=== PATIENT | female | born 1940 | race Caucasian/White ===

== ENCOUNTER 2020-04-30 12:16 | Outpatient (REF) | payer MEDICARE, SELFPAY ==
[2020-04-30 14:13] LABS: INTERNATIONAL NORM RATIO 2.3 (0.9-1.1)
== END 2020-04-30 12:17 | disposition home or self-care (01) ==
LOC: HO.HMGCLR 12:16
PROVIDERS: PCP Internal Medicine; Visit Provider Internal Medicine
DX: I48.91 Unspecified atrial fibrillation (principal)
CPT/HCPCS: 36415; 85610

== ENCOUNTER 2020-05-30 13:40 | Outpatient (REF) | payer MEDICARE, SELFPAY ==
[2020-05-30 16:50] LABS: INTERNATIONAL NORM RATIO 2.8 (0.9-1.1); Prothrombin Time 33.1 SEC (10.8-13.0)
== END 2020-05-30 13:41 | disposition home or self-care (01) ==
LOC: HO.HMGCLR 13:40
PROVIDERS: PCP Internal Medicine; Visit Provider Internal Medicine
DX: I48.91 Unspecified atrial fibrillation (principal)
CPT/HCPCS: 36415; 85610

== ENCOUNTER 2020-07-09 09:18 | Outpatient (REF) | payer MEDICARE, SELFPAY ==
[2020-07-09 11:22] LABS: INTERNATIONAL NORM RATIO 2.4 (0.9-1.1)
== END 2020-07-09 09:19 | disposition home or self-care (01) ==
LOC: HO.HMGCLDS 09:18
PROVIDERS: PCP Internal Medicine; Visit Provider Internal Medicine
DX: I48.91 Unspecified atrial fibrillation (principal); Z79.01 Long term (current) use of anticoagulants
CPT/HCPCS: 36415; 85610

== ENCOUNTER 2020-07-16 10:05 | Outpatient (REF) | payer MEDICARE, SELFPAY ==
[2020-07-16 11:36] LABS: INTERNATIONAL NORM RATIO 1.6 (0.9-1.1); Prothrombin Time 19.1 SEC (10.8-13.0)
== END 2020-07-16 10:06 | disposition home or self-care (01) ==
LOC: HO.HMGCLR 10:05
PROVIDERS: PCP Internal Medicine; Visit Provider Internal Medicine
DX: I48.91 Unspecified atrial fibrillation (principal)
CPT/HCPCS: 36415; 85610

== ENCOUNTER 2020-07-23 11:12 | Outpatient (REF) | payer MEDICARE, SELFPAY ==
[2020-07-23 14:18] LABS: INTERNATIONAL NORM RATIO 2.7 (0.9-1.1); Prothrombin Time 32.6 SEC (10.8-13.0)
== END 2020-07-23 11:13 | disposition home or self-care (01) ==
LOC: HO.HMGCLDS 11:12
PROVIDERS: PCP Internal Medicine; Visit Provider Internal Medicine
DX: I48.91 Unspecified atrial fibrillation (principal)
CPT/HCPCS: 36415; 85610

== ENCOUNTER 2021-02-26 09:06 | Outpatient (REF) | payer MEDICARE, SELFPAY ==
--- NOTE | ~2021-02-26 | MM_ITS ---
EXAMINATION: MM SCREENING DIGITAL BREAST TOMOSYNTHESIS, BILATERAL CLINICAL INFORMATION: Screening. Asymptomatic. The lifetime risk of breast cancer based on the Tyrer-Cuzick Model is 2%. COMPARISON: Mammography: 02/06/2020, 01/31/2019, 11/05/2017 TECHNIQUE: Digital breast tomosynthesis is performed in both the craniocaudal and mediolateral oblique views along with computer-aided detection (CAD). Synthesized 2D images are generated from the tomosynthesis. Additional left MLO view is provided. FINDINGS: The breasts are heterogeneously dense, which may obscure small masses (ACR BI-RADS breast composition Category c). Breast tissue composition pattern borders on extremely dense. There is no mass or architectural abnormality or abnormal calcifications. Pacemaker generator overlies and partly obscures left axilla on MLO view. There are no significant changes from prior studies. MM/MM tomosynthesis screening BI IMPRESSION: No mammographic evidence of malignancy. ASSESSMENT: BI-RADS 1: Negative RECOMMENDATION: Routine annual mammography screening. This patient's information was entered into a reminder system with a target due date for their next mammogram.
== END 2021-02-26 09:07 | disposition home or self-care (01) ==
LOC: HO.MAMMO 09:06
PROVIDERS: PCP Internal Medicine; Visit Provider Internal Medicine
DX: Z12.31 Encounter for screening mammogram for malignant neoplasm of breast (principal)
CPT/HCPCS: 77063; 77067

== ENCOUNTER 2021-04-07 14:08 | Outpatient (REF) | payer MEDICARE, SELFPAY ==
[2021-04-07 16:49] LABS: Prothrombin Time 34.4 SEC (9.9-13.0)
== END 2021-04-07 14:09 | disposition home or self-care (01) ==
LOC: HO.HMGCLR 14:08
PROVIDERS: PCP Internal Medicine; Visit Provider Internal Medicine
DX: I48.91 Unspecified atrial fibrillation (principal)
CPT/HCPCS: 36415; 85610

== ENCOUNTER → 2021-05-19 14:56 | Outpatient (BNVA) | payer MEDICARE, SELFPAY | PROVIDERS: PCP Internal Medicine; Referring Provider Internal Medicine; Visit Provider Internal Medicine Cardiovascular Disease | DX: Z45.018 Encounter for adjustment and management of other part of cardiac pacemaker (principal); Z45.010 Encounter for checking and testing of cardiac pacemaker pulse generator [battery]; I48.0 Paroxysmal atrial fibrillation; I35.0 Nonrheumatic aortic (valve) stenosis; Z95.2 Presence of prosthetic heart valve | CPT/HCPCS: 93005; 99202 ==

== ENCOUNTER 2021-05-25 11:45 | Outpatient (REF) | payer MEDICARE, SELFPAY ==
[2021-05-25 14:05] LABS: INTERNATIONAL NORM RATIO 2.2 (0.9-1.1); Prothrombin Time 24.9 SEC (9.9-13.0)
== END 2021-05-25 11:46 | disposition home or self-care (01) ==
LOC: HO.HMGCLDS 11:45
PROVIDERS: Visit Provider Internal Medicine
DX: I48.91 Unspecified atrial fibrillation (principal)
CPT/HCPCS: 36415; 85610

== ENCOUNTER 2021-05-29 10:52 | Day surgery (SDC) | payer MEDICARE, SELFPAY ==
--- NOTE | 2021-05-28 14:40 | P.CONAN_ITS ---
Documented by User: Estela Sinclair NP 05/28/21 14:43 HPI - Anesthesia Eval Consult details Narrative: 81yo F for Pacemaker Generator Change Pacer in situ for SSS Coumadin for PAF PMFSH Active Problems Active Problems: All Active Problems (Updated 05/28/21 @ 14:26 by Nadine Lowe PA-C) Cardiac pacemaker in situ (Acute ~2009) Paroxysmal atrial fibrillation (Acute) Current use of shelter anticoagulation (Acute) Aortic stenosis (Acute) H/O mitral valve replacement (Acute ~1996) HTN (hypertension) (Acute) Mixed hyperlipidemia (Acute) Elective replacement indicated for cardiac pacemaker battery at end of lifespan (Acute) Past Medical History Medical History Aortic stenosis Cardiac pacemaker in situ (~2009) Current use of terminal gauger supervisor anticoagulation H/O mitral valve replacement (~1996) HTN (hypertension) Mixed hyperlipidemia Osteoporosis (~2005) Paroxysmal atrial fibrillation Sick sinus syndrome (~2009) Family History Family History Father No problems noted. Mother No problems noted. Surgical History Surgical History History of cardiac pacemaker (~2009) History of kyphoplasty (~2011) History of meniscectomy of right knee (~2012) History of mitral valve repair (~1992) History of mitral valve replacement (~1996) History of right knee surgery (~2017) History of ventral hernia repair Social History Social History Patient Tobacco Use Status: Never used Tobacco Second Hand Smoke Exposure: No Use of substances other than those prescribed or required for medical reasons: No Are you DNR?: No Advance Directives: No Advance Directives Information Provided: Yes Advance Directives on File: No Meds Allergies Allergy/AdvReac Type Severity Reaction Status Date / Time Sulfa (Sulfonamide Allergy Unknown UNKNOWN - Verified 05/29/21 11:33 Antibiotics) DOES NOT REMEMBER Home Medications Medication Instructions Recorded Confirmed Last Taken Type alendronate 70 mg tablet 70 mg PO QWEEK 05/19/21 05/19/21 Unknown History cholecalciferol (vitamin D3) 25 25 mcg PO DAILY 05/19/21 05/19/21 Unknown History mcg (1,000 unit) capsule metoprolol tartrate 50 mg tablet 50 mg PO BID 05/19/21 05/19/21 05/29/21 History multivitamin (Daily Multi-Vitamin) 1 tab PO DAILY 05/19/21 05/19/21 Unknown History pravastatin 40 mg tablet 40 mg PO DAILY 05/19/21 05/19/21 Unknown History valsartan 160 mg tablet 160 mg PO DAILY 05/19/21 05/19/21 05/29/21 History vitamin B complex (B 1 tab PO DAILY 05/19/21 05/19/21 Unknown History Complex-Vitamin B12) warfarin 2.5 mg tablet 2.5 mg PO DAILY 05/19/21 05/19/21 05/28/21 17:00 History Exam Exam Date and Time: May 28, 2021 1440 Narrative Narrative: ECHO per cardiac ov note normal LVEF of 50-55% with severely dilated left atrium.? There is mild-to-mo derate aortic stenosis with mean gradient of 17 mmHg.? She had moderate to severe tricuspid regurgitation and [id number] pulmonary hypertension.? Mechanical mitral valve, read as showing moderate to severe mitral regurgitation Pacer Interr 12/2020 Medtronic DDD Pacer Mode VVIR - 60 HYDRAULIC TESTER 99.7% Battery life 5 months Assessment and Plan Assessment Anesthesia Assessment: Chart Reviewed Documented by User: Chey Wilkins MD 05/29/21 12:41 [facility] Past Medical History Medical History Aortic stenosis Cardiac pacemaker in situ (~2009) Current use of terminal gauger supervisor anticoagulation H/O mitral valve replacement (~1996) HTN (hypertension) Mixed hyperlipidemia Osteoporosis (~2005) Paroxysmal atrial fibrillation Sick sinus syndrome (~2009) Family History Family History Father No problems noted. Mother No problems noted. Surgical History Surgical History History of cardiac pacemaker (~2009) History of kyphoplasty (~2011) History of meniscectomy of right knee (~2012) History of mitral valve repair (~1992) History of mitral valve replacement (~1996) History of right knee surgery (~2017) History of ventral hernia repair History of Problems with Anesthesia: No Social History Social History Patient Tobacco Use Status: Never used Tobacco Second Hand Smoke Exposure: No Use of substances other than those prescribed or required for medical reasons: No Are you DNR?: No Advance Directives: No Advance Directives Information Provided: Yes Advance Directives on File: No Meds Allergies Allergy/AdvReac Type Severity Reaction Status Date / Time Sulfa (Sulfonamide Allergy Unknown UNKNOWN - Verified 05/29/21 11:33 Antibiotics) DOES NOT REMEMBER Home Medications Medication Instructions Recorded Confirmed Last Taken Type alendronate 70 mg tablet 70 mg PO QWEEK 05/19/21 05/19/21 Unknown History cholecalciferol (vitamin D3) 25 25 mcg PO DAILY 05/19/21 05/19/21 Unknown History mcg (1,000 unit) capsule metoprolol tartrate 50 mg tablet 50 mg PO BID 05/19/21 05/19/21 05/29/21 History multivitamin (Daily Multi-Vitamin) 1 tab PO DAILY 05/19/21 05/19/21 Unknown History pravastatin 40 mg tablet 40 mg PO DAILY 05/19/21 05/19/21 Unknown History valsartan 160 mg tablet 160 mg PO DAILY 05/19/21 05/19/21 05/29/21 History vitamin B complex (B 1 tab PO DAILY 05/19/21 05/19/21 Unknown History Complex-Vitamin B12) warfarin 2.5 mg tablet 2.5 mg PO DAILY 05/19/21 05/19/21 05/28/21 17:00 History Exam Airway Mallampati Class: II (Edentulous) TM Dist: >3cm Neck ROM: Full Denture: Upper and Lower Loose/Missing/Broken Teeth: Yes, Upper and Lower Heart: RRR Lungs: CTA Assessment and Plan Assessment Anesthesia Assessment: Anesthesia Plan Discussed Final Anesthetic Review History of Problems with Anesthesia: No NPO: Yes ASA Class: III Final Preanesthetic Review: Meds/Allgs Chart Reviewed, Consent Obtained/Reviewed and Anes Risks/Benef Reviewed Patient Risk: Intermediate Procedure Risk: Low Anesthetic Plan Anesthetic Plan: MAC: Disposition: Standard PACU
[2021-05-29 11:14] VITALS: BMI 23.1
[2021-05-29 11:24] VITALS: BP 157/60; PULSE 60; RESP 16; TEMP 36.1; O2SAT 96
[2021-05-29 11:30] LABS: INTERNATIONAL NORM RATIO 2.6 (0.9-1.1); Prothrombin Time 30.3 SEC (9.9-13.0)
[2021-05-29] MEDS: Lactated Ringers 1,000 ML 50 ML IVCONT (11:36)
--- NOTE | 2021-05-29 12:03 | MHC.SHP ---
Pre-Procedural Eval Section A Date of Service: 05/29/21 Section B Chief Complaint: paroxysmal afib,prosthetic heart valve Allergies: Allergies Allergy/AdvReac Type Severity Reaction Status Date / Time Sulfa (Sulfonamide Allergy Unknown UNKNOWN - Verified 05/29/21 11:33 Antibiotics) DOES NOT REMEMBER Plan I have reviewed the history and physical and performed a pertinent physical examination on my patient. No changes have occurred unless specified.
--- NOTE | 2021-05-29 13:31 | W.PM.OPN ---
Operative Note Operative Note Date of Service: 05/29/21 Narrative: Preoperative diagnosis: Pacemaker end of life Postoperative diagnosis: Same Operation: Dual-chamber pacemaker generator change Surgeon: Myron Mcdowell MD Anesthesia: Local with sedation Specimens: None EBL: Minimal Operative findings: The generator were removed was a[Medtronic] with serial number[]. the implanted generator was a Medtronic serial number [id number]. Pacemaker lead parameters were in the atrial lead[ impedance 416 Ohms in atrial flutter with flutter wave 0.3 mV]. In the ventricular lead[ unipolar threshold 1.25 volts at 0.4 milliseconds with an impedance of 418 Ohms and an R-wave of 4.9 mV. This was much better than the threshold at bipolar which was 1.75 volts at 0.4 milliseconds. The ventricular lead was therefore set to unipolar mode]. Patient tolerated the procedure well. Operation in detail: The patient was brought the operating room, placed supine on the operative table, anesthesia monitoring devices were placed, and the patient was gently sedated. The left infraclavicular area was then prepped and draped in a standard sterile fashion and a time-out was performed confirming the correct patient, site, and procedure. After injection of local anesthetic, a 3 cm incision was made directly over the old pacemaker generator which was palpable. This was carried down with combination of sharp dissection and minimal electrocautery to open up the capsule at the generator was within. The generator was were then removed from its pocket and the leads were taken out of the receptacles and placed directly into the new generator. These leads were then tested and were working appropriately. The pocket was then copiously irrigated with antibiotic solution and the excess wire and generator were then placed back into the pocket. The wound was then closed with a deep running 3-0 Vicryl suture followed by running 3-0 Vicryl suture and Dermabond glue on the skin. Patient tolerated the procedure well. Patient was then awoken from anesthesia and brought to the recovery room in stable condition.
[2021-05-29 13:38] VITALS: BP 141/57; PULSE 60; RESP 16; TEMP 36.2; O2SAT 99
[2021-05-29 13:56] VITALS: BP 148/56; PULSE 60; RESP 16; TEMP 36.2; O2SAT 100
== END 2021-05-29 14:34 | disposition home or self-care (01) ==
PROVIDERS: Nurse Practitioner; PCP Internal Medicine; Visit Provider Surgery
PROC: (CPT 33228; principal; 2021-05-29 12:30)
DX: Z45.010 Encounter for checking and testing of cardiac pacemaker pulse generator [battery] (principal); I48.0 Paroxysmal atrial fibrillation; I49.5 Sick sinus syndrome; I35.0 Nonrheumatic aortic (valve) stenosis; I27.20 Pulmonary hypertension, unspecified; I10 Essential (primary) hypertension; I07.1 Rheumatic tricuspid insufficiency; I05.0 Rheumatic mitral stenosis; Z95.2 Presence of prosthetic heart valve; Z79.01 Long term (current) use of anticoagulants; Z79.899 Other long term (current) drug therapy; Z88.2 Allergy status to sulfonamides
CPT/HCPCS: 33228; 36415; 85610; C1785; J2370; J3370; Q9967

== ENCOUNTER → 2021-06-12 10:27 | Outpatient (BNVA) | payer MEDICARE, SELFPAY | PROVIDERS: PCP Internal Medicine; Visit Provider Surgery | DX: Z45.018 Encounter for adjustment and management of other part of cardiac pacemaker (principal); Z79.899 Other long term (current) drug therapy; Z79.01 Long term (current) use of anticoagulants | CPT/HCPCS: 99212 ==

== ENCOUNTER → 2021-07-03 10:56 | Outpatient (BNVA) | payer MEDICARE, SELFPAY | PROVIDERS: PCP Internal Medicine; Visit Provider Surgery | DX: L76.32 Postprocedural hematoma of skin and subcutaneous tissue following other procedure (principal); T81.89XD Other complications of procedures, not elsewhere classified, subsequent encounter; Z79.899 Other long term (current) drug therapy; Z95.0 Presence of cardiac pacemaker | CPT/HCPCS: 99212 ==

== ENCOUNTER 2021-07-27 08:24 | Outpatient (REF) | payer MEDICARE, SELFPAY ==
[2021-07-27 11:51] LABS: INTERNATIONAL NORM RATIO 2.1 (0.9-1.1); Prothrombin Time 24.7 SEC (9.9-13.0)
== END 2021-07-27 08:25 | disposition home or self-care (01) ==
LOC: HO.HMGCLDS 08:24
PROVIDERS: Visit Provider Internal Medicine
DX: I48.91 Unspecified atrial fibrillation (principal)
CPT/HCPCS: 36415; 85610

== ENCOUNTER → 2021-08-05 15:12 | Outpatient (REF) | payer MEDICARE, SELFPAY ==
--- NOTE | 2021-08-05 15:15 | CA_ITS ---
Transthoracic Echocardiogram Patient (Last, First, Middle): Bethany Viveros M Gender: Female Date of : 1940 Age: 81 Procedure Date: 08/05/2021 Procedure Type: Transthoracic Echocardiogram Location: OP Height: 149.86 cm Weight: 53.98 kg BSA: 1.48 m2 Heart Rate: bpm BP: 182 / 84 mmHg Subscription Crew Leader: MEGAN Referring MD: Agustin Luke MD Allopathic Doctor: Agustin Luke MD Symptoms: I35.0 - Nonrheumatic aortic (valve) stenosis Study Quality: Good ECG Rhythm: Ventriculary paced rhythm Conclusions: - 1. Normal LV systolic function with LVEF of 55-60% 2. Severely dilated left atrium 3. Normally functioning mechanical mitral valve with mean gradient of 3 mmHg 4. Possible moderate aortic stenosis 5. Moderately elevated right ventricular systolic pressure 6. No gross pericardial effusion Findings Left Ventricle Normal left ventricular size, thickness, and systolic function. The visually estimated ejection fraction is between 55-60%. There is paradoxical septal motion consistent with a right ventricular pacemaker. Spectral Doppler is indicative of a pseudonormal filling pattern. Right Ventricle Moderately increased right ventricular cavity size. There is mildly decreased right ventricular systolic function. Atria The left atrium is severely dilated. There is no evidence of interatrial shunt. The right atrium is moderately dilated. Aortic Valve There is mild calcification of the aortic valve. There is moderate thickening of the aortic valve. There is moderate aortic valve stenosis. The peak aortic gradient is 24 mmHg.The mean gradient is 12 mmHg. There is mild aortic valve regurgitation. Measured gradient across aortic valve are low although calculated valve area is in the severe range. Dimensionless index is 0.32. This is more consistent with probably moderate stenosis Mitral Valve A mechanical prosthetic mitral valve is present. The prosthetic mitral valve appears to be functioning normally. The mitral valve was not well visualized. The mean mitral valve gradient is 3.00 mmHg. Tricuspid Valve Likely normal tricuspid valve structure and function. There is mild to moderate tricuspid valve regurgitation. The right ventricular systolic pressure is normal. Moderate pulmonary hypertension is present. Great Vessels All visible segments of the aorta are normal in size. The pulmonary artery was not well visualized. Venous The inferior vena cava is normal in size and collapses greater than 50% with inspiration. Pericardium/Pleural There is no evidence of pericardial effusion. Prior Study Comparison No significant change compared to prior study dated: 04/02/2019. Measurements 2D Linear Measurements IVSd: 1.03 0.6-0.9/0.6-1.0 cm LVIDd: 4.95 3.9-5.3/4.2-5.9 cm LVIDd Index: 3.34 2.4-3.2/2.2-3.1 cm/m2 LVIDs: 2.60 2.0-3.6 cm LVPWd: 1.22 0.7-1.1 cm Ao Root: 2.60 2.1-3.5 cm LA Diam: 4.70 2.7-3.8/3.0-4.0 cm LAIDs Index: 3.18 1.5-2.3 cm/m2 LV Mass: 262.04 67-162/88-224 g LV Mass Index: 177.05 43-95/49-115 g/m2 LVOT Diam: 1.80 3.0+(-)1.3 cm 2D Systolic Function EF 4C: 60.90 >55% EF 2C: 55.10 >55% EF BiP: 58.00 >55% Mitral Valve MV VTI: 0.47 MV Pk Cortez: 1.98 MV Mn Cortez: 1.10 MV Pk Grad: 16.00 MV Mn Grad: 6.00 E'Lateral: 5.11 E'Medial: 4.68 MVA Continuity: 1.12 Aortic Valve AoV Pk Cortez: 2.46 AoV Mn Cortez: 1.64 AoV VTI: 0.63 AoV Pk Grad: 24.00 Aov Mn Grad: 12.00 WILLIAM Cont.VTI: 0.84 AI Pk Cortez: 4.34 AI Stonewall: 2.37 LVOT LVOT Pk Cortez: 0.83 LVOT Mn Cortez: 0.61 LVOT VTI: 0.21 LVOT Pk Grad: 3.00 LVOT Mn Grad: 2.00 LVOT Diam: 1.80 LVOT Area: 2.54 Diastolic Function E'Medial: 4.68 E' Laterial: 5.11 Right Ventricle TAPSE (mm): 15.20 TVS' Cortez: 7.72 Tricuspid Valve TR Pk Cortez: 3.41 TR Pk Grad: 47.00 RA Press: 3.00 RVSP: 50.00 Great Vessels Aorta Ao Root-2D: 2.60 2.0-3.7 cm Ao Asc: 3.00 2.1-3.4 cm Ao Arch: 3.30 Updated in Other Vendor System with Status of Final Agustin Luke MD electronically signed on 08/06/2021 8:32:39 AM with status of Final
== END ==
LOC: HO.CARD 15:12
PROVIDERS: PCP Internal Medicine; Visit Provider Internal Medicine Cardiovascular Disease
DX: I35.0 Nonrheumatic aortic (valve) stenosis (principal); I48.0 Paroxysmal atrial fibrillation; Z95.2 Presence of prosthetic heart valve
CPT/HCPCS: 93306

== ENCOUNTER → 2021-08-10 15:01 | Outpatient (BNVA) | payer MEDICARE, SELFPAY | PROVIDERS: PCP Internal Medicine; Referring Provider Internal Medicine; Visit Provider Internal Medicine Cardiovascular Disease | DX: Z45.018 Encounter for adjustment and management of other part of cardiac pacemaker (principal); I48.19 Other persistent atrial fibrillation; I35.0 Nonrheumatic aortic (valve) stenosis; Z95.2 Presence of prosthetic heart valve | CPT/HCPCS: 99212 ==

== ENCOUNTER 2021-09-02 10:22 | Outpatient (REF) | payer MEDICARE, SELFPAY ==
[2021-09-02 11:43] LABS: INTERNATIONAL NORM RATIO 3.2 (0.9-1.1); Prothrombin Time 37.5 SEC (9.9-13.0)
== END 2021-09-02 10:23 | disposition home or self-care (01) ==
LOC: HO.HMGCLDS 10:22
PROVIDERS: Visit Provider Internal Medicine
DX: I48.91 Unspecified atrial fibrillation (principal)
CPT/HCPCS: 36415; 85610

== ENCOUNTER 2021-09-09 10:41 | Outpatient (REF) | payer MEDICARE, SELFPAY ==
[2021-09-09 17:55] LABS: INTERNATIONAL NORM RATIO 2.4 (0.9-1.1); Prothrombin Time 27.8 SEC (9.9-13.0)
== END 2021-09-09 10:42 | disposition home or self-care (01) ==
LOC: HO.HMGCLDS 10:41
PROVIDERS: PCP Internal Medicine; Visit Provider Internal Medicine
DX: I48.91 Unspecified atrial fibrillation (principal)
CPT/HCPCS: 36415; 85610

== ENCOUNTER 2021-10-08 09:50 | Outpatient (REF) | payer MEDICARE, SELFPAY ==
[2021-10-08 11:31] LABS: INTERNATIONAL NORM RATIO 2.3 (0.9-1.1); Prothrombin Time 26.5 SEC (9.9-13.0)
== END 2021-10-08 09:51 | disposition home or self-care (01) ==
LOC: HO.HMGCLR 09:50
PROVIDERS: Visit Provider Internal Medicine
DX: I48.91 Unspecified atrial fibrillation (principal)
CPT/HCPCS: 36415; 85610

== ENCOUNTER 2021-11-10 09:07 | Outpatient (REF) | payer MEDICARE, SELFPAY ==
[2021-11-10 11:34] LABS: INTERNATIONAL NORM RATIO 2.1 (0.9-1.1); Prothrombin Time 23.7 SEC (9.9-13.0)
== END 2021-11-10 09:08 | disposition home or self-care (01) ==
LOC: HO.HMGCLR 09:07
PROVIDERS: PCP Internal Medicine; Visit Provider Internal Medicine
DX: I48.91 Unspecified atrial fibrillation (principal)
CPT/HCPCS: 36415; 85610

== ENCOUNTER 2021-12-14 11:51 | Outpatient (REF) | payer MEDICARE, SELFPAY | END 2021-12-14 11:52 | disposition home or self-care (01) | LOC: HO.HMGCLR 11:51 | PROVIDERS: Visit Provider Internal Medicine | DX: I48.91 Unspecified atrial fibrillation (principal) | CPT/HCPCS: 36415; 85610 ==

== ENCOUNTER 2022-01-21 10:35 | Outpatient (REF) | payer MEDICARE, SELFPAY ==
[2022-01-21 13:55] LABS: INTERNATIONAL NORM RATIO 2.3 (0.9-1.1); Prothrombin Time 27.3 SEC (10.0-13.1)
== END 2022-01-21 10:36 | disposition home or self-care (01) ==
LOC: HO.HMGCLDS 10:35
PROVIDERS: Visit Provider Internal Medicine
DX: I48.91 Unspecified atrial fibrillation (principal)
CPT/HCPCS: 36415; 85610

== ENCOUNTER → 2022-01-27 12:57 | Outpatient (REF) | payer MEDICARE, SELFPAY ==
--- NOTE | 2022-01-27 13:01 | CA_ITS ---
Transthoracic Echocardiogram Patient (Last, First, Middle): Bethany Viveros M Gender: Female Date of : 1940 Age: 81 Procedure Date: 01/27/2022 Procedure Type: Transthoracic Echocardiogram Location: OP Height: 149.86 cm Weight: 52.16 kg BSA: 1.46 m2 Heart Rate: bpm BP: 140 / 90 mmHg Collections Technician: TO Referring MD: Agustin Luke MD Symptoms: I35.0 - Nonrheumatic aortic (valve) stenosis Study Quality: Adequate Conclusions: - 1. Mildly reduced LV systolic function with LVEF of 45-50% 2. Severe biatrial enlargement 3. Possible severe aortic stenosis with mean gradient of 13 mmHg consistent with paradoxical low-flow aortic stenosis 4. Mildly elevated right ventricular systolic pressure 5. No gross pericardial effusion Findings Left Ventricle Normal left ventricular cavity size. There is normal left ventricular wall thickness. The left ventricular systolic function is mildly decreased. The visually estimated ejection fraction is between 45-50%. There is paradoxical septal motion consistent with a right ventricular pacemaker. Diastolic function is indeterminate on the basis of available data. Right Ventricle Mildly increased right ventricular cavity size. There is borderline right ventricular systolic function. There is a pacemaker wire seen in the right ventricle. Atria The left atrium is severely dilated. The right atrium is severely dilated. Aortic Valve There is moderate calcification of the aortic valve. There is severe aortic valve stenosis. The peak aortic gradient is 27 mmHg.The mean gradient is 13 mmHg. There is mild aortic valve regurgitation. gradient across aortic valve are in the jibc-zh-jslrjgyb range although dimensionless index is 0.20 which is consistent with severe aortic stenosis, With significantly reduced stroke volume Mitral Valve A mechanical prosthetic mitral valve is present. The prosthetic mitral valve appears to be functioning normally. There is no mitral valve regurgitation. Pulmonic Valve The pulmonic valve is likely normal. There is trace to mild pulmonic valve regurgitation. Tricuspid Valve Normal tricuspid valve structure. There is mild to moderate tricuspid valve regurgitation. Normal right atrial pressure. Mild pulmonary hypertension is present. Great Vessels All visible segments of the aorta are normal in size. The pulmonary artery was not well visualized. Venous The inferior vena cava is normal in size and collapses greater than 50% with inspiration. Pericardium/Pleural There is no evidence of pericardial effusion. Prior Study Comparison Changes noted compared to prior study dated: 08/05/2021. LV systolic function is reduced. Aortic stenosis appears to be severe although gradients are in uhbr-rj-[id number] severity range Measurements 2D Linear Measurements IVSd: 1.00 0.6-0.9/0.6-1.0 cm LVIDd: 4.80 3.9-5.3/4.2-5.9 cm LVIDd Index: 3.29 2.4-3.2/2.2-3.1 cm/m2 LVIDs: 3.21 2.0-3.6 cm LVPWd: 1.08 0.7-1.1 cm LA Diam: 5.90 2.7-3.8/3.0-4.0 cm LAIDs Index: 4.04 1.5-2.3 cm/m2 LV Mass: 223.38 67-162/88-224 g LV Mass Index: 153.00 43-95/49-115 g/m2 LVOT Diam: 2.00 3.0+(-)1.3 cm 2D Systolic Function EF 4C: 40.20 >55% EF 2C: 41.60 >55% Mitral Valve MV VTI: 0.44 MV Pk Cortez: 1.52 MV Mn Cortez: 0.81 MV Pk Grad: 9.00 MV Mn Grad: 3.00 MV Pk E: 1.60 MV Decel Time: 255.00 E'Lateral: 6.96 E'Medial: 5.11 E/E' Med: 31.30 E/E' Lat: 23.00 PHT: 75.00 MVA PHT: 2.93 MVA Continuity: 0.91 Decel Brantley: 6.27 Aortic Valve AoV Pk Cortez: 2.61 AoV Mn Cortez: 1.68 AoV VTI: 0.63 AoV Pk Grad: 27.00 Aov Mn Grad: 13.00 WILLIAM Cont.VTI: 0.64 AI Pk Cortez: 4.29 AI Brantley: 2.33 LVOT LVOT Pk Cortez: 0.57 LVOT Mn Cortez: 0.38 LVOT VTI: 0.13 LVOT Pk Grad: 1.00 LVOT Mn Grad: 1.00 LVOT Diam: 2.00 LVOT Area: 3.14 Diastolic Function MV Pk E: 1.60 E'Medial: 5.11 E/E' Med: 31.30 E' Laterial: 6.96 E/E' Lat: 23.00 Right Ventricle TAPSE (mm): 17.10 TVS' Cortez: 6.74 Tricuspid Valve TR Pk Cortez: 3.22 TR Pk Grad: 41.00 RA Press: 3.00 RVSP: 44.00 Great Vessels Aorta Sinus of Valsalva: 2.95 2.0-3.5 cm Ao Asc: 3.10 2.1-3.4 cm Updated in Other Vendor System with Status of Final Agustin Luke MD electronically signed on 01/28/2022 5:35:57 PM with status of Final
== END ==
LOC: HO.CARD 12:57
PROVIDERS: PCP Internal Medicine; Visit Provider Internal Medicine Cardiovascular Disease
DX: I35.0 Nonrheumatic aortic (valve) stenosis (principal)
CPT/HCPCS: 93306

== ENCOUNTER 2022-02-02 08:40 | Outpatient (REF) | payer MEDICARE, SELFPAY ==
[2022-02-02 11:28] LABS: MANUAL DIFF FLAG NO
[2022-02-02 11:31] LABS: Basophils Percent Auto 0.7 % (0-2); Eosinophils Absolute Auto 0.1 X10*3/uL (0.0-0.4); Eosinophils Percent Auto 1.2 % (0-4); Hemoglobin 12.4 g/dl (12.0-16.0); Imm Gran Abs Auto 0.01 X10*3/uL (0.00-0.03); Imm Gran Pct Auto 0.2 % (0.0-0.4); Lymphocytes Absolute Auto 1.4 X10*3/uL (1.2-4.9); Lymphocytes Percent Auto 24.5 % (20-40); Mean Corpuscular HGB Conc 32.6 g/dl (31.0-35.0); Mean Corpuscular Hemoglobin 31.5 pg (27.0-33.0); Mean Corpuscular Volume 96.4 fL (80.0-98.0); Monocytes Absolute Auto 0.8 X10*3/uL (0.1-1.2); Monocytes Percent Auto 13.3 % (2-11); Neutrophils Absolute Auto 3.5 x10*3/uL (2.0-8.3); Neutrophils Percent Auto 60.1 % (45-73); Platelet Count 217 X10*3/uL (160-400); Red Blood Count 3.94 X10*6/uL (4.20-5.50); Red Cell Distribution Width 13.2 % (11.0-16.0); White Blood Count 5.9 X10*3/uL (4.8-10.8)
[2022-02-02 11:50] LABS: Alanine Aminotransferase 23 U/L (0-31); Albumin Level 4.4 g/dL (3.5-5.0); Alkaline Phosphatase 67 U/L (39-117); Anion Gap 15 (12-20); Aspartate Amino Transferase 30 U/L (5-31); Bilirubin Direct 0.6 mg/dL (0.0-0.5); Bilirubin Total 1.7 mg/dL (0.0-1.0); Blood Urea Nitrogen 17 mg/dL (9-16); Carbon Dioxide 26 mmol/L (22-29); Chloride 105 mmol/L (96-108); Cholesterol 140 mg/dL; Estimated Glomerular Filt Rate > 60; Glucose Fasting 82 mg/dL (60-99); HDL Cholesterol 52 mg/dL; LDL Cholesterol Calculated 76 mg/dl; Potassium 4.6 mmol/L (3.3-5.1); Sodium 141 mmol/L (135-145); Total Protein 7.4 g/dL (6.5-8.0); Triglycerides 62 mg/dL
== END 2022-02-02 08:41 | disposition home or self-care (01) ==
LOC: HO.HMGCLDS 08:40
PROVIDERS: PCP Internal Medicine; Visit Provider Internal Medicine
DX: R53.83 Other fatigue (principal); E78.5 Hyperlipidemia, unspecified
CPT/HCPCS: 36415; 80051; 80061; 80076; 82565; 82947; 84520; 85025

== ENCOUNTER 2022-02-09 15:21 | Outpatient (REF) | payer MEDICARE, SELFPAY ==
[2022-02-09 16:28] LABS: Hematocrit 36.6 % (37.0-47.0); Hemoglobin 12.2 g/dl (12.0-16.0); Mean Corpuscular HGB Conc 33.3 g/dl (31.0-35.0); Mean Corpuscular Hemoglobin 31.9 pg (27.0-33.0); Mean Corpuscular Volume 95.8 fL (80.0-98.0); Mean Platelet Volume 9.4 fL (9.4-12.3); Platelet Count 197 X10*3/uL (160-400); Red Blood Count 3.82 X10*6/uL (4.20-5.50); Red Cell Distribution Width 13.5 % (11.0-16.0)
[2022-02-09 17:15] LABS: Anion Gap 15 (12-20); Blood Urea Nitrogen 20 mg/dL (9-16); Calcium 9.3 mg/dL (8.4-10.2); Carbon Dioxide 24 mmol/L (22-29); Chloride 106 mmol/L (96-108); Estimated Glomerular Filt Rate > 60; Glucose Random 96 mg/dL (60-115); Potassium 5.3 mmol/L (3.3-5.1); Sodium 140 mmol/L (135-145)
== END 2022-02-09 15:22 | disposition home or self-care (01) ==
LOC: HO.LAB 15:21
PROVIDERS: PCP Internal Medicine; Referring Provider Internal Medicine; Visit Provider Internal Medicine Cardiovascular Disease
DX: I35.0 Nonrheumatic aortic (valve) stenosis (principal); I48.0 Paroxysmal atrial fibrillation; Z95.0 Presence of cardiac pacemaker; Z95.2 Presence of prosthetic heart valve
CPT/HCPCS: 36415; 80048; 85027; 85610; 93005; 93280; 99212

== ENCOUNTER 2022-02-26 09:44 | Outpatient (REF) | payer MEDICARE, SELFPAY ==
[2022-02-26 10:54] LABS: INTERNATIONAL NORM RATIO 2.6 (0.9-1.1); Prothrombin Time 31.3 SEC (10.0-13.1)
== END 2022-02-26 09:45 | disposition home or self-care (01) ==
LOC: HO.LAB 09:44
PROVIDERS: PCP Internal Medicine; Visit Provider Internal Medicine Cardiovascular Disease
DX: I48.0 Paroxysmal atrial fibrillation (principal)
CPT/HCPCS: 36415; 85610

== ENCOUNTER 2022-03-06 09:02 | Outpatient (REF) | payer MEDICARE, SELFPAY ==
[2022-03-06 11:28] LABS: INTERNATIONAL NORM RATIO 1.1 (0.9-1.1)
== END 2022-03-06 09:03 | disposition home or self-care (01) ==
LOC: HO.LAB 09:02
PROVIDERS: Internal Medicine Cardiovascular Disease; PCP Internal Medicine; Visit Provider Internal Medicine Cardiovascular Disease
DX: Z13.89 Encounter for screening for other disorder (principal)
CPT/HCPCS: 36415; 85610

== ENCOUNTER 2022-03-08 04:54 | Emergency (ER) | payer MEDICARE, SELFPAY ==
[2022-03-08 05:26] VITALS: BP 169/68; PULSE 69; RESP 16; TEMP 36.6; O2SAT 95; BMI 22.0
--- NOTE | 2022-03-08 07:56 | ED.GENADULT ---
HPI - General Adult General Chief complaint: General Medical Stated complaint: non healing wound, Time Seen by Provider: 03/08/22 07:56 Source: patient and family (Daughter) Mode of arrival: ambulatory Limitations: no limitations History of Present Illness HPI narrative: 81-year-old female came in for evaluation of bleeding from her radial puncture 5 days ago. 81-year-old female on anticoagulation therapy for metallic mitral valve and PAF, patient went into diagnostic cardiac angiogram via right radial artery 5 days ago, patient returned here today for bleeding from the puncture site at the right radial artery, pressure dressing was applied in the emergency department which stopped the bleeding, patient currently is on Coumadin and Lovenox INR was 1 2 days ago. Patient declined CP, no lightheadedness, no dizziness. Related Data Home Medications Medication Instructions Recorded Confirmed alendronate 70 mg tablet 70 mg PO QWEEK 05/19/21 02/09/22 cholecalciferol (vitamin D3) 25 25 mcg PO DAILY 05/19/21 02/09/22 mcg (1,000 unit) capsule metoprolol tartrate 50 mg tablet 50 mg PO BID 05/19/21 02/09/22 multivitamin (Daily Multi-Vitamin 1 tab PO DAILY 05/19/21 02/09/22 tablet) pravastatin 40 mg tablet 40 mg PO DAILY 05/19/21 02/09/22 valsartan 160 mg tablet 160 mg PO DAILY 05/19/21 02/09/22 vitamin B complex (B 1 tab PO DAILY 05/19/21 02/09/22 Complex-Vitamin B12 tablet) warfarin 2.5 mg tablet 2.5 mg PO DAILY 05/19/21 02/09/22 Previous Rx's Medication Instructions Recorded enoxaparin 100 mg/mL subcutaneous 50 mg (0.5 mL) subcut Q12H #5 mL 03/06/22 syringe (Lovenox) Allergies Allergy/AdvReac Type Severity Reaction Status Date / Time Sulfa (Sulfonamide Allergy Unknown UNKNOWN - Verified 07/03/21 11:03 Antibiotics) DOES NOT REMEMBER Review of Systems Review of Systems: All other systems are reviewed and are negative Constitutional: Reports as per HPI and Reports no additional constitutional complaints Eyes: Reports as per HPI and Reports no additional eye complaints Reports system reviewed and no additional complaints, except as documented Cardiovascular: Reports as per HPI and Reports no additional cardiovascular complaints Respiratory: Reports as per HPI and Reports no additional respiratory complaints Gastrointestinal: Reports as per HPI and Reports no additional gastrointestinal complaints Genitourinary: Reports no additional female genitourinary complaints Musculoskeletal: Reports no additional musculoskeletal complaints Skin/Breast: Reports system reviewed and no additional complaints, except as docu Psychiatric: Reports no additional psychiatric complaints Endocrine: Reports no additional endocrine complaints Hematologic/Lymphatic: Reports no additional hematologic/lymphatic complaints Allergic/Immunologic: Reports no additional allergic/immunologic complaints Reports system reviewed and no additional complaints, except as documented and Reports Abnormal speech present [facility] Past Medical History Medical History Aortic stenosis Cardiac pacemaker in situ (~2009) Current use of long term care phlebotomist anticoagulation H/O mitral valve replacement (~1996) HTN (hypertension) Mixed hyperlipidemia Osteoporosis (~2005) Paroxysmal atrial fibrillation Persistent atrial fibrillation Sick sinus syndrome (~2009) Surgical History History of cardiac pacemaker (~2009) History of kyphoplasty (~2011) History of meniscectomy of right knee (~2012) History of mitral valve repair (~1992) History of mitral valve replacement (~1996) History of right knee surgery (~2017) History of ventral hernia repair Family History Family History Father No problems noted. Mother No problems noted. Social History Social History Alcohol intake: never Patient Tobacco Use Status: Never used Tobacco Second Hand Smoke Exposure: No Use of substances other than those prescribed or required for medical reasons: No Advance Directives: Yes Advance Directives Information Provided: No Advance Directives on File: No Physical Exam ED Vital Signs: Vital Signs - 24 hr 03/08/22 05:26 03/08/22 08:06 Temperature 97.8 F Pulse Rate 69 59 Respiratory Rate 16 16 Blood Pressure 169/68 H 175/61 H Pulse Oximetry 95 95 Oxygen Delivery Method Room Air Room Air BMI result Body Mass Index 22.0 Vital signs have been reviewed as appeared to be correct. Blood pressure normal. Heart rate normal. Respiration rate normal. Temperature normal. Oxygen saturation normal. Appearance: Alert. Oriented X3. No acute distress. Head: Normal external exam. Normocephalic. Atraumatic. No Ugarte signs noted. No raccoon eyes noted Eyes: PERRLA. EOMI. Conjunctiva and sclera normal. Eyelids normal. ENT: TM's Normal. Pharynx normal. Uvula midline. Moist mucous membranes. No trismus noted. No drooling noted. No muffled voice noted. Neck: Normal inspection. Neck supple. FROM. No adenopathy. Thyroid Normal. No meningeal signs. No neck mass noted. CVS: Normal heart rate and rhythm. Heart sound normal. No murmurs noted. Pulses normal throughout. Respiratory: No respiratory distress. Painless inspiration. Breath sounds normal. No wheezes/rales/rhonchi noted. Chest nontender. No accessory muscle usage noted or decreased air movement noted. Abdomen: Soft and nontender. Bowel sounds normal in all 4 quadrants. No distention noted. No organomegaly noted. No visible injury noted. Back: No CVA tenderness. Full range of motion noted. Skin: Skin warm and dry. Normal skin color. Normal skin turgor. No rashes/lesions/lacerations noted. Extremities: Right radial exam, intact right radial pulse, puncture site appear dry and clean, no active bleeding, no ischemic change in the right hand. Neuro: Oriented X 3. Cranial nerve exam: II-XII are grossly intact No motor deficit. No sensory deficit. Reflexes normal. Course Course Course Narrative: 81-year-old female came in after bleeding from puncture site at the right radial artery after having cardiac angiogram 4 days ago, patient currently is on Coumadin and Lovenox, INR today is 1.2 patient and daughter was instructed to continue with Lovenox until INR get to a therapeutic value of 2-3 this is managed by PCP patient scheduled to have repeat INR check tomorrow., pressure dressing was applied to the right radial artery and patient was educated have to stop the bleeding and seek immediate medical attention if any active bleeding. Was instructed to drink plenty of fluid because BUN elevation and recent angiogram. Medical Decision Making Lab Data Lab results reviewed: Yes I reviewed the patient's lab results. Result diagrams: 03/08/22 08:24 03/08/22 08:24 Labs: Lab Results 03/08/22 03/08/22 03/08/22 Range/Units 08:24 08:24 08:24 WBC 6.8 (4.8-10.8) X10*3/uL RBC 3.68 L (4.20-5.50) X10*6/uL Hgb 11.6 L (12.0-16.0) g/dl Hct 35.0 L (37.0-47.0) % MCV 95.1 (80.0-98.0) fL MCH 31.5 (27.0-33.0) pg MCHC 33.1 (31.0-35.0) g/dl RDW 13.7 (11.0-16.0) % Plt Count 201 (160-400) X10*3/uL MPV 9.0 L (9.4-12.3) fL Immature Gran % (Auto) 0.3 (0.0-0.4) % Neut % (Auto) 63.6 (45-73) % Lymph % (Auto) 21.9 (20-40) % Laporte % (Auto) 12.1 H (2-11) % Eos % (Auto) 1.5 (0-4) % Baso % (Auto) 0.6 (0-2) % Lymph # (Auto) 1.5 (1.2-4.9) X10*3/uL [place] # (Auto) 0.8 (0.1-1.2) X10*3/uL Eos # (Auto) 0.1 (0.0-0.4) X10*3/uL Baso # (Auto) 0.0 (0.0-0.2) X10*3/uL Abs Immat Gran (auto) 0.02 (0.00-0.03) X10*3/uL Absolute Neuts (auto) 4.3 (2.0-8.3) x10*3/uL Absolute Nucleated RBC 0.000 (0.0-0.012) X10*3/uL Nucleated RBC % (auto) 0.0 (0.0-0.2) /100WBC PT 14.3 H (10.0-13.1) SEC INR 1.2 H (0.9-1.1) APTT 56.2 H (26.0-36.4) SEC Sodium 141 (135-145) mmol/L Potassium 4.6 (3.3-5.1) mmol/L Chloride 106 (96-108) mmol/L Carbon Dioxide 26 (22-29) mmol/L Anion Gap 14 (12-20) BUN 25 H (9-16) mg/dL Creatinine 0.74 (0.5-1.4) mg/dL Estim Creat Clear Calc 42.1 Estimated GFR > 60 Random Glucose 98 (60-115) mg/dL Calcium 9.5 (8.4-10.2) mg/dL Discharge Plan Discharge Clinical Impression: Postprocedural hemorrhage of skin and subcutaneous tissue after non-dermatologic procedure Patient Disposition: Home, Self-Care Instructions: Postoperative Bleeding (ED) Additional Instructions: Drink plenty fluids to help except create the intravenous dye was injected in the procedure. Which is a dressing if any active bleeding apply pressure for 10 minutes and call 911. Prescriptions: No Action enoxaparin [Lovenox] 100 mg/mL syringe 50 mg subcut Q12H Qty: 5 1RF valsartan 160 mg tablet 160 mg PO DAILY warfarin 2.5 mg tablet 2.5 mg PO DAILY alendronate 70 mg tablet 70 mg PO QWEEK pravastatin 40 mg tablet 40 mg PO DAILY metoprolol tartrate 50 mg tablet 50 mg PO BID multivitamin [Daily Multi-Vitamin] Tablet 1 tab PO DAILY cholecalciferol (vitamin D3) 25 mcg (1,000 unit) capsule 25 mcg PO DAILY vitamin B complex [B Complex-Vitamin B12] Tablet 1 tab PO DAILY Referrals: Kana Ponce MD [Primary Care Provider] -
[2022-03-08 08:06] VITALS: BP 175/61; PULSE 59; RESP 16; O2SAT 95
--- NOTE | 2022-03-08 08:11 | PC.NURSE ---
pt is a/o x 4 no sob/zuleima noted.. lungs - cta. speaks in full sentences. heart sound regular. pt has a large bruising/discoloration to l deltoid and r upper abd. pt's daughter at bedside states that pt has multiple bruising to gen body because pt is on coumadin. pt did not take her b/p meds this am. no edema noted. no bleeding to r inner radial site post procedure. pt seen by md. pt/daughter aware of plan of care.
[2022-03-08 08:29] LABS: MANUAL DIFF FLAG NO
[2022-03-08 08:31] LABS: Basophils Percent Auto 0.6 % (0-2); Eosinophils Absolute Auto 0.1 X10*3/uL (0.0-0.4); Eosinophils Percent Auto 1.5 % (0-4); Hemoglobin 11.6 g/dl (12.0-16.0); Imm Gran Abs Auto 0.02 X10*3/uL (0.00-0.03); Imm Gran Pct Auto 0.3 % (0.0-0.4); Lymphocytes Absolute Auto 1.5 X10*3/uL (1.2-4.9); Lymphocytes Percent Auto 21.9 % (20-40); Mean Corpuscular HGB Conc 33.1 g/dl (31.0-35.0); Mean Corpuscular Hemoglobin 31.5 pg (27.0-33.0); Mean Corpuscular Volume 95.1 fL (80.0-98.0); Monocytes Absolute Auto 0.8 X10*3/uL (0.1-1.2); Monocytes Percent Auto 12.1 % (2-11); Neutrophils Absolute Auto 4.3 x10*3/uL (2.0-8.3); Neutrophils Percent Auto 63.6 % (45-73); Platelet Count 201 X10*3/uL (160-400); Red Blood Count 3.68 X10*6/uL (4.20-5.50); Red Cell Distribution Width 13.7 % (11.0-16.0); White Blood Count 6.8 X10*3/uL (4.8-10.8)
[2022-03-08 08:39] LABS: INTERNATIONAL NORM RATIO 1.2 (0.9-1.1); Prothrombin Time 14.3 SEC (10.0-13.1)
[2022-03-08 08:42] LABS: Partial Thromboplastin Time 56.2 SEC (26.0-36.4)
[2022-03-08 09:01] LABS: Anion Gap 14 (12-20); Blood Urea Nitrogen 25 mg/dL (9-16); Calcium 9.5 mg/dL (8.4-10.2); Carbon Dioxide 26 mmol/L (22-29); Chloride 106 mmol/L (96-108); Creatinine Clr Calc Pharmacy 42.1; Estimated Glomerular Filt Rate > 60; Glucose Random 98 mg/dL (60-115); Potassium 4.6 mmol/L (3.3-5.1); Sodium 141 mmol/L (135-145)
== END 2022-03-08 09:51 | disposition home or self-care (01) ==
PROVIDERS: Emergency Provider Emergency Medicine; PCP Internal Medicine
DX: L76.22 Postprocedural hemorrhage of skin and subcutaneous tissue following other procedure (principal); I10 Essential (primary) hypertension; I48.0 Paroxysmal atrial fibrillation; Z95.0 Presence of cardiac pacemaker; Z79.01 Long term (current) use of anticoagulants
CPT/HCPCS: 36415; 80048; 85025; 85610; 85730; 99283; 99284

== ENCOUNTER 2022-03-09 10:27 | Outpatient (REF) | payer MEDICARE, SELFPAY ==
[2022-03-09 11:45] LABS: INTERNATIONAL NORM RATIO 1.4 (0.9-1.1); Prothrombin Time 16.1 SEC (10.0-13.1)
== END 2022-03-09 10:28 | disposition home or self-care (01) ==
LOC: HO.HMGCLR 10:27
PROVIDERS: PCP Internal Medicine; Visit Provider Internal Medicine
DX: I48.91 Unspecified atrial fibrillation (principal)
CPT/HCPCS: 36415; 85610

== ENCOUNTER 2022-03-10 10:15 | Outpatient (REF) | payer MEDICARE, SELFPAY ==
[2022-03-10 11:38] LABS: INTERNATIONAL NORM RATIO 1.4 (0.9-1.1); Prothrombin Time 15.9 SEC (10.0-13.1)
== END 2022-03-10 10:16 | disposition home or self-care (01) ==
LOC: HO.HMGCLDS 10:15
PROVIDERS: PCP Internal Medicine; Visit Provider Internal Medicine
DX: I48.91 Unspecified atrial fibrillation (principal)
CPT/HCPCS: 36415; 85610

== ENCOUNTER 2022-03-11 10:55 | Outpatient (REF) | payer MEDICARE, SELFPAY ==
[2022-03-11 13:59] LABS: MANUAL DIFF FLAG NO
[2022-03-11 14:07] LABS: Basophils Percent Auto 0.6 % (0-2); Eosinophils Absolute Auto 0.1 X10*3/uL (0.0-0.4); Eosinophils Percent Auto 1.4 % (0-4); Hematocrit 37.3 % (37.0-47.0); Imm Gran Abs Auto 0.02 X10*3/uL (0.00-0.03); Imm Gran Pct Auto 0.3 % (0.0-0.4); Lymphocytes Absolute Auto 1.2 X10*3/uL (1.2-4.9); Lymphocytes Percent Auto 17.9 % (20-40); Mean Corpuscular HGB Conc 32.2 g/dl (31.0-35.0); Mean Corpuscular Hemoglobin 31.3 pg (27.0-33.0); Mean Corpuscular Volume 97.1 fL (80.0-98.0); Monocytes Absolute Auto 0.8 X10*3/uL (0.1-1.2); Monocytes Percent Auto 12.3 % (2-11); Neutrophils Absolute Auto 4.5 x10*3/uL (2.0-8.3); Neutrophils Percent Auto 67.5 % (45-73); Platelet Count 230 X10*3/uL (160-400); Red Blood Count 3.84 X10*6/uL (4.20-5.50); Red Cell Distribution Width 13.7 % (11.0-16.0); White Blood Count 6.6 X10*3/uL (4.8-10.8)
[2022-03-11 14:19] LABS: Anion Gap 12 (12-20); Blood Urea Nitrogen 22 mg/dL (9-16); Calcium 9.4 mg/dL (8.4-10.2); Carbon Dioxide 28 mmol/L (22-29); Chloride 102 mmol/L (96-108); Estimated Glomerular Filt Rate > 60; Glucose Random 88 mg/dL (60-115); Potassium 4.1 mmol/L (3.3-5.1); Sodium 138 mmol/L (135-145)
[2022-03-11 14:43] LABS: INTERNATIONAL NORM RATIO 1.3 (0.9-1.1); Prothrombin Time 15.4 SEC (10.0-13.1)
== END 2022-03-11 10:56 | disposition home or self-care (01) ==
LOC: HO.HMGCLR 10:55
PROVIDERS: PCP Internal Medicine; Visit Provider Internal Medicine Cardiovascular Disease
DX: I48.20 Chronic atrial fibrillation, unspecified (principal)
CPT/HCPCS: 36415; 80048; 85025; 85610

== ENCOUNTER 2022-03-12 09:56 | Outpatient (REF) | payer MEDICARE, SELFPAY ==
[2022-03-12 11:33] LABS: INTERNATIONAL NORM RATIO 1.4 (0.9-1.1); Prothrombin Time 16.6 SEC (10.0-13.1)
== END 2022-03-12 09:57 | disposition home or self-care (01) ==
LOC: HO.HMGCLR 09:56
PROVIDERS: PCP Internal Medicine; Visit Provider Internal Medicine
DX: I48.91 Unspecified atrial fibrillation (principal)
CPT/HCPCS: 36415; 85610

== ENCOUNTER 2022-03-13 09:40 | Outpatient (REF) | payer MEDICARE, SELFPAY ==
--- NOTE | ~2022-03-13 | MM_ITS ---
EXAMINATION: MM SCREENING DIGITAL BREAST TOMOSYNTHESIS, BILATERAL CLINICAL INFORMATION: Screening. Asymptomatic. The lifetime risk of breast cancer based on the Tyrer-Cuzick Model is 2%. COMPARISON: Mammography: 02/26/2021, 02/06/2020, 01/31/2019 TECHNIQUE: Digital breast tomosynthesis is performed in both the craniocaudal and mediolateral oblique views along with computer-aided detection (CAD). Synthesized 2D images are generated from the tomosynthesis. Additional exaggerated left CC view is provided. FINDINGS: The breasts are heterogeneously dense, which may obscure small masses (ACR BI-RADS breast composition Category c). There are no significant masses, abnormal calcifications, or other abnormalities. Pacemaker generator overlies and partly obscures the left axilla on MLO view. There is a small dermal lesion outer left breast. MM/MM tomosynthesis screening BI IMPRESSION: No mammographic evidence of malignancy. ASSESSMENT: BI-RADS 2: Benign RECOMMENDATION: Routine annual mammography screening. This patient's information was entered into a reminder system with a target due date for their next mammogram.
== END 2022-03-13 09:41 | disposition home or self-care (01) ==
LOC: HO.MAMMO 09:40
PROVIDERS: PCP Internal Medicine; Visit Provider Internal Medicine
DX: Z12.31 Encounter for screening mammogram for malignant neoplasm of breast (principal)
CPT/HCPCS: 77063; 77067

== ENCOUNTER 2022-03-15 10:11 | Outpatient (REF) | payer MEDICARE, SELFPAY ==
[2022-03-15 11:35] LABS: INTERNATIONAL NORM RATIO 1.6 (0.9-1.1); Prothrombin Time 19.2 SEC (10.0-13.1)
== END 2022-03-15 10:12 | disposition home or self-care (01) ==
LOC: HO.LABR 10:11
PROVIDERS: PCP Internal Medicine; Visit Provider Internal Medicine
DX: I48.91 Unspecified atrial fibrillation (principal)
CPT/HCPCS: 36415; 85610

== ENCOUNTER 2022-03-16 07:36 | Emergency (ER) | payer MEDICARE, SELFPAY ==
[2022-03-16 07:44] VITALS: BP 152/92; BP 195/61; PULSE 60; PULSE 67; RESP 16; TEMP 36.6; O2SAT 96; O2SAT 97; BMI 25.0
--- NOTE | 2022-03-16 08:04 | ED_ITS ---
HPI - General Adult General Chief complaint: General Medical Stated complaint: R WRIST BLEEDING @ SURG SITE([facility]),CONTROLD,+THINN Time Seen by Provider: 03/16/22 08:04 Source: patient and EMS Mode of arrival: EMS Limitations: no limitations History of Present Illness HPI narrative: Patient is an 81-year-old female with a medical history of paroxysmal atrial fibrillation, aortic stenosis, mitral valve replacement, pacemaker, hypertension, and hyperlipidemia who is presenting today via EMS for bleeding from the right wrist. Patient underwent a cardiac catheterization at [facility] on 03/03, and then presented to this ED on 03/08 for bleeding from the insertion site, the right radial wrist. At that time, bleeding was controlled with a pressure dressing and the patient was discharged home. Patient has been wearing a bandage over the puncture sites since, and has had intermittent bleeding that has been easily controlled. Patient reports that at approximately 0700 today, the puncture site started bleeding spontaneously and she could not control it. Patient is on warfarin and Lovenox and is having difficulties getting her INR to a therapeutic range, so she is following closely with her PCP office to adjust her dosing. Patient denies any dizziness, lightheadedness, abdominal pain, nausea, vomiting, fever, chills, blurry vision, double vision, loss of vision, chest pain, difficulty breathing, shortness of breath, back pain, night sweats, pain with urination, increased urinary frequency, increased urinary urgency, blood in her urine or stool, syncope or a near syncopal episode, recent trauma or falls, bowel incontinence, bladder incontinence, bowel retention, bladder retention, or any other complaints at this time. MD complaint: Bleeding from chronic wound Onset (ago): hour(s) Location: right Severity: mild Severity scale (1-10): 2 Relieving factors: none Exacerbating factors: none Associated symptoms: denies other symptoms Treatments prior to arrival: none Related Data Home Medications Medication Instructions Recorded Confirmed alendronate 70 mg tablet 70 mg PO QWEEK 05/19/21 02/09/22 cholecalciferol (vitamin D3) 25 25 mcg PO DAILY 05/19/21 02/09/22 mcg (1,000 unit) capsule metoprolol tartrate 50 mg tablet 50 mg PO BID 05/19/21 02/09/22 multivitamin (Daily Multi-Vitamin 1 tab PO DAILY 05/19/21 02/09/22 tablet) pravastatin 40 mg tablet 40 mg PO DAILY 05/19/21 02/09/22 valsartan 160 mg tablet 160 mg PO DAILY 05/19/21 02/09/22 vitamin B complex (B 1 tab PO DAILY 05/19/21 02/09/22 Complex-Vitamin B12 tablet) warfarin 2.5 mg tablet 2.5 mg PO DAILY 05/19/21 02/09/22 Previous Rx's Medication Instructions Recorded enoxaparin 100 mg/mL subcutaneous 50 mg (0.5 mL) subcut Q12H #5 mL 03/06/22 syringe (Lovenox) Allergies Allergy/AdvReac Type Severity Reaction Status Date / Time Sulfa (Sulfonamide Allergy Unknown UNKNOWN - Verified 07/03/21 11:03 Antibiotics) DOES NOT REMEMBER Review of Systems Constitutional: Constitutional: Reports no additional constitutional complaints, Denies chills, Denies fever(s) and Denies night sweats Eyes: Eyes: Reports no additional eye complaints, Denies blurry vision, Denies change in vision, Denies diplopia, Denies eye discharge, Denies loss of vision and Denies eye pain ENT: Denies dizziness Cardiovascular: Cardiovascular: Reports no additional cardiovascular complaints, Denies chest pain, Denies lightheadedness, Denies Loss of Consciousness and Denies dyspnea Respiratory: Respiratory: Reports no additional respiratory complaints and Denies dyspnea Gastrointestinal: Gastrointestinal: Reports no additional gastrointestinal complaints, Denies abdominal pain, Denies melena, Denies hematochezia, Denies change in bowel habits and Denies change in stool character Genitourinary: Genitourinary: Denies hematuria, Denies urinary frequency, Denies dysuria, Denies urinary incontinence, Denies urinary hesitancy and Denies urinary urgency Musculoskeletal: Musculoskeletal: Reports no additional musculoskeletal complaints, Denies numbness and Denies tingling Integumentary/Breasts: Comments: puncture wound to the right wrist Neurologic: Denies dizziness, Denies loss of vision, Denies numbness and Denies tingling Psychiatric: Psychiatric: Reports no additional psychiatric complaints Endocrine: Endocrine: Reports no additional endocrine complaints Hematologic/Lymphatic: Hematologic/Lymphatic: Reports no additional hematologic/lymphatic complaints Allergic/Immunologic: Allergic/Immunologic: Reports no additional allergic/immunologic complaints PMFSH Past Medical History Attestation statement: The following information was validated with the patient. Source: old records reviewed Medical History Aortic stenosis Cardiac pacemaker in situ (~2009) Current use of shelter anticoagulation H/O mitral valve replacement (~1996) HTN (hypertension) Mixed hyperlipidemia Osteoporosis (~2005) Paroxysmal atrial fibrillation Persistent atrial fibrillation Sick sinus syndrome (~2009) Surgical History History of cardiac pacemaker (~2009) History of kyphoplasty (~2011) History of meniscectomy of right knee (~2012) History of mitral valve repair (~1992) History of mitral valve replacement (~1996) History of right knee surgery (~2017) History of ventral hernia repair Family History Family History Father No problems noted. Mother No problems noted. Social History Social History Alcohol intake: never Patient Tobacco Use Status: Never used Tobacco Second Hand Smoke Exposure: No Advance Directives: No Physical Exam ED Vital Signs: Vital Signs - 24 hr 03/16/22 07:44 03/16/22 09:55 Temperature 97.9 F Pulse Rate 60 61 Respiratory Rate 16 20 Blood Pressure 195/61 H 157/58 H Pulse Oximetry 97 96 Oxygen Delivery Method Room Air Room Air BMI result Body Mass Index 25.0 Const General: cooperative, no acute distress, alert and awake Nutritional Appearance: well nourished Orientation/consciousness: patient oriented x3 Limitations: no limitations [facility] Head: Yes normal to inspection and Yes atraumatic Ears: hearing grossly normal bilaterally and external ears normal General nose exam: Normal external nose present, no nasal discharge noted and no epistaxis Face and sinus: Yes normal facial exam, No abrasion and No laceration Mouth: Normal oral and palatal mucosa present, no drooling and no muffled voice Eyes General: appearance normal, both eyes and all related structures Periorbital: periorbital findings normal Eyelids: Yes eyelids normal Conjunctivae: conjunctivae normal Pupils: Equal, round and reactive pupils present EOM: EOMs intact bilaterally Neck Neck: Yes normal visual inspection, Yes full ROM and Yes no lymphadenopathy Chest Chest palpation & inspection: normal inspection of the chest Resp Effort & Inspection: normal respiratory effort and able to speak in complete sentences Auscultation: clear to auscultation bilaterally Cardio Rate: regular rate Rhythm: regular rhythm GI Inspection: Yes normal to inspection Neuro General: patient oriented x3 and moves all extremities Cranial nerves: Yes Equal, round and reactive pupils present Cognition (Neuro): normal cognition Motor exam (neuro): 5/5 motor strength present throughout Sensory Exam: Normal double simultaneous stimulation for sensation Coordination: [id number] test normal Extrem Other: Small puncture wound to radial aspect of right wrist, no active bleeding. Large, secure, scab present. General: Yes full ROM and Yes capillary refill normal Psych Appearance: grossly normal Mental Status: mental status grossly normal Affect: normal affect Attitude: cooperative Thought process: Normal thought process present Thought content: Normal thought content present Insight: Good insight present (Psych) Medical Decision Making MDM Narrative Medical decision making narrative: Patient is an 81 year old female presenting to the emergency department today for a right wrist wound re-check. Patient's physical exam showed a small puncture wound to the right wrist with a large, secured, scab to the area and no active bleeding. Patient requested to have her INR checked while she was here, which was 1.7. I explained my physical exam findings as well as all test results to the patient and the patient's daughter. I answered all questions asked by the patient and the patient's daughter. Patient's wrist was re-wrapped with surgicell. I stressed the importance of the patient taking her medication as prescribed. I stressed the importance of the patient following up with her primary care provider. I stressed the importance of the patient returning to the emergency department immediately if her symptoms were to worsen or if she were to develop any dizziness, shortness of breath, difficulty breathing, chest pain, blurry vision, loss of vision, nausea, vomiting, abdominal pain, fever, chills, back pain, or any other complaints. Patient verbalized agreement and understanding with this treatment plan and discharge. Differential Diagnosis Differential Diagnosis: right wrist wound Medical Records Medical records reviewed: Yes I reviewed the patient's medical records. Lab Data Lab results reviewed: Yes I reviewed the patient's lab results. Labs: Lab Results 03/16/22 Range/Units 08:48 PT 19.8 H (10.0-13.1) SEC INR 1.7 H (0.9-1.1) Discharge Plan Discharge Clinical Impression: Visit for wound check Patient Disposition: Home, Self-Care Instructions: Hematoma (ED) Additional Instructions: Your INR today was 1.7. Continue with the same regimen your PCP has discussed with you and have your INR checked tomorrow. Follow up with your primary care provider. Return to the emergency department immediately if your symptoms worsen or if you develop any dizziness, shortness of breath, difficulty breathing, chest pain, blurry vision, loss of vision, nausea, vomiting, abdominal pain, fever, chills, back pain, or any other complaints. Prescriptions: No Action enoxaparin [Lovenox] 100 mg/mL syringe 50 mg subcut Q12H Qty: 5 1RF valsartan 160 mg tablet 160 mg PO DAILY warfarin 2.5 mg tablet 2.5 mg PO DAILY alendronate 70 mg tablet 70 mg PO QWEEK pravastatin 40 mg tablet 40 mg PO DAILY metoprolol tartrate 50 mg tablet 50 mg PO BID multivitamin [Daily Multi-Vitamin] Tablet 1 tab PO DAILY cholecalciferol (vitamin D3) 25 mcg (1,000 unit) capsule 25 mcg PO DAILY vitamin B complex [B Complex-Vitamin B12] Tablet 1 tab PO DAILY Referrals: Kana Ponce MD [Primary Care Provider] - Interventions: ED Discharge Assessment Last Done: 03/16/22 10:06 Discharge Date/Time: 03/16/22 10:06 Print Language: Latvian
[2022-03-16 08:58] LABS: INTERNATIONAL NORM RATIO 1.7 (0.9-1.1); Prothrombin Time 19.8 SEC (10.0-13.1)
[2022-03-16] MEDS: Enoxaparin Sodium 60 MG/0.6 ML SYRINGE 50 MG SUBCUT (09:53)
[2022-03-16 09:55] VITALS: BP 157/58; PULSE 61; RESP 20; O2SAT 96
== END 2022-03-16 10:06 | disposition home or self-care (01) ==
PROVIDERS: Physician Assistant Medical; Emergency Provider Emergency Medicine; PCP Internal Medicine
DX: L76.22 Postprocedural hemorrhage of skin and subcutaneous tissue following other procedure (principal); Z48.00 Encounter for change or removal of nonsurgical wound dressing; I48.91 Unspecified atrial fibrillation; Y83.9 Surgical procedure, unspecified as the cause of abnormal reaction of the patient, or of later complication, without mention of misadventure at the time of the procedure; Y81.8 Miscellaneous general- and plastic-surgery devices associated with adverse incidents, not elsewhere classified; Z79.01 Long term (current) use of anticoagulants; Z79.899 Other long term (current) drug therapy
CPT/HCPCS: 36415; 85610; 96372; 99282; 99284; J1650

== ENCOUNTER 2022-03-17 10:00 | Outpatient (REF) | payer MEDICARE, SELFPAY ==
[2022-03-17 11:25] LABS: INTERNATIONAL NORM RATIO 1.6 (0.9-1.1); Prothrombin Time 18.5 SEC (10.0-13.1)
== END 2022-03-17 10:01 | disposition home or self-care (01) ==
LOC: HO.HMGCLR 10:00
PROVIDERS: PCP Internal Medicine; Visit Provider Internal Medicine
DX: I48.0 Paroxysmal atrial fibrillation (principal); I35.0 Nonrheumatic aortic (valve) stenosis; Z95.0 Presence of cardiac pacemaker; Z95.2 Presence of prosthetic heart valve
CPT/HCPCS: 36415; 85610; 99212

== ENCOUNTER 2022-03-18 10:15 | Outpatient (REF) | payer MEDICARE, SELFPAY ==
[2022-03-18 11:30] LABS: INTERNATIONAL NORM RATIO 1.7 (0.9-1.1); Prothrombin Time 20.3 SEC (10.0-13.1)
== END 2022-03-18 10:16 | disposition home or self-care (01) ==
LOC: HO.LABR 10:15
PROVIDERS: PCP Internal Medicine; Visit Provider Internal Medicine
DX: I48.91 Unspecified atrial fibrillation (principal)
CPT/HCPCS: 36415; 85610

== ENCOUNTER 2022-03-22 10:25 | Outpatient (REF) | payer MEDICARE, SELFPAY ==
[2022-03-22 11:37] LABS: INTERNATIONAL NORM RATIO 2.4 (0.9-1.1)
== END 2022-03-22 10:26 | disposition home or self-care (01) ==
LOC: HO.LABR 10:25
PROVIDERS: PCP Internal Medicine; Visit Provider Internal Medicine
DX: I48.91 Unspecified atrial fibrillation (principal)
CPT/HCPCS: 36415; 85610

== ENCOUNTER 2022-03-25 08:09 | Outpatient (REF) | payer MEDICARE, SELFPAY ==
[2022-03-25 11:48] LABS: INTERNATIONAL NORM RATIO 2.5 (0.9-1.1)
== END 2022-03-25 08:10 | disposition home or self-care (01) ==
LOC: HO.LABR 08:09
PROVIDERS: PCP Internal Medicine; Visit Provider Internal Medicine
DX: I48.91 Unspecified atrial fibrillation (principal)
CPT/HCPCS: 36415; 85610

== ENCOUNTER 2022-03-29 10:23 | Outpatient (REF) | payer MEDICARE, SELFPAY ==
[2022-03-29 11:34] LABS: INTERNATIONAL NORM RATIO 3.3 (0.9-1.1); Prothrombin Time 39.4 SEC (10.0-13.1)
== END 2022-03-29 10:24 | disposition home or self-care (01) ==
LOC: HO.LABR 10:23
PROVIDERS: PCP Internal Medicine; Visit Provider Internal Medicine
DX: I48.91 Unspecified atrial fibrillation (principal)
CPT/HCPCS: 36415; 85610

== ENCOUNTER 2022-03-30 10:24 | Outpatient (REF) | payer MEDICARE, SELFPAY ==
[2022-03-30 11:42] LABS: INTERNATIONAL NORM RATIO 3.2 (0.9-1.1); Prothrombin Time 38.5 SEC (10.0-13.1)
== END 2022-03-30 10:25 | disposition home or self-care (01) ==
LOC: HO.LABR 10:24
PROVIDERS: PCP Internal Medicine; Visit Provider Internal Medicine
DX: I48.91 Unspecified atrial fibrillation (principal)
CPT/HCPCS: 36415; 85610

== ENCOUNTER 2022-04-06 10:19 | Outpatient (REF) | payer MEDICARE, SELFPAY ==
[2022-04-06 11:40] LABS: INTERNATIONAL NORM RATIO 2.2 (0.9-1.1); Prothrombin Time 26.2 SEC (10.0-13.1)
== END 2022-04-06 10:20 | disposition home or self-care (01) ==
LOC: HO.LABR 10:19
PROVIDERS: PCP Internal Medicine; Visit Provider Internal Medicine
DX: I48.91 Unspecified atrial fibrillation (principal)
CPT/HCPCS: 36415; 85610

== ENCOUNTER 2022-05-06 08:59 | Outpatient (REF) | payer MEDICARE, SELFPAY | END 2022-05-06 09:00 | disposition home or self-care (01) | LOC: HO.HMGCLR 08:59 | PROVIDERS: PCP Internal Medicine; Visit Provider Internal Medicine | DX: I48.91 Unspecified atrial fibrillation (principal) | CPT/HCPCS: 36415; 85610 ==

== ENCOUNTER 2022-06-08 08:16 | Outpatient (REF) | payer MEDICARE, SELFPAY ==
[2022-06-08 12:14] LABS: INTERNATIONAL NORM RATIO 2.8 (0.9-1.1); Prothrombin Time 33.9 SEC (10.0-13.1)
== END 2022-06-08 08:17 | disposition home or self-care (01) ==
LOC: HO.LABR 08:16
PROVIDERS: PCP Internal Medicine; Visit Provider Internal Medicine
DX: I48.91 Unspecified atrial fibrillation (principal)
CPT/HCPCS: 36415; 85610

== ENCOUNTER 2022-07-14 08:48 | Outpatient (REF) | payer MEDICARE, SELFPAY ==
[2022-07-14 11:52] LABS: INTERNATIONAL NORM RATIO 2.5 (0.9-1.1); Prothrombin Time 29.7 SEC (10.0-13.1)
== END 2022-07-14 08:49 | disposition home or self-care (01) ==
LOC: HO.HMGCLR 08:48
PROVIDERS: PCP Internal Medicine; Visit Provider Internal Medicine
DX: I48.91 Unspecified atrial fibrillation (principal)
CPT/HCPCS: 36415; 85610

== ENCOUNTER → 2022-09-20 14:22 | Outpatient (BNVA) | payer MEDICARE, SELFPAY | PROVIDERS: PCP Internal Medicine; Referring Provider Internal Medicine; Visit Provider Internal Medicine Cardiovascular Disease | DX: I48.0 Paroxysmal atrial fibrillation (principal); I35.0 Nonrheumatic aortic (valve) stenosis; I25.10 Atherosclerotic heart disease of native coronary artery without angina pectoris; Z95.2 Presence of prosthetic heart valve; Z95.0 Presence of cardiac pacemaker | CPT/HCPCS: 93280; 99212 ==

== ENCOUNTER 2022-10-13 11:34 | Emergency (ER) | payer MEDICARE, SELFPAY ==
--- NOTE | ~2022-10-13 | XR_ITS ---
EXAMINATION: XR CHEST CLINICAL INFORMATION: Fall. Hip pain. Preop. COMPARISON: Previous chest x-ray and chest CTA September 2022 TECHNIQUE: Frontal view of the chest was obtained. FINDINGS: The cardiac silhouette is enlarged but stable. Left subclavian dual chamber pacemaker appears unchanged. Median sternotomy wires. There are increased central bronchovascular markings questionable for mild airways disease versus pulmonary venous redistribution. The lungs are otherwise clear. No pleural effusion or pneumothorax. Degenerative changes of the spine and shoulders. Postop midthoracic spine kyphoplasty. XR/XR chest 1V IMPRESSION: Stable enlargement of the cardiac silhouette. Prominent central bronchovascular markings questionable for airways disease versus mild fluid overload.
--- NOTE | ~2022-10-13 | CT_ITS ---
EXAMINATION: Head and cervical spine CT without IV contrast CLINICAL INFORMATION: Fall. Head trauma. Patient on blood thinning medicine. COMPARISON: Previous head CT from 2010 TECHNIQUE: Without IV contrast. Sagittal and coronal reconstructions on the technologist workstation were performed. This CT examination was performed using dose optimization techniques as appropriate, variously including the following: *Automated exposure control *Adjustment of mA and/or kV according to patient size (this includes techniques or standardized protocols for targeted exams where dose is matched to indication/reason for exam; i.e. extremities or head) *Use of iterative reconstruction technique DLP 8 1 5 mg/cm. Axial images through the head and cervical spine FINDINGS: There is no evidence of an extra-axial collection. There is no evidence of intra-axial or extra-axial hemorrhage. The ventricles and extra-axial CSF spaces are prominent suggestive of generalized atrophy. There is nonspecific periventricular white matter disease. No mass, mass effect or infarct. No skull fracture. Soft tissue swelling over the left parietal and occipital bones. Paranasal sinuses, mastoid air cells and middle ears are clear. Degenerative changes at the temporomandibular joints Cervical spine: There is curvature of the lower cervical and upper thoracic spine to the left. Bone alignment is otherwise normal. No fracture or dislocation. Degenerative spondylosis and degenerative disc disease from C3-C4 to C5-C6. Degenerative changes at the C1 dens articulation. Prevertebral soft tissues are normal. Visualized lung apices are clear. Bilateral carotid calcification. CT/CT cervical spine wo IV con IMPRESSION: Head CT: No acute findings. Soft tissue swelling over the left posterior parietal and occipital bone. Cervical spine CT: Degenerative changes and scoliosis. No fracture or dislocation.
--- NOTE | ~2022-10-13 | XR_ITS ---
EXAMINATION: XR HIP, LEFT CLINICAL INFORMATION: Fall COMPARISON: None available. TECHNIQUE: Two views of the left hip and one view of the pelvis. FINDINGS: There is a displaced oblique subtrochanteric fracture of the left proximal femoral shaft. There is lateral displacement and anterior angulation of the proximal femur with respect to the more distal femoral shaft. There is some impaction. There is mild arthritis at the hip joints. No pelvic fracture. Degenerative changes of visualized lower lumbar spine. XR/XR hip LT w PEL1V IMPRESSION: Displaced subtrochanteric fracture of the left proximal femoral shaft.
[2022-10-13 11:39] VITALS: BP 138/90; BP 206/79; PULSE 68; PULSE 72; RESP 16; TEMP 36.7; O2SAT 96; BMI 23.4
--- NOTE | 2022-10-13 11:46 | ED_ITS ---
HPI - Fall General Chief Complaint: Fall Stated Complaint: Fall w/head strike, L upper leg/hip pain per EMS Time Seen by Provider: 10/13/22 11:45 Source: patient and EMS Mode of arrival: EMS Limitations: no limitations History of Present Illness HPI Narrative: Patient is 82-year-old female past medical history of CAD, AFib, cardiac pacemaker, long-term anticoagulation, aortic stenosis, HTN, HLD, mitral valve replacement, osteoporosis presenting after fall from standing. She states that she stepped on her cat's tail and took approximately 10 steps backwards before falling onto her left side. She reports hitting the back of her head on her kitchen cabinet. She reports pain to the back of her head as well as left hip pain. She denies any loss of consciousness. Patient's daughter reports that the patient's son was walking into the house after the fall occurred and the patient was yelling for assistance, as she was unable to get up off the floor and he called 911. Patient complains of continued pain to the back of head as well as left hip pain. Patient states she has not had anything to eat this m orning and has not taken any of her medications today. MD complaint: fall Onset (ago): hour(s) (prior to arrival) Fall from: standing Fall witnessed: no Place fall occurred: home Loss of consciousness: none Prolonged down time: no Symptoms prior to fall: none Context: tripped/slipped (stepped on cat's tail) Location of injury: head and pelvis Location of injury - extremities: left: thigh Severity: moderate Quality: dull Associated symptoms (after fall): unable to walk (d/t severe left hip pain) Related Data Home Medications Medication Instructions Recorded Confirmed alendronate 70 mg tablet 70 mg PO SA 05/19/21 10/13/22 cholecalciferol (vitamin D3) 25 25 mcg PO DAILY 05/19/21 10/13/22 mcg (1,000 unit) capsule metoprolol tartrate 50 mg tablet 50 mg PO BID 05/19/21 10/13/22 multivitamin (Daily Multi-Vitamin 1 tab PO DAILY 05/19/21 10/13/22 tablet) pravastatin 40 mg tablet 40 mg PO BEDTIME 05/19/21 10/13/22 valsartan 160 mg tablet 160 mg PO DAILY 05/19/21 10/13/22 vitamin B complex (B 1 tab PO DAILY 05/19/21 10/13/22 Complex-Vitamin B12 tablet) warfarin 2.5 mg tablet 3.5 mg PO DAILY@1800 09/20/22 10/13/22 Allergies Allergy/AdvReac Type Severity Reaction Status Date / Time Sulfa (Sulfonamide Allergy Unknown UNKNOWN - Verified 09/20/22 14:26 Antibiotics) DOES NOT REMEMBER Review of Systems Review of Systems: Yes all other systems are reviewed and are negative [facility] Past Medical History Medical History Aortic stenosis Cardiac pacemaker in situ (~2009) 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 Mother No problems noted. Social History Social History Alcohol intake: never Patient Tobacco Use Status: Never used Tobacco Smoked in Last 30 Days: No Second Hand Smoke Exposure: No Use of substances other than those prescribed or required for medical reasons: No Advance Directives: No Physical Exam Vital Signs: Vital Signs: Last Vital Signs Temp 98.1 F 10/13/22 11:39 Pulse 61 10/13/22 16:03 Resp 14 10/13/22 16:03 BP 143/58 H 10/13/22 16:03 Pulse Ox 96 10/13/22 16:03 O2 Del Method Room Air 10/13/22 16:03 BMI result Body Mass Index 23.4 Appearance: Alert. Oriented X3. No acute distress. Head: normocephalic, tenderness and swelling to occiput. Eyes: Pupils equal, round and reactive to light. ENT: Pharynx normal. No tonsillar swelling or exudate. Neck: Normal inspection. C-collar in place. CVS: Normal heart rate and rhythm. Pulses normal. Respiratory: No respiratory distress. Breath sounds normal. Abdomen: Soft and nontender. +BS x4 Skin: Skin warm and dry. Normal skin color. Normal skin turgor. No rashes. Extremities: Tenderness to palpation of left lateral thigh proximally. 2+ PT pulses bilaterally. No lower extremity edema. No other joint swelling. Neuro/psych: Oriented X 3. No motor deficit. No sensory deficit. CN II-XII intact. Normal speech and cognition. Course Reevaluation(s) Reevaluation #1: C-collar removed. Our ortho is unavailable to repair hips at this time. Discussed possible transfer with [facility], they are unable to accept patient at this time. Checking with [facility] for availability for transfer. Blood pressure improved. Time: 14:23 Reevaluation #2: Spoke with Dr. Parham, accepting MD at [facility]. Patient to be transferred to [facility], Dr. Tompkins is accepting for ortho but patient will be admitted to medicine service given her past medical history. Patient and family updated on plan. Time: 17:00 Medications Administered Discontinued Medications Generic Name Dose Route Start Last Admin Trade Name Freq PRN Reason Stop Dose Admin Acetaminophen 975 mg 10/13/22 12:27 10/13/22 12:44 Acetaminophen 325 Mg Tablet PO 10/13/22 12:28 975 mg ONCE ONE Administration Metoprolol Tartrate 50 mg 10/13/22 12:27 10/13/22 12:44 Metoprolol Tartrate 50 Mg Tablet PO 10/13/22 12:28 50 mg ONCE ONE Administration Protocol Medical Decision Making Medical Decision Making [facility] Narrative: Reviewed x-ray of hip, appears fractured, patient and daughter updated. Metoprolol ordered as patient did not take any of her home meds today. Tylenol ordered for pain. Differential Diagnosis Differential Diagnoses: The differential diagnosis associated with the pre sentation includes ICH, C-spine injury, hip fracture, mechanical fall Admission/Observation Consideration of admission/observation: Escalation of care including admission/observation considered Consult Healthcare Provider Management of the patient was discussed with: Media Services Specialist (ortho) Lab Data [facility] Lab Attestation statement: I reviewed the patient's lab results. 10/13/22 13:01 10/13/22 13:00 Labs: Lab Results 10/13/22 10/13/22 10/13/22 Range/Units 13:00 13:01 14:10 WBC 14.6 H (4.8-10.8) X10*3/uL RBC 3.74 L (4.20-5.50) X10*6/uL Hgb 11.4 L (12.0-16.0) g/dl Hct 34.7 L (37.0-47.0) % MCV 92.8 (80.0-98.0) fL MCH 30.5 (27.0-33.0) pg MCHC 32.9 (31.0-35.0) g/dl RDW 13.2 (11.0-16.0) % Plt Count 205 (160-400) X10*3/uL MPV 9.4 (9.4-12.3) fL Immature Gran % (Auto) 0.5 H (0.0-0.4) % Neut % (Auto) 87.2 H (45-73) % Lymph % (Auto) 5.0 L (20-40) % Amador % (Auto) 7.0 (2-11) % Eos % (Auto) 0.1 (0-4) % Baso % (Auto) 0.2 (0-2) % Lymph # (Auto) 0.7 L (1.2-4.9) X10*3/uL Amador # (Auto) 1.0 (0.1-1.2) X10*3/uL Eos # (Auto) 0.0 (0.0-0.4) X10*3/uL Baso # (Auto) 0.0 (0.0-0.2) X10*3/uL Abs Immat Gran (auto) 0.07 H (0.00-0.03) X10*3/uL Absolute Neuts (auto) 12.7 H (2.0-8.3) x10*3/uL Absolute Nucleated RBC 0.000 (0.0-0.012) X10*3/uL Nucleated RBC % (auto) 0.0 (0.0-0.2) /100WBC PT 33.2 H (10.0-13.1) SEC INR 2.8 H (0.9-1.1) APTT 52.2 H (26.0-36.4) SEC Sodium 141 (135-145) mmol/L Potassium 4.2 (3.3-5.1) mmol/L Chloride 108 (96-108) mmol/L Carbon Dioxide 24 (22-29) mmol/L Anion Gap 13 (12-20) BUN 19 H (9-16) mg/dL Creatinine 0.75 (0.5-1.4) mg/dL Estim Creat Clear Calc 40.8 Estimated GFR > 60 Random Glucose 119 H (60-115) mg/dL Calcium 9.1 (8.4-10.2) mg/dL Independent Interpretation I performed an independent interpretation of an: Plain X-Ray Interpretation: Left femur fracture Radiology Impression Discussion of test interpretation with radiology: I have reviewed the radiologist's reading. Radiologist Impression: XR/XR hip LT w PEL1V IMPRESSION: Displaced subtrochanteric fracture of the left proximal femoral shaft. CT/CT head/brain wo IV con IMPRESSION: Head CT: No acute findings. Soft tissue swelling over the left posterior parietal and occipital bone. ? Cervical spine CT: Degenerative changes and scoliosis. No fracture or dislocation.? XR/XR chest 1V IMPRESSION: Stable enlargement of the cardiac silhouette. Prominent central bronchovascular markings questionable for airways disease versus mild fluid overload. Independent Historian Clinical information obtained from an independent historian. History obtained from or confirmed by: Other (daughter) Prescription Management I considered prescription management with: Pain Medication Chronic Conditions Patient?s care impacted by: Hypertension CAD, pacemaker, anticoagulation, HLD Discharge Plan Discharge Clinical Impression: Subtrochanteric fracture of hip Patient Disposition: [facility] Transfer Details: [facility] Prescriptions: No Action valsartan 160 mg tablet 160 mg PO DAILY alendronate 70 mg tablet 70 mg PO SA pravastatin 40 mg tablet 40 mg PO BEDTIME metoprolol tartrate 50 mg tablet 50 mg PO BID multivitamin [Daily Multi-Vitamin] Tablet 1 tab PO DAILY cholecalciferol (vitamin D3) 25 mcg (1,000 unit) capsule 25 mcg PO DAILY vitamin B complex [B Complex-Vitamin B12] Tablet 1 tab PO DAILY warfarin 2.5 mg tablet 3.5 mg PO DAILY@1800
--- NOTE | 2022-10-13 12:03 | PC.NURSE ---
Patient presents after tripping over cat and falling. Patient hit their head on cabinet without LOC. Upon arrival patient left leg externally rotated and she is unable to extend her leg all the way. Patient is alert and oriented, able to answer questions appropriately. Daughter is currently at bedside with patient.
[2022-10-13] MEDS: Metoprolol Tartrate 50 MG TABLET PO (12:44)
[2022-10-13] MEDS: Acetaminophen 325 MG TABLET 975 MG PO (12:44)
--- NOTE | 2022-10-13 13:04 | PC.NURSE ---
Patient given Tylenol for pain in her left hip. Xray shows a break in that leg, surgery will be consulted. Daughter at bedside and is agreeable to plan.
[2022-10-13 13:06] LABS: MANUAL DIFF FLAG NO
[2022-10-13 13:09] LABS: Basophils Percent Auto 0.2 % (0-2); Eosinophils Percent Auto 0.1 % (0-4); Hematocrit 34.7 % (37.0-47.0); Hemoglobin 11.4 g/dl (12.0-16.0); Imm Gran Abs Auto 0.07 X10*3/uL (0.00-0.03); Imm Gran Pct Auto 0.5 % (0.0-0.4); Lymphocytes Absolute Auto 0.7 X10*3/uL (1.2-4.9); Mean Corpuscular HGB Conc 32.9 g/dl (31.0-35.0); Mean Corpuscular Hemoglobin 30.5 pg (27.0-33.0); Mean Corpuscular Volume 92.8 fL (80.0-98.0); Mean Platelet Volume 9.4 fL (9.4-12.3); Neutrophils Absolute Auto 12.7 x10*3/uL (2.0-8.3); Neutrophils Percent Auto 87.2 % (45-73); Platelet Count 205 X10*3/uL (160-400); Red Blood Count 3.74 X10*6/uL (4.20-5.50); Red Cell Distribution Width 13.2 % (11.0-16.0); White Blood Count 14.6 X10*3/uL (4.8-10.8)
--- NOTE | 2022-10-13 13:20 | PHA.MEDREC ---
Pharmacy Consult ? Medication Reconciliation Pharmacy has completed the medication reconciliation.
[2022-10-13 13:30] LABS: Anion Gap 13 (12-20); Blood Urea Nitrogen 19 mg/dL (9-16); Calcium 9.1 mg/dL (8.4-10.2); Carbon Dioxide 24 mmol/L (22-29); Chloride 108 mmol/L (96-108); Creatinine Clr Calc Pharmacy 40.8; Estimated Glomerular Filt Rate > 60; Glucose Random 119 mg/dL (60-115); Potassium 4.2 mmol/L (3.3-5.1); Sodium 141 mmol/L (135-145)
[2022-10-13 13:46] VITALS: BP 153/53; PULSE 60; RESP 16; O2SAT 97
[2022-10-13 14:25] LABS: INTERNATIONAL NORM RATIO 2.8 (0.9-1.1); Prothrombin Time 33.2 SEC (10.0-13.1)
[2022-10-13 14:28] LABS: Partial Thromboplastin Time 52.2 SEC (26.0-36.4)
--- NOTE | 2022-10-13 14:30 | MHC.EDTECH ---
@2143 called [facility] transfer line per request of ÓSCAR Dalton. Transferred the call to [facility] right away at the request of the person on the phone. Krystle notifies me that the patient was declined by [facility].
--- NOTE | 2022-10-13 14:33 | MHC.EDTECH ---
@1426 called [facility] transfer line at the request of ÓSCAR Dalton. The person on the phone took pt demographics and a call back number. The person on the phone requested to speak with Krystle regarding the diagnosis. Krystle takes the call right away.
[2022-10-13 16:03] VITALS: BP 143/58; PULSE 61; RESP 14; O2SAT 96
--- NOTE | 2022-10-13 16:56 | ECG_ITS ---
Test Reason : fall Blood Pressure : / mmHG Vent. Rate : 060 BPM Atrial Rate : 060 BPM P-R Int : 000 ms QRS Dur : 184 ms QT Int : 518 ms P-R-T Axes : 000 -48 121 degrees QTc Int : 518 ms AV dual-paced rhythm Abnormal ECG When compared with ECG of 22-MAY-2018 07:17, No significant change was found Referred By: Krystle Mattson Electronically Signed By:STEPHANIE ZAMUDIO
--- NOTE | 2022-10-13 18:22 | PC.NURSE ---
Nurse to nurse given to Mariusz at [facility]. Patient and daughter are agreeable to this plan. Patient assisted out of department via stretcher accompanied by EMS staff. Patient alert and oriented, breathing independently. Left leg externally rotated with shortening noted, pedal pulse noted
== END 2022-10-13 18:25 | disposition short-term general hospital (02) ==
PROVIDERS: Physician Assistant; Registered Nurse Emergency; Emergency Provider Emergency Medicine Emergency Medical Services; PCP Internal Medicine
DX: S72.002A Fracture of unspecified part of neck of left femur, initial encounter for closed fracture (principal); S09.90XA Unspecified injury of head, initial encounter; R07.89 Other chest pain; M54.2 Cervicalgia; R51.9 Headache, unspecified; M25.552 Pain in left hip; W01.0XXA Fall on same level from slipping, tripping and stumbling without subsequent striking against object, initial encounter; Y93.9 Activity, unspecified; Y92.9 Unspecified place or not applicable; Y99.9 Unspecified external cause status; Z79.899 Other long term (current) drug therapy
CPT/HCPCS: 36415; 70450; 71045; 72125; 73502; 80048; 85025; 85610; 85730; 93005; 99285

== ENCOUNTER 2022-10-26 14:49 | Outpatient (REF) | payer MEDICARE, SELFPAY | END 2022-10-26 14:50 | disposition home or self-care (01) | LOC: HO.MMNH1L 14:49 | PROVIDERS: Visit Provider Family Medicine | DX: Z13.89 Encounter for screening for other disorder (principal) | CPT/HCPCS: 87493 ==

== ENCOUNTER 2022-12-15 10:33 | Outpatient (REF) | payer MEDICARE, SELFPAY ==
[2022-12-15 14:17] LABS: INTERNATIONAL NORM RATIO 3.8 (0.9-1.1); Prothrombin Time 46.4 SEC (10.0-13.1)
== END 2022-12-15 10:34 | disposition home or self-care (01) ==
LOC: HO.HMGCLR 10:33
PROVIDERS: PCP Internal Medicine; Visit Provider Internal Medicine
DX: I48.91 Unspecified atrial fibrillation (principal)
CPT/HCPCS: 36415; 85610

== ENCOUNTER 2022-12-17 10:12 | Outpatient (REF) | payer MEDICARE, SELFPAY ==
[2022-12-17 11:35] LABS: INTERNATIONAL NORM RATIO 2.2 (0.9-1.1); Prothrombin Time 26.3 SEC (10.0-13.1)
== END 2022-12-17 10:13 | disposition home or self-care (01) ==
LOC: HO.HMGCLR 10:12
PROVIDERS: PCP Internal Medicine; Visit Provider Internal Medicine
DX: I48.91 Unspecified atrial fibrillation (principal)
CPT/HCPCS: 36415; 85610

== ENCOUNTER 2022-12-24 09:38 | Outpatient (REF) | payer MEDICARE, SELFPAY ==
[2022-12-24 11:42] LABS: INTERNATIONAL NORM RATIO 2.4 (0.9-1.1); Prothrombin Time 28.9 SEC (10.0-13.1)
== END 2022-12-24 09:39 | disposition home or self-care (01) ==
LOC: HO.HMGCLR 09:38
PROVIDERS: PCP Internal Medicine; Visit Provider Internal Medicine
DX: I48.91 Unspecified atrial fibrillation (principal)
CPT/HCPCS: 36415; 85610

== ENCOUNTER → 2023-01-03 23:59 | Outpatient (BNV) | payer MEDICARE, SELFPAY ==
--- NOTE | 2023-01-04 11:02 | MHC.OFFVIS ---
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 Mother No problems noted. Social History Alcohol intake: never Patient Tobacco Use Status: Never used Tobacco Second Hand Smoke Exposure: No Office Procedures Cardiac Device Check Cardiac Device Check Details: Remote pacemaker report generated 01/03/2023. Pacemaker function is adequate. Noted to be in persistent atrial fibrillation. [id number] Cardiac Device Interrogation, pacemaker Procedure code (CPT) selection complete Coding Level of Care Code Procedure Only Diagnoses CPT Codes Cardiac Device Check - Cardiac Device 12: [id number] Cardiac Device Interrogation, pacemaker ([id number])
== END ==
PROVIDERS: PCP Internal Medicine; Visit Provider Internal Medicine Cardiovascular Disease
DX: I48.0 Paroxysmal atrial fibrillation (principal); Z95.0 Presence of cardiac pacemaker
CPT/HCPCS: 93294

== ENCOUNTER 2023-02-21 12:05 | Outpatient (REF) | payer MEDICARE, SELFPAY ==
--- NOTE | ~2023-02-21 | XR_ITS ---
EXAMINATION: XR HIP, LEFT CLINICAL INFORMATION: Left hip pain following fall. COMPARISON: Most recent left hip radiographs dated 10/13/2022. TECHNIQUE: AP and frog-leg lateral views of the left hip. FINDINGS: Left femoral intramedullary brenna and proximal dynamic screw with proximal femoral cerclage wires. The previously seen femoral fracture is in near-anatomic alignment with adjacent new bone/callus formation. There is persistence of the fracture line laterally. Degree of osseous bridging not evaluated on plain radiographs. No new fracture or dislocation. Mild left hip joint space narrowing with small marginal osteophytes, unchanged. XR/XR hip LT min 2V IMPRESSION: 1. Left femoral ORIF without evidence of hardware complication. Left femoral fracture in near anatomic alignment with adjacent new bone/callus formation. Degree of osseous bridging not evaluated on plain radiographs. 2. Mild left hip osteoarthritis, unchanged.
[2023-02-21 13:10] LABS: INTERNATIONAL NORM RATIO 3.5 (0.9-1.1); Prothrombin Time 42.2 SEC (11.1-13.3)
== END 2023-02-21 12:06 | disposition home or self-care (01) ==
LOC: HO.HMGCX 12:05
PROVIDERS: PCP Internal Medicine; Visit Provider Internal Medicine
DX: I48.91 Unspecified atrial fibrillation (principal); M25.552 Pain in left hip
CPT/HCPCS: 36415; 73502; 85610

== ENCOUNTER 2023-02-22 09:33 | Outpatient (REF) | payer MEDICARE, SELFPAY ==
[2023-02-22 12:00] LABS: INTERNATIONAL NORM RATIO 2.8 (0.9-1.1)
== END 2023-02-22 09:34 | disposition home or self-care (01) ==
LOC: HO.HMGCLR 09:33
PROVIDERS: PCP Internal Medicine; Visit Provider Internal Medicine
DX: I48.91 Unspecified atrial fibrillation (principal)
CPT/HCPCS: 36415; 85610

== ENCOUNTER 2023-03-08 09:45 | Outpatient (REF) | payer MEDICARE, SELFPAY ==
[2023-03-08 13:57] LABS: INTERNATIONAL NORM RATIO 2.6 (0.9-1.1); Prothrombin Time 31.6 SEC (11.1-13.3)
== END 2023-03-08 09:46 | disposition home or self-care (01) ==
LOC: HO.HMGCLR 09:45
PROVIDERS: PCP Internal Medicine; Visit Provider Internal Medicine
DX: I48.91 Unspecified atrial fibrillation (principal)
CPT/HCPCS: 36415; 85610

== ENCOUNTER 2023-03-19 08:17 | Outpatient (REF) | payer MEDICARE, SELFPAY ==
--- NOTE | ~2023-03-19 | MM_ITS ---
EXAMINATION: MM SCREENING DIGITAL BREAST TOMOSYNTHESIS, BILATERAL CLINICAL INFORMATION: Screening. Asymptomatic. COMPARISON: Mammography: This study is compared with prior exams dating back to 2018. TECHNIQUE: Digital breast tomosynthesis is performed in both the craniocaudal and mediolateral oblique views along with computer-aided detection (CAD). Synthesized 2D images are generated from the tomosynthesis. FINDINGS: The breasts are heterogeneously dense, which may obscure small masses (ACR BI-RADS breast composition Category c). There is a pacemaker in the superior aspect of the left breast. There are no significant masses, abnormal calcifications, or other abnormalities. MM/MM tomosynthesis screening BI IMPRESSION: No mammographic evidence of malignancy. ASSESSMENT: BI-RADS BI-RADS 1 - Negative RECOMMENDATION: Routine annual mammography screening. 1 year F/U This examination should not preclude the clinical evaluation of a suspicious palpable abnormality. This patient's information was entered into a reminder system with a target due date for their next mammogram.
== END 2023-03-19 08:18 | disposition home or self-care (01) ==
LOC: HO.MAMMO 08:17
PROVIDERS: PCP Internal Medicine; Visit Provider Internal Medicine
DX: Z12.31 Encounter for screening mammogram for malignant neoplasm of breast (principal)
CPT/HCPCS: 77063; 77067

== ENCOUNTER → 2023-03-19 08:30 | Outpatient (BNV) | payer MEDICARE, SELFPAY | PROVIDERS: PCP Internal Medicine; Visit Provider Radiology Diagnostic Radiology | DX: Z12.31 Encounter for screening mammogram for malignant neoplasm of breast (principal) | CPT/HCPCS: 77063; 77067 ==

== ENCOUNTER → 2023-03-24 09:36 | Outpatient (REF) | payer MEDICARE, SELFPAY ==
--- NOTE | 2023-03-24 09:52 | CA_ITS ---
Transthoracic Echocardiogram Patient (Last, First, Middle): Bethany Viveros M Gender: Female Date of : 1940 Age: 82 Procedure Date: 03/24/2023 Procedure Type: Transthoracic Echocardiogram Location: OP Height: 149.86 cm Weight: 51.71 kg BSA: 1.45 m2 Heart Rate: bpm BP: 118 / 76 mmHg Spot Sprayer: MEGAN Referring MD: Agustin Luke MD Lieutenant Firefighter: Agustin Luke MD Symptoms: I35.0 - Nonrheumatic aortic (valve) stenosis Study Quality: Adequate ECG Rhythm: Sinus Conclusions: - 1. Low normal LV ejection fraction 50-55% 2. Severe biatrial enlargement 3. Moderate to severe aortic stenosis, paradoxical low-flow 4. Normally functioning mechanical mitral prosthesis 5. Moderate tricuspid regurgitation moderately elevated right ventricular systolic pressure 6. No gross pericardial effusion Findings Left Ventricle Normal left ventricular cavity size. There is normal left ventricular wall thickness. The left ventricular systolic function is low normal. The visually estimated ejection fraction is between 50-55%. Diastolic function is indeterminate on the basis of available data. Right Ventricle Normal right ventricular cavity size and systolic function. There is a pacemaker wire seen in the right ventricle. Atria The left atrium is severely dilated. Interatrial shunt cannot be excluded. The right atrium is severely dilated. Aortic Valve There is mild calcification of the aortic valve. There is moderate to severe aortic valve stenosis. The peak aortic velocity is 2.81 m/s with a calculated peak gradient of 32 mmHg. The mean gradient is 16 mmHg. The aortic valve area is 0.70 cm2. There is mild aortic valve regurgitation. Dimensionless index is 0.28 Mitral Valve A mechanical prosthetic mitral valve is present. The prosthetic mitral valve appears to be functioning normally. Pulmonic Valve The pulmonic valve was not well visualized. Tricuspid Valve Normal tricuspid valve structure. There is moderate tricuspid valve regurgitation. Normal right atrial pressure. Moderate pulmonary hypertension is present. Great Vessels All visible segments of the aorta are normal in size. The pulmonary artery was not well visualized. Venous The inferior vena cava is normal in size and collapses greater than 50% with inspiration. Pericardium/Pleural There is no evidence of pericardial effusion. Prior Study Comparison Changes noted compared to prior study dated: 01/27/2022. Aortic stenosis is more moderately severe. RV systolic pressure is moderately elevated Measurements 2D Linear Measurements IVSd: 1.13 0.6-0.9/0.6-1.0 cm LVIDd: 4.74 3.9-5.3/4.2-5.9 cm LVIDd Index: 3.27 2.4-3.2/2.2-3.1 cm/m2 LVIDs: 3.02 2.0-3.6 cm LVPWd: 1.14 0.7-1.1 cm LA Diam: 6.20 2.7-3.8/3.0-4.0 cm LAIDs Index: 4.28 1.5-2.3 cm/m2 LV Mass: 247.49 67-162/88-224 g LV Mass Index: 170.69 43-95/49-115 g/m2 LVOT Diam: 1.80 3.0+(-)1.3 cm 2D Systolic Function EF 4C: 54.60 >55% EF 2C: 45.60 >55% EF BiP: 51.10 >55% Mitral Valve MV VTI: 0.51 MV Pk Cortez: 2.34 MV Mn Cortez: 1.02 MV Pk Grad: 22.00 MV Mn Grad: 6.00 MV Pk E: 1.93 MV Decel Time: 176.00 E'Lateral: 5.00 E'Medial: 3.81 E/E' Med: 50.70 E/E' Lat: 38.60 PHT: 52.00 MVA PHT: 4.23 MVA Continuity: 0.96 Decel Daggett: 10.96 Aortic Valve AoV Pk Cortez: 2.81 AoV Mn Cortez: 1.84 AoV VTI: 0.70 AoV Pk Grad: 32.00 Aov Mn Grad: 16.00 WILLIAM Cont.VTI: 0.70 AI Pk Cortez: 3.97 AI VTI: 2.06 AI Daggett: 2.83 LVOT LVOT Pk Cortez: 0.73 LVOT Mn Cortez: 0.54 LVOT VTI: 0.19 LVOT Pk Grad: 2.00 LVOT Mn Grad: 1.00 LVOT Diam: 1.80 LVOT Area: 2.54 Diastolic Function MV Pk E: 1.93 E'Medial: 3.81 E/E' Med: 50.70 E' Laterial: 5.00 E/E' Lat: 38.60 Right Ventricle TAPSE (mm): 17.40 TVS' Cortez: 8.16 Tricuspid Valve TR Pk Cortez: 3.47 TR Pk Grad: 48.00 RA Press: 3.00 RVSP: 51.00 Great Vessels Aorta Sinus of Valsalva: 2.81 2.0-3.[address] Ridge: 1.86 1.7-3.4 cm Ao Asc: 3.20 2.1-3.4 cm Updated in Other Vendor System with Status of Final Agustin Luke MD electronically signed on 03/25/2023 9:44:52 AM with status of Final
== END ==
LOC: HO.CARD 09:36
PROVIDERS: PCP Internal Medicine; Visit Provider Internal Medicine Cardiovascular Disease
DX: I35.0 Nonrheumatic aortic (valve) stenosis (principal)
CPT/HCPCS: 93306

== ENCOUNTER → 2023-03-24 09:52 | Outpatient (BNV) | payer MEDICARE, SELFPAY | PROVIDERS: PCP Internal Medicine; Visit Provider Internal Medicine Cardiovascular Disease | DX: I35.2 Nonrheumatic aortic (valve) stenosis with insufficiency (principal) | CPT/HCPCS: 93306 ==

== ENCOUNTER 2023-03-28 15:16 | Outpatient (AMB) | payer MEDICARE, SELFPAY ==
[2023-03-28 15:17] VITALS: BP 116/70; PULSE 78; BMI 22.4
--- NOTE | 2023-03-28 15:17 | A.OFFVIS_ITS ---
Intake Vital Signs 03/28/23 15:17 Height 5 ft Weight 114 lb 10.246 oz BMI 22.4 BP 116/70 Blood Pressure Location Lt brachial Position Sitting Pulse 78 Intake Visit Reasons: 6 month f/u medtronic check after echo Intake Note: 6 month follow-up Medtronic check after echo feeling good Tea Bag Packer Required: No Allergies Sulfa (Sulfonamide Antibiotics) Allergy (Unknown, Verified 09/20/22 14:26) UNKNOWN - DOES NOT REMEMBER Medication List - Last Reconciled 03/28/23 by Agustin Luke MD alendronate 70 mg PO SA cholecalciferol (vitamin D3) 25 mcg PO DAILY metoprolol tartrate 50 mg PO BID multivitamin (Daily Multi-Vitamin tablet) 1 tab PO DAILY pravastatin 40 mg PO BEDTIME valsartan 160 mg PO DAILY vitamin B complex (B Complex-Vitamin B12 tablet) 1 tab PO DAILY warfarin 3.5 mg PO DAILY@1800 HPI HPI Comments History of Present Illness Details Marva comes for follow-up. Since I last saw her she had an accidental fall and subsequent hip fracture and was in subacute rehab for 6 weeks. She is now gradually improved but then had another fall and with set her back. She however is back to over somewhat activity level. She denies any exertional chest pain shortness of breath. Recent echocardiogram shows moderately severe paradoxical low-flow aortic stenosis normal LV systolic function. [facility] Medical History Persistent atrial fibrillation Mixed hyperlipidemia Current use of [facility]p anticoagulation Osteoporosis (~2005) HTN (hypertension) Aortic stenosis H/O mitral valve replacement (~1996) Paroxysmal atrial fibrillation Cardiac pacemaker in situ (~2009) Sick sinus syndrome (~2009) Surgical History History of ventral hernia repair History of kyphoplasty (~2011) History of cardiac pacemaker (~2009) History of meniscectomy of right knee (~2012) History of mitral valve replacement (~1996) History of mitral valve repair (~1992) History of right knee surgery (~2017) Family History Father No problems noted. Mother No problems noted. Social History Alcohol intake: never Patient Tobacco Use Status: Never used Tobacco Second Hand Smoke Exposure: No Review of Systems Const Denies chills, Denies fatigue, Denies fever(s), Denies frequent falls, Denies weakness, Denies weight gain and Denies weight loss ENT Denies dizziness Card Denies chest pain, Denies leg edema, Denies lightheadedness, Denies palpita tions, Denies dyspnea, Denies dyspnea on exertion, Denies orthopnea and Denies other (loss of consciousness) Resp Denies cough, Denies dyspnea and Denies dyspnea on exertion GI Denies hematochezia and Denies change in stool character Musc Denies abnormal gait, Denies muscle weakness, Denies numbness, Denies radiating pain into limb and Denies tingling Neuro Denies Abnormal speech present, Denies abnormal gait, Denies dizziness, Denies frequent falls, Denies numbness, Denies tingling and Denies weakness Endo Denies fatigue and Denies palpitations Physical Exam Vital Signs: Last Vital Signs Pulse 78 03/28/23 15:17 BP 116/70 03/28/23 15:17 BMI result Body Mass Index 22.4 Const General: cooperative, comfortable, no acute distress, alert, awake and anxious Nutritional Appearance: thin Orientation/consciousness: patient oriented x3 Limitations: no limitations Neck Neck: Yes trachea midline, Yes supple and Yes no JVD Chest Chest palpation & inspection: normal inspection of the chest and other (Well- healed sternotomy scar) Resp Effort & Inspection: normal respiratory effort Auscultation: clear to auscultation bilaterally Cardio Jugular venous distension: no JVD Rate: regular rate Rhythm: abnormal rhythm with ectopic beats Heart sounds: S2 normal heart sound present, Clicking heart sound present ([place] opening and closing click of [place] mitral valve) and Murmur heart sound present systolic Peripheral pulses: Peripheral pulses 2+ throughout GI Auscultation: normal bowel sounds Skin General skin exam: no rashes or lesions noted and ecchymosis Neuro General: patient oriented x3 and no focal motor deficits Speech: No Abnormal speech present Extrem General: Yes no clubbing, cyanosis or edema Psych Appearance: grossly normal Affect: Anxious affect present Attitude: Avoids eye contact (attititude/behavior) Office Procedures Cardiac Device Check Cardiac Device Check Details: Dual-chamber Medtronic pacemaker in place. Programmed in DDDR at 60 beats per minute. The multiple episode of atrial fibrillation noted although more recently she has been in sinus rhythm. Atrial sensing is adequate. Ventricular sensing could not be checked. Patient ventricularly pacer dependent. Atrial pacing thresholds are adequate and reprogrammed to enhance battery life. Ventricular pacing thresholds elevated and reprogrammed to provide adequate safety. Battery life is at about 8 years. Pacing lead impedance history were [id number] Cardiac Device Check, pacemaker dual lead Procedure code (CPT) selection complete Assessment & Plan Assessment & Plan (1) Paroxysmal atrial fibrillation: Code(s): I48.0 - Paroxysmal atrial fibrillation Plan: Paroxysmal atrial fibrillation more recently has remained in sinus rhythm or atrial paced rhythm. Doing well with rhythm management will continue monitor by pacer telemetry. She says she does not have much symptoms when she is in atrial fibrillation. Continue metoprolol therapy. Continue full oral anticoagulation, currently on warfarin therapy. Maintain target INR between 2.5 and 3.5. (2) H/O mitral valve replacement: Onset Date: ~1996 Comment: ([place]ty mechanical valve, size unknown - 1996) Code(s): Z95.2 - Presence of prosthetic heart valve Plan: Mechanical mitral valve replacement working well. No interventions required for the same. Will continue monitor clinically. Continue warfarin therapy being followed by [facility]. Maintain target INR between 2.5 and 3.5. SBE prophylaxis as per ACC/[place] guidelines. (3) Aortic stenosis: Code(s): I35.0 - Nonrheumatic aortic (valve) stenosis Plan: Aortic stenosis which is moderately severe paradoxical low-flow. No symptoms related to it. Cardinal symptoms associated with aortic stenosis were discussed advised to call with any new symptoms. Will follow up with echocardiogram in 1 year's time. (4) Cardiac pacemaker in situ: Onset Date: ~2009 Comment: (Medtronic DCPP - placed 2009, generator changes in 2015 & 2020) Code(s): Z95.0 - Presence of cardiac pacemaker Plan: Cardiac pacemaker in-situ, working well. Reprogrammed for adequate function. Will follow remotely in 3 months. Follow up in the clinic in 6 months time. Thank you for allowing me to partake in the care. Clinic in 6 months time. Coding Level of Care Code Est Pt Level 4 (67711) Diagnoses Paroxysmal atrial fibrillation I48.0 H/O mitral valve replacement Z95.2 Aortic stenosis I35.0 Cardiac pacemaker in situ Z95.0 CPT Codes Cardiac Device Check - Cardiac Device 2: [id number] Cardiac Device Check, pacemaker dual lead ([id number])
== END 2023-03-28 15:41 | disposition home or self-care (01) ==
PROVIDERS: PCP Internal Medicine; Visit Provider Internal Medicine Cardiovascular Disease
DX: I48.0 Paroxysmal atrial fibrillation (principal); Z95.2 Presence of prosthetic heart valve; I35.0 Nonrheumatic aortic (valve) stenosis; Z95.0 Presence of cardiac pacemaker
CPT/HCPCS: 93280; 99214

== ENCOUNTER → 2023-03-28 15:16 | Outpatient (BNVA) | payer MEDICARE, SELFPAY | PROVIDERS: PCP Internal Medicine; Visit Provider Internal Medicine Cardiovascular Disease | DX: I48.0 Paroxysmal atrial fibrillation (principal); I49.5 Sick sinus syndrome; I35.0 Nonrheumatic aortic (valve) stenosis; Z45.018 Encounter for adjustment and management of other part of cardiac pacemaker | CPT/HCPCS: 93280; 99212 ==

== ENCOUNTER → 2023-04-04 23:59 | Outpatient (BNV) | payer MEDICARE, SELFPAY ==
--- NOTE | 2023-04-18 08:57 | A.OFFVIS_ITS ---
Intake Intake Visit Reasons: Remote Device Check- Medtronic Allergies Sulfa (Sulfonamide Antibiotics) Allergy (Unknown, Verified 09/20/22 14:26) UNKNOWN - DOES NOT REMEMBER [facility] Medical History Persistent atrial fibrillation Mixed hyperlipidemia Current use of [facility] anticoagulation Osteoporosis (~2005) HTN (hypertension) Aortic stenosis H/O mitral valve replacement (~1996) Paroxysmal atrial fibrillation Cardiac pacemaker in situ (~2009) Sick sinus syndrome (~2009) Surgical History History of ventral hernia repair History of kyphoplasty (~2011) History of cardiac pacemaker (~2009) History of meniscectomy of right knee (~2012) History of mitral valve replacement (~1996) History of mitral valve repair (~1992) History of right knee surgery (~2017) Family History Father No problems noted. Mother No problems noted. Social History Alcohol intake: never Patient Tobacco Use Status: Never used Tobacco Second Hand Smoke Exposure: No Office Procedures Cardiac Device Check Cardiac Device Check Details: Remote pacemaker report generated to benign 2022. Pacemaker function is adequate. Total burden of atrial fibrillation 54.3%. Patient ventricularly pacer dependent [id number] Cardiac Device Interrogation, pacemaker Procedure code (CPT) selection complete Coding Level of Care Code Procedure Only CPT Codes Cardiac Device Check - Cardiac Device 12: [id number] Cardiac Device Interrogation, pacemaker ([id number])
== END ==
PROVIDERS: PCP Internal Medicine; Visit Provider Internal Medicine Cardiovascular Disease
DX: I48.0 Paroxysmal atrial fibrillation (principal); Z95.0 Presence of cardiac pacemaker
CPT/HCPCS: 93294

== ENCOUNTER 2023-04-12 08:15 | Outpatient (REF) | payer MEDICARE, SELFPAY ==
[2023-04-12 11:29] LABS: MANUAL DIFF FLAG NO
[2023-04-12 11:49] LABS: Basophils Percent Auto 0.7 % (0-2); Eosinophils Absolute Auto 0.1 X10*3/uL (0.0-0.4); Hematocrit 33.4 % (37.0-47.0); Hemoglobin 10.6 g/dl (12.0-16.0); Imm Gran Abs Auto 0.02 X10*3/uL (0.00-0.03); Imm Gran Pct Auto 0.3 % (0.0-0.4); Lymphocytes Absolute Auto 1.2 X10*3/uL (1.2-4.9); Lymphocytes Percent Auto 20.2 % (20-40); Mean Corpuscular HGB Conc 31.7 g/dl (31.0-35.0); Mean Corpuscular Hemoglobin 31.8 pg (27.0-33.0); Mean Corpuscular Volume 100.3 fL (80.0-98.0); Mean Platelet Volume 9.7 fL (9.4-12.3); Monocytes Absolute Auto 0.7 X10*3/uL (0.1-1.2); Monocytes Percent Auto 11.9 % (2-11); Neutrophils Absolute Auto 3.9 x10*3/uL (2.0-8.3); Neutrophils Percent Auto 65.9 % (45-73); Platelet Count 270 X10*3/uL (160-400); Red Blood Count 3.33 X10*6/uL (4.20-5.50); Red Cell Distribution Width 13.6 % (11.0-16.0); White Blood Count 5.9 X10*3/uL (4.8-10.8)
[2023-04-12 12:02] LABS: INTERNATIONAL NORM RATIO 2.4 (0.9-1.1); Prothrombin Time 29.8 SEC (11.1-13.3)
[2023-04-12 12:45] LABS: Anion Gap 15 (12-20)
[2023-04-12 12:51] LABS: Alanine Aminotransferase 17 U/L (0-31); Albumin Level 4.3 g/dL (3.5-5.0); Alkaline Phosphatase 92 U/L (39-117); Aspartate Amino Transferase 24 U/L (5-31); Bilirubin Total 1.2 mg/dL (0.0-1.0); Blood Urea Nitrogen 21 mg/dL (9-16); Calcium 9.3 mg/dL (8.4-10.2); Carbon Dioxide 24 mmol/L (22-29); Chloride 108 mmol/L (96-108); Cholesterol 114 mg/dL (<200); Estimated Glomerular Filt Rate > 60; Glucose Fasting 89 mg/dL (60-99); HDL Cholesterol 52 mg/dL (>40); LDL Cholesterol Calculated 52 mg/dL (<100); Potassium 4.1 mmol/L (3.3-5.1); Sodium 143 mmol/L (135-145); Total Protein 7.6 g/dL (6.5-8.0); Triglycerides 50 mg/dL (<150)
== END 2023-04-12 08:16 | disposition home or self-care (01) ==
LOC: HO.HMGCLR 08:15
PROVIDERS: PCP Internal Medicine; Visit Provider Internal Medicine
DX: R53.83 Other fatigue (principal); E78.5 Hyperlipidemia, unspecified; I48.91 Unspecified atrial fibrillation
CPT/HCPCS: 36415; 80053; 80061; 85025; 85610

== ENCOUNTER → 2023-04-26 12:43 | Outpatient (BNVA) | payer MEDICARE, SELFPAY | PROVIDERS: PCP Internal Medicine; Visit Provider Nurse Practitioner ==

== ENCOUNTER 2023-05-26 13:23 | Outpatient (REF) | payer MEDICARE, SELFPAY ==
--- NOTE | ~2023-05-26 | XR_ITS ---
EXAMINATION: XR FEMUR, LEFT CLINICAL INFORMATION: Left femoral pain. COMPARISON: Left hip 02/13/2023 TECHNIQUE: AP and lateral views of the left femur were obtained. FINDINGS: There is an intramedullary femoral brenna and a locking screw with cerclage wires stabilizing old healed proximal femoral fracture. There is increased lucency around the bone metal interface measuring approximately 0.24 cm unchanged to previous study. Hypertrophic callus formation is seen along the oblique fracture line in the proximal femur. The left hip joint space is maintained normal. No fracture involving the acetabulum. The soft tissues are normal. XR/XR femur LT 2V IMPRESSION: Left femoral ORIF without evidence of hardware complication. There is hypertrophic callus formation along the fracture line is more prominent at this time. No recurrent fracture or dislocation seen.
== END 2023-05-26 13:24 | disposition home or self-care (01) ==
LOC: HO.HMGCX 13:23
PROVIDERS: PCP Internal Medicine; Visit Provider Internal Medicine
DX: M79.652 Pain in left thigh (principal)
CPT/HCPCS: 73552

== ENCOUNTER 2023-06-14 11:01 | Outpatient (REF) | payer MEDICARE, SELFPAY ==
[2023-06-14 13:36] LABS: INTERNATIONAL NORM RATIO 2.9 (0.9-1.1); Prothrombin Time 35.8 SEC (11.1-13.3)
== END 2023-06-14 11:02 | disposition home or self-care (01) ==
LOC: HO.HMGCLR 11:01
PROVIDERS: PCP Internal Medicine; Visit Provider Internal Medicine
DX: I48.91 Unspecified atrial fibrillation (principal)
CPT/HCPCS: 36415; 85610

== ENCOUNTER 2023-07-04 09:12 | Inpatient (IN) | payer MEDICARE, SELFPAY ==
[2023-07-04] VITALS (14 sets, daily range): BP systolic 128–184; BP diastolic 42–78; PULSE 60–74; RESP 15–24; TEMP 36.4–37.2; O2SAT 96–100; BMI 21.5
--- NOTE | 2023-07-04 09:32 | ED.SOB ---
HPI - SOB/Dyspnea General Chief Complaint: Upper Respiratory Symptoms Stated Complaint: SOB X 1 WEEK Time Seen by Provider: 07/04/23 09:27 Source: patient Mode of arrival: EMS Limitations: no limitations History of Present Illness HPI Narrative: This is a 83 years old female presented to the emergency department with a chief complaint of shortness of breath for about a week. Denies any chest pain denies any fever. Patient has history of mitral valve replacement in 1996, she has history of hypertension history of paroxysmal AFib she is anticoagulated with warfarin, shows the pacemaker in 2009. She also has hx of aortic stenosis MD elicited complaint: shortness of breath Onset (ago): week(s) (1) Context: occurred during exertion Timing: constant Severity: moderate Related Data Home Medications Medication Instructions Recorded Confirmed alendronate 70 mg tablet 70 mg PO SA 05/19/21 03/28/23 cholecalciferol (vitamin D3) 25 25 mcg PO DAILY 05/19/21 03/28/23 mcg (1,000 unit) capsule metoprolol tartrate 50 mg tablet 50 mg PO BID 05/19/21 03/28/23 multivitamin (Daily Multi-Vitamin 1 tab PO DAILY 05/19/21 03/28/23 tablet) pravastatin 40 mg tablet 40 mg PO BEDTIME 05/19/21 03/28/23 valsartan 160 mg tablet 160 mg PO DAILY 05/19/21 03/28/23 vitamin B complex (B 1 tab PO DAILY 05/19/21 03/28/23 Complex-Vitamin B12 tablet) warfarin 2.5 mg tablet 3.5 mg PO DAILY@1800 09/20/22 03/28/23 Previous Rx's Medication Instructions Recorded amlodipine 2.5 mg tablet 2.5 mg PO DAILY #90 tabs 06/28/23 Allergies Allergy/AdvReac Type Severity Reaction Status Date / Time Sulfa (Sulfonamide Allergy Unknown UNKNOWN - Verified 09/20/22 14:26 Antibiotics) DOES NOT REMEMBER Review of Systems Eyes: Eyes: Reports no additional eye complaints ENT: Reports system reviewed and no additional complaints, except as documented Cardiovascular: Cardiovascular: Reports no additional cardiovascular complaints Neurologic: Reports system reviewed and no additional complaints, except as documented PMFSH Past Medical History Source: unable to obtain Onset Date is defined in the Problem List Problems that require an onset date and time if occurred within 24 hrs of arrival to the ED Aortic Dissection and Rupture; Neurologic impairment; Cardiopulmonary Arrest; Endotracheal Intubation; Insertion or Replacement of Mechanical Circulatory Assist Device Medical History Persistent atrial fibrillation Mixed hyperlipidemia 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 Mother No problems noted. Social History Social History Alcohol intake: never Patient Tobacco Use Status: Never used Tobacco Smoked in Last 30 Days: No Second Hand Smoke Exposure: No Use of substances other than those prescribed or required for medical reasons: No Advance Directives: No Advance Directives Information Provided: No Physical Exam Vital Signs: Vital Signs: Last Vital Signs Temp 98 F 07/04/23 11:24 Pulse 60 07/04/23 11:24 Resp 19 07/04/23 11:24 BP 160/49 H 07/04/23 11:24 Pulse Ox 98 07/04/23 10:24 O2 Del Method Room Air 07/04/23 10:24 BMI result Body Mass Index 21.5 Const: General: cooperative and no acute distress Nutritional Appearance: average body habitus Orientation/consciousness: patient oriented x3 Limitations: no limitations HEENT: Head: Yes normal to inspection Ears: hearing grossly normal bilaterally General nose exam: Normal external nose present Face and sinus: Yes normal facial exam Mouth: Normal oral and palatal mucosa present Neck: Neck: Yes normal visual inspection and Yes full ROM Chest: Chest palpation & inspection: normal inspection of the chest Resp: Effort & Inspection: able to speak in complete sentences Auscultation: clear to auscultation bilaterally Cardio: Jugular venous distension: no JVD Rate: regular rate Rhythm: regular rhythm GI: Inspection: Yes normal to inspection Palpation (GI): Soft to palpation, not firm, nontender and no guarding Skin: General skin exam: no rashes or lesions noted and elasticity normal Lesions: no lesions Rashes: no rashes Neuro: General: patient oriented x3 Course Reevaluation(s) Reevaluation #1: seen by neurosurgery physician Dr Jones Time: 11:31 Reevaluation #2: page GI Dr Durán Time: 11:32 Reevaluation #3: Spoke with Gi Dr Durán Time: 11:58 Medications Administered Discontinued Medications Generic Name Dose Route Start Last Admin Trade Name Freq PRN Reason Stop Dose Admin Sodium Chloride 100 mls @ 100 mls/hr 07/04/23 10:21 07/04/23 11:23 Ns IV 07/04/23 11:20 100 mls/hr ONCE ONE Administration Medical Decision Making Medical Decision Making [facility] Narrative: Patient presented with shortness of breath, we will obtain chest x-ray labs EKG Differential Diagnosis Differential Diagnoses: The differential diagnosis associated with the presentation includes CHF/pneumothorax/unlikely pulmonary emboli she is anticoagulated with Coumadin Admission/Observation Consideration of admission/observation: Escalation of care including admission/observation considered Consult Healthcare Provider Management of the patient was discussed with: Wet Cotton Feeder spoke with neurosurgery physician,spoke with Dr Durán Lab Data [facility] Lab Attestation statement: I reviewed the patient's lab results. 07/04/23 09:49 07/04/23 09:49 Labs: Lab Results 07/04/23 07/04/23 07/04/23 Range/Units 09:49 09:56 10:23 WBC 9.4 (4.8-10.8) X10*3/uL RBC 1.65 L D (4.20-5.50) X10*6/uL Hgb 4.9 L* D (12.0-16.0) g/dl Hct 16.5 L* D (37.0-47.0) % MCV 100.0 H (80.0-98.0) fL MCH 29.7 (27.0-33.0) pg MCHC 29.7 L (31.0-35.0) g/dl RDW 15.9 (11.0-16.0) % Plt Count 239 (160-400) X10*3/uL MPV 9.1 L (9.4-12.3) fL Immature Gran % (Auto) 0.4 (0.0-0.4) % Neut % (Auto) 78.7 H (45-73) % Lymph % (Auto) 8.3 L (20-40) % [place] % (Auto) 11.9 H (2-11) % Eos % (Auto) 0.2 (0-4) % Baso % (Auto) 0.5 (0-2) % Lymph # (Auto) 0.8 L (1.2-4.9) X10*3/uL [place] # (Auto) 1.1 (0.1-1.2) X10*3/uL Eos # (Auto) 0.0 (0.0-0.4) X10*3/uL Baso # (Auto) 0.1 (0.0-0.2) X10*3/uL Abs Immat Gran (auto) 0.04 H (0.00-0.03) X10*3/uL Absolute Neuts (auto) 7.4 (2.0-8.3) x10*3/uL Absolute Nucleated RBC 0.030 H (0.0-0.012) X10*3/uL Nucleated RBC % (auto) 0.3 H (0.0-0.2) /100WBC PT 68.3 H D (11.1-13.3) SEC INR 5.6 H* D (0.9-1.1) VBG pH 7.42 (7.32-7.43) VBG pCO2 37 mmHg VBG pO2 40 mmHg VBG HCO3 24 (22-26) mmol/L VBG O2 Saturation TNP VBG Base Excess 0.3 mmol/L Sodium 142 (135-145) mmol/L Potassium 4.4 (3.3-5.1) mmol/L Chloride 114 H (96-108) mmol/L Carbon Dioxide 22 (22-29) mmol/L Anion Gap 10 L (12-20) BUN 36 H (9-16) mg/dL Creatinine 0.74 (0.5-1.4) mg/dL Estim Creat Clear Calc 40.6 Estimated GFR > 60 Random Glucose 110 (60-115) mg/dL Calcium 9.0 (8.4-10.2) mg/dL Total Bilirubin 1.3 H (0.0-1.0) mg/dL AST 22 (5-31) U/L ALT 15 (0-31) U/L Alkaline Phosphatase 62 (39-117) U/L Troponin I High Sens 8.2 (<3.5-17.0) ng/L B-Natriuretic Peptide 727 H (<100) pg/mL Total Protein 6.2 L (6.5-8.0) g/dL Albumin 3.6 (3.5-5.0) g/dL Stool Occult Blood POSITIVE (NEGATIVE) Influenza Type A (PCR) NEGATIVE (Negative) Influenza Type B (PCR) NEGATIVE (Negative) RSV RNA Qual (PCR) NEGATIVE (Negative) SARS-CoV-2 RNA (RT-PCR) NEGATIVE (Negative) Blood Type O Positive Antibody Screen NEGATIVE Crossmatch See Detail Independent Interpretation I performed an independent interpretation of an: EKG (paced rythm 61) Interpretation: paced Radiology Impression Discussion of test interpretation with radiology: I have reviewed the radiologist's reading. Independent Historian Clinical information obtained from an independent historian. History obtained from or confirmed by: Other (daughter) External Record Review External record reviewed: Inpatient record and Office record Chronic Conditions Patient?s care impacted by: Other (mitral valve replacement) Critical Care Time Critical Care Time Critical Care Time: Yes Total Critical Care Time: 60 Attestation: GI bleeding ,transfusion 2 unit Discharge Plan Discharge Clinical Impression: Shortness of breath, Anemia, Heme + stool Patient Disposition: Admitted As Inpatient
[2023-07-04 09:58] LABS: MANUAL DIFF FLAG NO
[2023-07-04 10:02] LABS: Basophils Absolute Auto 0.1 X10*3/uL (0.0-0.2); Basophils Percent Auto 0.5 % (0-2); Eosinophils Percent Auto 0.2 % (0-4); Imm Gran Abs Auto 0.04 X10*3/uL (0.00-0.03); Imm Gran Pct Auto 0.4 % (0.0-0.4); Lymphocytes Absolute Auto 0.8 X10*3/uL (1.2-4.9); Lymphocytes Percent Auto 8.3 % (20-40); Mean Corpuscular HGB Conc 29.7 g/dl (31.0-35.0); Mean Corpuscular Hemoglobin 29.7 pg (27.0-33.0); Mean Platelet Volume 9.1 fL (9.4-12.3); Monocytes Absolute Auto 1.1 X10*3/uL (0.1-1.2); Monocytes Percent Auto 11.9 % (2-11); NRBC Pct Auto 0.3 /100WBC (0.0-0.2); Neutrophils Absolute Auto 7.4 x10*3/uL (2.0-8.3); Neutrophils Percent Auto 78.7 % (45-73); Platelet Count 239 X10*3/uL (160-400); Red Blood Count 1.65 X10*6/uL (4.20-5.50); Red Cell Distribution Width 15.9 % (11.0-16.0); White Blood Count 9.4 X10*3/uL (4.8-10.8)
[2023-07-04 10:12] LABS: Hemoglobin 4.9 g/dl (12.0-16.0)
[2023-07-04 10:13] LABS: Alanine Aminotransferase 15 U/L (0-31); Albumin Level 3.6 g/dL (3.5-5.0); Alkaline Phosphatase 62 U/L (39-117); Anion Gap 10 (12-20); Aspartate Amino Transferase 22 U/L (5-31); Bilirubin Total 1.3 mg/dL (0.0-1.0); Blood Urea Nitrogen 36 mg/dL (9-16); Carbon Dioxide 22 mmol/L (22-29); Chloride 114 mmol/L (96-108); Creatinine Clr Calc Pharmacy 40.6; Estimated Glomerular Filt Rate > 60; Glucose Random 110 mg/dL (60-115); Hematocrit 16.5 % (37.0-47.0); Potassium 4.4 mmol/L (3.3-5.1); Sodium 142 mmol/L (135-145); Total Protein 6.2 g/dL (6.5-8.0)
--- NOTE | 2023-07-04 13:15 | P.HPHOSP_ITS ---
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 She had her mechanical mitral valve placed in 1996, she has a pacemaker, and has been on warfarin anticoagulated since and has had no issues. She denies chest pain, nausea, vomiting, diarrhea, no change in diet, no recent illness. She lives alone is independent. In the ER, hemoglobin was 4.9, hematocrit 16.5, BNP 727, chest x-ray showing increased interstitial prominence and trace right pleural fluid. 2 units of packed red blood cells ordered and running. No fever leukocytosis noted. , no hypoxia. Plan is to admit patient for further management and treatment of acute anemia. Review of Systems 2 Review of Systems: Denies any recent fever chills or decrease in appetite respiratory See HPI cardiovascular denies chest pain gastrointestinal denies any dysphagia abdominal pain nausea vomiting or diarrhea genitourinary denies any dysuria frequency or hematuria musculoskeletal denies any joint pain or swelling neuropsych denies any weakness or seizures all other systems reviewed are negative [facility] Medical History Persistent atrial fibrillation Mixed hyperlipidemia Current use of supervisor intermediates anticoagulation Osteoporosis (~2005) HTN (hypertension) Aortic stenosis H/O mitral valve replacement (~1996) Paroxysmal atrial fibrillation Cardiac pacemaker in situ (~2009) Sick sinus syndrome (~2009) Family History Father No problems noted. Mother No problems noted. Surgical History History of ventral hernia repair History of kyphoplasty (~2011) History of cardiac pacemaker (~2009) History of meniscectomy of right knee (~2012) History of mitral valve replacement (~1996) History of mitral valve repair (~1992) History of right knee surgery (~2017) Social History Alcohol intake: never Patient Tobacco Use Status: Never used Tobacco Smoked in Last 30 Days: No Second Hand Smoke Exposure: No Use of substances other than those prescribed or required for medical reasons: No Advance Directives: No Advance Directives Information Provided: No Meds Allergies Allergy/AdvReac Type Severity Reaction Status Date / Time Sulfa (Sulfonamide Allergy Unknown UNKNOWN - Verified 09/20/22 14:26 Antibiotics) DOES NOT REMEMBER Home Medications Medication Instructions Recorded Confirmed Last Taken Type alendronate 70 mg tablet 70 mg PO SA 05/19/21 07/04/23 07/02/23 History cholecalciferol (vitamin D3) 25 25 mcg PO DAILY 05/19/21 07/04/23 10/12/22 History mcg (1,000 unit) capsule metoprolol tartrate 50 mg tablet 50 mg PO BID 05/19/21 07/04/23 10/12/22 History multivitamin (Daily Multi-Vitamin 1 tab PO DAILY 05/19/21 07/04/23 10/12/22 History tablet) pravastatin 40 mg tablet 40 mg PO BEDTIME 05/19/21 07/04/23 10/12/22 History valsartan 160 mg tablet 160 mg PO DAILY 05/19/21 07/04/23 10/12/22 History warfarin 2.5 mg tablet 3.5 mg PO DAILY@1800 09/20/22 07/04/23 07/03/23 History Physical Exam 2 Vital Signs and Narrative: Vital Signs: Last Vital Signs Temp 98 F 07/04/23 11:24 Pulse 60 07/04/23 11:24 Resp 19 07/04/23 11:24 BP 160/49 H 07/04/23 11:24 Pulse Ox 98 07/04/23 10:24 O2 Del Method Room Air 07/04/23 10:24 BMI result Body Mass Index 21.5 Appearing in no acute distress head is normocephalic atraumatic eyes pupils are PERRLA sclera is anicteric mouth throat mucous membranes are intact and moist neck is supple no lymphadenopathy, no JVD noted lung sounds are clear to auscultation heart regular rate rhythm, clear S1, S2 positive bowel sounds, abdomen is soft, nontender neuro patient is alert x3, no focal deficits Results Labs 07/04/23 09:49 07/04/23 09:49 Labs: Laboratory Results - last 24 hr 07/04/23 07/04/23 07/04/23 09:49 09:56 10:23 MCV 100.0 H MCH 29.7 MCHC 29.7 L RDW 15.9 Plt Count 239 MPV 9.1 L Immature Gran % (Auto) 0.4 Neut % (Auto) 78.7 H Lymph % (Auto) 8.3 L [place] % (Auto) 11.9 H Eos % (Auto) 0.2 Baso % (Auto) 0.5 Lymph # (Auto) 0.8 L [place] # (Auto) 1.1 Eos # (Auto) 0.0 Baso # (Auto) 0.1 Abs Immat Gran (auto) 0.04 H Absolute Neuts (auto) 7.4 Absolute Nucleated RBC 0.030 H Nucleated RBC % (auto) 0.3 H PT 68.3 H D INR 5.6 H* D VBG pH 7.42 VBG pCO2 37 VBG pO2 40 VBG HCO3 24 VBG O2 Saturation TNP VBG Base Excess 0.3 Anion Gap 10 L Estim Creat Clear Calc 40.6 Estimated GFR > 60 Random Glucose 110 Calcium 9.0 Total Bilirubin 1.3 H AST 22 ALT 15 Alkaline Phosphatase 62 B-Natriuretic Peptide 727 H Total Protein 6.2 L Albumin 3.6 Stool Occult Blood POSITIVE Influenza Type A (PCR) NEGATIVE Influenza Type B (PCR) NEGATIVE RSV RNA Qual (PCR) NEGATIVE SARS-CoV-2 RNA (RT-PCR) NEGATIVE Blood Type O Positive Antibody Screen NEGATIVE Crossmatch See Detail Imaging Radiologist's Impressions: Impressions Chest X-Ray 07/04/23 09:57 IMPRESSION: Increased interstitial prominence and trace right pleural fluid, nonspecific, could be associated with pulmonary edema or an atypical infectious process. Assessment and Plan (1) Anemia: Status: Acute Plan 83-year-old woman with history of mechanical mitral valve, pacemaker on warfarin with severe blood loss anemia and supratherapeutic INR. Severe acute blood loss anemia Possibly related to warfarin 2 units of packed red blood cells ordered and transfused in the ER, check CBC post transfusion Hold warfarin GI consultation, patient may need endoscopy/colonoscopy once INR is therapeutic clear diet for now Follow CBC and transfuse as necessary Mechanical mitral valve INR goal 2.5-3.5 INR 5.6 No reversal at this time(no vitamin K), allow to trend down on its own Restart warfarin when INR within therapeutic range Cardiology following Possible Fluid overload noted on CXR and elevated BNP 727 sob multifactorial including anemia cause No history of congestive heart failure lasix 20mg x 1 now and daily echo discuss with cardiology Paroxysmal atrial fibrillation AV paced on EKG Hold warfarin as above Continue metoprolol Hypertension Elevated blood pressure Continue amlodipine, valsartan Hyperlipidemia Continue statin DVT prophylaxis with mechanical compression boots in light of blood-loss anemia Full code Patient requires at least 48-72 hour admission for treatment of severe acute blood loss anemia requiring blood transfusions, close monitoring of CBC and likely gastrointestinal intervention. Patient also needs close monitoring of INR as patient does have a mechanical mitral valve. This cannot be done at a lesser acute setting for either of the diagnoses as patient is symptomatic and given patient's age decompensation could happen quickly. Quality Stroke Does the patient have a stroke diagnosis?: No VTE Prior VTE?: No VTE Risk Level:: Medical - moderate - high VTE Device Contraindication: N/A - Device Ordered VTE Drug Contraindication: Treatment Not Indicated
--- NOTE | 2023-07-04 13:18 | PHA.MEDREC ---
Pharmacy Consult ? Medication Reconciliation Pharmacy has completed the medication reconciliation. Spoke with patient to confirm medications.
--- NOTE | 2023-07-04 14:39 | PC.NURSE ---
2nd unit of RBC's infusing, ls clear with crackles at r base unchanged from admission to ed, paced on monitor, alert, speech clear, no sob, placed on 1 lpm o2 for comfort as pt reports sob when talking, denies sob now
--- NOTE | 2023-07-04 17:34 | PM.EVENT ---
Event Note Date of Service: 07/04/23 Event Note: GI Consult-Full note dictated. History from patient, daughter Constance, ER staff, and EMR. Imp: 83 yo female on chronic 81mg aspirin and Coumadin presenting with intermittent melena, including today, significant anemia, and dyspnea. She has also been noted to have a supratherapeutic PT/INR. She has been stable in the ER and without any signs of active bleeding. She just finished her 2nd unit of PRBC's. She denies any other localizing GI complaints. Diff dx: Erosive gastritis, PUD, esophagitis, AVM's, or UGI neoplasm. It does not sound like a lower GI souce of bleeding. Rec: Eventual EGD this admission once Hgb corrected to > 8, cardiopulmonary status maximized, and hopefully her PT/INR drifts down somewhat. Spoke with Dr. Luke and he would prefer to avoid Vitamin K due to risk of rapid correction of INR with risk of valve thrombosis, as well as then making it more difficult to reanticoagulate with a need for bridging with Lovenox. The patient and her daughter would both like to avoid Lovenox due to previous negative experiences with it. Start IV PPI. Full liquid diet for now. Possible EGD with MAC by 07/06 or 07/07 once cleared by cardiology, Hgb acceptable, and perhaps with the PT/INR lower as well. I suspect she may need some FFP for the EGD. D/w patient and her daughter in detail. They are comfortable with this plan. Thanks Time Spent With Patient Time: Total time managing care of this patient today ____ minutes.
[2023-07-04] MEDS: Furosemide 20 MG/2 ML VIAL IVPUSH (18:00)
[2023-07-04] MEDS: Pantoprazole Sodium 40 MG/10 ML VIAL IVPUSH (18:00)
--- NOTE | 2023-07-04 18:10 | PC.NURSE ---
pt appears sob/tachypneic. crackles heard on ausc. lasix given per aug. sats 96% on 1L NC. pt reports feeling a little sob. pt sat upright in bed, appears comfortable. call robison within reach.
[2023-07-04 21:22] LABS: Hematocrit 25.9 % (37.0-47.0); Hemoglobin 8.1 g/dl (12.0-16.0); Mean Corpuscular HGB Conc 31.3 g/dl (31.0-35.0); Mean Corpuscular Volume 95.9 fL (80.0-98.0); Mean Platelet Volume 9.6 fL (9.4-12.3); NRBC Pct Auto 0.7 /100WBC (0.0-0.2); Platelet Count 221 X10*3/uL (160-400); Red Cell Distribution Width 15.9 % (11.0-16.0); White Blood Count 13.5 X10*3/uL (4.8-10.8)
[2023-07-05] VITALS (9 sets, daily range): BP systolic 126–156; BP diastolic 50–69; PULSE 64–79; RESP 16–28; TEMP 36.7–36.9; O2SAT 94–96
--- NOTE | 2023-07-05 02:54 | CONS_ITS ---
DATE OF SERVICE: 07/04/2023 REASON FOR CONSULTATION: Melena and anemia. HISTORY OF PRESENT ILLNESS: This has been obtained from the patient, her daughter, Constance, the ER staff, and the medical record. The patient is an 83-year-old female, on chronic Coumadin and 81 mg aspirin in relation to previous valvular heart disease including a mitral valve replacement. She describes having noticed some intermittent black stool over the past few weeks including today. She has become progressively weak and short of breath as this has occurred. During this time, she denies any issues with significant heartburn, dysphagia, nausea, nor vomiting. She denies any abdominal pain, jaundice, nor any definitive weight loss. She describes that her bowel movements have been rather dark or black intermittently, but without any hematochezia. She denies any significant diarrhea nor constipation. Aside from her Coumadin and 81 mg aspirin, she denies any other medications such as NSAIDs. She does not smoke nor use any significant amounts of alcohol. She denies any previous history of ulcer disease nor GI bleeding. Upon admission in the ER, she was found to have a hemoglobin of 4.9 compared to 10.6 back in March. Her MCV was 100. Her PT was 68.3 with an INR of 5.6 today compared to an INR of 2.9 with PT of 39.8 back in mid May. She denies any history of ulcer disease in herself nor family members. She denies any known family history of GI malignancy. She denies any other upper GI symptoms such as nausea, vomiting, dysphagia, nor significant heartburn. She describes her appetite had been fairly normal. Again, her bowel movements have been fairly regular and without hematochezia, but had been dark intermittently. MEDICATIONS: At home included alendronate, amlodipine, vitamin D, metoprolol, pravastatin, valsartan, and warfarin. Her medications here in the hospital included acetaminophen, Lasix p.r.n., Zofran p.r.n., and IV Protonix. PAST MEDICAL HISTORY: Valvular heart disease, for which she is status post a mitral valve replacement in 1996. Several years prior to that, she had a mitral valve repair. She does have history of a pacemaker placement as well. She has underlying atrial fibrillation, hyperlipidemia, osteoporosis, hypertension, aortic valve stenosis, and osteoporosis. PAST SURGICAL HISTORY: Surgeries include her mitral valve surgery, pacemaker, fractured left femur, and knee surgery. History of abdominal wall hernia repair. SOCIAL HISTORY: She currently lives by herself. She does not smoke nor use any significant amounts of alcohol. REVIEW OF SYSTEMS: CONSTITUTIONAL: She has been feeling weak and tired at home in relation to anemia. SKIN: No rash. No pruritus. CARDIAC: No chest pain. PULMONARY: No coughing or hemoptysis. GASTROINTESTINAL: As above. URINARY: No dysuria. No hematuria. NEUROLOGIC: No headache or seizures. FAMILY HISTORY: Negative for GI malignancy. PHYSICAL EXAMINATION: GENERAL: Again, the patient is a pale, but alert and comfortable-appearing female, in no distress. SKIN: Warm and dry. HEENT: Anicteric sclerae. NECK: Supple. CHEST: Reveals some diminished breath sounds bilaterally. CARDIAC: Normal S1, S2 with a systolic murmur. ABDOMEN: Soft. Normal bowel sounds. Nondistended and nontender. LABORATORY DATA: PT 68.3 with INR 5.6, hemoglobin 4.9 with MCV 100, white blood cell count 9.4, normal electrolytes, BUN 36, creatinine 0.7. In March, she had a BUN of 21 with creatinine of 0.7. Total bilirubin is 1.3, but the remainder of the liver profile is normal. Albumin 3.6. Stool was Hemoccult positive. IMAGING DATA: Chest x-ray on admission shows some increased interstitial prominence and some trace amount of right pleural fluid, which was felt to be possibly related to pulmonary edema or atypical pneumonia. IMPRESSION: In regard to the patient's presentation, this seems consistent with an upper gastrointestinal bleed, albeit on a slow basis. Differential diagnosis for this would include that of erosive gastritis, peptic ulcer disease, erosive esophagitis, angiodysplasias, and/or GI neoplasm. Her bleeding on the aspirin and Coumadin may very well be more than one would typically see from whatever the source of the bleeding is. At this point, I would recommend continued observation. I did recommend an eventual upper endoscopy, but first want to correct her hemoglobin to at least 8, maximize her cardiopulmonary status, and hopefully allow her PT with INR to drift downward somewhat. I did speak with Dr. Luke from Cardiology and he would prefer to avoid vitamin K due to the high risk of rapid correction of the INR with potential risk of mitral valve thrombosis. Giving her vitamin K would also make it more difficult to re-anticoagulate her and therefore, leaving her with the need for Lovenox for bridging. The patient and her daughter would really like to avoid Lovenox due to previous negative experiences with it due to the discomfort and bruising. At this point, I think she can start full liquids. I did order IV pantoprazole. I would continue to follow the CBC and PT with INR. I would consider having her undergo an upper endoscopy with monitored anesthesia care either by July 06 or July 07, assuming again she has been cleared by Cardiology, her hemoglobin is acceptable, and hopefully the PT with INR will be lower. I did review with the patient and her daughter that she may very well need some FFP for the upper endoscopy to try to prevent any increased risk of bleeding. Full consent has been obtained from the patient and her daughter for the upper endoscopy, including risks of bleeding and perforation. Thank you for the consultation. MD VASILIY Bee/REGGIE / [id number] TRINA
[2023-07-05] MEDS: Pantoprazole Sodium 40 MG/10 ML VIAL IVPUSH ×2 (05:49→15:53)
[2023-07-05] MEDS: 0.9 % Sodium Chloride Flush 3 ML SYRINGE IVFLUSH ×4 (05:50→19:31)
--- NOTE | 2023-07-05 07:00 | CA_ITS ---
Transthoracic Echocardiogram Patient (Last, First, Middle): Bethany Viveros M Gender: Female Date of : 1940 Age: 83 Procedure Date: 07/05/2023 Procedure Type: Transthoracic Echocardiogram Location: [facility] – [place] Height: 152.4 cm Weight: 49.9 kg BSA: 1.45 m2 Heart Rate: 70 bpm BP: 143 / 65 mmHg Children'S Entertainer: PRADIP Referring MD: Jessica Chase NP Head Grease Maker: Agustin Luke MD Symptoms: elevated BNP, sob Study Quality: Fair ECG Rhythm: Atrial Fibrillation Conclusions: - 1. Normal LV ejection fraction of 55-60% 2. Moderate to severe aortic stenosis next 3. Severely dilated left atrium 4. Normally function mechanical mitral valve 5. Moderately elevated right ventricular systolic pressure 6. No gross pericardial effusion Findings Left Ventricle Normal left ventricular size and systolic function. There is mildly increased left ventricular wall thickness. The visually estimated ejection fraction is between 55-60%. Diastolic function is indeterminate on the basis of available data. Right Ventricle Moderately increased right ventricular cavity size. There is normal right ventricular systolic function. There is a pacemaker wire seen in the right ventricle. Atria The left atrium is severely dilated. There is no evidence of interatrial shunt. The right atrium is mildly dilated. A pacemaker wire is identified in the right atrium. Aortic Valve There is mild calcification of the aortic valve. There is moderate to severe aortic valve stenosis. The peak aortic gradient is 59 mmHg.The mean gradient is 30 mmHg. There is mild aortic valve regurgitation. Mitral Valve A mechanical prosthetic mitral valve is present. The prosthetic mitral valve appears to be functioning normally. There is no mitral valve stenosis. the valve is well seated without abnormal rocking motion Tricuspid Valve Normal tricuspid valve structure. There is moderate to severe tricuspid valve regurgitation. Normal right atrial pressure. Moderate pulmonary hypertension is present. Great Vessels All visible segments of the aorta are normal in size. The pulmonary artery was not well visualized. Venous The inferior vena cava is normal in size and collapses greater than 50% with inspiration. Pericardium/Pleural There is no evidence of pericardial effusion. Prior Study Comparison Changes noted compared to prior study dated: 03/24/2023. Measurements 2D Linear Measurements IVSd: 1.21 0.6-0.9/0.6-1.0 cm LVIDd: 4.26 3.9-5.3/4.2-5.9 cm LVIDd Index: 2.94 2.4-3.2/2.2-3.1 cm/m2 LVIDs: 2.66 2.0-3.6 cm LVPWd: 1.26 0.7-1.1 cm LV Mass: 236.61 67-162/88-224 g LV Mass Index: 163.18 43-95/49-115 g/m2 LVOT Diam: 2.00 3.0+(-)1.3 cm Mitral Valve MV VTI: 0.44 MV Pk Cortez: 1.90 MV Mn Cortez: 0.96 MV Pk Grad: 14.00 MV Mn Grad: 5.00 MV Pk E: 2.23 MV Decel Time: 311.00 E'Lateral: 7.83 E'Medial: 4.79 E/E' Med: 46.60 E/E' Lat: 28.50 PHT: 91.00 MVA PHT: 2.42 MVA Continuity: 1.53 Decel Woodson: 7.15 Aortic Valve AoV Pk Cortez: 3.83 AoV Mn Cortez: 2.48 AoV VTI: 0.78 AoV Pk Grad: 59.00 Aov Mn Grad: 30.00 WILLIAM Cont.VTI: 0.87 AI Pk [place]: 3.99 AI [place]: 2.81 LVOT LVOT Pk [place]: 1.05 LVOT Mn [place]: 0.72 LVOT VTI: 0.22 LVOT Pk Grad: 4.00 LVOT Mn Grad: 2.00 LVOT Diam: 2.00 LVOT Area: 3.14 Diastolic Function MV Pk E: 2.23 E'Medial: 4.79 E/E' Med: 46.60 E' Laterial: 7.83 E/E' Lat: 28.50 Right Ventricle TAPSE (mm): 24.90 TVS' Cortez: 13.20 Tricuspid Valve TR Pk Cortez: 3.34 TR Pk Grad: 45.00 RA Press: 3.00 RVSP: 48.00 Great Vessels Aorta Sinus of Valsalva: 2.60 2.0-3.5 cm Ao Asc: 3.00 2.1-3.4 cm Pulmonary Valve PV Pk Cortez: 1.69 Peak PV Grad: 11.00 Updated in Other Vendor System with Status of Final Agustin Luke MD electronically signed on 07/05/2023 2:37:16 PM with status of Final
[2023-07-05 07:11] LABS: MANUAL DIFF FLAG NO
[2023-07-05 07:25] LABS: Basophils Absolute Auto 0.1 X10*3/uL (0.0-0.2); Basophils Percent Auto 0.6 % (0-2); Eosinophils Absolute Auto 0.1 X10*3/uL (0.0-0.4); Eosinophils Percent Auto 1.4 % (0-4); Hematocrit 23.2 % (37.0-47.0); Hemoglobin 7.2 g/dl (12.0-16.0); Imm Gran Abs Auto 0.05 X10*3/uL (0.00-0.03); Imm Gran Pct Auto 0.5 % (0.0-0.4); Lymphocytes Absolute Auto 1.3 X10*3/uL (1.2-4.9); Lymphocytes Percent Auto 13.3 % (20-40); Mean Corpuscular Hemoglobin 29.5 pg (27.0-33.0); Mean Corpuscular Volume 95.1 fL (80.0-98.0); Mean Platelet Volume 9.6 fL (9.4-12.3); Monocytes Absolute Auto 1.2 X10*3/uL (0.1-1.2); Monocytes Percent Auto 11.6 % (2-11); NRBC Pct Auto 0.6 /100WBC (0.0-0.2); Neutrophils Absolute Auto 7.3 x10*3/uL (2.0-8.3); Neutrophils Percent Auto 72.6 % (45-73); Platelet Count 184 X10*3/uL (160-400); Red Blood Count 2.44 X10*6/uL (4.20-5.50); Red Cell Distribution Width 15.7 % (11.0-16.0); White Blood Count 10.1 X10*3/uL (4.8-10.8)
[2023-07-05 07:45] LABS: INTERNATIONAL NORM RATIO 4.7 (0.9-1.1); Prothrombin Time 57.1 SEC (11.1-13.3)
[2023-07-05 07:46] LABS: Alanine Aminotransferase 11 U/L (0-31); Albumin Level 3.2 g/dL (3.5-5.0); Alkaline Phosphatase 66 U/L (39-117); Anion Gap 11 (12-20); Aspartate Amino Transferase 18 U/L (5-31); Bilirubin Total 4.3 mg/dL (0.0-1.0); Blood Urea Nitrogen 22 mg/dL (9-16); Calcium 8.3 mg/dL (8.4-10.2); Carbon Dioxide 24 mmol/L (22-29); Chloride 113 mmol/L (96-108); Creatinine Clr Calc Pharmacy 43.5; Estimated Glomerular Filt Rate > 60; Glucose Random 95 mg/dL (60-115); Magnesium 2.1 mg/dL (1.6-2.6); Sodium 144 mmol/L (135-145); Total Protein 5.5 g/dL (6.5-8.0)
[2023-07-05 07:53] LABS: B Type Natriuretic Peptide 646 pg/mL (<100)
[2023-07-05 07:55] LABS: Potassium 3.5 mmol/L (3.3-5.1)
--- NOTE | 2023-07-05 11:00 | HO.PM.IMPN ---
Subjective Subjective Date of Service: 07/05/23 Interval History: no further episodes of melena, denies abdominal pain, complaining of shortness of breath, no chest pain, no palpitations, no lightheadedness, no dizziness tolerating diet no nausea no vomiting or abdominal pain. Review of Systems All other system reviewed and negative Physical Exam Vital Signs: Vital Signs: Last Vital Signs Temp 98.4 F 07/05/23 07:28 Pulse 79 07/05/23 07:28 Resp 20 07/05/23 07:28 BP 143/65 H 07/05/23 07:28 Pulse Ox 95 07/05/23 07:28 O2 Del Method Nasal Cannula 07/05/23 07:28 O2 Flow Rate 1 07/05/23 07:28 Oxygen Flow Rate 1 07/04/23 14:32 BMI result Body Mass Index 21.5 Const: Other: General awake alert x3, mild respiratory distress Neck supple no JVD. CVS regular rate rhythm, systolic murmur Respiratory lungs clear to auscultation, no respiratory distress, no wheeze, no rhonchi. Gastrointestinal abdomen soft, non tender, bowel sounds audible, no guarding , no rigidity. Extremities no edema. Neuro non focal Skin no rash Psych appropriate affect Objective Data Active Medications Acetaminophen (Acetaminophen 325 Mg Tablet) 650 mg PO Q6H PRN PRN Reason: Pain, Mild (Pain Scale 1-3) Ondansetron HCl (Ondansetron Hcl 4 Mg/2 Ml Vial) 4 mg IVPUSH Q8H PRN PRN Reason: Nausea and Vomiting Pantoprazole Sodium (Pantoprazole Sodium 40 Mg/10 Ml Vial) 40 mg IVPUSH BID@0630,1630 [facility] Last Admin: 07/05/23 05:49 Dose: 40 mg Documented By: LAYTON Sodium Chloride (0.9 % Sodium Chloride Flush 3 Ml Syringe) 3 ml IVFLUSH QSHIFT [facility] Last Admin: 07/05/23 05:50 Dose: 3 ml Documented By: LAYTON Labs 07/05/23 06:40 07/05/23 06:40 Labs: Laboratory Results - last 24 hr 07/04/23 07/04/23 07/05/23 09:49 20:41 06:40 MCV 95.9 95.1 MCH 30.0 29.5 MCHC 31.3 31.0 RDW 15.9 15.7 Plt Count 221 184 MPV 9.6 9.6 Immature Gran % (Auto) 0.5 H Neut % (Auto) 72.6 Lymph % (Auto) 13.3 L [place] % (Auto) 11.6 H Eos % (Auto) 1.4 Baso % (Auto) 0.6 Lymph # (Auto) 1.3 [place] # (Auto) 1.2 Eos # (Auto) 0.1 Baso # (Auto) 0.1 Abs Immat Gran (auto) 0.05 H Absolute Neuts (auto) 7.3 Absolute Nucleated RBC 0.100 H 0.060 H Nucleated RBC % (auto) 0.7 H 0.6 H PT 57.1 H INR 4.7 H Anion Gap 11 L Estim Creat Clear Calc 43.5 Estimated GFR > 60 Random Glucose 95 Calcium 8.3 L D Magnesium 2.1 Total Bilirubin 4.3 H AST 18 ALT 11 Alkaline Phosphatase 66 B-Natriuretic Peptide 646 H Total Protein 5.5 L Albumin 3.2 L Blood Type O Positive Antibody Screen NEGATIVE Crossmatch See Detail Assessment and Plan (1) CHF exacerbation: Status: Acute (2) Heme + stool: Status: Acute (3) Anemia: Status: Acute (4) Shortness of breath: Status: Acute Plan 83-year-old woman with history of mechanical mitral valve, pacemaker on warfarin with severe blood loss anemia and supratherapeutic INR. Severe acute blood loss anemia due to upper GI bleed with the backdrop of elevated PT INR on warfarin Diff dx: Erosive gastritis, PUD, esophagitis, AVM's, or UGI neoplasm. No recurrent episodes of melena Status post 2 units of packed RBC Hematocrit improved but remains low Will transfuse 1 more unit of packed RBC Seen by Gastroenterology case discussed with Dr. Durán will plan upper endoscopy once INR trends down continue to hold Coumadin Tolerating full liquid diet, continue IV Protonix Follow CBC and transfuse as necessary Mechanical mitral valve INR goal 2.5-3.5 INR 5.6 on admission improved to 4.7 No reversal at this time(no vitamin K), allow to trend down on its own Restart warfarin when INR within therapeutic range Acute CHF unknown EF, no prior history of CHF Appears short of breath this morning, fluid overload/anemia,Aortic stenosis elevated BNP 727 sob multifactorial including anemia cause No history of congestive heart failure Will give IV Lasix 20 mg x 1 now , follow electrolytes and BNP echo ordered report pending Case discussed with Cardiology Paroxysmal atrial fibrillation AV paced on EKG Hold warfarin as above Continue metoprolol will lower dose to 25 b.i.d. Hypertension Elevated blood pressure, will resume metoprolol 25 b.i.d. will hold amlodipine and valsartan and follow BP Hyperlipidemia Continue statin DVT prophylaxis with mechanical compression boots in light of blood-loss anemia and elevated INR Full code Patient requires continued inpatient treatment of severe acute blood loss anemia active requiring blood transfusions, close monitoring of CBC and likely gastrointestinal intervention. Quality Stroke Does the patient have a stroke diagnosis?: No VTE Prior VTE?: No VTE Risk Level:: Medical - moderate - high VTE Device Contraindication: N/A - Device Ordered VTE Drug Contraindication: Treatment Not Indicated
--- NOTE | 2023-07-05 11:05 | P.CONCA_ITS ---
History of Present Illness History of Present Illness Date of Service: 07/05/23 Requesting physician: Trinity Zamudio Consult reason: congestive heart failure Chief complaint: Severe anemia Narrative: I was consulted to see Bethany in cardiology consultation today as she presents with significant anemia in shortness of breath. She says shortness of breath started about couple weeks ago. She started noticing black tarry stools a week or 10 days ago. Came in with hemoglobin of 4.9 with significant anemia suspected to be due to GI bleed. Unfortunate she also has mechanical mitral valve which is a cause for her to be on warfarin long-term. Her admission INR was 5.7 which is gradually down trended into the force. She has not had any recurrent melanotic stool. However she appears to be very short of breath. No leg swelling. BNP was noted to be in the 700 range. She has prior history of cardiac pacemaker in-situ, paroxysmal atrial fibrillation, mechanical mitral valve replacement, aortic stenosis with paradoxical low-flow aortic stenosis. She usually has done well with no overt signs of congestive heart failure in the past. She also history of prior CAD. EKG shows AV dual paced rhythm. Review of Systems 2 Constitutional: Constitutional: Denies chills, Denies fever(s) and Reports weakness Eyes: Eyes: Reports no additional eye complaints Cardiovascular: Cardiovascular: Denies chest pain, Denies leg edema, Denies lightheadedness, Denies Loss of Consciousness, Denies palpitations, Reports dyspnea on exertion and Reports orthopnea Respiratory: Respiratory: Denies cough, Reports dyspnea on exertion and Denies wheezing Gastrointestinal: Gastrointestinal: Reports melena Musculoskeletal: Musculoskeletal: Reports no additional musculoskeletal complaints Neurologic: Reports weakness Psychiatric: Psychiatric: Reports no additional psychiatric complaints Endocrine: Endocrine: Reports no additional endocrine complaints and Denies palpitations Hematologic/Lymphatic: Hematologic/Lymphatic: Reports no additional hematologic/lymphatic complaints Allergic/Immunologic: Allergic/Immunologic: Denies wheezing PMFSH Past Medical History Medical History Persistent atrial fibrillation Mixed hyperlipidemia Current use of correction 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 Mother No problems noted. Surgical History Surgical History History of ventral hernia repair History of kyphoplasty (~2011) History of cardiac pacemaker (~2009) History of meniscectomy of right knee (~2012) History of mitral valve replacement (~1996) History of mitral valve repair (~1992) History of right knee surgery (~2017) Social History Social History Household Members: None Housing: House Do you presently have visiting nurse or other home services: No Alcohol intake: never Patient Tobacco Use Status: Never used Tobacco Smoked in Last 30 Days: No Second Hand Smoke Exposure: No Use of substances other than those prescribed or required for medical reasons: No Currently Displaying Signs/Symptoms of Drug Intoxication Withdrawal: No Have you been hit, kicked, punched, or otherwise hurt by someone within the past year? If so, by whom?: No Is there a partner from a previous relationship who is making you feel unsafe now?: No Are you made to feel afraid or neglected: No Advance Directives: No Advance Directives Information Provided: No Do you have thoughts of harming others: None Do you have a plan to hurt others: No Plan Nutrition Risks: No Nutritional Risk Patient : No Meds Allergies Allergy/AdvReac Type Severity Reaction Status Date / Time Sulfa (Sulfonamide Allergy Unknown UNKNOWN - Verified 09/20/22 14:26 Antibiotics) DOES NOT REMEMBER Active Medications: Current Medications Acetaminophen (Acetaminophen 325 Mg Tablet) 650 mg PO Q6H PRN PRN Reason: Pain, Mild (Pain Scale 1-3) Ondansetron HCl (Ondansetron Hcl 4 Mg/2 Ml Vial) 4 mg IVPUSH Q8H PRN PRN Reason: Nausea and Vomiting Pantoprazole Sodium (Pantoprazole Sodium 40 Mg/10 Ml Vial) 40 mg IVPUSH BID@0630,1630 [facility] Last Admin: 07/05/23 05:49 Dose: 40 mg Sodium Chloride (0.9 % Sodium Chloride Flush 3 Ml Syringe) [facility] Last Admin: 07/05/23 05:50 Dose: 3 ml Home Medications Medication Instructions Recorded Confirmed Last Taken Type alendronate 70 mg tablet 70 mg PO SA 05/19/21 07/04/23 07/02/23 History cholecalciferol (vitamin D3) 25 25 mcg PO DAILY 05/19/21 07/04/23 10/12/22 History mcg (1,000 unit) capsule metoprolol tartrate 50 mg tablet 50 mg PO BID 05/19/21 07/04/23 10/12/22 History multivitamin (Daily Multi-Vitamin 1 tab PO DAILY 05/19/21 07/04/23 10/12/22 History tablet) pravastatin 40 mg tablet 40 mg PO BEDTIME 05/19/21 07/04/23 10/12/22 History valsartan 160 mg tablet 160 mg PO DAILY 05/19/21 07/04/23 10/12/22 History warfarin 2.5 mg tablet 3.5 mg PO DAILY@1800 09/20/22 07/04/23 07/03/23 History Physical Exam 2 Vital Signs: Vital Signs: Last Vital Signs Temp 98.4 F 07/05/23 07:28 Pulse 79 07/05/23 07:28 Resp 20 07/05/23 07:28 BP 143/65 H 07/05/23 07:28 Pulse Ox 95 07/05/23 07:28 O2 Del Method Nasal Cannula 07/05/23 07:28 O2 Flow Rate 1 07/05/23 07:28 Oxygen Flow Rate 1 07/04/23 14:32 BMI result Body Mass Index 21.5 Const: General: cooperative, alert, awake and in distress moderate and respiratory Nutritional Appearance: thin Orientation/consciousness: p atient oriented x3 HEENT: Head: Yes normocephalic and Yes atraumatic Neck: Neck: Yes trachea midline, Yes supple and Yes no JVD Resp: Effort & Inspection: normal respiratory effort Auscultation: clear to auscultation bilaterally Cardio: Palpation: normal PMI Rate: regular rate Rhythm: regular rhythm Heart sounds: no click, no gallops, Murmur heart sound present systolic late, decrescendo and crescendo and Other heart sounds present ([place] opening and closing click of [place] mitral valve) GI: Auscultation: normal bowel sounds Skin: General skin exam: no rashes or lesions noted Neuro: General: patient oriented x3 and no focal motor deficits Objective Labs and Meds 07/05/23 06:40 07/05/23 06:40 Lab results: Laboratory Results - last 24 hr 07/04/23 07/04/23 07/05/23 09:49 20:41 06:40 WBC 13.5 H 10.1 RBC 2.70 L D 2.44 L Hgb 8.1 L D 7.2 L Hct 25.9 L D 23.2 L MCV 95.9 95.1 MCH 30.0 29.5 MCHC 31.3 31.0 RDW 15.9 15.7 Plt Count 221 184 MPV 9.6 9.6 Immature Gran % (Auto) 0.5 H Neut % (Auto) 72.6 Lymph % (Auto) 13.3 L [place] % (Auto) 11.6 H Eos % (Auto) 1.4 Baso % (Auto) 0.6 Lymph # (Auto) 1.3 [place] # (Auto) 1.2 Eos # (Auto) 0.1 Baso # (Auto) 0.1 Abs Immat Gran (auto) 0.05 H Absolute Neuts (auto) 7.3 Absolute Nucleated RBC 0.100 H 0.060 H Nucleated RBC % (auto) 0.7 H 0.6 H PT 57.1 H INR 4.7 H Sodium 144 Potassium 3.5 D Chloride 113 H Carbon Dioxide 24 Anion Gap 11 L BUN 22 H Creatinine 0.69 Estim Creat Clear Calc 43.5 Estimated GFR > 60 Random Glucose 95 Calcium 8.3 L D Magnesium 2.1 Total Bilirubin 4.3 H AST 18 ALT 11 Alkaline Phosphatase 66 B-Natriuretic Peptide 646 H Total Protein 5.5 L Albumin 3.2 L Blood Type O Positive Antibody Screen NEGATIVE Crossmatch See Detail Assessment and Plan (1) CHF exacerbation: Status: Acute Patient appears to be significantly short of breath with elevated BNP although clinically does appear to be markedly fluid overloaded. This is most likely related to significant anemia in the setting of significant aortic stenosis with volume replacement. Would gently diurese her with Lasix 20 mg b.i.d.. Follow strict intake and output chart. I would continue to transfuse to maintain hematocrit over 30 to improve her cardiac condition. Remains at high risk for heart failure development. This was discussed with her. Will watch her closely. (2) H/O mitral valve replacement: Status: Acute Prior history of mechanical mitral valve replacement not comes with findings suggestive GI bleed. She has significant anemia. Continue to transfuse packed RBCs to maintain hematocrit over 30. Can give fresh frozen plasma. If she gets a lot of fluid will changes with Lasix. Would avoid giving a vitamin K to reduce thrombosis risk of the mechanical mitral valve. Just gently trend the INR down words. Once the INR is below 2 switch to Lovenox therapy if okay with GI. Given her overall age as well as aortic stenosis, is at least moderate risk for perioperative cardiovascular morbidity mortality for endoscopy procedures. Will follow with you Procedures Date of Service Date of Service: 07/05/23
[2023-07-05] MEDS: Furosemide 20 MG/2 ML VIAL IVPUSH (11:46)
--- NOTE | 2023-07-05 14:52 | MHC.CM.PN ---
IMM 07/05/23, EMR REVIEWED, PT ADMITTED W/SEVERE ANEMIA, CM MET W/PT WHO IS A&O, PT REPRTS SHE LIVES ALONE AND HER SON LIVES IN APT ABOVER HER, PT REPORTS SHE USES A CANE AND ALSO HAS A WALKER BUT DOES NOT USE IT, PT DNIES ANY OTHER DME OR HOME SERVICES, PT REPORTS GOAL FOR DC IS HOME HOWEVER OPEN TO [facility] (NO PREFERENCES) AND REPORTS IF STR IS RECOMMENDED SHE WOULD WANT ULICES WARD. PCP AND HCP ON FILE VERIFIED, COPY OF HCP PRINTED FROM OLD RECORDS AND PLACED IN CHART AND UPLOADED TO [employer].
[2023-07-05] MEDS: Metoprolol Tartrate 25 MG TABLET PO (19:31)
[2023-07-06] VITALS (7 sets, daily range): BP systolic 126–155; BP diastolic 53–69; PULSE 60–75; RESP 18–22; TEMP 36.2–36.8; O2SAT 93–98
[2023-07-06] MEDS: Pantoprazole Sodium 40 MG/10 ML VIAL IVPUSH ×2 (05:50→15:51)
[2023-07-06 06:52] LABS: Hemoglobin 9.1 g/dl (12.0-16.0); Mean Corpuscular HGB Conc 32.5 g/dl (31.0-35.0); Mean Corpuscular Hemoglobin 29.6 pg (27.0-33.0); Mean Corpuscular Volume 91.2 fL (80.0-98.0); Mean Platelet Volume 9.6 fL (9.4-12.3); NRBC Pct Auto 0.3 /100WBC (0.0-0.2); Platelet Count 177 X10*3/uL (160-400); Red Blood Count 3.07 X10*6/uL (4.20-5.50); Red Cell Distribution Width 16.3 % (11.0-16.0); White Blood Count 9.2 X10*3/uL (4.8-10.8)
[2023-07-06 07:03] LABS: INTERNATIONAL NORM RATIO 3.5 (0.9-1.1); Prothrombin Time 42.7 SEC (11.1-13.3)
[2023-07-06 07:09] LABS: Anion Gap 12 (12-20); Blood Urea Nitrogen 15 mg/dL (9-16); Calcium 8.4 mg/dL (8.4-10.2); Carbon Dioxide 24 mmol/L (22-29); Chloride 108 mmol/L (96-108); Creatinine Clr Calc Pharmacy 46.9; Estimated Glomerular Filt Rate > 60; Glucose Random 96 mg/dL (60-115); Potassium 3.3 mmol/L (3.3-5.1); Sodium 141 mmol/L (135-145)
[2023-07-06 07:16] LABS: B Type Natriuretic Peptide 435 pg/mL (<100)
[2023-07-06] MEDS: Metoprolol Tartrate 25 MG TABLET PO (07:54)
[2023-07-06] MEDS: 0.9 % Sodium Chloride Flush 3 ML SYRINGE IVFLUSH ×3 (07:55→21:01)
[2023-07-06] MEDS: Furosemide 20 MG/2 ML VIAL IVPUSH (10:02)
--- NOTE | 2023-07-06 10:38 | PM.PNCARD ---
Subjective Subjective Date of Service: 07/06/23 Principal diagnosis: AFib, aortic stenosis, mechanical mitral valve, GI bleeding Interval history: Patient appears less short of breath and says she feels less short of breath. Has been transfused hematocrit up to 28. Aortic stenosis appears moderately severe. She does have pulmonary hypertension. Noted to be in persistent AFib Review of Systems Constitutional: Reports no additional constitutional complaints Cardiovascular: Denies chest pain, Denies rapid heart rate and Reports dyspnea (Improved) Respiratory: Reports dyspnea (Improved) Musculoskeletal: Reports no additional musculoskeletal complaints Skin/Breast: Reports system reviewed and no additional complaints, except as docu Psychiatric: Reports no additional psychiatric complaints Physical Exam Vital Signs: Last Vital Signs Temp 97.5 F 07/06/23 07:41 Pulse 63 07/06/23 07:41 Resp 18 07/06/23 07:41 BP 144/69 H 07/06/23 07:41 Pulse Ox 94 07/06/23 07:41 O2 Del Method Room Air 07/06/23 07:41 O2 Flow Rate 1 07/05/23 07:28 Oxygen Flow Rate 1 07/04/23 14:32 BMI result Body Mass Index 21.5 Const General: cooperative, alert, awake and in distress moderate and respiratory Nutritional Appearance: thin Orientation/consciousness: patient oriented x3 HEENT Head: Yes normocephalic and Yes atraumatic Neck Neck: Yes trachea midline, Yes supple and Yes no JVD Resp Effort & Inspection: normal respiratory effort Auscultation: clear to auscultation bilaterally Cardio Palpation: normal PMI Rate: regular rate Rhythm: regular rhythm Heart sounds: no click, no gallops, Murmur heart sound present systolic late, decrescendo and crescendo and Other heart sounds present ([place] opening and closing click of [place] mitral valve) GI Auscultation: normal bowel sounds Skin General skin exam: no rashes or lesions noted Neuro General: patient oriented x3 and no focal motor deficits Objective Labs and Meds 07/06/23 06:30 07/06/23 06:30 Lab results: Laboratory Results - last 24 hr 07/04/23 07/06/23 09:49 06:30 WBC 9.2 RBC 3.07 L D Hgb 9.1 L D Hct 28.0 L D MCV 91.2 MCH 29.6 MCHC 32.5 RDW 16.3 H Plt Count 177 MPV 9.6 Absolute Nucleated RBC 0.030 H Nucleated RBC % (auto) 0.3 H Smear Path Review PT 42.7 H D INR 3.5 H Sodium 141 Potassium 3.3 Chloride 108 Carbon Dioxide 24 Anion Gap 12 BUN 15 Creatinine 0.64 Estim Creat Clear Calc 46.9 Estimated GFR > 60 Random Glucose 96 Calcium 8.4 B-Natriuretic Peptide 435 H Blood Type O Positive Antibody Screen NEGATIVE Crossmatch See Detail Progress Note: A&P Assessment and plan (1) CHF exacerbation: Status: Acute Assessment and Plan: CHF exacerbation due to severe anemia and volume overload. Continue Lasix 20 mg daily. I would also consider transfusing her to hematocrit over 30. Continue rate control for atrial fibrillation. Could also be contributed by now persistent atrial fibrillation. (2) Atrial fibrillation: Status: Acute Assessment and Plan: Atrial fibrillation not more persistent. Rate controlled. May contribute to her heart failure. However currently will pursue rate control and will discuss about rhythm control as outpatient. May require amiodarone and then cardioversion. However she has lot of a current medical issues that will postpone this decision as an outpatient. (3) H/O mitral valve replacement: Status: Acute Assessment and Plan: Mechanical mitral valve replacement. Came in with GI bleeding. This complicates her overall clinical care. Schedule for GI endoscopy once INR goes below 2. Was the on as below to please switch to subQ Lovenox. Continue monitor INR on a daily basis. Warfarin being on hold. (4) Aortic stenosis: Status: Acute Assessment and Plan: Aortic stenosis appears to be moderately severe at this point in time. Has not changed significantly. However this will require closer follow-up as outpatient. Will follow with you Time Spent With Patient Time: Total time managing care of this patient today ____ minutes. Progress Note: Quality Stroke Does the patient have a stroke diagnosis?: No Procedures Date of Service Date of Service: 07/06/23
--- NOTE | 2023-07-06 10:38 | HO.PM.IMPN ---
Subjective Subjective Date of Service: 07/06/23 Interval History: Complaining of shortness of breath this morning, tolerating diet no nausea ,no vomiting, no abdominal pain, no chest pain, no shortness of breath, no other acute issues overnight. Review of Systems All other system reviewed and negative. Physical Exam Vital Signs: Vital Signs: Last Vital Signs Temp 97.5 F 07/06/23 07:41 Pulse 63 07/06/23 07:41 Resp 18 07/06/23 07:41 BP 144/69 H 07/06/23 07:41 Pulse Ox 94 07/06/23 07:41 O2 Del Method Room Air 07/06/23 07:41 O2 Flow Rate 1 07/05/23 07:28 Oxygen Flow Rate 1 07/04/23 14:32 BMI result Body Mass Index 21.5 Const: Other: General awake alert x3, mild respiratory distress Neck supple no JVD. CVS regular rate rhythm, systolic murmur Respiratory lungs basilar crackles, no respiratory distress, no wheeze, no rhonchi. Gastrointestinal abdomen soft, non tender, bowel sounds audible, no guarding , no rigidity. Extremities no edema. Neuro non focal Skin no rash Psych appropriate affect Objective Data Active Medications Acetaminophen (Acetaminophen 325 Mg Tablet) 650 mg PO Q6H PRN PRN Reason: Pain, Mild (Pain Scale 1-3) Metoprolol Tartrate (Metoprolol Tartrate 25 Mg Tablet) 25 mg PO BID [facility]; Protocol Last Admin: 07/06/23 07:54 Dose: 25 mg Documented By: FABIAN Ondansetron HCl (Ondansetron Hcl 4 Mg/2 Ml Vial) 4 mg IVPUSH Q8H PRN PRN Reason: Nausea and Vomiting Pantoprazole Sodium (Pantoprazole Sodium 40 Mg/10 Ml Vial) 40 mg IVPUSH BID@0630,1630 [facility] Last Admin: 07/06/23 05:50 Dose: 40 mg Documented By: KEVIN Sodium Chloride (0.9 % Sodium Chloride Flush 3 Ml Syringe) 3 ml IVFLUSH QSHIFT [facility] Last Admin: 07/06/23 07:55 Dose: 3 ml Documented By: FABIAN Labs 07/06/23 06:30 07/06/23 06:30 Labs: Laboratory Results - last 24 hr 07/04/23 07/06/23 09:49 06:30 MCV 91.2 MCH 29.6 MCHC 32.5 RDW 16.3 H Plt Count 177 MPV 9.6 Absolute Nucleated RBC 0.030 H Nucleated RBC % (auto) 0.3 H Smear Path Review PT 42.7 H D INR 3.5 H Anion Gap 12 Estim Creat Clear Calc 46.9 Estimated GFR > 60 Random Glucose 96 Calcium 8.4 B-Natriuretic Peptide 435 H Blood Type O Positive Antibody Screen NEGATIVE Crossmatch See Detail Assessment and Plan (1) CHF exacerbation: Status: Acute (2) Heme + stool: Status: Acute (3) Anemia: Status: Acute (4) Shortness of breath: Status: Acute Plan 83-year-old woman with history of mechanical mitral valve, pacemaker on warfarin with severe blood loss anemia and supratherapeutic INR. Severe acute blood loss anemia due to upper GI bleed with the backdrop of elevated PT INR on warfarin Diff dx: Erosive gastritis, PUD, esophagitis, AVM's, or UGI neoplasm. No recurrent episodes of melena Status post 3 units of packed RBC Hematocrit improved from 16.5 to 28 Cardia recommend 1 more unit of packed RBC Seen by Gastroenterology case discussed with Dr. Durán he will monitor patient's daily CBC and INR, he will perform upper endoscopy after discussing with Dr. Luke Continue PPI change to po, regular diet, hold Coumadin Follow CBC /inr daily and transfuse as necessary Mechanical mitral valve INR goal 2.5-3.5 INR 5.6 on admission improved to 4.7 No reversal at this time(no vitamin K), allow to trend down on its own Restart warfarin when INR within therapeutic range Acute diastolic CHF Appears short of breath again this morning, multifactorial due to fluid overload/anemia,Aortic stenosis elevated BNP 727 No history of congestive heart failure Will give IV Lasix 20 mg x 1 now , follow electrolytes and BNP echo showed EF 55-60%, moderate to severe aortic stenosis normally functioning mechanical mitral valve Case discussed with Cardiology Paroxysmal atrial fibrillation AV paced on EKG Hold warfarin as above Continue metoprolol 50 b.i.d. Hypertension Elevated blood pressure, will resume amlodipine 2.5 mg b.i.d., metoprolol 5o b.i.d. will hold valsartan 160 mg and follow BP Hyperlipidemia Continue statin DVT prophylaxis with mechanical compression boots in light of blood-loss anemia and elevated INR Full code Patient requires continued inpatient treatment of severe acute blood loss anemia active requiring blood transfusions, close monitoring of CBC and likely gastrointestinal intervention. Quality Stroke Does the patient have a stroke diagnosis?: No VTE Prior VTE?: No VTE Risk Level:: Medical - moderate - high VTE Device Contraindication: N/A - Device Ordered VTE Drug Contraindication: Treatment Not Indicated
--- NOTE | 2023-07-06 12:17 | PM.EVENT ---
Event Note Date of Service: 07/06/23 Event Note: GI-Course noted. D/W Dr. Luke and Hospitalist staff. There has been no sign of active bleeding. As per Dr. Luke, I shall wait to hear until she has been cleared for the procedure in regard to her cardiac status and elevated PT/INR.Will observe on her PPI and continue diet as tolerated in the meantime. Please advise me when she is cleared so I can schedule her. Call me sooner if need be. Thanks very much. Time Spent With Patient Time: Total time managing care of this patient today ____ minutes.
[2023-07-06] MEDS: Acetaminophen 325 MG TABLET 650 MG PO (15:50)
[2023-07-06] MEDS: Metoprolol Tartrate 50 MG TABLET PO (20:59)
[2023-07-06] MEDS: Melatonin 3 MG TABLET 6 MG PO (21:28)
[2023-07-07] VITALS (9 sets, daily range): BP systolic 103–167; BP diastolic 49–70; PULSE 60–69; RESP 16–20; TEMP 36.1–37.4; O2SAT 94–99
[2023-07-07] MEDS: Omeprazole 40 MG CAPSULE.DR PO (05:26)
[2023-07-07 07:15] LABS: Hematocrit 29.4 % (37.0-47.0); Hemoglobin 9.3 g/dl (12.0-16.0); Mean Corpuscular HGB Conc 31.6 g/dl (31.0-35.0); Mean Corpuscular Hemoglobin 29.2 pg (27.0-33.0); Mean Corpuscular Volume 92.5 fL (80.0-98.0); Mean Platelet Volume 9.6 fL (9.4-12.3); Platelet Count 192 X10*3/uL (160-400); Red Blood Count 3.18 X10*6/uL (4.20-5.50); Red Cell Distribution Width 16.1 % (11.0-16.0); White Blood Count 7.5 X10*3/uL (4.8-10.8)
[2023-07-07 07:18] LABS: INTERNATIONAL NORM RATIO 1.8 (0.9-1.1); Prothrombin Time 21.9 SEC (11.1-13.3)
--- NOTE | 2023-07-07 08:26 | MHC.SHP ---
Pre-Procedural Eval Section A Date of Service: 07/07/23 The patient is an INPATIENT: Yes The History & Physical has been completed within 30 days and I have reviewed it.: Yes Section B Chief Complaint: Severe anemia Allergies: Allergies Allergy/AdvReac Type Severity Reaction Status Date / Time Sulfa (Sulfonamide Allergy Unknown UNKNOWN - Verified 09/20/22 14:26 Antibiotics) DOES NOT REMEMBER Plan I have reviewed the history and physical and performed a pertinent physical examination on my patient. No changes have occurred unless specified. Time Spent With Patient Time: Total time managing care of this patient today ____ minutes.
[2023-07-07] MEDS: 0.9 % Sodium Chloride Flush 3 ML SYRINGE IVFLUSH ×2 (08:56→20:11)
[2023-07-07] MEDS: Metoprolol Tartrate 50 MG TABLET PO ×2 (08:56→20:11)
[2023-07-07] MEDS: amLODIPine Besylate 2.5 MG TABLET PO (08:57)
--- NOTE | 2023-07-07 10:14 | P.PNIM_ITS ---
Subjective Subjective Date of Service: 07/07/23 Interval History: No new complaint and report no bleeding from anywhere, INR down to 1.8 Physical Exam 2 Vital Signs: Vital Signs: Last Vital Signs Temp 97.8 F 07/07/23 07:59 Pulse 68 07/07/23 07:59 Resp 20 07/07/23 07:59 BP 157/67 H 07/07/23 07:59 Pulse Ox 97 07/07/23 07:59 O2 Del Method Nasal Cannula 07/07/23 07:59 O2 Flow Rate 2 07/07/23 07:59 Oxygen Flow Rate 1 07/04/23 14:32 BMI result Body Mass Index 21.5 Const: Other: General awake alert x3, mild respiratory distress Neck supple no JVD. CVS regular rate rhythm, systolic murmur Respiratory lungs basilar crackles, no respiratory distress, no wheeze, no rhonchi. Gastrointestinal abdomen soft, non tender, bowel sounds audible, no guarding , no rigidity. Extremities no edema. Neuro non focal Skin no rash Psych appropriate affect Objective Data Active Medications Acetaminophen (Acetaminophen 325 Mg Tablet) 650 mg PO Q6H PRN PRN Reason: Pain, Mild (Pain Scale 1-3) Last Admin: 07/06/23 15:50 Dose: 650 mg Documented By: FABIAN Amlodipine Besylate (Amlodipine Besylate 2.5 Mg Tablet) 2.5 mg PO DAILY [facility]; Protocol Last Admin: 07/07/23 08:57 Dose: 2.5 mg Documented By: KEVIN Melatonin (Melatonin 3 Mg Tablet) 6 mg PO BEDTIME PRN PRN Reason: Insomnia Last Admin: 07/06/23 21:28 Dose: 6 mg Documented By: FABIAN Metoprolol Tartrate (Metoprolol Tartrate 50 Mg Tablet) 50 mg PO BID [facility]; Protocol Last Admin: 07/07/23 08:56 Dose: 50 mg Documented By: KEVIN Omeprazole (Omeprazole 40 Mg Capsule.) 40 mg PO BID@0630,1630 [facility] Last Admin: 07/07/23 05:26 Dose: 40 mg Documented By: ANTOIC Ondansetron HCl (Ondansetron Hcl 4 Mg/2 Ml Vial) 4 mg IVPUSH Q8H PRN PRN Reason: Nausea and Vomiting Sodium Chloride (0.9 % Sodium Chloride Flush 3 Ml Syringe) 3 ml IVFLUSH QSHIFT [facility] Last Admin: 07/07/23 08:56 Dose: 3 ml Documented By: KEVIN Labs 07/07/23 06:21 07/06/23 06:30 Labs: Laboratory Results - last 24 hr 07/07/23 06:21 MCV 92.5 MCH 29.2 MCHC 31.6 RDW 16.1 H Plt Count 192 MPV 9.6 Absolute Nucleated RBC 0.000 Nucleated RBC % (auto) 0.0 PT 21.9 H D INR 1.8 H Assessment and Plan (1) Heme + stool: Status: Acute (2) Anemia: Status: Acute (3) Atrial fibrillation: Status: Acute (4) CHF exacerbation: Status: Acute Plan 83-year-old woman with history of mechanical mitral valve, pacemaker on warfarin with severe blood loss anemia and supratherapeutic INR. Severe acute blood loss anemia due to upper GI bleed with the backdrop of elevated PT INR on warfarin Diff dx: Erosive gastritis, PUD, esophagitis, AVM's, or UGI neoplasm. No recurrent episodes of melena Status post 3 units of packed RBC Hematocrit improved from 16.5 to 29 GI is planning EGD today Continue PPI change to po, regular diet, hold Coumadin Follow CBC /inr daily and transfuse as necessary Mechanical mitral valve, INR 5.6, now 1.8 will start lovenox after EGD, and resume coumadin Acute diastolic CHF, EF 55-60, treated with IV Lasix x 1, euvolemic now, no sob Paroxysmal atrial fibrillatio, rate controlled, continue metoprolol and resume OAC as stated above Hypertension, BP high, continue norvasc, metoprolol and resume Valsartan Hyperlipidemia, Continue statin DVT prophylaxis with mechanical compression boots in light of blood-loss anemia and elevated INR Full code Patient requires continued inpatient treatment of severe acute blood loss anemia active requiring blood transfusions, close monitoring of CBC and likely gastrointestinal intervention. Quality Stroke Does the patient have a stroke diagnosis?: No VTE Prior VTE?: No VTE Risk Level:: Medical - moderate - high VTE Device Contraindication: N/A - Device Ordered VTE Drug Contraindication: Treatment Not Indicated
--- NOTE | 2023-07-07 10:23 | P.PNCA_ITS ---
Subjective Subjective Date of Service: 07/07/23 Principal diagnosis: AFib, aortic stenosis, mechanical mitral valve, GI bleeding Interval history: Patient is less short of breath. INR is 1.8. Remains in AFib. Ventricularly paced rhythm. Review of Systems Review of Systems Yes all other systems are reviewed and are negative Physical Exam Vital Signs: Last Vital Signs Temp 97.8 F 07/07/23 07:59 Pulse 68 07/07/23 07:59 Resp 20 07/07/23 07:59 BP 157/67 H 07/07/23 07:59 Pulse Ox 97 07/07/23 07:59 O2 Del Method Nasal Cannula 07/07/23 07:59 O2 Flow Rate 2 07/07/23 07:59 Oxygen Flow Rate 1 07/04/23 14:32 BMI result Body Mass Index 21.5 Const General: cooperative, alert, awake and in distress moderate and respiratory Nutritional Appearance: thin Orientation/consciousness: patient oriented x3 HEENT Head: Yes normocephalic and Yes atraumatic Neck Neck: Yes trachea midline, Yes supple and Yes no JVD Resp Effort & Inspection: normal respiratory effort Auscultation: clear to auscultation bilaterally Cardio Palpation: normal PMI Rate: regular rate Rhythm: regular rhythm Heart sounds: no click, no gallops, Murmur heart sound present systolic late, decrescendo and crescendo and Other heart sounds present ([place] opening and closing click of [place] mitral valve) GI Auscultation: normal bowel sounds Skin General skin exam: no rashes or lesions noted Neuro General: patient oriented x3 and no focal motor deficits Objective Labs and Meds 07/07/23 06:21 07/06/23 06:30 Lab results: Laboratory Results - last 24 hr 07/07/23 06:21 WBC 7.5 RBC 3.18 L Hgb 9.3 L Hct 29.4 L MCV 92.5 MCH 29.2 MCHC 31.6 RDW 16.1 H Plt Count 192 MPV 9.6 Absolute Nucleated RBC 0.000 Nucleated RBC % (auto) 0.0 PT 21.9 H D INR 1.8 H Progress Note: A&P Assessment and plan (1) CHF exacerbation: Status: Acute Assessment and Plan: Patient shortness of breath has improved with gentle diuresis. Switch to p.o. Lasix 20 mg. Continue maintain hematocrit over 30. Need to workup for cause for her anemia which is important. Continue blood pressure control. Continue valsartan and Norvasc therapy. Can add low-dose Aldactone 12.5 mg to regimen. Heart failure management discussed. Eventually once stabilized from acute medical illness may need to pursue rhythm control for atrial fibrillation evaluation for aortic stenosis. (2) Atrial fibrillation: Status: Acute Assessment and Plan: Atrial fibrillation which is more persistent at this point in time. Continue rate control approach. Eventually require rhythm control approach when she has no longer having any recurrent GI bleeding issues and is on stable INR. Will require most likely antiarrhythmic drug support with amiodarone. (3) Cardiac pacemaker in situ: Status: Acute Assessment and Plan: Cardiac pacemaker in-situ, working well. (4) H/O mitral valve replacement: Status: Acute Assessment and Plan: Mechanical mitral valve replacement with now presentation with GI bleed. This presents significant clinical dilemma. Okay to undergo GI procedure to evaluate for source of bleeding and further guide treatment. If there is no obvious source for bleeding hopefully she can be restarted on warfarin therapy as she has required for mechanical mitral valve replacement. Maintain tight INR follow-up between 2.5 and 3. Avoid aspirin therapy. (5) Aortic stenosis: Status: Acute Assessment and Plan: Aortic stenosis which is remained moderately severe. Will continue to monitor clinically. May require further evaluation in the near term. Will follow with you Time Spent With Patient Time: Total time managing care of this patient today ____ minutes. Progress Note: Quality Stroke Does the patient have a stroke diagnosis?: No Procedures Date of Service Date of Service: 07/07/23
[2023-07-07] MEDS: Valsartan 160 MG TABLET PO (11:17)
--- NOTE | 2023-07-07 13:07 | P.CONAN_ITS ---
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 (Acute) Aortic stenosis (Acute) H/O mitral valve replacement (Acute ~1996) HTN (hypertension) (Acute) Mixed hyperlipidemia (Acute) Elective replacement indicated for cardiac pacemaker battery at end of lifespan (Acute) Past Medical History Medical History Persistent atrial fibrillation Mixed hyperlipidemia 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 Mother No problems noted. Surgical History Surgical History History of ventral hernia repair History of kyphoplasty (~2011) History of cardiac pacemaker (~2009) History of meniscectomy of right knee (~2012) History of mitral valve replacement (~1996) History of mitral valve repair (~1992) History of right knee surgery (~2017) History of Problems with Anesthesia: No Social History Social History Household Members: None Housing: House Do you presently have visiting nurse or other home services: No Alcohol intake: never Patient Tobacco Use Status: Never used Tobacco Smoked in Last 30 Days: No Second Hand Smoke Exposure: No Use of substances other than those prescribed or required for medical reasons: No Currently Displaying Signs/Symptoms of Drug Intoxication Withdrawal: No Have you been hit, kicked, punched, or otherwise hurt by someone within the past year? If so, by whom?: No Is there a partner from a previous relationship who is making you feel unsafe now?: No Are you made to feel afraid or neglected: No Advance Directives: No Advance Directives Information Provided: No Do you have thoughts of harming others: None Do you have a plan to hurt others: No Plan Nutrition Risks: No Nutritional Risk Patient : No service: No Meds Allergies Allergy/AdvReac Type Severity Reaction Status Date / Time Sulfa (Sulfonamide Allergy Unknown UNKNOWN - Verified 09/20/22 14:26 Antibiotics) DOES NOT REMEMBER Active Medications: Current Medications Acetaminophen (Acetaminophen 325 Mg Tablet) 650 mg PO Q6H PRN PRN Reason: Pain, Mild (Pain Scale 1-3) Last Admin: 07/06/23 15:50 Dose: 650 mg Amlodipine Besylate (Amlodipine Besylate 2.5 Mg Tablet) 2.5 mg PO DAILY [facility]; Protocol Last Admin: 07/07/23 08:57 Dose: 2.5 mg Melatonin (Melatonin 3 Mg Tablet) 6 mg PO BEDTIME PRN PRN Reason: Insomnia Last Admin: 07/06/23 21:28 Dose: 6 mg Metoprolol Tartrate (Metoprolol Tartrate 50 Mg Tablet) 50 mg PO BID [facility]; Protocol Last Admin: 07/07/23 08:56 Dose: 50 mg Omeprazole (Omeprazole 40 Mg Capsule.Dr) 40 mg PO BID@0630,1630 [facility] Last Admin: 07/07/23 05:26 Dose: 40 mg Ondansetron HCl (Ondansetron Hcl 4 Mg/2 Ml Vial) 4 mg IVPUSH Q8H PRN PRN Reason: Nausea and Vomiting Sodium Chloride (0.9 % Sodium Chloride Flush 3 Ml Syringe) 3 ml IVFLUSH QSHIFT [facility] Last Admin: 07/07/23 08:56 Dose: 3 ml Valsartan (Valsartan 160 Mg Tablet) 160 mg PO DAILY [facility]; Protocol Last Admin: 07/07/23 11:17 Dose: 160 mg Home Medications Medication Instructions Recorded Confirmed Last Taken Type alendronate 70 mg tablet 70 mg PO SA 05/19/21 07/04/23 07/02/23 History cholecalciferol (vitamin D3) 25 25 mcg PO DAILY 05/19/21 07/04/23 10/12/22 History mcg (1,000 unit) capsule metoprolol tartrate 50 mg tablet 50 mg PO BID 05/19/21 07/04/23 10/12/22 History multivitamin (Daily Multi-Vitamin 1 tab PO DAILY 05/19/21 07/04/23 10/12/22 History tablet) pravastatin 40 mg tablet 40 mg PO BEDTIME 05/19/21 07/04/23 10/12/22 History valsartan 160 mg tablet 160 mg PO DAILY 05/19/21 07/04/23 10/12/22 History warfarin 2.5 mg tablet 3.5 mg PO DAILY@1800 09/20/22 07/04/23 07/03/23 History Exam Height,Weight and Vital Signs: Height 5 ft Weight 50 kg Last Vital Signs Temp 98.4 F 07/07/23 11:24 Pulse 60 07/07/23 11:24 Resp 20 07/07/23 11:24 BP 157/69 H 07/07/23 11:24 Pulse Ox 97 07/07/23 11:24 O2 Del Method Nasal Cannula 07/07/23 11:24 O2 Flow Rate 2 07/07/23 11:24 Oxygen Flow Rate 1 07/04/23 14:32 Pertinent Lab Results Pertinent Lab Results: Laboratory Tests 07/04/23 07/04/23 07/04/23 09:49 09:56 10:23 WBC 9.4 RBC 1.65 L D Hgb 4.9 L* D Hct 16.5 L* D MCV 100.0 H MCH 29.7 MCHC 29.7 L RDW 15.9 Plt Count 239 MPV 9.1 L Immature Gran % (Auto) 0.4 Neut % (Auto) 78.7 H Lymph % (Auto) 8.3 L [place] % (Auto) 11.9 H Eos % (Auto) 0.2 Baso % (Auto) 0.5 Lymph # (Auto) 0.8 L [place] # (Auto) 1.1 Eos # (Auto) 0.0 Baso # (Auto) 0.1 Abs Immat Gran (auto) 0.04 H Absolute Neuts (auto) 7.4 Absolute Nucleated RBC 0.030 H Nucleated RBC % (auto) 0.3 H Smear Path Review PT 68.3 H D INR 5.6 H* D VBG pH 7.42 VBG pCO2 37 VBG pO2 40 VBG HCO3 24 VBG O2 Saturation TNP VBG Base Excess 0.3 Sodium 142 Potassium 4.4 Chloride 114 H Carbon Dioxide 22 Anion Gap 10 L BUN 36 H Creatinine 0.74 Estim Creat Clear Calc 40.6 Estimated GFR > 60 Random Glucose 110 Calcium 9.0 Magnesium Total Bilirubin 1.3 H AST 22 ALT 15 Alkaline Phosphatase 62 Troponin I High Sens 8.2 B-Natriuretic Peptide 727 H Total Protein 6.2 L Albumin 3.6 Stool Occult Blood POSITIVE Influenza Type A (PCR) NEGATIVE Influenza Type B (PCR) NEGATIVE RSV RNA Qual (PCR) NEGATIVE SARS-CoV-2 RNA (RT-PCR) NEGATIVE Blood Type O Positive Antibody Screen NEGATIVE Crossmatch See Detail 07/04/23 07/05/23 07/06/23 20:41 06:40 06:30 WBC 13.5 H 10.1 9.2 RBC 2.70 L D 2.44 L 3.07 L D Hgb 8.1 L D 7.2 L 9.1 L D Hct 25.9 L D 23.2 L 28.0 L D MCV 95.9 95.1 91.2 MCH 30.0 29.5 29.6 MCHC 31.3 31.0 32.5 RDW 15.9 15.7 16.3 H Plt Count 221 184 177 MPV 9.6 9.6 9.6 Immature Gran % (Auto) 0.5 H Neut % (Auto) 72.6 Lymph % (Auto) 13.3 L [place] % (Auto) 11.6 H Eos % (Auto) 1.4 Baso % (Auto) 0.6 Lymph # (Auto) 1.3 [place] # (Auto) 1.2 Eos # (Auto) 0.1 Baso # (Auto) 0.1 Abs Immat Gran (auto) 0.05 H Absolute Neuts (auto) 7.3 Absolute Nucleated RBC 0.100 H 0.060 H 0.030 H Nucleated RBC % (auto) 0.7 H 0.6 H 0.3 H Smear Path Review PT 57.1 H 42.7 H D INR 4.7 H 3.5 H VBG pH VBG pCO2 VBG pO2 VBG HCO3 VBG O2 Saturation VBG Base Excess Sodium 144 141 Potassium 3.5 D 3.3 Chloride 113 H 108 Carbon Dioxide 24 24 Anion Gap 11 L 12 BUN 22 H 15 Creatinine 0.69 0.64 Estim Creat Clear Calc 43.5 46.9 Estimated GFR > 60 > 60 Random Glucose 95 96 Calcium 8.3 L D 8.4 Magnesium 2.1 Total Bilirubin 4.3 H AST 18 ALT 11 Alkaline Phosphatase 66 Troponin I High Sens B-Natriuretic Peptide 646 H 435 H Total Protein 5.5 L Albumin 3.2 L Stool Occult Blood Influenza Type A (PCR) Influenza Type B (PCR) RSV RNA Qual (PCR) SARS-CoV-2 RNA (RT-PCR) Blood Type Antibody Screen Crossmatch 07/07/23 06:21 WBC 7.5 RBC 3.18 L Hgb 9.3 L Hct 29.4 L MCV 92.5 MCH 29.2 MCHC 31.6 RDW 16.1 H Plt Count 192 MPV 9.6 Immature Gran % (Auto) Neut % (Auto) Lymph % (Auto) [place] % (Auto) Eos % (Auto) Baso % (Auto) Lymph # (Auto) [place] # (Auto) Eos # (Auto) Baso # (Auto) Abs Immat Gran (auto) Absolute Neuts (auto) Absolute Nucleated RBC 0.000 Nucleated RBC % (auto) 0.0 Smear Path Review PT 21.9 H D INR 1.8 H VBG pH VBG pCO2 VBG pO2 VBG HCO3 VBG O2 Saturation VBG Base Excess Sodium Potassium Chloride Carbon Dioxide Anion Gap BUN Creatinine Estim Creat Clear Calc Estimated GFR Random Glucose Calcium Magnesium Total Bilirubin AST ALT Alkaline Phosphatase Troponin I High Sens B-Natriuretic Peptide Total Protein Albumin Stool Occult Blood Influenza Type A (PCR) Influenza Type B (PCR) RSV RNA Qual (PCR) SARS-CoV-2 RNA (RT-PCR) Blood Type Antibody Screen Crossmatch Airway Mallampati Class: II TM Dist: >3cm Neck ROM: Limited Loose/Missing/Broken Teeth: Yes, Upper and Lower Heart: IRREG IRREGULAR RHYTHM Lungs: CTA Assessment and Plan Assessment Anesthesia Assessment: Anesthesia Plan Discussed, Smoking Cess. Discussed, PAT Visit and Chart Reviewed Final Anesthetic Review History of Problems with Anesthesia: No NPO: Yes ASA Class: IV Final Preanesthetic Review: Meds/Allgs Chart Reviewed, Consent Obtained/Reviewed and Anes Risks/Benef Reviewed Patient Risk: High Procedure Risk: Intermediate Anesthetic Plan Anesthetic Plan: MAC: Disposition: Standard PACU
--- NOTE | 2023-07-07 14:13 | P.BOP_ITS ---
Brief Operative Note Date of Service: 07/07/23 Pre-op diagnosis: Melena, anemia Post-op diagnosis: other (Hiatal hernia, ? healing prepyloric gastric ulcer) Procedure: EGD Surgeon: Zack Durán MD Anesthesia: MAC Was an Epidemiology Internship used for this Procedure?: No Estimated blood loss (mL): 0 Pathology: none sent Condition: stable Disposition: PACU
--- NOTE | 2023-07-07 14:14 | P.EN_ITS ---
Event Note Date of Service: 07/07/23 Event Note: GI-EGD-Full note dictated Findings: 1. Moderate-sized hiatal hernia 2. ?? of a <1cm healing prepyloric gastric ulcer No bleeding nor old blood in the UGI tract No esophagitis, no gastritis, no AVM's Rec: Change to omeprazole 20mg daily and continue remote computer terminal operator. Advance diet. OK to restart Coumadin from my standpoint. Avoid all aspirin and NSAIDs remote computer terminal operator. D/W daughter Constance. Thanks Time Spent With Patient Time: Total time managing care of this patient today ____ minutes.
--- NOTE | 2023-07-07 18:22 | PM.EVENT ---
Event Note Date of Service: 07/07/23 Event Note: EGD show < 1 cm no bleeding, healing pyloric gastric ulcer.. Given high risk for thromboebolism and sugested INR goal of 2.5 to 3.5 and presently INR 1.8 this AM and potentially lower, I am restarting coumadin at usual dose of 3.5 mg rozina and at the same bridge with Lovenox at 1 mg/kg, and closely monitor H/H, and any sign of bleed. Add Iron Time Spent With Patient Time: Total time managing care of this patient today ____ minutes.
[2023-07-07] MEDS: Warfarin Sodium 2.5 MG TABLET PO (18:35)
[2023-07-07] MEDS: Ferrous Sulfate 324 MG TABLET.DR PO (18:35)
[2023-07-07] MEDS: Warfarin Sodium 1 MG TABLET PO (18:36)
[2023-07-07] MEDS: Enoxaparin Sodium 60 MG/0.6 ML SYRINGE 50 MG SUBCUT (18:37)
[2023-07-07] MEDS: Docusate Sodium 100 MG CAPSULE PO (20:11)
[2023-07-08 03:48] VITALS: BP 160/60; PULSE 64; RESP 15; TEMP 36.4; O2SAT 95
[2023-07-08] MEDS: Enoxaparin Sodium 60 MG/0.6 ML SYRINGE 50 MG SUBCUT ×2 (06:10→17:35)
[2023-07-08] MEDS: Omeprazole 20 MG CAPSULE.DR PO (06:10)
[2023-07-08 07:40] LABS: MANUAL DIFF FLAG NO
[2023-07-08 07:54] LABS: Basophils Absolute Auto 0.1 X10*3/uL (0.0-0.2); Basophils Percent Auto 0.8 % (0-2); Eosinophils Absolute Auto 0.2 X10*3/uL (0.0-0.4); Eosinophils Percent Auto 3.8 % (0-4); Hematocrit 29.8 % (37.0-47.0); Hemoglobin 9.3 g/dl (12.0-16.0); Imm Gran Abs Auto 0.02 X10*3/uL (0.00-0.03); Imm Gran Pct Auto 0.3 % (0.0-0.4); Lymphocytes Absolute Auto 1.1 X10*3/uL (1.2-4.9); Lymphocytes Percent Auto 16.8 % (20-40); Mean Corpuscular HGB Conc 31.2 g/dl (31.0-35.0); Mean Corpuscular Hemoglobin 29.4 pg (27.0-33.0); Mean Corpuscular Volume 94.3 fL (80.0-98.0); Mean Platelet Volume 9.8 fL (9.4-12.3); Monocytes Absolute Auto 0.9 X10*3/uL (0.1-1.2); Monocytes Percent Auto 13.9 % (2-11); Neutrophils Percent Auto 64.4 % (45-73); Platelet Count 202 X10*3/uL (160-400); Red Blood Count 3.16 X10*6/uL (4.20-5.50); Red Cell Distribution Width 16.3 % (11.0-16.0); White Blood Count 6.3 X10*3/uL (4.8-10.8)
[2023-07-08 08:00] VITALS: BP 161/72; PULSE 65; RESP 16; TEMP 35.9; O2SAT 97
[2023-07-08 08:04] LABS: INTERNATIONAL NORM RATIO 1.3 (0.9-1.1); Prothrombin Time 15.6 SEC (11.1-13.3)
[2023-07-08 08:07] LABS: Anion Gap 10 (12-20); Blood Urea Nitrogen 12 mg/dL (9-16); Calcium 8.8 mg/dL (8.4-10.2); Carbon Dioxide 28 mmol/L (22-29); Chloride 106 mmol/L (96-108); Creatinine Clr Calc Pharmacy 50.9; Estimated Glomerular Filt Rate > 60; Glucose Fasting 77 mg/dL (60-99); Potassium 3.6 mmol/L (3.3-5.1); Sodium 140 mmol/L (135-145)
--- NOTE | 2023-07-08 08:18 | P.PNIM_ITS ---
Subjective Subjective Date of Service: 07/08/23 Interval History: Had EGD 07/07, Pyloric gastric, healing, non bleeding. No further signs of bleeding Physical Exam 2 Vital Signs: Vital Signs: Last Vital Signs Temp 96.7 F L 07/08/23 08:00 Pulse 65 07/08/23 08:00 Resp 16 07/08/23 08:00 BP 161/72 H 07/08/23 08:00 Pulse Ox 97 07/08/23 08:00 O2 Del Method Room Air 07/08/23 08:00 O2 Flow Rate 5 07/07/23 14:03 Oxygen Flow Rate 1 07/04/23 14:32 BMI result Body Mass Index 21.5 Const: Other: General awake alert x3, mild respiratory distress Neck supple no JVD. CVS regular rate rhythm, systolic murmur Respiratory lungs basilar crackles, no respiratory distress, no wheeze, no rhonchi. Gastrointestinal abdomen soft, non tender, bowel sounds audible, no guarding , no rigidity. Extremities no edema. Neuro non focal Skin no rash Psych appropriate affect Objective Data Active Medications Acetaminophen (Acetaminophen 325 Mg Tablet) 650 mg PO Q6H PRN PRN Reason: Pain, Mild (Pain Scale 1-3) Last Admin: 07/06/23 15:50 Dose: 650 mg Documented By: FABIAN Amlodipine Besylate (Amlodipine Besylate 2.5 Mg Tablet) 2.5 mg PO DAILY [facility]; Protocol Last Admin: 07/07/23 08:57 Dose: 2.5 mg Documented By: KEVIN Docusate Sodium (Docusate Sodium 100 Mg Capsule) 100 mg PO BID [facility] Last Admin: 07/07/23 20:11 Dose: 100 mg Documented By: DAVID Enoxaparin Sodium (Enoxaparin Sodium 60 Mg/0.6 Ml Syringe) 50 mg 1 mg/kg (50 mg) SUBCUT Q12H [facility] Last Admin: 07/08/23 06:10 Dose: 50 mg Documented By: DAVID Ferrous Sulfate (Ferrous Sulfate 324 Mg Tablet.) 324 mg PO BIDWM [facility] Last Admin: 07/07/23 18:35 Dose: 324 mg Documented By: KEVIN Melatonin (Melatonin 3 Mg Tablet) 6 mg PO BEDTIME PRN PRN Reason: Insomnia Last Admin: 07/06/23 21:28 Dose: 6 mg Documented By: FABIAN Metoprolol Tartrate (Metoprolol Tartrate 50 Mg Tablet) 50 mg PO BID [facility]; Protocol Last Admin: 07/07/23 20:11 Dose: 50 mg Documented By: DAVID Omeprazole (Omeprazole 20 Mg Capsule.Dr) 20 mg PO DAILY@0630 [facility] Last Admin: 07/08/23 06:10 Dose: 20 mg Documented By: DAVID Ondansetron HCl (Ondansetron Hcl 4 Mg/2 Ml Vial) 4 mg IVPUSH Q8H PRN PRN Reason: Nausea and Vomiting Sodium Chloride (0.9 % Sodium Chloride Flush 3 Ml Syringe) 3 ml IVFLUSH QSHIFT [facility] Last Admin: 07/07/23 20:11 Dose: 3 ml Documented By: DAVID Valsartan (Valsartan 160 Mg Tablet) 160 mg PO DAILY [facility]; Protocol Last Admin: 07/07/23 11:17 Dose: 160 mg Documented By: KEVIN Warfarin Sodium (Warfarin Sodium 2.5 Mg Tablet) 2.5 mg PO DAILY@1800 [facility] Last Admin: 07/07/23 18:35 Dose: 2.5 mg Documented By: KEVIN Warfarin Sodium (Warfarin Sodium 1 Mg Tablet) 1 mg PO DAILY@1800 [facility] Last Admin: 07/07/23 18:36 Dose: 1 mg Documented By: KEVIN Labs 07/08/23 06:16 07/08/23 06:16 Labs: Laboratory Results - last 24 hr 07/08/23 06:16 MCV 94.3 MCH 29.4 MCHC 31.2 RDW 16.3 H Plt Count 202 MPV 9.8 Immature Gran % (Auto) 0.3 Neut % (Auto) 64.4 Lymph % (Auto) 16.8 L [place] % (Auto) 13.9 H Eos % (Auto) 3.8 Baso % (Auto) 0.8 Lymph # (Auto) 1.1 L [place] # (Auto) 0.9 Eos # (Auto) 0.2 Baso # (Auto) 0.1 Abs Immat Gran (auto) 0.02 Absolute Neuts (auto) 4.0 Absolute Nucleated RBC 0.000 Nucleated RBC % (auto) 0.0 PT 15.6 H D INR 1.3 H Anion Gap 10 L Estim Creat Clear Calc 50.9 Estimated GFR > 60 Fasting Glucose 77 Calcium 8.8 Assessment and Plan (1) Heme + stool: Status: Acute (2) Anemia: Status: Acute (3) Atrial fibrillation: Status: Acute (4) CHF exacerbation: Status: Acute Plan 83-year-old woman with history of mechanical mitral valve, pacemaker on warfarin with severe blood loss anemia and supratherapeutic INR. Severe acute blood loss anemia due to upper GI bleed in setting supratherapeutic INR of 5 INR held, transfused 3 unts of rBV EGD by Dr. Durán 07/07/23 --><1cm healing prepyloric gastric ulcer Oral PPI, diet advanced to regular Mechanical mitral valve, coumadin was on hold INR now 1.3 Bridging with Lovenox until INR 2.5 to 3.5 Acute diastolic CHF, EF 55-60, treated with IV Lasix x 1, now euvolemic, no sob Paroxysmal atrial fibrillatio, rate controlled, continue metoprolol and resume OAC as stated above Hypertension, BP high, continue norvasc, metoprolol and Valsartan Hyperlipidemia, Continue statin DVT prophylaxis: coumadin, lovenox Full code need for inpt: acute gi bleed, needing reveral of anticoagulation and work up home with [facility] until INR therapeutic, on lovenox Quality Stroke Does the patient have a stroke diagnosis?: No VTE Prior VTE?: No VTE Risk Level:: Medical - moderate - high VTE Device Contraindication: N/A - Device Ordered VTE Drug Contraindication: Treatment Not Indicated
[2023-07-08] MEDS: Docusate Sodium 100 MG CAPSULE PO (08:40)
[2023-07-08] MEDS: Metoprolol Tartrate 50 MG TABLET PO (08:41)
[2023-07-08] MEDS: Ferrous Sulfate 324 MG TABLET.DR PO (08:41)
[2023-07-08] MEDS: Valsartan 160 MG TABLET PO (08:41)
[2023-07-08] MEDS: amLODIPine Besylate 2.5 MG TABLET PO (08:41)
[2023-07-08] MEDS: 0.9 % Sodium Chloride Flush 3 ML SYRINGE IVFLUSH (08:42)
--- NOTE | 2023-07-08 08:54 | P.DS_ITS ---
DS: Providers Provider Date of Service: 07/08/23 Date of admission: 07/04/23 13:22 Primary care physician: Kana Ponce MD Consults: 07/04/23 13:13 Consult to Cardiology Routine Consulting Provider: [facility] Cardiovascular Services Reason for consultation: subtherapeutic INR mechanical valve 07/04/23 17:24 Consult to Gastroenterology Routine Consulting Provider: Zack Durán Reason for consultation: gi bleed DS: Diagnosis Discharge Diagnosis (1) Heme + stool: Status: Acute (2) Anemia: Status: Acute (3) Atrial fibrillation: Status: Inactive (4) CHF exacerbation: Status: Resolved DS: Summary Hospital Course Hospital Course: Admission hpi Chief Complaint: Weakness 83-year-old woman with 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 She had her mechanical mitral valve placed in 1996, she has a pacemaker, and has been on warfarin anticoagulated since and has had no issues. She denies chest pain, nausea, vomiting, diarrhea, no change in diet, no recent illness. She lives alone is independent. In the ER, hemoglobin was 4.9, hematocrit 16.5, BNP 727, chest x-ray showing increased interstitial prominence and trace right pleural fluid. 2 units of packed red blood cells ordered and running. No fever leukocytosis noted. , no hypoxia. Plan is to admit patient for further management and treatment of acute anemia. hospital course: Patient presented with weakness and found to have profound anemia with hemoglobin of 4.9. Her INR was 5 as she is on coumadin for mechanical valve and history of AFIB. Due to need for anticolation for mechanical, INR was not hastly. She was transfused 3 units of RBC and slow INR came down until it reached 1.8 and then she underwent EGD after clearance by cardiology. EGD on 07/07/[address] Durán noted 1. Moderate-sized hiatal hernia 2. ?? of a <1cm healing prepyloric gastric ulcer No bleeding nor old blood in the UGI tract No esophagitis, no gastritis, no AVM's She is advised to be on Prilosec 20 mg daily. Due to mechanical and need for anticoagulation,s he was promptlly restarted on coumadina nd being brided with Lovenox until INR is at 2.5, with goal 2.5 to 3.5, INR is 1.3 today and will incrase coumadin to 5, home dose 3.5 Time Attestation Discharge coordination time: Greater than 30 minutes Quality: Safe Use of Opioids Does Pt have an Active Cancer Diagnosis on the Problem List?: No Quality: Stroke Does the patient have a stroke diagnosis?: No Physical Exam Vital Signs: Vital Signs: Last Vital Signs Temp 96.7 F L 07/08/23 08:00 Pulse 65 07/08/23 08:00 Resp 16 07/08/23 08:00 BP 161/72 H 07/08/23 08:00 Pulse Ox 97 07/08/23 08:00 O2 Del Method Room Air 07/08/23 08:00 O2 Flow Rate 5 07/07/23 14:03 Oxygen Flow Rate 1 07/04/23 14:32 BMI result Body Mass Index 21.5 DS: Data Data Completed and Pending Labs on day of discharge: Laboratory Results - last 24 hr 07/08/23 06:16 WBC 6.3 RBC 3.16 L Hgb 9.3 L Hct 29.8 L MCV 94.3 MCH 29.4 MCHC 31.2 RDW 16.3 H Plt Count 202 MPV 9.8 Immature Gran % (Auto) 0.3 Neut % (Auto) 64.4 Lymph % (Auto) 16.8 L [place] % (Auto) 13.9 H Eos % (Auto) 3.8 Baso % (Auto) 0.8 Lymph # (Auto) 1.1 L [place] # (Auto) 0.9 Eos # (Auto) 0.2 Baso # (Auto) 0.1 Abs Immat Gran (auto) 0.02 Absolute Neuts (auto) 4.0 Absolute Nucleated RBC 0.000 Nucleated RBC % (auto) 0.0 PT 15.6 H D INR 1.3 H Sodium 140 Potassium 3.6 Chloride 106 Carbon Dioxide 28 Anion Gap 10 L BUN 12 Creatinine 0.59 Estim Creat Clear Calc 50.9 Estimated GFR > 60 Fasting Glucose 77 Calcium 8.8 Discharge Plan Discharge Anticipated Discharge Date/Time: 07/08/23 13:44 Patient Disposition: Home Health Service Discharge Diagnosis: Acute blood loss anemia, gi bleeding Referrals: [facility] COU[facility]IN CL[facility] [Other] - 1 Week (DR. SAXENA WILL PLACE REFERRAL TO [facility] [place] [facility]. PLEASE CALL [phone] TO SET UP FIRST APPT NEXT WEEK, THEY ARE NOT TAKING NEW PATIENTS UNTIL THE WEEK OF 07/18. PT SHOULD CONT LAB DRAWS IN [place] UNTIL PT STARTS AT [facility] CLINIC. ) [facility] SH[facility] [Other] - 1 Week (PLEASE CALL [phone] TO ARRANGE TRANSPORT IF NEEDED TO COUMADIN CLINIC, SHUTTLE DOES NEED 3-5 DAYS IN ADVANCE. ) [facility] [Outside] - 1 Day ([facility]. A NURSE WILL BE IN CONTACT TO ARRANGE FIRST VISIT AND WILL DRAW AN PT/INR ON MONDAY 07/10.) Kana Ponce MD [Primary Care Provider] - 1 Week Agustin Saxena MD [Physician] - 4 Weeks Discharge Medications: New furosemide [Lasix] 20 mg tablet 20 mg PO DAILY Qty: 30 0RF Continued amlodipine 2.5 mg tablet 2.5 mg PO DAILY Qty: 90 3RF valsartan 160 mg tablet 160 mg PO DAILY alendronate 70 mg tablet 70 mg PO SA pravastatin 40 mg tablet 40 mg PO BEDTIME metoprolol tartrate 50 mg tablet 50 mg PO BID multivitamin [Daily Multi-Vitamin] Tablet 1 tab PO DAILY cholecalciferol (vitamin D3) 25 mcg (1,000 unit) capsule 25 mcg PO DAILY warfarin 2.5 mg tablet 3.5 mg PO DAILY@1800 Protocol: Dose Management Condition: Tuesday (Week One) Dose/Route: 5 mg Instruction: 2 x 2.5 mg tablets Condition: Tuesday Dose/Route: 3.5 mg Instruction: 1 x 1 mg tablet, 1 x 2.5 mg tablet Condition: Tuesday Dose/Route: 3.5 mg Instruction: 1 x 1 mg tablet, 1 x 2.5 mg tablet Condition: Tuesday Dose/Route: 3.5 mg Instruction: 1 x 1 mg tablet, 1 x 2.5 mg tablet Condition: Dose/Route: 5 mg Instruction: 2 x 2.5 mg tablets Condition: Tuesday Dose/Route: 5 mg Instruction: 2 x 2.5 mg tablets Condition: Tuesday Dose/Route: 2.5 mg Instruction: 1 x 2.5 mg tablet Condition: Tuesday (Week Two) Dose/Route: 5 mg Instruction: 2 x 2.5 mg tablets Condition: Tuesday Dose/Route: 2.5 mg Instruction: 1 x 2.5 mg tablet Condition: Tuesday Dose/Route: 5 mg Instruction: 2 x 2.5 mg tablets Condition: Tuesday Dose/Route: 5 mg Instruction: 2 x 2.5 mg tablets Condition: Dose/Route: 5 mg Instruction: 2 x 2.5 mg tablets Condition: Tuesday Dose/Route: 5 mg Instruction: 2 x 2.5 mg tablets Condition: Tuesday Dose/Route: 2.5 mg Instruction: 1 x 2.5 mg tablet Protocol Text: Adjustment Start Date: 07/28/23 INR Value: 1.9 INR Date: 07/28/23 Recheck Date: 08/01/23 Additional Instructions: INR is below range take 5mg today and tomorrow, 2.5mg on Tuesday, 5mg on Tuesday, 2.5mg on Tuesday no greens until seen, continue with the reds and NO LOVENOX per Dr Ponce Rx Instructions: 1mg and 2.5mg together daily No Action warfarin 1 mg tablet 1 mg PO DAILY Protocol: Dose Management Condition: Tuesday (Week One) Dose/Route: 5 mg Instruction: 2 x 2.5 mg tablets Condition: Tuesday Dose/Route: 3.5 mg Instruction: 1 x 1 mg tablet, 1 x 2.5 mg tablet Condition: Tuesday Dose/Route: 3.5 mg Instruction: 1 x 1 mg tablet, 1 x 2.5 mg tablet Condition: Tuesday Dose/Route: 3.5 mg Instruction: 1 x 1 mg tablet, 1 x 2.5 mg tablet Condition: Dose/Route: 5 mg Instruction: 2 x 2.5 mg tablets Condition: Tuesday Dose/Route: 5 mg Instruction: 2 x 2.5 mg tablets Condition: Tuesday Dose/Route: 2.5 mg Instruction: 1 x 2.5 mg tablet Condition: Tuesday (Week Two) Dose/Route: 5 mg Instruction: 2 x 2.5 mg tablets Condition: Tuesday Dose/Route: 2.5 mg Instruction: 1 x 2.5 mg tablet Condition: Tuesday Dose/Route: 5 mg Instruction: 2 x 2.5 mg tablets Condition: Tuesday Dose/Route: 5 mg Instruction: 2 x 2.5 mg tablets Condition: Dose/Route: 5 mg Instruction: 2 x 2.5 mg tablets Condition: Tuesday Dose/Route: 5 mg Instruction: 2 x 2.5 mg tablets Condition: Tuesday Dose/Route: 2.5 mg Instruction: 1 x 2.5 mg tablet Protocol Text: Adjustment Start Date: 07/28/23 INR Value: 1.9 INR Date: 07/28/23 Recheck Date: 08/01/23 Additional Instructions: INR is below range take 5mg today and tomorrow, 2.5mg on Tuesday, 5mg on Tuesday, 2.5mg on Tuesday no greens until seen, continue with the reds and NO LOVENOX per Dr Ponce Discharge Orders: Discharge Order (Routine); Ordered 07/08/23 Ordered By: Joaquin Willis Diet: Advance to usual diet Activity on Discharge: As tolerated Stand Alone Forms: Patient Portal Discharge page Care Plan Goals: recovery from anemia and gi bleeding and proper anticoagulation for mechanical valve Health Concerns: gi bleeding and anemia Plan of Treatment: take coumdin as directe take Lovneox as directed until INR is 2.5 or above, then stop lovenox Check INR level on Tuesday and coumdin dose be adjusted accordingly Follow up with couamdin clinic as usual Assessment: See above Discharge Date/Time: 07/08/23 18:21
[2023-07-08 09:34] VITALS: BP 161/72; PULSE 65; O2SAT 97
--- NOTE | 2023-07-08 11:34 | OP_ITS ---
DATE OF SERVICE: 07/07/2023 SURGEON: Zack Durán MD INDICATIONS: The patient presents for evaluation of melena and anemia. Full consent has been obtained today from her and her daughter for this, including risks of bleeding and perforation. PREOPERATIVE DIAGNOSIS: Melena and anemia. POSTOPERATIVE DIAGNOSIS: Melena and anemia, hiatal hernia, question of a healing pre-pyloric gastric antral ulcer. PROCEDURE PERFORMED: Esophagogastroduodenoscopy. ESTIMATED BLOOD LOSS: COMPLICATIONS: ANESTHESIA: Medication Used: Monitored anesthesia care. ASSISTANTS: SPECIMENS: DESCRIPTION OF PROCEDURE: The patient was placed in the left lateral decubitus position. The Olympus video gastroscope was passed in the posterior oropharynx and upper esophagus under direct vision. The scope was passed slowly into the distal esophagus. The gastroesophageal junction appeared at 34 cm. There was no sign of any esophagitis nor Recio's esophagus. The scope entered the stomach, where there was a small to moderate-sized hiatal hernia. The hiatal hernia mucosa appeared normal. The scope was advanced to the pylorus and the duodenum was cannulated to the descending portion. The duodenum including the bulb appeared normal without mass or ulceration. There was no blood nor coffee-grounds material in the duodenum. The scope was withdrawn back to the stomach. The gastric antrum and body appeared normal with good peristalsis, other than a single, approximately 8 mm area on the pre-pyloric antrum that may have represented a healing ulcer. There was some scarring, but no evidence of any exudate, visible vessel, nor bleeding. The remainder of the antrum and body appeared normal. The scope was retroflexed visualizing the proximal stomach carefully, which appeared normal, without any sign of mass or ulceration. The scope was straightened. There was no blood nor coffee-grounds in the stomach. The scope was withdrawn back to the esophagus. The esophageal mucosa appeared normal. The scope was withdrawn from the patient. She tolerated the procedure well and was returned to the recovery area in stable condition. IMPRESSION: 1. Hiatal hernia. 2. Very questionable area of possible healing of a pre-pyloric ulcer. PLAN: The patient will continue her PPI, but I shall change this to po omeprazole daily. Her diet will be advanced. She will have followup laboratories tomorrow. Based on these findings and her clinical course, I do not see any contraindication to restarting her Coumadin. At this point, I do not think she needs any further endoscopic workup. She may very well have had a small ulcer in the pre-pyloric antrum that bled more than it would have otherwise due to the very high PT/INR. As mentioned, I think she can resume her Coumadin, but I would try to have her hold off on any aspirin and NSAIDs long-term if possible. This has been discussed with the patient and her daughter, Constance, in detail. MD VASILIY Bee/REGGIE / [id number] MTDD
--- NOTE | 2023-07-08 11:42 | MHC.CM.PN ---
Addendum entered by Heidy Hernandez RN 07/08/23 14:18: CM RECEIVED CALL BACK FROM PT'S DTR/HCP CARLO, CARLO REPORTS SHE HAS DONE BID LOVENOX INJECTIONS FOR HER MOTHER IN THE PAST AND WOULD LIKE REFRESHER, CARLO WILL BE IN AT 5:15PM AND RN AWARE SHE WOULD LIKE REFRESHER, PT'S NEXT DOSE APPROX 6PM, CARLO WILL TRANSPORT PT HOME AFTER REVIEWINF ZONIA AND DC PAPERWORK. CARLO AWARE AND AGREEABLE TO BRING PT TO [facility]. Original Note: DISPO DISCUSSED W/HOSPITALIST AND PT WILL NEED LOVENOX BID FOR 3-5 DAYS AND PT/INR ON MONDAY 07/10, CM ATTEMPTED TO CONTACT DTR/HCP CARLO AT 11:35AM AT NUMBER ON FILE, DETAILED MESSAGE LEFT, CM ALSO ATTMEPTED TO CALL CALRO AT NUMBER ON HCP HOWEVER NO ANSWER OR VOICEMAIL. CM ALSO UPDATED [facility] REFERRAL TO INCLUDE SN W/PT/INR. PER HOSPITALIST PT'S BURRITO MAKER WHO IS ALSO HER ATTENDING CARDIO INPT WOULD LIKE PT TO SWITCH TO [facility], CM TO FOLLOW UP W/CLINIC ONCE CM SPEAKS TO PT'S DTR/HCP.
[2023-07-08 11:47] VITALS: BP 140/74; PULSE 68; RESP 16; TEMP 36.5; O2SAT 95
--- NOTE | 2023-07-08 12:07 | P.PNCA_ITS ---
Subjective Subjective Date of Service: 07/08/23 Principal diagnosis: AFib, aortic stenosis, mechanical mitral valve, GI bleeding Interval history: Patient still short of breath but feeling better. Underwent endoscopy yesterday which showed healing pyloric ulcer. No obvious source of bleeding. Patient has not had any recurrent bleeding. Hematocrit has remained stable. Was started on warfarin last night along with Lovenox. Heart rate remains controlled. Review of Systems Review of Systems Yes all other systems are reviewed and are negative Physical Exam Vital Signs: Last Vital Signs Temp 97.7 F 07/08/23 11:47 Pulse 68 07/08/23 11:47 Resp 16 07/08/23 11:47 BP 140/74 H 07/08/23 11:47 Pulse Ox 95 07/08/23 11:47 O2 Del Method Room Air 07/08/23 11:47 O2 Flow Rate 5 07/07/23 14:03 Oxygen Flow Rate 1 07/04/23 14:32 BMI result Body Mass Index 21.5 Const General: cooperative, alert, awake and in distress moderate and respiratory Nutritional Appearance: thin Orientation/consciousness: patient oriented x3 HEENT Head: Yes normocephalic and Yes atraumatic Neck Neck: Yes trachea midline, Yes supple and Yes no JVD Resp Effort & Inspection: normal respiratory effort Auscultation: clear to auscultation bilaterally Cardio Palpation: normal PMI Rate: regular rate Rhythm: regular rhythm Heart sounds: no click, no gallops, Murmur heart sound present systolic late, decrescendo and crescendo and Other heart sounds present (Leon opening and closing click of [place] mitral valve) GI Auscultation: normal bowel sounds Skin General skin exam: no rashes or lesions noted Neuro General: patient oriented x3 and no focal motor deficits Objective Labs and Meds 07/08/23 06:16 07/08/23 06:16 Lab results: Laboratory Results - last 24 hr 07/08/23 06:16 WBC 6.3 RBC 3.16 L Hgb 9.3 L Hct 29.8 L MCV 94.3 MCH 29.4 MCHC 31.2 RDW 16.3 H Plt Count 202 MPV 9.8 Immature Gran % (Auto) 0.3 Neut % (Auto) 64.4 Lymph % (Auto) 16.8 L [place] % (Auto) 13.9 H Eos % (Auto) 3.8 Baso % (Auto) 0.8 Lymph # (Auto) 1.1 L [place] # (Auto) 0.9 Eos # (Auto) 0.2 Baso # (Auto) 0.1 Abs Immat Gran (auto) 0.02 Absolute Neuts (auto) 4.0 Absolute Nucleated RBC 0.000 Nucleated RBC % (auto) 0.0 PT 15.6 H D INR 1.3 H Sodium 140 Potassium 3.6 Chloride 106 Carbon Dioxide 28 Anion Gap 10 L BUN 12 Creatinine 0.59 Estim Creat Clear Calc 50.9 Estimated GFR > 60 Fasting Glucose 77 Calcium 8.8 Progress Note: A&P Assessment and plan (1) CHF exacerbation: Status: Acute Assessment and Plan: Clinical CHF exacerbated due to severe anemia and volume replacement in the setting of persistent atrial fibrillation with aortic stenosis. Clinically appears to be more euvolemic. Continue Lasix therapy. Continue rate control. Continue manage anemia aggressively and with iron replacement therapy. Workup for anemia should also be pursued. Will probably pursue management of atrial fibrillation with amiodarone and cardioversion once INRs more stable. (2) Atrial fibrillation: Status: Acute Assessment and Plan: Persistent atrial fibrillation now. Follow-up in the clinic after establishing therapeutic INR. Once the INRs therapeutic for 3 weeks would pursue rhythm management if possible. I think she will be best cared by referring her to Coumadin Clinic. Start on Lovenox bridge along with Coumadin. Maintain tight control on INR between 2.5 and 3. (3) Cardiac pacemaker in situ: Status: Acute Assessment and Plan: Cardiac pacemaker in-situ, working well. (4) H/O mitral valve replacement: Status: Acute Assessment and Plan: Mechanical mitral valve in place with admission with GI bleed severe anemia which creates a clinical dilemma. No obvious source of bleeding found. Continue workup for further sources of bleeding. Has been restarted on GI recommendation warfarin therapy. Tight INR control between 2.5 and 3 should be pursued. Will follow up in the clinic in 4 weeks time Time Spent With Patient Time: Total time managing care of this patient today ____ minutes. Progress Note: Quality Stroke Does the patient have a stroke diagnosis?: No Procedures Date of Service Date of Service: 07/08/23
[2023-07-08 13:10] VITALS: O2SAT 96
--- NOTE | 2023-07-08 14:42 | HO.POSTANES ---
Post Anesthesia Evaluation Post Anesthesia Evaluation Date of Service: 07/08/23 Vital Signs: Vital Signs Temp Pulse Resp BP Pulse Ox O2 Del Method 07/08/23 11:47 97.7 F 68 16 140/74 H 95 Room Air 07/08/23 09:34 65 161/72 H 97 07/08/23 08:00 96.7 F L 65 16 161/72 H 97 Room Air 07/08/23 03:48 97.6 F 64 15 160/60 H 95 Room Air Anesthesia: Monitored Mental Status: Awake Pain Control: Satisfactory Nausea/Vomiting: None Hydration: Adequate Anesthesia-Related Issues: No Anes. Related Issues
--- NOTE | 2023-07-08 15:56 | P.F2F_ITS ---
Service Date Service Date: 07/08/23 Encounter Date of encounter: 07/08/23 Reasons for Services Signs and symptoms assessed: weakness, anemia, heart failure Reason for senior living: monitoring of PT/INR and medication management Homebound: Leaving the home is medically contraindicated at this time without the asist of a device and/or another person due th the listed conditions above and below. Reason homebound: fall risk related to blood pressure changes, shortness of breath with minimal effort and weakness related to hospital stay Homebound supporting statement: homeomebound due to weakness, anemia, not able to drive and therefore needs therefore needs the assitance of another person Certification: Based on the above findings, I certify that this patient is confined to the home and needs intermittent senior living care, physical therapy and/or speech therapy, or continues to need occupational therapy. The patient is under my care, and I have initiated the establishment of the plan of care. The patient will be followed by a physician who will periodically review the plan of care. Time Spent With Patient Time: Total time managing care of this patient today ____ minutes.
[2023-07-08 16:00] VITALS: BP 155/71; PULSE 61; RESP 20; TEMP 36.9; O2SAT 96
== END 2023-07-08 18:21 | disposition home health service (06) | DRG 377 ==
LOC: HO.ED 11:32 → HO.EDOVER 13:22 → HO.IMC 19:07
PROVIDERS: Hospitalist; Internal Medicine; Admitting Provider Nurse Practitioner Acute Care; Emergency Provider Emergency Medicine; PCP Internal Medicine; Visit Provider Internal Medicine
PROC: 0DJ08ZZ Inspection of Upper Intestinal Tract, Via Natural or Artificial Opening Endoscopic (ICD-10-PCS; CPT 43235; principal; 2023-07-07 13:30)
DX: K25.4 Chronic or unspecified gastric ulcer with hemorrhage (principal); I50.31 Acute diastolic (congestive) heart failure; D62 Acute posthemorrhagic anemia; D68.32 Hemorrhagic disorder due to extrinsic circulating anticoagulants; I11.0 Hypertensive heart disease with heart failure; T45.515A Adverse effect of anticoagulants, initial encounter; Z95.2 Presence of prosthetic heart valve; Z95.0 Presence of cardiac pacemaker; I35.0 Nonrheumatic aortic (valve) stenosis; E78.2 Mixed hyperlipidemia; I48.0 Paroxysmal atrial fibrillation; I49.5 Sick sinus syndrome; K44.9 Diaphragmatic hernia without obstruction or gangrene; Z20.822 Contact with and (suspected) exposure to COVID-19; Z79.01 Long term (current) use of anticoagulants; Z79.82 Long term (current) use of aspirin; Z79.899 Other long term (current) drug therapy
CPT/HCPCS: 0241U; 36415; 71045; 80048; 80053; 82272; 82803; 83735; 83880; 84484; 85025; 85027; 85610; 86850; 86900; 86901; 86920; 86923; 93005; 93306; 97162; 99285; C9113; J1650; J1940; J2704; P9016; Q9957

== ENCOUNTER → 2023-07-04 09:29 | Outpatient (BNV) | payer MEDICARE, SELFPAY | PROVIDERS: Emergency Provider Emergency Medicine; PCP Internal Medicine; Visit Provider Internal Medicine Cardiovascular Disease | DX: R94.31 Abnormal electrocardiogram [ECG] [EKG] (principal) | CPT/HCPCS: 93010 ==

== ENCOUNTER 2023-07-04 13:22 | Outpatient (BNV) | payer MEDICARE, SELFPAY | END 2023-07-05 07:00 | PROVIDERS: Admitting Provider Nurse Practitioner Acute Care; Emergency Provider Emergency Medicine; PCP Internal Medicine; Visit Provider Internal Medicine Cardiovascular Disease | DX: I35.2 Nonrheumatic aortic (valve) stenosis with insufficiency (principal) | CPT/HCPCS: 93306 ==

== ENCOUNTER → 2023-07-04 13:22 | Outpatient (BNV) | payer MEDICARE, SELFPAY | PROVIDERS: Admitting Provider Nurse Practitioner Acute Care; Emergency Provider Emergency Medicine; PCP Internal Medicine; Visit Provider Internal Medicine Cardiovascular Disease | DX: I50.9 Heart failure, unspecified (principal); I48.91 Unspecified atrial fibrillation; Z95.0 Presence of cardiac pacemaker; Z95.2 Presence of prosthetic heart valve | CPT/HCPCS: 99222; 99233 ==

== ENCOUNTER → 2023-07-04 13:22 | Outpatient (BNV) | payer MEDICARE, SELFPAY | PROVIDERS: Admitting Provider Nurse Practitioner Acute Care; Emergency Provider Emergency Medicine; PCP Internal Medicine; Visit Provider Hospitalist | DX: R19.5 Other fecal abnormalities (principal); D64.9 Anemia, unspecified; I48.91 Unspecified atrial fibrillation; I50.9 Heart failure, unspecified | CPT/HCPCS: 99223; 99232; 99233; 99239; G0180 ==

== ENCOUNTER → 2023-07-04 23:59 | Outpatient (BNV) | payer MEDICARE, SELFPAY ==
--- NOTE | 2023-07-05 16:21 | A.OFFVIS_ITS ---
Intake Intake Visit Reasons: Remote Device Check- [employer] Allergies Sulfa (Sulfonamide Antibiotics) Allergy (Unknown, Verified 09/20/22 14:26) UNKNOWN - DOES NOT REMEMBER [facility] Medical History Persistent atrial fibrillation Mixed hyperlipidemia Current use of jail anticoagulation Osteoporosis (~2005) HTN (hypertension) Aortic stenosis H/O mitral valve replacement (~1996) Paroxysmal atrial fibrillation Cardiac pacemaker in situ (~2009) Sick sinus syndrome (~2009) Surgical History History of ventral hernia repair History of kyphoplasty (~2011) History of cardiac pacemaker (~2009) History of meniscectomy of right knee (~2012) History of mitral valve replacement (~1996) History of mitral valve repair (~1992) History of right knee surgery (~2017) Family History Father No problems noted. Mother No problems noted. Social History Household Members: None Housing: House Do you presently have visiting nurse or other home services: No Alcohol intake: never Patient Tobacco Use Status: Never used Tobacco Smoked in Last 30 Days: No Second Hand Smoke Exposure: No Use of substances other than those prescribed or required for medical reasons: No Currently Displaying Signs/Symptoms of Drug Intoxication Withdrawal: No Have you been hit, kicked, punched, or otherwise hurt by someone within the past year? If so, by whom?: No Is there a partner from a previous relationship who is making you feel unsafe now?: No Are you made to feel afraid or neglected: No Advance Directives: No Advance Directives Information Provided: No Do you have thoughts of harming others: None Do you have a plan to hurt others: No Plan Nutrition Risks: No Nutritional Risk Patient : No service: No Office Procedures Cardiac Device Check Cardiac Device Check Details: Remote pacemaker report generated 07/04/2023. Pacemaker function is adequate. Patient ventricularly pacer dependent. Increasing burden of atrial fibrillation with total burden of 82% [id number] Cardiac Device Interrogation, pacemaker Procedure code (CPT) selection complete Assessment & Plan Assessment & Plan (1) Cardiac pacemaker in situ: Onset Date: ~2009 Comment: (Medtronic DCPP - placed 2009, generator changes in 2015 & 2020) Code(s): Z95.0 - Presence of cardiac pacemaker Plan: See above Coding Level of Care Code Procedure Only Diagnoses Cardiac pacemaker in situ Z95.0 CPT Codes Cardiac Device Check - Cardiac Device 12: [id number] Cardiac Device Interrogation, pacemaker ([id number])
== END ==
PROVIDERS: PCP Internal Medicine; Visit Provider Internal Medicine Cardiovascular Disease
DX: I48.19 Other persistent atrial fibrillation (principal); Z95.0 Presence of cardiac pacemaker
CPT/HCPCS: 93294

== ENCOUNTER 2023-07-14 14:02 | Outpatient (AMB) | payer MEDICARE, SELFPAY ==
[2023-07-14 14:18] LABS: Prothrombin Time Whole Bld POC 17.5 sec (11.1-13.5); ~PT, ~INR - Anti Coag Clinic 1.5 (0.9-1.1)
--- NOTE | 2023-07-14 14:22 | MHC.OFFVISCO ---
Intake Vital Signs 07/14/23 15:18 BP 144/62 H Blood Pressure Location Lt brachial Position Sitting Respiration 22 H Pulse 68 Pulse Source Auscultation Comment AP sl irreg, pt H/O Afib Intake Visit Reasons: Anticoagulation Optical Glass Etcher Required: No Allergies Sulfa (Sulfonamide Antibiotics) Allergy (Unknown, Verified 09/20/22 14:26) UNKNOWN - DOES NOT REMEMBER Medication List - Last Reconciled 07/14/23 by Jeannette Smith RN alendronate 70 mg PO SA amlodipine 2.5 mg PO DAILY cholecalciferol (vitamin D3) 25 mcg PO DAILY enoxaparin 50 mg (0.5 mL) subcut Q12H 5 days furosemide (Lasix) 20 mg PO DAILY metoprolol tartrate 50 mg PO BID multivitamin (Daily Multi-Vitamin tablet) 1 tab PO DAILY pravastatin 40 mg PO BEDTIME valsartan 160 mg PO DAILY warfarin 3.5 mg PO DAILY@1800 warfarin 1 mg PO DAILY Is last menstrual period known: No Post menopausal: Yes Patient : No Nursing Note Amb to ACS using walker, accomp by sister for 1st ACS visit feeling well but tired see anticoag initial assessment and EMAR recent GI bleed, hospitalization Medications and supplements reviewed, pt is on lovenox inj for low INR No other new changes in health, diet, medications, or supplements Denies any unusual signs and symptoms of bruising, bleeding other than belly and back of arms from lovenox shots Denies any new Chest pain, SOB, or clotting INR:1.5 critical low Nutritional guidance given: no greens til off lovenox, reds to raise Dose: increase dose to 5mg today and potentially tomorrow, continue with lovenox- per pt only have enough for tonight F/U INR:tomorrow with VNA call to Dr Ponce office at 1550 to report critical INR spoke with Yanelis PHILLIPS and Neena manager shipping, reported dosing, need for continued Lovenox and pt need for more lovenox call to [facility]home care as pt still under VNA care, multiple phone calls and finally able to reach they will check INR tomorrow and give am lovenox, family to give pm lovenox, there will be a visit over the weekend for INR and aware that those results need to be called into Dr Ponce or covering, INR will also be checked by VNA on Tuesday and can be reported to us at ACS call to pt and spoke with daughter Mikki who stated when mom had pacemaker put in it took almost 2 weeks to get back in range Patient and sister verbalize understanding of instructions, ACS visits given with accurate read back/ teach back of dosing, and that we will call with VNA schedule Anti-Coag Initial Assessment Social Hx Patient Tobacco Use Status: Never used Tobacco alcohol intake: never Alcohol intake frequency: does not drink Housing: House Housing Other:: 2 family on firstr floor current occupational exposures/hazards: No Fall risk assessment: 2 + Falls in past year Cardiovascular Hx: HTN, CHF and Other (MVR, st matty valve, pacemaker) Endocrine Hx: Other (raynauds) Musculoskeletal Hx: Arthritis Blood Disorder Hx: Anemia GI Hx: Bleeding (GI, rectal) Cancer HX: No Psych. Illness/Depression: Yes ( blues ) Is last menstrual period known: No Post menopausal: Yes Patient : No Surgeries: pacemaker, MVR- [facility] Matty, Fx femur 10/13/22 pinning Anti-Coag. Education Record Teaching Recipient: Family and Patient What is the easiest way to learn: Reading, Listening and Education Packet Barriers to Learning Identified: Cognitive (age related memory issues) Significant other who can be involved in Teaching Process when Indicated: sister Mariya Couch and daughter If Barriers are identified, describe method to overcome: repeat verbal instructions, written instructions review Optical Glass Etcher Required: No Readiness To Learn: Excellent Teaching Methods: Discussion, Handout and Teach Back Response to Teaching: Reinforcement Needed and Verbalize Understanding Re-Education needs: Reinforce Content Education Intervention/Brief Description of Teaching 1. Able to state reason for taking Warfarin: Yes 2. Able to state Pain Management techniques: Yes 3. Able to state action of Warfarin.: Yes Able to state current dose, pill color, how and when Warfarin to be taken: Yes Able to identify signs of bleeding &/or clotting: Yes 4. Able to identify need to keep diet consistent in regard to vitamin K intake: Yes Able to state restriction on alcohol: Yes 5. Able to state need for compliance with PT/INR testing: Yes Describes rationale for carrying ID and wearing Medic Alert bracelet: Yes Patient instructed to monitor for excess bruising or signs/symptoms of clotting or bleeding: Yes 6. Able to state that there are drugs that interact with Warfin: Yes 7. Able to state the need to seek medical attention when illness/injury occur.: Yes Describes the need to avoid activities with high risk of injury: Yes 8. Able to state duration of treatment: Yes 9. Demonstrates understanding of notifying all providers of pending dental surgical, or other invasive procedures: Yes 10. Able to state Home Care instructions Questionnaires HAS-BLED Does the patient had uncontrolled Hypertension?: Yes Does the patient have renal disease?: No Does the patient have liver disease?: No Does the patient have a history of stroke?: No Has the patient had major bleeding or predisposition to bleeding?: Yes Does the patient have labile INRs?: No Is the patient over 65 years of age?: Yes Is the patient on medications that gives them a predisposition to bleeding?: Yes Does the patient use alcohol?: No HAS-BLED Score: 4 CHADSVASC Age: 75 or over Gender: Female Does the patient have a history of CHF?: Yes Does the patient have a history of Hypertension?: Yes Does the patient have a history of Stroke/TIA/Thromboembolism?: No Does the patient have a history of Vascular Disease (prior MD, PAD or aortic plaque)?: Yes Does the patient have a history of Diabetes?: No CHADS VACS Score: 6 Kristen Prediction Score Rsk VTE Active Cancer: No Previous VTE, excluding superficial vein thrombosis: No Reduced mobility: Yes Already known Thrombophilic Condition: Yes With-in last month Trauma and/or Surgery: Yes Elderly 70 year or older: Yes Heart and/or Respiratory Failure: Yes Acute Myocardial infarction and/or Ischemic Stroke: No Acute Infection and/or Rheumatologic Disorder: No Obesity (BMI 30 or greater): No Ongoing Hormonal Treatment: No Score: 10 Kristen Score less than 4; Low Risk of VTE Kristen Score 4 or greater; High Risk of VTE Coding Level of Care Code New Patient Level 2 Diagnoses Current use of anticoagulant therapy Z79.01 Time Spent (min) 60 Comment multiple calls with providers and family, VNA Assessment & Plan Assessment & Plan (1) Current use of anticoagulant therapy: Code(s): Z79.01 - residential (current) use of anticoagulants Orders: Orders AMB INR Today I48.91 - Unspecified atrial fibrillation, Z79.01 - residential (current) use of anticoagulants, Z95.2 - Presence of prosthetic heart valve
[2023-07-14 15:18] VITALS: BP 144/62; PULSE 68; RESP 22
== END 2023-07-14 17:10 | disposition home or self-care (01) ==
LOC: HO.ACS 14:02
PROVIDERS: PCP Internal Medicine; Visit Provider Internal Medicine
DX: Z79.01 Long term (current) use of anticoagulants (principal)

== ENCOUNTER → 2023-07-14 14:02 | Outpatient (BNVA) | payer MEDICARE, SELFPAY | PROVIDERS: PCP Internal Medicine; Visit Provider Internal Medicine | DX: I48.0 Paroxysmal atrial fibrillation (principal); I35.0 Nonrheumatic aortic (valve) stenosis; Z79.01 Long term (current) use of anticoagulants; Z51.81 Encounter for therapeutic drug level monitoring | CPT/HCPCS: 85610; 99202 ==

== ENCOUNTER → 2023-07-15 13:25 | Outpatient (BNVA) | payer MEDICARE, SELFPAY | PROVIDERS: PCP Internal Medicine; Visit Provider Internal Medicine ==

== ENCOUNTER → 2023-07-18 12:46 | Outpatient (BNVA) | payer MEDICARE, SELFPAY | PROVIDERS: PCP Internal Medicine; Visit Provider Internal Medicine ==

== ENCOUNTER → 2023-07-20 10:30 | Outpatient (BNVA) | payer MEDICARE, SELFPAY | PROVIDERS: PCP Internal Medicine; Visit Provider Internal Medicine ==

== ENCOUNTER → 2023-07-22 12:41 | Outpatient (BNVA) | payer MEDICARE, SELFPAY | PROVIDERS: PCP Internal Medicine; Visit Provider Internal Medicine ==

== ENCOUNTER → 2023-07-25 15:12 | Outpatient (BNVA) | payer MEDICARE, SELFPAY | PROVIDERS: PCP Internal Medicine; Visit Provider Internal Medicine ==

== ENCOUNTER → 2023-07-28 13:23 | Outpatient (BNVA) | payer MEDICARE, SELFPAY | PROVIDERS: PCP Internal Medicine; Visit Provider Internal Medicine ==

== ENCOUNTER → 2023-08-01 09:21 | Outpatient (BNVA) | payer MEDICARE, SELFPAY | PROVIDERS: PCP Internal Medicine; Visit Provider Internal Medicine ==

== ENCOUNTER → 2023-08-05 13:16 | Outpatient (BNVA) | payer MEDICARE, SELFPAY | PROVIDERS: PCP Internal Medicine; Visit Provider Internal Medicine ==

== ENCOUNTER → 2023-08-11 14:52 | Outpatient (BNVA) | payer MEDICARE, SELFPAY | PROVIDERS: PCP Internal Medicine; Visit Provider Internal Medicine ==

== ENCOUNTER → 2023-08-16 12:30 | Outpatient (BNVA) | payer MEDICARE, SELFPAY | PROVIDERS: PCP Internal Medicine; Visit Provider Internal Medicine | DX: Z79.01 Long term (current) use of anticoagulants (principal) ==

== ENCOUNTER 2023-08-18 10:14 | Outpatient (AMB) | payer MEDICARE, SELFPAY ==
--- NOTE | 2023-08-18 10:32 | A.OFFVIS_ITS ---
Intake Vital Signs 08/18/23 10:34 Weight 116 lb 6.465 oz BP 160/62 H Blood Pressure Location Lt brachial Position Sitting Pulse 84 Pulse Source Pulse Oximeter Intake Visit Reasons: [facility] dc fu (rs) Nurse Healthcare Manager Required: No Allergies Sulfa (Sulfonamide Antibiotics) Allergy (Unknown, Verified 08/18/23 10:35) UNKNOWN - DOES NOT REMEMBER Medication List - Last Reconciled 08/18/23 by Kristy George NP-C alendronate 70 mg PO SA amlodipine 2.5 mg PO DAILY cholecalciferol (vitamin D3) 25 mcg PO DAILY metoprolol tartrate 50 mg PO BID multivitamin (Daily Multi-Vitamin tablet) 1 tab PO DAILY pantoprazole 20 mg PO DAILY pravastatin 40 mg PO BEDTIME valsartan 160 mg PO DAILY warfarin 3.5 mg See Protocol PO DAILY@1800 warfarin 1 mg See Protocol PO DAILY HPI [facility] [place] fu (rs) HPI Details Bethany is an 83-year-old female with past medical history of hypertension, hyperlipidemia, CAD, paroxysmal atrial fibrillation, mechanical mitral valve replacement, aortic stenosis, cardiac pacemaker who was recently admitted to [facility] with severe anemia requiring 3 units of packed cells. She was evaluated by GI and no signs of active bleeding identified. Today she reports that she has been feeling better since her hospital discharge. She was having shortness of breath but states her breathing is now back to normal. She denies any PND, orthopnea or edema. She has no signs of any active bleeding. No chest discomfort at rest or with activity. No heart palpitations, lightheadedness, presyncope, syncope, falls. She does have some mild weakness and unsteadiness and ambulates with a cane. She is taking her meds as directed. She is taking Coumadin as directed. INRs currently being monitored by her visiting nurse. [facility] Medical History (Updated 08/18/23 @ 11:32 by Kristy George NP-C) Aortic stenosis H/O mitral valve replacement (~1996) Cardiac pacemaker in situ (~2009) Atrial fibrillation Persistent atrial fibrillation Mixed hyperlipidemia Current use of fci anticoagulation Osteoporosis (~2005) HTN (hypertension) Paroxysmal atrial fibrillation Sick sinus syndrome (~2009) Surgical History History of ventral hernia repair History of kyphoplasty (~2011) History of cardiac pacemaker (~2009) History of meniscectomy of right knee (~2012) History of mitral valve replacement (~1996) History of mitral valve repair (~1992) History of right knee surgery (~2017) Family History Father No problems noted. Mother No problems noted. Social History Household Members: None Housing: House Housing Other:: 2 family on firstr floor Do you presently have visiting nurse or other home services: No Alcohol intake: never Patient Tobacco Use Status: Never used Tobacco Second Hand Smoke Exposure: No service: No Current occupational exposures/hazards: No Review of Systems Const All systems reviewed & are unremarkable except as noted in HPI and below Reports weakness ENT Denies dizziness Card Denies chest pain, Denies chest pain at rest, Denies chest pain with activity, Denies rapid heart rate, Denies pedal edema, Denies edema, Denies leg edema, Denies lightheadedness, Denies palpitations, Denies dyspnea, Denies dyspnea on exertion and Denies orthopnea Resp Denies cough, Denies dyspnea and Denies dyspnea on exertion GI Denies hematochezia and Denies change in stool character Musc Reports abnormal gait (unsteady at times, uses cane), Denies limited range of motion, Denies muscle cramps, Denies muscle weakness, Denies numbness, Denies radiating pain into limb, Denies stiffness and Denies tingling Neuro Reports abnormal gait (unsteady at times, uses cane), Denies dizziness, Denies numbness, Denies tingling and Reports weakness Endo Denies palpitations Physical Exam Vital Signs: Last Vital Signs Pulse 84 08/18/23 10:34 BP 160/62 H 08/18/23 10:34 Const Other: petite elderly female General: cooperative, healthy appearing, comfortable and no acute distress Orientation/consciousness: patient oriented x3 Neck Neck: Yes normal visual inspection Resp Effort & Inspection: normal respiratory effort Auscultation: clear to auscultation bilaterally, no crackles, no rales, no rhonchi and no wheezes Cardio Jugular venous distension: no JVD Rate: regular rate Rhythm: regular rhythm Heart sounds: S1 normal heart sound present, S2 normal heart sound present, Clicking heart sound present (mitral audible) and Murmur heart sound present (ISH right sternal border) Neuro General: patient oriented x3 Extrem General: Yes normal to inspection and No no pedal edema Psych Appearance: grossly normal Mental Status: mental status grossly normal Speech and movement: Normal speech and movement present Assessment & Plan Assessment & Plan (1) Anemia: Code(s): D64.9 - Anemia, unspecified Plan: Recent [facility] admission for significant anemia with hemoglobin down to 4.9. Stool was positive for occult blood. Evaluated by GI and no signs of active bleeding identified on EGD. She does have a hiatal hernia and possible healing gastric ulcer. She was continued on anticoagulation and is currently on Coumadin with INR goal 2.5-3.5. She has no reported signs of active bleeding. Last labs 07/08/2023 showed hemoglobin 9.3. INR is being followed by her visiting nurse at present. Once VNA services are completed she will resume INR checks at [facility]. 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 (3) Paroxysmal atrial fibrillation: Code(s): I48.0 - Paroxysmal atrial fibrillation Plan: History of paroxysmal atrial fibrillation. Remote monitoring of her pacemaker shows intermittent episodes of AFib, frequent at times. On examination today her pulse is very regular to auscultation. She denies feeling any heart palpitations. She is on metoprolol for heart rate control. She is on Coumadin for anticoagulation. (4) Aortic stenosis: Code(s): I35.0 - Nonrheumatic aortic (valve) stenosis Plan: History of aortic stenosis. Most recent echocardiogram done 07/04/2023 showing EF 55-60%, normally functioning mechanical mitral valve, moderate to severe aortic stenosis with mean gradient 30 mmHg. She did have some mild heart failure during last admission however required 3 units of packed cells at that time. She was diuresed with Lasix. At this time she has no clinical signs of heart failure on examination. She tells me her breathing is back to normal. Currently No cardinal signs of severe noted. Spent time reviewing signs and symptoms of severe with her. Continue to follow clinically. Cardiology follow-up in 3 months, sooner if needed (5) H/O mitral valve replacement: Onset Date: ~1996 Comment: ([place] Matty mechanical valve, size unknown - 1996) Code(s): Z95.2 - Presence of prosthetic heart valve Plan: Functioning normally on last echocardiogram. Continue anticoagulation with Coumadin, INR goal 2.5-3.5. Endocarditis prophylaxis continued. (6) Cardiac pacemaker in situ: Onset Date: ~2009 Comment: (Medtronic DCPP - placed 2009, generator changes in 2015 & 2020) Code(s): Z95.0 - Presence of cardiac pacemaker Plan: Medtronic dual-chamber pacemaker in place, functioning normally on last interrogation, 04/18/23. Remote monitoring in use. Next office interrogation due 6 months from last. (7) Hospital discharge follow-up: Code(s): Z09 - Encounter for follow-up examination after completed treatment for conditions other than malignant neoplasm Plan: As above (8) HTN (hypertension): Code(s): I10 - Essential (primary) hypertension Plan: Elevated today 160/62. Recheck done by me is unchanged. She tells me she did take her medications today however she is not clear on what her medications are. Will have our chief medical physicist call her later today and go over each medication in detail. Plan Time spent on chart review, documentation, interview and assessment Coding Level of Care Code Est Pt Level 4 (18528) Diagnoses Anemia D64.9 Current use of anticoagulant therapy Z79.01 Paroxysmal atrial fibrillation I48.0 Aortic stenosis I35.0 H/O mitral valve replacement Z95.2 Cardiac pacemaker in situ Z95.0 Hospital discharge follow-up Z09 HTN (hypertension) I10 Time Spent (min) 30
[2023-08-18 10:34] VITALS: BP 160/62; PULSE 84
== END 2023-08-18 11:21 | disposition home or self-care (01) ==
PROVIDERS: PCP Internal Medicine; Visit Provider Nurse Practitioner Family
DX: D64.9 Anemia, unspecified (principal); Z79.01 Long term (current) use of anticoagulants; I48.0 Paroxysmal atrial fibrillation; I35.0 Nonrheumatic aortic (valve) stenosis; Z95.2 Presence of prosthetic heart valve; Z95.0 Presence of cardiac pacemaker; Z09 Encounter for follow-up examination after completed treatment for conditions other than malignant neoplasm; I10 Essential (primary) hypertension
CPT/HCPCS: 99214

== ENCOUNTER → 2023-08-18 10:14 | Outpatient (BNVA) | payer MEDICARE, SELFPAY | PROVIDERS: PCP Internal Medicine; Visit Provider Nurse Practitioner Family | DX: Z09 Encounter for follow-up examination after completed treatment for conditions other than malignant neoplasm (principal); D64.9 Anemia, unspecified; I48.0 Paroxysmal atrial fibrillation; I35.0 Nonrheumatic aortic (valve) stenosis; I10 Essential (primary) hypertension; Z79.01 Long term (current) use of anticoagulants; Z95.2 Presence of prosthetic heart valve; Z95.0 Presence of cardiac pacemaker | CPT/HCPCS: 99212 ==

== ENCOUNTER → 2023-08-23 11:54 | Outpatient (BNVA) | payer MEDICARE, SELFPAY | PROVIDERS: PCP Internal Medicine; Visit Provider Internal Medicine ==

== ENCOUNTER 2023-08-30 09:30 | Outpatient (REF) | payer MEDICARE, SELFPAY ==
[2023-08-30 10:16] LABS: MANUAL DIFF FLAG NO
[2023-08-30 11:07] LABS: Basophils Percent Auto 0.6 % (0-2); Eosinophils Percent Auto 0.7 % (0-4); Hematocrit 33.4 % (37.0-47.0); Hemoglobin 10.4 g/dl (12.0-16.0); Imm Gran Abs Auto 0.01 X10*3/uL (0.00-0.03); Imm Gran Pct Auto 0.2 % (0.0-0.4); Lymphocytes Percent Auto 18.3 % (20-40); Mean Corpuscular HGB Conc 31.1 g/dl (31.0-35.0); Mean Corpuscular Hemoglobin 28.4 pg (27.0-33.0); Mean Corpuscular Volume 91.3 fL (80.0-98.0); Mean Platelet Volume 9.5 fL (9.4-12.3); Monocytes Absolute Auto 0.6 X10*3/uL (0.1-1.2); Monocytes Percent Auto 11.8 % (2-11); Neutrophils Absolute Auto 3.7 x10*3/uL (2.0-8.3); Neutrophils Percent Auto 68.4 % (45-73); Platelet Count 256 X10*3/uL (160-400); Red Blood Count 3.66 X10*6/uL (4.20-5.50); Red Cell Distribution Width 14.6 % (11.0-16.0); White Blood Count 5.4 X10*3/uL (4.8-10.8)
== END 2023-08-30 09:31 | disposition home or self-care (01) ==
LOC: HO.LAB 09:30
PROVIDERS: Visit Provider Internal Medicine
DX: I48.0 Paroxysmal atrial fibrillation (principal); I35.0 Nonrheumatic aortic (valve) stenosis; R53.83 Other fatigue; D64.9 Anemia, unspecified; Z51.81 Encounter for therapeutic drug level monitoring; Z79.01 Long term (current) use of anticoagulants
CPT/HCPCS: 36415; 85025; 85610; 99211

== ENCOUNTER 2023-08-30 09:38 | Outpatient (AMB) | payer MEDICARE, SELFPAY ==
--- NOTE | 2023-08-30 09:43 | MHC.OFFVISCO ---
Intake Intake Visit Reasons: Anticoagulation Allergies Sulfa (Sulfonamide Antibiotics) Allergy (Unknown, Verified 08/30/23 09:41) UNKNOWN - DOES NOT REMEMBER Nursing Note INR 4.0-?? out of therapeutic range of 2.5-3.0 Medications and supplements reviewed Patient status: pt finished vna, now at acs. having labs today, unsure why inr is elev Medications or supplements: no changes Diet: same Denies any signs and symptoms of bleeding or clotting or unusual bruising Bleeding, bruising, clotting discussed - aware risk of bleeding Nutritional guidance given: eat dark, cooked greens to lower inr Dose: reduce dose today to 2.5mg and reduce weekly dosing to 2.5mg x 4, 5mg x 3 F/U INR Date : tuesday09/05/23 Patient verbalizing understanding of instructions given. Anti-Coag Initial Assessment Social Hx Patient Tobacco Use Status: Never used Tobacco alcohol intake: never Alcohol intake frequency: does not drink Cardiovascular Hx: HTN, CHF and Other Endocrine Hx: Other Musculoskeletal Hx: Arthritis Blood Disorder Hx: Anemia GI Hx: Bleeding (GI, rectal) Cancer HX: No Psych. 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
[2023-08-30 09:47] LABS: Prothrombin Time Whole Bld POC 47.5 sec (11.1-13.5)
== END 2023-08-30 10:16 | disposition home or self-care (01) ==
LOC: HO.ACS 09:38
PROVIDERS: PCP Internal Medicine; Visit Provider Internal Medicine
DX: Z79.01 Long term (current) use of anticoagulants (principal)

== ENCOUNTER 2023-09-05 10:19 | Outpatient (AMB) | payer MEDICARE, SELFPAY ==
[2023-09-05 10:28] LABS: Prothrombin Time Whole Bld POC 37.4 sec (11.1-13.5); ~PT, ~INR - Anti Coag Clinic 3.1 (0.9-1.1)
--- NOTE | 2023-09-05 10:52 | MHC.OFFVISCO ---
Intake Intake Visit Reasons: Anticoagulation Allergies Sulfa (Sulfonamide Antibiotics) Allergy (Unknown, Verified 08/30/23 09:41) UNKNOWN - DOES NOT REMEMBER Medication List - Last Reconciled 09/05/23 by Jeannette Grayson RN alendronate 70 mg PO SA amlodipine 2.5 mg PO DAILY cholecalciferol (vitamin D3) 25 mcg PO DAILY metoprolol tartrate 50 mg PO BID multivitamin (Daily Multi-Vitamin tablet) 1 tab PO DAILY pantoprazole 20 mg PO DAILY pravastatin 40 mg PO BEDTIME valsartan 160 mg PO DAILY warfarin 2.5 mg See Protocol PO DAILY Nursing Note INR: 3.1just above therapeutic range of 2.5-3 Medications and supplements reviewed No changes in health, diet, medications, or supplements, Pt states she has trouble sleeping and has been taking tylenol pm before bed Denies any signs and symptoms of bleeding or bruising or clotting. Bleeding, bruising, clotting discussed Nutritional guidance given to have a serving of greens today and tomorrow then to balance greens and reds Dose: 2.5mg X 4 days and 5mg X 3 days F/U INR: 1 week Patient verbalizes understanding of instructions given Anti-Coag Initial Assessment Social Hx Patient Tobacco Use Status: Never used Tobacco alcohol intake: never Alcohol intake frequency: does not drink Cardiovascular Hx: HTN, CHF and Other Endocrine Hx: Other Musculoskeletal Hx: Arthritis Blood Disorder Hx: Anemia GI Hx: Bleeding (GI, rectal) Cancer HX: No Psych. Illness/Depression: Yes ( blues ) Coding Level of Care Code Est Patient Level 1 Diagnoses Current use of anticoagulant therapy Z79.01 Assessment & Plan Assessment & Plan (1) Current use of anticoagulant therapy: Code(s): Z79.01 - FDC (current) use of anticoagulants Category: Medical
== END 2023-09-05 10:57 | disposition home or self-care (01) ==
LOC: HO.ACS 10:19
PROVIDERS: PCP Internal Medicine; Visit Provider Internal Medicine
DX: Z79.01 Long term (current) use of anticoagulants (principal)

== ENCOUNTER → 2023-09-05 10:19 | Outpatient (BNVA) | payer MEDICARE, SELFPAY | PROVIDERS: PCP Internal Medicine; Visit Provider Internal Medicine | DX: I48.0 Paroxysmal atrial fibrillation (principal); I35.0 Nonrheumatic aortic (valve) stenosis; Z79.01 Long term (current) use of anticoagulants; Z51.81 Encounter for therapeutic drug level monitoring | CPT/HCPCS: 85610; 99211 ==

== ENCOUNTER 2023-09-12 09:09 | Outpatient (AMB) | payer MEDICARE, SELFPAY ==
[2023-09-12 09:18] LABS: Prothrombin Time Whole Bld POC 26.1 sec (11.1-13.5); ~PT, ~INR - Anti Coag Clinic 2.2 (0.9-1.1)
--- NOTE | 2023-09-12 09:29 | MHC.OFFVISCO ---
Intake Intake Visit Reasons: Anticoagulation Allergies Sulfa (Sulfonamide Antibiotics) Allergy (Unknown, Verified 08/30/23 09:41) UNKNOWN - DOES NOT REMEMBER Nursing Note INR: 2.2 OUT OF therapeutic range- SHE HAD 2 DAYS OF CABBAGE Medications and supplements reviewed No changes in health, diet, medications, or supplements, Denies any signs and symptoms of bleeding or bruising or clotting. Bleeding, bruising, clotting discussed Nutritional guidance given - AVOID GREENS X 2 DAYS, WHEN EATING MORE GREENS HAVE MORE FOODS TO HELP RAISE THE INR- REVIEW LIST Dose: BOOSTER DOSE TODAY 5MG THEN RESUME USUAL DOSE 2.5M X 3 DAYS/ 5MG X 4 DAYS F/U INR: 10 DAYS Patient verbalizes understanding of instructions given Anti-Coag Initial Assessment Social Hx Patient Tobacco Use Status: Never used Tobacco alcohol intake: never Alcohol intake frequency: does not drink Cardiovascular Hx: HTN, CHF and Other Endocrine Hx: Other Musculoskeletal Hx: Arthritis Blood Disorder Hx: Anemia GI Hx: Bleeding (GI, rectal) Cancer HX: No Psych. Illness/Depression: Yes ( blues ) Coding Level of Care Code Est Patient Level 1 Diagnoses Current use of anticoagulant therapy Z79.01 Assessment & Plan Assessment & Plan (1) Current use of anticoagulant therapy: Code(s): Z79.01 - shelter (current) use of anticoagulants Category: Medical
== END 2023-09-12 09:35 | disposition home or self-care (01) ==
LOC: HO.ACS 09:09
PROVIDERS: PCP Internal Medicine; Visit Provider Internal Medicine
DX: Z79.01 Long term (current) use of anticoagulants (principal)

== ENCOUNTER → 2023-09-12 09:09 | Outpatient (BNVA) | payer MEDICARE, SELFPAY | PROVIDERS: PCP Internal Medicine; Visit Provider Internal Medicine | DX: I48.0 Paroxysmal atrial fibrillation (principal); I35.0 Nonrheumatic aortic (valve) stenosis; Z79.01 Long term (current) use of anticoagulants; Z51.81 Encounter for therapeutic drug level monitoring | CPT/HCPCS: 85610; 99211 ==

== ENCOUNTER 2023-09-22 08:29 | Outpatient (AMB) | payer MEDICARE, SELFPAY ==
[2023-09-22 08:37] LABS: Prothrombin Time Whole Bld POC 38.5 sec (11.1-13.5); ~PT, ~INR - Anti Coag Clinic 3.2 (0.9-1.1)
--- NOTE | 2023-09-22 08:43 | MHC.OFFVISCO ---
Intake Intake Visit Reasons: Anticoagulation Allergies Sulfa (Sulfonamide Antibiotics) Allergy (Unknown, Verified 09/22/23 08:32) UNKNOWN - DOES NOT REMEMBER Medication List - Last Reconciled 09/22/23 by Jeannette Smith RN alendronate 70 mg PO SA amlodipine 2.5 mg PO DAILY cholecalciferol (vitamin D3) 25 mcg PO DAILY metoprolol tartrate 50 mg PO BID multivitamin (Daily Multi-Vitamin tablet) 1 tab PO DAILY pantoprazole 20 mg PO DAILY pravastatin 40 mg PO BEDTIME valsartan 160 mg PO DAILY warfarin 2.5 mg See Protocol PO DAILY Nursing Note Amb to [facility] feeling well, takes hospital transportation, is here very early Medications and supplements reviewed No changes in health, diet, medications, or supplements Denies any unusual signs and symptoms of bruising, bleeding Denies any new Chest pain, SOB, or clotting INR: 3.2 above therapeutic range 2.5-3.0 last visit was below range- sounds like she stayed away from greens since then Nutritional guidance given: good green today then balance greens and reds in diet and be consistent- reviewed Holiday food concerns (chocolate) Dose: continue usual dosing; 2.5mg x 3 days and 5mg x 4 days F/U INR: 2 weeks Patient verbalizes understanding of instructions given with accurate read back/ teach back of dosing Anti-Coag Initial Assessment Social Hx Patient Tobacco Use Status: Never used Tobacco alcohol intake: never Alcohol intake frequency: does not drink Cardiovascular Hx: HTN, CHF and Other Endocrine Hx: Other Musculoskeletal Hx: Arthritis Blood Disorder Hx: Anemia GI Hx: Bleeding (GI, rectal) Cancer HX: No Psych. Illness/Depression: Yes ( blues ) Coding Level of Care Code Est Patient Level 1 Diagnoses Current use of anticoagulant therapy Z79.01 Time Spent (min) 15 Assessment & Plan Assessment & Plan (1) Current use of anticoagulant therapy: Code(s): Z79.01 - skilled nursing (current) use of anticoagulants Category: Medical
== END 2023-09-22 08:52 | disposition home or self-care (01) ==
LOC: HO.ACS 08:29
PROVIDERS: PCP Internal Medicine; Visit Provider Internal Medicine
DX: Z79.01 Long term (current) use of anticoagulants (principal)

== ENCOUNTER → 2023-09-22 08:29 | Outpatient (BNVA) | payer MEDICARE, SELFPAY | PROVIDERS: PCP Internal Medicine; Visit Provider Internal Medicine | DX: I48.0 Paroxysmal atrial fibrillation (principal); I35.0 Nonrheumatic aortic (valve) stenosis; Z79.01 Long term (current) use of anticoagulants; Z51.81 Encounter for therapeutic drug level monitoring | CPT/HCPCS: 85610; 99211 ==

== ENCOUNTER → 2023-10-03 23:59 | Outpatient (BNV) | payer MEDICARE, SELFPAY ==
--- NOTE | 2023-10-05 15:38 | A.OFFVIS_ITS ---
Intake Intake Visit Reasons: Remote device check- Medtronic Allergies Sulfa (Sulfonamide Antibiotics) Allergy (Unknown, Verified 09/22/23 08:32) UNKNOWN - DOES NOT REMEMBER REPLACED BY [facility] Medical History (Updated 08/18/23 @ 11:32 by Kristy George NP-C) Aortic stenosis H/O mitral valve replacement (~1996) Cardiac pacemaker in situ (~2009) Atrial fibrillation Persistent atrial fibrillation Mixed hyperlipidemia Current use of retirement anticoagulation Osteoporosis (~2005) HTN (hypertension) Paroxysmal atrial fibrillation Sick sinus syndrome (~2009) Surgical History History of ventral hernia repair History of kyphoplasty (~2011) History of cardiac pacemaker (~2009) History of meniscectomy of right knee (~2012) History of mitral valve replacement (~1996) History of mitral valve repair (~1992) History of right knee surgery (~2017) Family History Father No problems noted. Mother No problems noted. Social History Household Members: None Housing: House Housing Other:: 2 family on firstr floor Do you presently have visiting nurse or other home services: No Alcohol intake: never Patient Tobacco Use Status: Never used Tobacco Second Hand Smoke Exposure: No service: No Current occupational exposures/hazards: No Office Procedures Cardiac Device Check Cardiac Device Check Details: Remote pacemaker report generated 10/03/2023. Pacemaker function is adequate. Total burden of atrial fibrillation about 64% of the time [id number] Cardiac Device Interrogation, pacemaker Procedure code (CPT) selection complete Assessment & Plan Assessment & Plan (1) Cardiac pacemaker in situ: Onset Date: ~2009 Comment: (Medtronic DCPP - placed 2009, generator changes in 2015 & 2020) Code(s): Z95.0 - Presence of cardiac pacemaker Plan: See above Coding Level of Care Code Procedure Only Diagnoses Cardiac pacemaker in situ Z95.0 CPT Codes Cardiac Device Check - Cardiac Device 12: [id number] Cardiac Device Interrogation, pacemaker ([id number])
== END ==
PROVIDERS: PCP Internal Medicine; Visit Provider Internal Medicine Cardiovascular Disease
DX: I48.91 Unspecified atrial fibrillation (principal); Z95.0 Presence of cardiac pacemaker
CPT/HCPCS: 93294

== ENCOUNTER 2023-10-06 08:16 | Outpatient (AMB) | payer MEDICARE, SELFPAY ==
--- NOTE | 2023-10-06 08:47 | MHC.OFFVISCO ---
Intake Intake Visit Reasons: Anticoagulation Allergies Sulfa (Sulfonamide Antibiotics) Allergy (Unknown, Verified 10/06/23 08:35) UNKNOWN - DOES NOT REMEMBER Medication List - Last Reconciled 10/06/23 by Chey Keller RN alendronate 70 mg PO SA amlodipine 2.5 mg PO DAILY cholecalciferol (vitamin D3) 25 mcg PO DAILY metoprolol tartrate 50 mg PO BID multivitamin (Daily Multi-Vitamin tablet) 1 tab PO DAILY pantoprazole 20 mg PO DAILY pravastatin 40 mg PO BEDTIME valsartan 160 mg PO DAILY warfarin 2.5 mg See Protocol PO DAILY Nursing Note NO CP,SOB,DIET/MED CHANGES,FALLS OR SX OF BLEEDING. CONTINUE PRESENT DOSE AND FOLLOW-UP IN 3 WEEKS. GOOD UNDERSTANDING OF DOSING INSTR. Anti-Coag Initial Assessment Social Hx Patient Tobacco Use Status: Never used Tobacco alcohol intake: never Alcohol intake frequency: does not drink Cardiovascular Hx: HTN, CHF and Other Endocrine Hx: Other Musculoskeletal Hx: Arthritis Blood Disorder Hx: Anemia GI Hx: Bleeding (GI, rectal) Cancer HX: No Psych. 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
[2023-10-07 08:13] LABS: Prothrombin Time Whole Bld POC 34.4 sec (11.1-13.5); ~PT, ~INR - Anti Coag Clinic 2.9 (0.9-1.1)
== END 2023-10-06 08:49 | disposition home or self-care (01) ==
LOC: HO.ACS 08:16
PROVIDERS: PCP Internal Medicine; Visit Provider Internal Medicine
DX: Z79.01 Long term (current) use of anticoagulants (principal)

== ENCOUNTER → 2023-10-06 08:16 | Outpatient (BNVA) | payer MEDICARE, SELFPAY | PROVIDERS: PCP Internal Medicine; Visit Provider Internal Medicine | DX: I48.91 Unspecified atrial fibrillation (principal); Z95.2 Presence of prosthetic heart valve; Z79.01 Long term (current) use of anticoagulants; Z51.81 Encounter for therapeutic drug level monitoring | CPT/HCPCS: 85610; 99211 ==

== ENCOUNTER 2023-10-24 11:22 | Outpatient (REF) | payer MEDICARE, SELFPAY ==
--- NOTE | ~2023-10-24 | XR_ITS ---
EXAMINATION: XR CHEST CLINICAL INFORMATION: Cough. Back pain. COMPARISON: Recent chest radiograph dated 07/04/2023. CTA chest dated 06/08/2016. TECHNIQUE: 2 views of the chest were obtained. FINDINGS: Left chest wall pacer with its leads in the right heart. Sternal wires and mediastinal surgical clips are redemonstrated. Redemonstration of a midthoracic spine kyphoplasty at T8. Compression deformity of T7 has increased in prominence when compared to the CT dated 06/08/2016. Findings are age-indeterminant on plain radiographs. Exaggeration of the thoracic kyphosis. Diffuse interstitial prominence without focal airspace consolidation. No pleural effusion or pneumothorax. Stable cardiomediastinal silhouette. XR/XR chest 2V IMPRESSION: 1. Diffuse interstitial prominence without focal airspace consolidation. 2. Compression deformity of T7 has increased in prominence when compared to the CT dated 06/08/2016. Findings are age-indeterminant on plain radiographs. 3. Redemonstration of a midthoracic spine kyphoplasty.
[2023-10-24 11:43] LABS: MANUAL DIFF FLAG NO
[2023-10-24 12:26] LABS: Basophils Percent Auto 0.5 % (0-2); Eosinophils Absolute Auto 0.1 X10*3/uL (0.0-0.4); Eosinophils Percent Auto 0.8 % (0-4); Hemoglobin 10.5 g/dl (12.0-16.0); Imm Gran Abs Auto 0.04 X10*3/uL (0.00-0.03); Imm Gran Pct Auto 0.5 % (0.0-0.4); Lymphocytes Absolute Auto 0.9 X10*3/uL (1.2-4.9); Lymphocytes Percent Auto 12.6 % (20-40); Mean Corpuscular HGB Conc 31.8 g/dl (31.0-35.0); Mean Corpuscular Hemoglobin 27.8 pg (27.0-33.0); Mean Corpuscular Volume 87.3 fL (80.0-98.0); Mean Platelet Volume 9.3 fL (9.4-12.3); Monocytes Absolute Auto 0.8 X10*3/uL (0.1-1.2); Monocytes Percent Auto 10.8 % (2-11); Neutrophils Absolute Auto 5.5 x10*3/uL (2.0-8.3); Neutrophils Percent Auto 74.8 % (45-73); Platelet Count 292 X10*3/uL (160-400); Red Blood Count 3.78 X10*6/uL (4.20-5.50); Red Cell Distribution Width 15.2 % (11.0-16.0); White Blood Count 7.4 X10*3/uL (4.8-10.8)
[2023-10-24 12:51] LABS: Anion Gap 13 (12-20); Blood Urea Nitrogen 13 mg/dL (9-16); Calcium 9.9 mg/dL (8.4-10.2); Carbon Dioxide 27 mmol/L (22-29); Chloride 105 mmol/L (96-108); Estimated Glomerular Filt Rate > 60; Glucose Random 92 mg/dL (60-115); Potassium 4.1 mmol/L (3.3-5.1); Sodium 141 mmol/L (135-145)
== END 2023-10-24 11:23 | disposition home or self-care (01) ==
LOC: HO.XRAY 11:22
PROVIDERS: PCP Internal Medicine; Visit Provider Internal Medicine
DX: R06.02 Shortness of breath (principal); R53.83 Other fatigue
CPT/HCPCS: 36415; 71046; 80048; 85025

== ENCOUNTER 2023-10-27 08:40 | Outpatient (REF) | payer MEDICARE, SELFPAY ==
[2023-10-27 09:22] LABS: Prothrombin Time 103.8 SEC (11.1-13.3)
[2023-10-27 09:24] LABS: INTERNATIONAL NORM RATIO 8.5 (0.9-1.1)
== END 2023-10-27 08:41 | disposition home or self-care (01) ==
LOC: HO.LAB 08:40
PROVIDERS: PCP Internal Medicine; Visit Provider Internal Medicine
DX: Z13.89 Encounter for screening for other disorder (principal)
CPT/HCPCS: 36415; 85610; 99212

== ENCOUNTER 2023-10-27 08:40 | Outpatient (AMB) | payer MEDICARE, SELFPAY ==
[2023-10-27 08:48] LABS: Prothrombin Time Whole Bld POC > 96.0 sec (11.1-13.5); ~PT, ~INR - Anti Coag Clinic > 8.0 (0.9-1.1)
--- NOTE | 2023-10-27 09:56 | MHC.OFFVISCO ---
Intake Intake Visit Reasons: Anticoagulation Allergies Sulfa (Sulfonamide Antibiotics) Allergy (Unknown, Verified 10/27/23 09:58) UNKNOWN - DOES NOT REMEMBER Medication List - Last Reconciled 10/27/23 by Jeannette Grayson RN alendronate 70 mg PO SA amlodipine 2.5 mg PO DAILY cholecalciferol (vitamin D3) 25 mcg PO DAILY metoprolol tartrate 50 mg PO BID multivitamin (Daily Multi-Vitamin tablet) 1 tab PO DAILY pantoprazole 20 mg PO DAILY pravastatin 40 mg PO BEDTIME valsartan 160 mg PO DAILY warfarin 2.5 mg See Protocol PO DAILY Nursing Note INR 8.5?out of therapeutic range of 2.5-3.0 Medications and supplements reviewed: pt denies any new meds Patient status: pt states she has been having back pain. Took tylenol this morning and one Tylenol PM last night for sleep but did not take any for a few days before that. Pt has ankle edema she states is new and has been having dyspnea but said this is ongoing. Denies ETOH. Denies taking extra dose of warfarin. Able to state her exact dose which varies on different days. Pt states no BM in 3 days. She has a hx of GIB. T/C to Dr Ponce's office and instructed to have pt seen in the ER. Diet: denies any changes or supplement Denies any signs and symptoms of bleeding or clotting or unusual bruising Nutritional guidance given: to have greens today and tomorrow Dose: Hold todays dose then pending ER eval. If discharged will see pt in clinic tomorrow for retest F/U INR Date : ?Pt sent to ED Patient verbalizing understanding of instructions given. Daughter Mikki Corrales called and informed mother is in ER Anti-Coag Initial Assessment Social Hx Patient Tobacco Use Status: Never used Tobacco alcohol intake: never Alcohol intake frequency: does not drink Cardiovascular Hx: HTN, CHF and Other Endocrine Hx: Other Musculoskeletal Hx: Arthritis Blood Disorder Hx: Anemia GI Hx: Bleeding (GI, rectal) Cancer HX: No Psych. 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
== END 2023-10-27 11:03 | disposition home or self-care (01) ==
LOC: HO.ACS 08:40
PROVIDERS: PCP Internal Medicine; Visit Provider Internal Medicine
DX: Z79.01 Long term (current) use of anticoagulants (principal)

== ENCOUNTER 2023-10-27 09:46 | Emergency (ER) | payer MEDICARE, SELFPAY ==
--- NOTE | ~2023-10-27 | CT_ITS ---
EXAMINATION: CT ANGIOGRAM CHEST CLINICAL INFORMATION: Chest and back pain evaluate for aortic dissection COMPARISON: CTA from May 2016 TECHNIQUE: Multiple axial images were obtained through the chest after the administration of 70 mL of Omnipaque 350 intravenous contrast. Extensive vascular post-processing including two-dimensional and three-dimensional reformatted images were created and reviewed on an independent workstation. This CT examination was performed using dose optimization techniques as appropriate, variously including the following: *Automated exposure control *Adjustment of mA and/or kV according to patient size (this includes techniques or standardized protocols for targeted exams where dose is matched to indication/reason for exam; i.e. extremities or head) *Use of iterative reconstruction technique DLP: 230 mGy-cm FINDINGS: There is no evidence of pulmonary embolism or aortic dissection or aneurysmal dilatation. There is no pericardial effusion or cardiomegaly. There is pacemaker battery on the left with leads in the right atrium and ventricle. Patient is status post median sternotomy for CABG. LUNGS: Lungs are clear without nodules or consolidation with mild septal thickening can the dependent portion of both lungs. There is no hilar prominence. Mediastinum: There is no mediastinal or hilar lymphadenopathy seen. Central airways are patent. Osseous structures: There is diffuse osteopenia with multiple compression deformities including kyphoplasty of T8 and vertebra plana of T7, compression deformity of T12 Abdomen: There are multiple low-attenuation lesions seen in the liver most likely hepatic cysts partially seen gallbladder is over distended. There is small hiatal hernia. CT/CT angio chest aorta IMPRESSION: No evidence of aortic dissection or aneurysmal dilatation. No evidence of pulmonary embolism. Cardiomegaly and mild interstitial edema. Diffuse osteopenia with compression deformities of T7, T8, T12 and status post kyphoplasty of T8. Status post CABG Fleischner guidelines were followed.
[2023-10-27 09:56] VITALS: BP 170/59; PULSE 69; RESP 19; TEMP 36.6; O2SAT 98; BMI 23.3
[2023-10-27 10:11] LABS: Basophils Percent Auto 0.5 % (0-2); Eosinophils Absolute Auto 0.1 X10*3/uL (0.0-0.4); Eosinophils Percent Auto 0.7 % (0-4); Hematocrit 32.5 % (37.0-47.0); Hemoglobin 10.7 g/dl (12.0-16.0); Imm Gran Abs Auto 0.02 X10*3/uL (0.00-0.03); Imm Gran Pct Auto 0.3 % (0.0-0.4); Lymphocytes Absolute Auto 1.2 X10*3/uL (1.2-4.9); Lymphocytes Percent Auto 15.5 % (20-40); MANUAL DIFF FLAG NO; Mean Corpuscular HGB Conc 32.9 g/dl (31.0-35.0); Mean Corpuscular Hemoglobin 28.8 pg (27.0-33.0); Mean Corpuscular Volume 87.6 fL (80.0-98.0); Mean Platelet Volume 8.6 fL (9.4-12.3); Monocytes Absolute Auto 0.8 X10*3/uL (0.1-1.2); Monocytes Percent Auto 10.9 % (2-11); Neutrophils Absolute Auto 5.4 x10*3/uL (2.0-8.3); Neutrophils Percent Auto 72.1 % (45-73); Platelet Count 281 X10*3/uL (160-400); Red Blood Count 3.71 X10*6/uL (4.20-5.50); Red Cell Distribution Width 15.4 % (11.0-16.0); White Blood Count 7.4 X10*3/uL (4.8-10.8)
--- NOTE | 2023-10-27 10:17 | ED.GENADULT ---
HPI - General Adult General Chief complaint: Recheck/Abnormal Lab/Rx Stated complaint: High INR Time Seen by Provider: 10/27/23 09:56 Source: patient Mode of arrival: EMS Limitations: no limitations History of Present Illness HPI narrative: 83 yo f with pmhx of mitral valve replacement, paroxysmal afib, HTN, cardiac pacemaker, CAD presents from office after getting INR checked this morning. She states the level was 8.5, so they sent her to the ED. She states she has been taking warfarin for years and has never had a level this high. Denies any recent sickness or sick contacts. Denies any chest pain, shortness of breath, nausea, vomiting, diarrhea, fevers, chills, abdominal pain. No trauma. Related Data Home Medications ?Medication ?Instructions ?Recorded ?Confirmed alendronate 70 mg tablet 70 mg PO SA 05/19/21 10/27/23 cholecalciferol (vitamin D3) 25 25 mcg PO DAILY 05/19/21 10/27/23 mcg (1,000 unit) capsule metoprolol tartrate 50 mg tablet 50 mg PO BID 05/19/21 10/27/23 multivitamin (Daily Multi-Vitamin 1 tab PO DAILY 05/19/21 10/27/23 tablet) pravastatin 40 mg tablet 40 mg PO BEDTIME 05/19/21 10/27/23 valsartan 160 mg tablet 160 mg PO DAILY 05/19/21 10/27/23 pantoprazole 20 mg tablet,delayed 20 mg PO DAILY 08/05/23 10/27/23 release warfarin 2.5 mg tablet 2.5 mg PO DAILY 08/30/23 10/27/23 Previous Rx's ?Medication ?Instructions ?Recorded amlodipine 2.5 mg tablet 2.5 mg PO DAILY #90 tabs 06/28/23 Allergies Allergy/AdvReac Type Severity Reaction Status Date / Time Sulfa (Sulfonamide Allergy Unknown UNKNOWN - Verified 10/27/23 09:58 Antibiotics) DOES NOT REMEMBER Review of Systems Review of Systems: Yes all other systems are reviewed and are negative PMFSH Past Medical History Attestation statement: The following information was validated with the patient. Source: old records reviewed and nursing notes reviewed Medical History (Updated 10/27/23 @ 13:58 by ÓSCAR Dubois) Aortic stenosis H/O mitral valve replacement (~1996) Cardiac pacemaker in situ (~2009) Atrial fibrillation Persistent atrial fibrillation Mixed hyperlipidemia Current use of joint terminal attack controller anticoagulation Osteoporosis (~2005) HTN (hypertension) Paroxysmal atrial fibrillation Sick sinus syndrome (~2009) Surgical History History of ventral hernia repair History of kyphoplasty (~2011) History of cardiac pacemaker (~2009) History of meniscectomy of right knee (~2012) History of mitral valve replacement (~1996) History of mitral valve repair (~1992) History of right knee surgery (~2017) Family History Family History Father No problems noted. Mother No problems noted. Social History Social History Household Members: None Housing: House Housing Other:: 2 family on firstr floor Do you presently have visiting nurse or other home services: No Alcohol intake: never Patient Tobacco Use Status: Never used Tobacco Second Hand Smoke Exposure: No Use of substances other than those prescribed or required for medical reasons: No Advance Directives: No Advance Directives Information Provided: Yes Do you have a plan to hurt others: No Plan service: No Current occupational exposures/hazards: No Physical Exam ED Vital Signs: Vital Signs - 24 hr 10/27/23 09:56 10/27/23 10:34 10/27/23 12:11 Temperature 98 F 97.7 F Pulse Rate 69 60 Respiratory Rate 19 20 19 Blood Pressure 170/59 H 175/44 H Pulse Oximetry 98 100 Oxygen Delivery Method Room Air Room Air 10/27/23 12:20 10/27/23 13:17 Temperature 97.7 F 98.5 F Pulse Rate 64 60 Respiratory Rate 20 23 H Blood Pressure 168/54 H 168/60 H Pulse Oximetry 95 94 Oxygen Delivery Method Room Air Room Air BMI result Body Mass Index 23.3 vss Appearance: Alert.? Oriented X3.? No acute distress.? Head: Normocephalic, atraumatic, no step-offs or deformities Eyes: Pupils equal, round and reactive to light.? Neck: Normal inspection.? Neck supple.? CVS: Normal heart rate and rhythm.? Pulses normal.? Respiratory: No respiratory distress.? Breath sounds normal.? Abdomen: Soft and nontender.? Skin: Skin warm and dry.? Normal skin color.? Normal skin turgor.? Extremities: No lower extremity edema.? No calf ttp. 5/5 strength to bilateral upper and lower extremities Back: No midline tenderness, no C-spine tenderness, full range of motion, no CVA tenderness bilaterally Neuro: Oriented X 3.? No motor deficit.? No sensory deficit. CN 2-12 intact Course Reevaluation(s) Reevaluation #1: Patient now complaining lower back pain in the lumbar region, worse with movement better at rest this has been present for the past few weeks, worsening over the past few days, atraumatic in nature, patient reports stabbing pain throughout the entire lower back no saddle paresthesias, weakness, urinary/bowel incontinence or retention, fevers, chills. I do not suspect this is cord compression or cauda equina, unlikely dissection. Will rule out UTI and cystitis. CBC with a normocytic anemia baseline. Chemistry no acute findings requiring intervention, calcium slightly elevated 10.6, appears to be up trending over the past year. Total bilirubin 1.2, she has chronically elevated bilirubins, no point tenderness abdomen. Troponin 6.9 will repeat at the 3 hour jey. EKG, repeat troponin, UA, OBS and CT pending. Will continue to monitor. I did medicate her for back pain with morphine. Time: 12:11 Reevaluation #2: Today troponin negative x2, nonischemic EKG BNP elevated however chronically elevated, no shortness of breath or chest, no evidence of fluid overload on exam. OBS negative, UA with hematuria. CTA with no evidence of aortic dissection aneurysmal dilation no evidence of pulmonary emboli. There is diffuse osteopenia with compression deformities of T8 T7 and T12 this is likely why patient is having back pain. No signs of cord compression. At this time patient to be placed into physician observation will hold Coumadin for 2 days. Patient lives at home by herself will put her in for physical therapy and case management as she is having difficulty with ambulation, movement and caring for herself . Time: 14:56 Medications Administered Discontinued Medications Generic Name Dose Route Start Last Admin Trade Name Freq PRN Reason Stop Dose Admin Iohexol 100 ml 10/27/23 11:53 10/27/23 11:53 Iohexol 350 Mg/Ml 100 Ml Infus..Btl IV 10/27/23 11:54 70 ml ONCE ONE Administration Lidocaine 1 patch 10/27/23 11:57 10/27/23 12:11 Lidocaine 4 % Patch Adh..Patch TRANSDERMA 10/27/23 11:58 1 patch ONCE ONE Administration Protocol Morphine Sulfate 4 mg 10/27/23 11:57 10/27/23 12:11 Morphine Sulfate 4 Mg/Ml Cartridge IVPUSH 10/27/23 11:58 4 mg ONCE ONE Administration Protocol Medical Decision Making Medical Decision Making [facility] Narrative: 83-year-old female presents with complaints of increased INR this morning level is 8.5. No complaints of bleeding. She is on warfarin for AFib. Physical exam back pain with range of motion in b/l thoracic & lumbar paraspinous muscle tenderness on palpation as well as midline tenderness in the thoracic T5- L4 . No saddle paresthesias or lower extremity weakness. Physical exam concerning for herniated disc versus lumbago versus lumbar radiculopathy versus chronic back pain versus compression fractures. Unlikely dislocation, fracture due to trauma. Unlikely traumatic subluxation patient did not have trauma. No signs of cauda equina or cord compression. Will see if patient has rectal bleeding or bleeding anywhere else. I do not suspect ACS, PE or dissection Plan labs, urine, OBS, imaging Differential Diagnosis Differential Diagnoses: The differential diagnosis associated with the presentation includes Physical exam concerning for herniated disc versus lumbago versus lumbar radiculopathy versus chronic back pain versus compression fractures. Unlikely dislocation, fracture due to trauma. Unlikely traumatic subluxation patient did not have trauma. No signs of cauda equina or cord compression. Will see if patient has rectal bleeding or bleeding anywhere else. I do not suspect ACS, PE or dissection Admission/Observation Consideration of admission/observation: Escalation of care including admission/observation considered Possible Lab Data [facility] Lab Attestation statement: I reviewed the patient's lab results. 10/27/23 10:06 10/27/23 10:06 Labs: Lab Results 10/27/23 10/27/23 10/27/23 Range/Units 10:06 11:58 12:27 WBC 7.4 (4.8-10.8) X10*3/uL RBC 3.71 L (4.20-5.50) X10*6/uL Hgb 10.7 L (12.0-16.0) g/dl Hct 32.5 L (37.0-47.0) % MCV 87.6 (80.0-98.0) fL MCH 28.8 (27.0-33.0) pg MCHC 32.9 (31.0-35.0) g/dl RDW 15.4 (11.0-16.0) % Plt Count 281 (160-400) X10*3/uL MPV 8.6 L (9.4-12.3) fL Immature Gran % (Auto) 0.3 (0.0-0.4) % Neut % (Auto) 72.1 (45-73) % Lymph % (Auto) 15.5 L (20-40) % [place] % (Auto) 10.9 (2-11) % Eos % (Auto) 0.7 (0-4) % Baso % (Auto) 0.5 (0-2) % Lymph # (Auto) 1.2 (1.2-4.9) X10*3/uL [place] # (Auto) 0.8 (0.1-1.2) X10*3/uL Eos # (Auto) 0.1 (0.0-0.4) X10*3/uL Baso # (Auto) 0.0 (0.0-0.2) X10*3/uL Abs Immat Gran (auto) 0.02 (0.00-0.03) X10*3/uL Absolute Neuts (auto) 5.4 (2.0-8.3) x10*3/uL Absolute Nucleated RBC 0.000 (0.0-0.012) X10*3/uL Nucleated RBC % (auto) 0.0 (0.0-0.2) /100WBC PT 97.6 H (11.1-13.3) SEC INR 8.0 H* (0.9-1.1) Sodium 141 (135-145) mmol/L Potassium 4.2 (3.3-5.1) mmol/L Chloride 104 (96-108) mmol/L Carbon Dioxide 26 (22-29) mmol/L Anion Gap 15 (12-20) BUN 14 (9-16) mg/dL Creatinine 0.74 (0.5-1.4) mg/dL Estim Creat Clear Calc 40.6 Estimated GFR > 60 Random Glucose 117 H (60-115) mg/dL Calcium 10.6 H D (8.4-10.2) mg/dL Magnesium 2.1 (1.6-2.6) mg/dL Total Bilirubin 1.2 H (0.0-1.0) mg/dL AST 20 (5-31) U/L ALT 15 (0-31) U/L Alkaline Phosphatase 90 (39-117) U/L Troponin I High Sens 6.9 6.5 (<3.5-17.0) ng/L B-Natriuretic Peptide 860 H (<100) pg/mL Total Protein 7.8 (6.5-8.0) g/dL Albumin 4.3 (3.5-5.0) g/dL Urine Color Urine Appearance Urine pH (5.0-9.0) Ur Specific [place] (1.005-1.025) Urine Protein (Neg-Trace) mg/dL Urine Glucose (UA) (Negative) mg/dL Urine Ketones (Negative) mg/dL Urine Blood (Negative) Urine Nitrite (Negative) Ur Leukocyte Esterase (Negative) Urine RBC (0-2) /HPF Urine WBC (0-5) /HPF Ur Squamous Epith Cells (0-2) /HPF Urine Bacteria (None Seen) Hyaline Casts (0-2) /LPF Stool Occult Blood NEGATIVE (NEGATIVE) 10/27/23 Range/Units 13:23 WBC (4.8-10.8) X10*3/uL RBC (4.20-5.50) X10*6/uL Hgb (12.0-16.0) g/dl Hct (37.0-47.0) % MCV (80.0-98.0) fL MCH (27.0-33.0) pg MCHC (31.0-35.0) g/dl RDW (11.0-16.0) % Plt Count (160-400) X10*3/uL MPV (9.4-12.3) fL Immature Gran % (Auto) (0.0-0.4) % Neut % (Auto) (45-73) % Lymph % (Auto) (20-40) % [place] % (Auto) (2-11) % Eos % (Auto) (0-4) % Baso % (Auto) (0-2) % Lymph # (Auto) (1.2-4.9) X10*3/uL [place] # (Auto) (0.1-1.2) X10*3/uL Eos # (Auto) (0.0-0.4) X10*3/uL Baso # (Auto) (0.0-0.2) X10*3/uL Abs Immat Gran (auto) (0.00-0.03) X10*3/uL Absolute Neuts (auto) (2.0-8.3) x10*3/uL Absolute Nucleated RBC (0.0-0.012) X10*3/uL Nucleated RBC % (auto) (0.0-0.2) /100WBC PT (11.1-13.3) SEC INR (0.9-1.1) Sodium (135-145) mmol/L Potassium (3.3-5.1) mmol/L Chloride (96-108) mmol/L Carbon Dioxide (22-29) mmol/L Anion Gap (12-20) BUN (9-16) mg/dL Creatinine (0.5-1.4) mg/dL Estim Creat Clear Calc Estimated GFR Random Glucose (60-115) mg/dL Calcium (8.4-10.2) mg/dL Magnesium (1.6-2.6) mg/dL Total Bilirubin (0.0-1.0) mg/dL AST (5-31) U/L ALT (0-31) U/L Alkaline Phosphatase (39-117) U/L Troponin I High Sens (<3.5-17.0) ng/L B-Natriuretic Peptide (<100) pg/mL Total Protein (6.5-8.0) g/dL Albumin (3.5-5.0) g/dL Urine Color Yellow Urine Appearance Clear Urine pH 7.0 (5.0-9.0) Ur Specific [place] >= 1.030 H (1.005-1.025) Urine Protein Negative (Neg-Trace) mg/dL Urine Glucose (UA) Negative (Negative) mg/dL Urine Ketones Negative (Negative) mg/dL Urine Blood Moderate (2+) H (Negative) Urine Nitrite Negative (Negative) Ur Leukocyte Esterase Negative (Negative) Urine RBC 11-20 H (0-2) /HPF Urine WBC 0-5 (0-5) /HPF Ur Squamous Epith Cells 0-2 (0-2) /HPF Urine Bacteria None Seen (None Seen) Hyaline Casts 0-2 (0-2) /LPF Stool Occult Blood (NEGATIVE) Independent Interpretation I performed an independent interpretation of an: CT Scan (CT/CT angio chest aorta IMPRESSION: No evidence of aortic dissection or aneurysmal dilatation. No evidence of pulmonary embolism. Cardiomegaly and mild interstitial edema. Diffuse osteopenia with compression deformities of T7, T8, T12 and status post kyphoplasty of T8. Status post CABG Fleischne) Radiology Impression Discussion of test interpretation with radiology: I have reviewed the radiologist's reading. External Record Review External record reviewed: Inpatient record, Office record, Outpatient record, Prior outpatient labs, Prior outpatient radiology, Primary care record and Outside ED record Prescription Management I considered prescription management with: Pain Medication Chronic Conditions Patient?s care impacted by: Other (mitral valve replacement, paroxysmal afib, HTN, cardiac pacemaker, CAD ) Critical Care Time Critical Care Time Critical Care Time: No Discharge Plan Discharge Clinical Impression: Elevated INR, Hematuria, Lower back pain, Compression fracture of thoracic vertebra, non-traumatic Patient Disposition: Still a Patient Additional Instructions: CHECK LABS PRIOR TO DC Prescriptions: No Action amlodipine 2.5 mg tablet 2.5 mg PO DAILY Qty: 90 3RF valsartan 160 mg tablet 160 mg PO DAILY alendronate 70 mg tablet 70 mg PO SA pravastatin 40 mg tablet 40 mg PO BEDTIME metoprolol tartrate 50 mg tablet 50 mg PO BID multivitamin [Daily Multi-Vitamin] Tablet 1 tab PO DAILY cholecalciferol (vitamin D3) 25 mcg (1,000 unit) capsule 25 mcg PO DAILY warfarin 2.5 mg tablet 2.5 mg PO DAILY Protocol: Dose Management Condition: Tuesday (Week One) Dose/Route: 5 mg Instruction: 2 x 2.5 mg tablets Condition: Tuesday Dose/Route: 2.5 mg Instruction: 1 x 2.5 mg tablet Condition: Tuesday Dose/Route: 5 mg Instruction: 2 x 2.5 mg tablets Condition: Tuesday Dose/Route: 2.5 mg Instruction: 1 x 2.5 mg tablet Condition: Dose/Route: 0 mg Instruction: 0 tablets Condition: Tuesday Dose/Route: 0 mg Instruction: 0 tablets Condition: Tuesday Dose/Route: 5 mg Instruction: 2 x 2.5 mg tablets Condition: Tuesday (Week Two) Dose/Route: 5 mg Instruction: 2 x 2.5 mg tablets Condition: Tuesday Dose/Route: 2.5 mg Instruction: 1 x 2.5 mg tablet Condition: Tuesday Dose/Route: 5 mg Instruction: 2 x 2.5 mg tablets Condition: Tuesday Dose/Route: 2.5 mg Instruction: 1 x 2.5 mg tablet Condition: Dose/Route: 5 mg Instruction: 2 x 2.5 mg tablets Condition: Tuesday Dose/Route: 2.5 mg Instruction: 1 x 2.5 mg tablet Condition: Tuesday Dose/Route: 5 mg Instruction: 2 x 2.5 mg tablets Protocol Text: Adjustment Start Date: 10/27/23 INR Value: 8.5 INR Date: 10/27/23 Recheck Date: 10/28/23 Rx Instructions: takes 2.5mg x 3, 5mg x 4 pantoprazole 20 mg tablet,delayed release (DR/EC) 20 mg PO DAILY Referrals: Kana Ponce MD [Primary Care Provider] - 1 day Print Language: Honduran
[2023-10-27 10:31] LABS: Alanine Aminotransferase 15 U/L (0-31); Albumin Level 4.3 g/dL (3.5-5.0); Alkaline Phosphatase 90 U/L (39-117); Anion Gap 15 (12-20); Aspartate Amino Transferase 20 U/L (5-31); Bilirubin Total 1.2 mg/dL (0.0-1.0); Blood Urea Nitrogen 14 mg/dL (9-16); Calcium 10.6 mg/dL (8.4-10.2); Carbon Dioxide 26 mmol/L (22-29); Chloride 104 mmol/L (96-108); Creatinine Clr Calc Pharmacy 40.6; Estimated Glomerular Filt Rate > 60; Glucose Random 117 mg/dL (60-115); Magnesium 2.1 mg/dL (1.6-2.6); Potassium 4.2 mmol/L (3.3-5.1); Sodium 141 mmol/L (135-145); Total Protein 7.8 g/dL (6.5-8.0)
[2023-10-27 10:34] VITALS: BP 175/44; PULSE 60; RESP 20; TEMP 36.5; O2SAT 100
[2023-10-27 11:00] LABS: Prothrombin Time 97.6 SEC (11.1-13.3)
[2023-10-27 11:37] LABS: Troponin-I High Sensitivity 6.9 ng/L (<3.5-17.0)
[2023-10-27] MEDS: iohexoL 350 MG/ML 100 ML INFUS..BTL IV (11:53)
--- NOTE | 2023-10-27 12:10 | ECG_ITS ---
Test Reason : BACK PAIN Blood Pressure : / mmHG Vent. Rate : 060 BPM Atrial Rate : 059 BPM P-R Int : 000 ms QRS Dur : 194 ms QT Int : 508 ms P-R-T Axes : 000 -64 119 degrees QTc Int : 508 ms Ventricular-paced rhythm Abnormal ECG When compared with ECG of 04-JUL-2023 09:37, No significant change was found Referred By: Leah Reina Electronically Signed By:STEPHANIE ZAMUDIO
[2023-10-27 12:11] VITALS: RESP 19
[2023-10-27 12:11] LABS: OBS Int Ctl Valid YES; OBS1 NEGATIVE (NEGATIVE)
[2023-10-27] MEDS: Morphine Sulfate 4 MG/ML CARTRIDGE IVPUSH (12:11)
[2023-10-27] MEDS: Lidocaine 4 % Patch ADH..PATCH 1 PATCH TRANSDERMA (12:11)
[2023-10-27 12:20] VITALS: BP 168/54; PULSE 64; RESP 20; TEMP 36.5; O2SAT 95
[2023-10-27 12:45] LABS: B Type Natriuretic Peptide 860 pg/mL (<100)
[2023-10-27 12:51] LABS: Troponin-I High Sensitivity 6.5 ng/L (<3.5-17.0)
--- NOTE | 2023-10-27 13:10 | PC.NURSE ---
This RN at bedside, pt brought to ED from lab, after getting a high Coumadin level. Reports sharp back pain, Meds given per MAR, VSS. Ambulates to BR with walker/1 assist. Family at bedside, pt resting quietly in stretcher.
[2023-10-27 13:17] VITALS: BP 168/60; PULSE 60; RESP 23; TEMP 36.9; O2SAT 94
[2023-10-27 13:32] LABS: Appearance Urine Clear; Color Urine Yellow; Glucose Urine UA Negative (Negative); Leukocyte Esterase Urine Negative (Negative); Nitrite Urine Negative (Negative); Specific Gravity - Urine >= 1.030 (1.005-1.025); UMIC TRIGGER UACC YES; Urine Blood Moderate (2+) (Negative); Urine Ketones Negative (Negative); Urine Protein Negative (Neg-Trace)
[2023-10-27 13:35] LABS: Bacteria Urine None Seen (None Seen); Hyaline Casts Urine 0-2 /LPF (0-2); Squamous Epithelial Cell Urine 0-2 /HPF (0-2); WBC Urine 0-5 /HPF (0-5)
--- NOTE | 2023-10-27 16:01 | PC.NURSE ---
Pt placed in hospital bed for comfort. Family at bedside. Pt verbalizing 6/10 lower back pain, meds given per MAR. Call robison within reach
[2023-10-27 17:24] VITALS: BP 154/50; PULSE 87; RESP 22
--- NOTE | 2023-10-27 17:41 | MHC.CM.ED ---
CM received a consult from Ronel CANTRELL. Patient with elevated INR and back pain that is interfering with her mobility and quality of life. Pt was unable to get OOB and was incontinent. This is unusual for her. Pt is independent. A&Ox4. Lives alone in a 2 family home. Her son lives upstairs and her daughter/HCP Mikki Corrales ([phone]) lives near by and sees her mother daily. HCP on file. PCP, address and contact information verified. Patient uses a cane/walker when needed. Has no services. Does not drive. Cooks, Cleans and does laundry in the basement. Does not have a life alert. Has help from her children. Pt feels very limited with the level of pain she has in her back. CM discussed PT eval in the morning, referrals to [facility] for informational meeting for some home services and life alert and discharge planning. Pt and daughter are aware that CM will place referrals for acute rehab and [facility]. Will address discharge planning after PT evaluation. Given [facility] pamphlet. CM will follow for d/c planning.
[2023-10-28] VITALS (8 sets, daily range): BP systolic 136–198; BP diastolic 48–85; PULSE 60–84; RESP 12–22; TEMP 36.3–36.8; O2SAT 94–96
--- NOTE | 2023-10-28 00:27 | MHC.EDTECH ---
This tech took over care of patient at 2300,hourly rounds ands vitals completed, Covid swab obtained and sent to lab.call robison in reach
[2023-10-28 00:44] LABS: COVID-19 Test Negative (Negative); IDNOW Serial# 152EDE1D
--- NOTE | 2023-10-28 06:25 | MHC.EDTECH ---
Patient got up to commode with minimal assist,urinated a moderate amount,hourly rounds and vitals taken,Labs obtained and sent to lab.
[2023-10-28 06:36] LABS: MANUAL DIFF FLAG NO
[2023-10-28 06:38] LABS: Basophils Percent Auto 0.6 % (0-2); Eosinophils Absolute Auto 0.1 X10*3/uL (0.0-0.4); Eosinophils Percent Auto 1.3 % (0-4); Hematocrit 30.4 % (37.0-47.0); Imm Gran Abs Auto 0.01 X10*3/uL (0.00-0.03); Imm Gran Pct Auto 0.1 % (0.0-0.4); Lymphocytes Percent Auto 14.4 % (20-40); Mean Corpuscular HGB Conc 32.9 g/dl (31.0-35.0); Mean Corpuscular Hemoglobin 28.5 pg (27.0-33.0); Mean Corpuscular Volume 86.6 fL (80.0-98.0); Mean Platelet Volume 8.6 fL (9.4-12.3); Monocytes Absolute Auto 0.9 X10*3/uL (0.1-1.2); Monocytes Percent Auto 12.4 % (2-11); Neutrophils Absolute Auto 4.9 x10*3/uL (2.0-8.3); Neutrophils Percent Auto 71.2 % (45-73); Platelet Count 264 X10*3/uL (160-400); Red Blood Count 3.51 X10*6/uL (4.20-5.50); Red Cell Distribution Width 15.4 % (11.0-16.0); White Blood Count 6.9 X10*3/uL (4.8-10.8)
[2023-10-28 07:00] LABS: Alanine Aminotransferase 12 U/L (0-31); Albumin Level 3.7 g/dL (3.5-5.0); Alkaline Phosphatase 86 U/L (39-117); Anion Gap 14 (12-20); Aspartate Amino Transferase 19 U/L (5-31); Bilirubin Total 1.2 mg/dL (0.0-1.0); Blood Urea Nitrogen 16 mg/dL (9-16); Calcium 9.5 mg/dL (8.4-10.2); Carbon Dioxide 24 mmol/L (22-29); Chloride 104 mmol/L (96-108); Creatinine Clr Calc Pharmacy 41.7; Estimated Glomerular Filt Rate > 60; Glucose Random 92 mg/dL (60-115); Potassium 4.3 mmol/L (3.3-5.1); Sodium 138 mmol/L (135-145); Total Protein 6.9 g/dL (6.5-8.0)
[2023-10-28 07:09] LABS: Prothrombin Time 85.6 SEC (11.1-13.3)
--- NOTE | 2023-10-28 09:10 | MHC.CM.ED ---
Addendum entered by Angela Augustine 10/28/23 09:47: Received notification from Rubia CANTRELL that patient's INR is elevated and patient is still experiencing hematuria. Patient will stay in the ER overnight. Observation admission to hospital was discussed. Rubia CANTRELL does not feel that is necessary at this time. Patient, daughter Mikki and Joann PHILLIPS aware. Original Note: Patient remains in ER. Physical therapy eval completed. Home services is recommended. Met with patient in regards to discharge planning. Referral made to [facility] at patient's request. Patient requested T/W speak with her daughter, Mikki. Spoke with Mikki via telephone at [phone]. Mikki will be here around 945am to transport patient home. Patient, Joann PHILLIPS and Rubia CANTRELL aware. Continue to monitor for d/c needs.
--- NOTE | 2023-10-28 11:50 | ECG_ITS ---
Test Reason : abnormla rythem Blood Pressure : / mmHG Vent. Rate : 066 BPM Atrial Rate : 000 BPM P-R Int : 000 ms QRS Dur : 086 ms QT Int : 422 ms P-R-T Axes : 000 037 -77 degrees QTc Int : 442 ms Atrial fibrillation with occasional ventricular-paced complexes Marked ST abnormality, possible inferior subendocardial injury Abnormal ECG When compared with ECG of 27-OCT-2023 12:28, T inversions are new Referred By: Leah Reina Electronically Signed By:STEPHANIE ZAMUDIO
[2023-10-28 12:24] LABS: Troponin-I High Sensitivity 11.1 ng/L (<3.5-17.0)
[2023-10-28] MEDS: Metoprolol Tartrate 50 MG TABLET PO ×2 (13:11→19:52)
[2023-10-28] MEDS: amLODIPine Besylate 2.5 MG TABLET PO (13:12)
[2023-10-28] MEDS: Phytonadione (Vit K1) Oral 10 MG/ML AMPUL 5 MG PO (13:12)
[2023-10-28 13:49] LABS: Troponin-I High Sensitivity 12.1 ng/L (<3.5-17.0)
--- NOTE | 2023-10-28 18:25 | PHA.MEDREC ---
Pharmacy Consult ? Medication Reconciliation Pharmacy has completed the medication reconciliation. Patient confirmed medications. Kristen Lassiter, AlejandraD
[2023-10-28] MEDS: Multivitamin TABLET 1 TAB PO (19:52)
[2023-10-28] MEDS: Cholecalciferol (Vitamin D3) 25 MCG TABLET PO (19:52)
[2023-10-28] MEDS: Pravastatin Sodium 40 MG TABLET PO (19:53)
[2023-10-28] MEDS: Valsartan 160 MG TABLET PO (19:53)
--- NOTE | 2023-10-28 21:48 | MHC.CM.ED ---
Primary RN updated with plan of care. D/C home with [facility] pending repeat INR
--- NOTE | 2023-10-29 04:27 | MHC.EDTECH ---
PT RESTING IN BED RESPIRATIONS EVEN AND UNLABORED CALL LIGHT WITHIN REACH PLAN OF CARE ONGOING
[2023-10-29 05:54] VITALS: BP 147/50; PULSE 61; RESP 18; TEMP 36.7; O2SAT 96
[2023-10-29] MEDS: Omeprazole 20 MG CAPSULE.DR PO (06:09)
--- NOTE | 2023-10-29 06:30 | PC.NURSE ---
Corporation Secretary assumed care of patient at 23:30. Pt seen in ED overflow for phys-observation in s/o elevated INR . Denies pain. Pt is A&Ox4. Pt sleeping in bed majority of shift. Breathing is even and unlabored without distress. Pt offers no acute complaints. Purposeful hourly rounding, bed alarm on and safety measures in place.
[2023-10-29] MEDS: Multivitamin TABLET 1 TAB PO (09:29)
[2023-10-29] MEDS: Valsartan 160 MG TABLET PO (09:29)
[2023-10-29] MEDS: amLODIPine Besylate 2.5 MG TABLET PO (09:30)
[2023-10-29] MEDS: Cholecalciferol (Vitamin D3) 25 MCG TABLET PO (09:30)
[2023-10-29] MEDS: Metoprolol Tartrate 50 MG TABLET PO (09:30)
[2023-10-29 10:31] LABS: INTERNATIONAL NORM RATIO 1.3 (0.9-1.1); Prothrombin Time 15.7 SEC (11.1-13.3)
[2023-10-29 12:24] VITALS: BP 142/55; PULSE 60; RESP 17; TEMP 36.6
--- NOTE | 2023-10-29 12:27 | MHC.CM.PN ---
CM MET W/PT AND DTR AT BEDSIDE TO DISCUSS DISPO, PT AND DTR BOTH REQUESTING [facility] THEY HAD THEM BEFORE AND REF SENT, [facility] HAS SENT CM A MESSAGE REPORTING THEY WILL PROVIDE SERVICE FOR PT AND PT CLEARED FRO DC HOME W/LOVENOX BRIDGE, REPEAT INR ON MONDAY 10/30/PT AND DTR WILL TRANSPORT.
[2023-10-29] MEDS: Enoxaparin Sodium 60 MG/0.6 ML SYRINGE 50 MG SUBCUT (12:34)
--- NOTE | 2023-10-29 12:58 | PC.NURSE ---
Daughter at bedside education provided on how to administer sub q lovonox injection. Daughter verbalized understanding stating she has given her mom these injections before
[2023-10-29 12:59] VITALS: BP 142/55; PULSE 60; RESP 18; TEMP 36.7; O2SAT 97
== END 2023-10-29 13:00 | disposition home or self-care (01) ==
PROVIDERS: Nurse Practitioner Family; Physician Assistant; Emergency Provider Emergency Medicine; PCP Internal Medicine
DX: M48.54XA Collapsed vertebra, not elsewhere classified, thoracic region, initial encounter for fracture (principal); M54.50 Low back pain, unspecified; R26.81 Unsteadiness on feet; R31.9 Hematuria, unspecified; R07.89 Other chest pain; R06.02 Shortness of breath; Z11.52 Encounter for screening for COVID-19; Z51.81 Encounter for therapeutic drug level monitoring; Z79.899 Other long term (current) drug therapy
CPT/HCPCS: 36415; 71275; 80053; 81001; 82272; 83735; 83880; 84484; 85025; 85610; 87635; 93005; 97161; 99212; 99285; J1650; J2270; Q9967

== ENCOUNTER → 2023-10-27 12:10 | Outpatient (BNV) | payer MEDICARE, SELFPAY | PROVIDERS: Emergency Provider Emergency Medicine; PCP Internal Medicine; Visit Provider Internal Medicine | DX: R94.31 Abnormal electrocardiogram [ECG] [EKG] (principal) | CPT/HCPCS: 93010 ==

== ENCOUNTER → 2023-10-28 11:50 | Outpatient (BNV) | payer MEDICARE, SELFPAY | PROVIDERS: Emergency Provider Emergency Medicine; PCP Internal Medicine; Visit Provider Internal Medicine | DX: R94.31 Abnormal electrocardiogram [ECG] [EKG] (principal) | CPT/HCPCS: 93010 ==

== ENCOUNTER → 2023-10-31 13:34 | Outpatient (BNVA) | payer MEDICARE, SELFPAY | PROVIDERS: PCP Internal Medicine; Visit Provider Internal Medicine ==

== ENCOUNTER 2023-11-01 12:33 | Outpatient (AMB) | payer MEDICARE, SELFPAY ==
[2023-11-01 12:36] VITALS: BP 120/78; PULSE 84; BMI 21.5
--- NOTE | 2023-11-01 12:36 | MHC.OFFVIS ---
Vital Signs 11/01/23 12:36 Height 5 ft Weight 110 lb 3.698 oz BMI 21.5 BP 120/78 Blood Pressure Location Lt brachial Position Sitting Pulse 84 Intake Visit Reasons: 6 mth f/up Intake Note: 6 month follow-up with [employer] check C dc high INR feeling better Market Research Executive Required: No Rabbit Dresser: Rabbit Dresser Present Accompanied by: Friend Allergies Sulfa (Sulfonamide Antibiotics) Allergy (Unknown, Verified 10/27/23 09:58) UNKNOWN - DOES NOT REMEMBER Medication List - Last Reconciled 11/01/23 by Agustin Luke MD alendronate 70 mg PO SA amlodipine 2.5 mg PO DAILY cholecalciferol (vitamin D3) 25 mcg PO DAILY enoxaparin (Lovenox) 60 mg See Protocol subcut Q12H metoprolol tartrate 50 mg PO BID multivitamin (Daily Multi-Vitamin tablet) 1 tab PO DAILY pantoprazole 20 mg PO DAILY pravastatin 40 mg PO BEDTIME valsartan 160 mg PO DAILY HPI Comments Details: Bethany comes for routine follow-up in 6 months. She was admitted in June with significant anemia and at that time she underwent upper endoscopy which had shown hiatal hernia with the healing pre-pyloric ulcer. Since then she has been restarted on Coumadin therapy. However INRs have been labile. Does few days ago her INR was 8.5 and she was sent to the emergency room, she had no bleeding issues. In the emergency room she was given vitamin K and subsequently INR dropped to 1.3. She was then discharged on Lovenox, INR still 1.2. She was discharged it seems like on 60 mg b.i.d. of Lovenox although her body weight is 110 lb. She has not had any significant bleeding issues. No neurologic events. Although she comes and is accompanied by her sister says over the last few weeks she has been increasingly short of breath with exertion including shortness of breath when she talks for long period time. She has no orthopnea, PND. No sudden significant shortness of breath at rest. Denies any lightheadedness, syncope. Denies any palpitations. By EKG she was noted to be in atrial fibrillation. It seems like she has had recurrent episodes of atrial fibrillation in the last 6 months however this appears to be persistent atrial fibrillation. She denies any chest pain. 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 Mother No problems noted. Social History Household Members: None Housing: House Housing Other:: 2 family on firstr floor Do you presently have visiting nurse or other home services: No Alcohol intake: never Patient Tobacco Use Status: Never used Tobacco Second Hand Smoke Exposure: No service: No Current occupational exposures/hazards: No Review of Systems Const Denies chills, Denies fatigue, Denies fever(s), Denies frequent falls, Denies weakness, Denies weight gain and Denies weight loss ENT Denies dizziness Card Denies chest pain, Denies leg edema, Denies lightheadedness, Denies palpitations, Denies dyspnea, Denies dyspnea on exertion, Denies orthopnea and Denies other (loss of consciousness) Resp Denies cough, Denies dyspnea and Denies dyspnea on exertion GI Denies hematochezia and Denies change in stool character Musc Denies abnormal gait, Denies muscle weakness, Denies numbness, Denies radiating pain into limb and Denies tingling Neuro Denies abnormal gait, Denies dizziness, Denies frequent falls, Denies numbness, Denies tingling and Denies weakness Endo Denies fatigue and Denies palpitations Physical Exam Vital Signs: Last Vital Signs Pulse 84 11/01/23 12:36 BP 120/78 11/01/23 12:36 BMI result Body Mass Index 21.5 Const Other: petite elderly female General: cooperative, healthy appearing, comfortable and in distress mild and respiratory Nutritional Appearance: thin Orientation/consciousness: patient oriented x3 Limitations: ambulation with cane Neck Neck: Yes normal visual inspection Resp Effort & Inspection: normal respiratory effort Auscultation: clear to auscultation bilaterally, no crackles, no rales, no rhonchi and no wheezes Cardio Jugular venous distension: no JVD Rhythm: regular rhythm Heart sounds: S2 normal heart sound present, Clicking heart sound present ([place] opening and closing click of mitral valve) and Murmur heart sound present (ISH right sternal border) Neuro General: patient oriented x3 Extrem General: Yes normal to inspection and No no pedal edema Psych Appearance: grossly normal Mental Status: mental status grossly normal Speech and movement: Normal speech and movement present Office Procedures Cardiac Device Check Cardiac Device Check Details: Dual-chamber Medtronic pacemaker in place. Was programmed in DDDR at 60 beats per minute, reprogrammed to DDIR due to persistent atrial fibrillation. Ventricular pacing thresholds are elevated and reprogrammed to enhance safety. Battery life is adequate at 7 and half years. Pacing lead impedance is stable. [id number] Cardiac Device Check, pacemaker dual lead Procedure code (CPT) selection complete Assessment & Plan Assessment & Plan (1) SOB (shortness of breath) on exertion: Code(s): R06.02 - Shortness of breath Category: Medical Plan: Shortness of breath on exertion which appears to be related to multiple factors but most likely related to recent persistent atrial fibrillation. No overt signs of congestive heart failure. Possibility of this was discussed with her advised to seek emergency care if she suddenly gets short of breath at rest. See below for management of persistent atrial fibrillation. (2) Persistent atrial fibrillation: Code(s): I48.19 - Other persistent atrial fibrillation Category: Medical Plan: Persistent atrial fibrillation recent origin which is probably causing her to have symptomatic shortness of breath on exertion. She has no overt signs of heart failure although I think she requires rhythm management given her significant symptoms. However she has recently significantly labile INR and currently on Lovenox therapy. Given this finding she require to rule out intracardiac thrombus prior to performing cardioversion. I think she needs cardioversion sooner rather than later and can not wait for 3-4 weeks to achieve therapeutic INR. We discussed the need for ROSA to rule out intracardiac thrombi. We discussed the risks, benefits, alternatives. She understood and is agreeable. If she has no intracardiac thrombi or clots that will proceed with synchronized cardioversion. Again discussed the risks, benefits, alternatives. Continue Lovenox uninterrupted but at 50 mg twice a day subcutaneous injection given her body weight of 110 lb. Continue loading with warfarin. Lovenox can be discontinued once INR is above 2.5. She is following with [facility]. Most likely will require antiarrhythmic drug support which will be prescribed post cardioversion given that we do not know her intracardiac thrombus status. At this point in time. (3) Cardiac pacemaker in situ: Onset Date: ~2009 Comment: (Medtronic DCPP - placed 2009, generator changes in 2015 & 2020) Code(s): Z95.0 - Presence of cardiac pacemaker Category: Medical Plan: Cardiac pacemaker in-situ. Reprogrammed to DDIR due to persistent atrial fibrillation. Will reprogrammed to DDDR once atrial rhythm has been achieved. High ventricular pacing lead thresholds are concerning. Will monitor it post cardioversion. (4) H/O mitral valve replacement: Onset Date: ~1996 Comment: ([place] mechanical valve, size unknown - 1996) Code(s): Z95.2 - Presence of prosthetic heart valve Category: Medical Plan: History of mechanical [place] mitral valve replacement. Currently clinically working well. Echocardiogram in June had shown normal function mechanical valve. Continue full oral anticoagulation, currently on warfarin therapy which is the only available anticoagulant for mechanical mitral valves. Target INR between 2.5 and 3.5. INR is subtherapeutic and agree with Lovenox bridging add 1 milligram/kg twice a day subcutaneously. This was discussed with her. SBE prophylaxis as per ACC/aha guidelines. Given her prior GI bleed this makes a difficult clinical situation overall although she would need to be on warfarin therapy to reduce clotting of her mechanical mitral valve. (5) Aortic stenosis: Code(s): I35.0 - Nonrheumatic aortic (valve) stenosis Category: Medical Plan: Aortic stenosis which is moderately severe by last echocardiogram. Will follow-up valve area by planimetry on trans esophageal echocardiogram. Further treatment based on finding. If her valve progressive significantly will require aortic valve replacement. (6) CAD (coronary artery disease): Code(s): I25.10 - Atherosclerotic heart disease of [place] coronary artery without angina pectoris Category: Medical Plan: CAD without any obvious symptoms at this point in time. Rhythm control approach as above. Continue aggressive risk factor modification. Currently on warfarin therapy and therefore would avoid aspirin therapy to reduce bleeding risk. Continue statin therapy with target goal LDL less than 70 mg/dL. Follow up in the clinic in 6 weeks time after cardioversion which will be planned for next week. Greater than 40 minutes was spent in managing his complex care. Medications: Changed From enoxaparin (Lovenox) 60 mg See Protocol subcut Q12H 6 mL 1RF To enoxaparin (Lovenox) 50 mg See Protocol subcut Q12H 6 mL 1RF Coding Level of Care Code Est Pt Level 5 (03416) Diagnoses SOB (shortness of breath) on exertion R06.02 Persistent atrial fibrillation I48.19 Cardiac pacemaker in situ Z95.0 H/O mitral valve replacement Z95.2 Aortic stenosis I35.0 CAD (coronary artery disease) I25.10 CPT Codes Cardiac Device Check - Cardiac Device 2: [id number] Cardiac Device Check, pacemaker dual lead ([id number])
== END 2023-11-01 13:12 | disposition home or self-care (01) ==
PROVIDERS: PCP Internal Medicine; Visit Provider Internal Medicine Cardiovascular Disease
DX: I48.19 Other persistent atrial fibrillation (principal); Z95.0 Presence of cardiac pacemaker; Z95.2 Presence of prosthetic heart valve; R06.02 Shortness of breath; I35.0 Nonrheumatic aortic (valve) stenosis; I25.10 Atherosclerotic heart disease of native coronary artery without angina pectoris
CPT/HCPCS: 93280; 99215

== ENCOUNTER → 2023-11-01 12:33 | Outpatient (BNVA) | payer MEDICARE, SELFPAY | PROVIDERS: PCP Internal Medicine; Visit Provider Internal Medicine Cardiovascular Disease | DX: I48.19 Other persistent atrial fibrillation (principal); R06.02 Shortness of breath; I35.0 Nonrheumatic aortic (valve) stenosis; I25.10 Atherosclerotic heart disease of native coronary artery without angina pectoris; Z95.2 Presence of prosthetic heart valve; Z79.01 Long term (current) use of anticoagulants; Z79.899 Other long term (current) drug therapy; Z45.018 Encounter for adjustment and management of other part of cardiac pacemaker | CPT/HCPCS: 93280; 99212 ==

== ENCOUNTER → 2023-11-02 09:46 | Outpatient (BNVA) | payer MEDICARE, SELFPAY | PROVIDERS: PCP Internal Medicine; Visit Provider Internal Medicine ==

== ENCOUNTER → 2023-11-04 11:47 | Outpatient (BNVA) | payer MEDICARE, SELFPAY | PROVIDERS: PCP Internal Medicine; Visit Provider Internal Medicine ==

== ENCOUNTER → 2023-11-07 09:53 | Outpatient (BNVA) | payer MEDICARE, SELFPAY | PROVIDERS: PCP Internal Medicine; Visit Provider Internal Medicine ==

== ENCOUNTER 2023-11-09 12:27 | Day surgery (SDC) | payer MEDICARE, SELFPAY ==
[2023-11-07 14:06] VITALS: BMI 21.5
--- NOTE | 2023-11-07 14:55 | P.CONAN_ITS ---
Documented by User: Estela Sinclair NP 11/07/23 14:59 HPI - Anesthesia Eval Consult details Narrative: 83yo F for Transesophageal Echocardiogram, Cardioversion (labile INR, need to r/o thrombus) Pacer in situ for SSS Coumadin for PAF PMFSH Active Problems Active Problems: All Active Problems Persistent atrial fibrillation (Acute) SOB (shortness of breath) on exertion (Acute) Hospital discharge follow-up (Acute) Cardiac pacemaker in situ (Acute ~2009) H/O mitral valve replacement (Acute ~1996) Aortic stenosis (Acute) Current use of anticoagulant therapy (Acute) Heme + stool (Acute) Anemia (Acute) CAD (coronary artery disease) (Acute) Paroxysmal atrial fibrillation (Acute) Hematoma (Acute) Current use of longterm anticoagulation (Acute) HTN (hypertension) (Acute) Mixed hyperlipidemia (Acute) Elective replacement indicated for cardiac pacemaker battery at end of lifespan (Acute) Past Medical History Medical History (Updated 11/01/23 @ 13:24 by Agustin Luke MD) Persistent atrial fibrillation Aortic stenosis H/O mitral valve replacement (~1996) Cardiac pacemaker in situ (~2009) Atrial fibrillation Mixed hyperlipidemia 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 Mother No problems noted. Surgical History Surgical History History of ventral hernia repair History of kyphoplasty (~2011) History of cardiac pacemaker (~2009) History of meniscectomy of right knee (~2012) History of mitral valve replacement (~1996) History of mitral valve repair (~1992) History of right knee surgery (~2017) History of Problems with Anesthesia: No Social History Social History Household Members: None Housing: House Housing Other:: 2 family on firstr floor Do you presently have visiting nurse or other home services: No Alcohol intake: never Patient Tobacco Use Status: Never used Tobacco Second Hand Smoke Exposure: No Are you DNR?: No Advance Directives: No Advance Directives Information Provided: Yes Nutrition Risks: No Nutritional Risk service: No Current occupational exposures/hazards: No Meds Allergies Allergy/AdvReac Type Severity Reaction Status Date / Time Sulfa (Sulfonamide Allergy Unknown UNKNOWN - Verified 11/07/23 10:00 Antibiotics) DOES NOT REMEMBER Home Medications ?Medication ?Instructions ?Recorded ?Confirmed ?Last Taken ?Type alendronate 70 mg tablet 70 mg PO SA 05/19/21 11/09/23 11/05/23 History cholecalciferol (vitamin D3) 25 25 mcg PO DAILY 05/19/21 11/09/23 11/08/23 History mcg (1,000 unit) capsule metoprolol tartrate 50 mg tablet 50 mg PO BID 05/19/21 11/09/23 11/09/23 History multivitamin (Daily Multi-Vitamin 1 tab PO DAILY 05/19/21 11/09/23 11/08/23 History tablet) pravastatin 40 mg tablet 40 mg PO BEDTIME 05/19/21 11/09/23 11/08/23 History valsartan 160 mg tablet 160 mg PO DAILY 05/19/21 11/09/23 11/08/23 History pantoprazole 20 mg tablet,delayed 20 mg PO DAILY 08/05/23 11/09/23 11/09/23 History release warfarin 2.5 mg tablet 2.5 mg PO DAILY 11/02/23 11/09/23 Unknown History warfarin 5 mg tablet See Rx Instructions PO DAILY 11/02/23 11/09/23 11/08/23 17:00 History Exam Height,Weight and Vital Signs: Height 5 ft Weight 50 kg Pertinent Lab Results Pertinent Lab Results: Laboratory Tests 10/28/23 06:33 WBC 6.9 Hgb 10.0 L Hct 30.4 L Plt Count 264 Sodium 138 Potassium 4.3 Chloride 104 Carbon Dioxide 24 BUN 16 Creatinine 0.72 Narrative Narrative: EKG 10/2023 Vent. Rate : 066 BPM Atrial Rate : 000 BPM P-R Int : 000 ms QRS Dur : 086 ms QT Int : 422 ms P-R-T Axes : 000 037 -77 degrees QTc Int : 442 ms Atrial fibrillation with occasional ventricular-paced complexes Marked ST abnormality, possible inferior subendocardial injury Abnormal ECG When compared with ECG of 27-OCT-2023 12:28, T inversions are new Cardiac Device Check 10/2023 Details: Dual-chamber Medtronic pacemaker in place. Was programmed in DDDR at 60 beats per minute, reprogrammed to DDIR due to persistent atrial fibrillation. Ventricular pacing thresholds are elevated and reprogrammed to enhance safety. Battery life is adequate at 7 and half years. Pacing lead impedance is stable. 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 Mother No problems noted. Surgical History Surgical History History of ventral hernia repair History of kyphoplasty (~2011) History of cardiac pacemaker (~2009) History of meniscectomy of right knee (~2012) History of mitral valve replacement (~1996) History of mitral valve repair (~1992) History of right knee surgery (~2017) Social History Social History Household Members: None Housing: House Housing Other:: 2 family on firstr floor Do you presently have visiting nurse or other home services: No Alcohol intake: never Patient Tobacco Use Status: Never used Tobacco Second Hand Smoke Exposure: No Are you DNR?: No Advance Directives: No Advance Directives Information Provided: Yes Nutrition Risks: No Nutritional Risk service: No Current occupational exposures/hazards: No Meds Allergies Allergy/AdvReac Type Severity Reaction Status Date / Time Sulfa (Sulfonamide Allergy Unknown UNKNOWN - Verified 11/07/23 10:00 Antibiotics) DOES NOT REMEMBER Home Medications ?Medication ?Instructions ?Recorded ?Confirmed ?Last Taken ?Type alendronate 70 mg tablet 70 mg PO SA 05/19/21 11/09/23 11/05/23 History cholecalciferol (vitamin D3) 25 25 mcg PO DAILY 05/19/21 11/09/23 11/08/23 History mcg (1,000 unit) capsule metoprolol tartrate 50 mg tablet 50 mg PO BID 05/19/21 11/09/23 11/09/23 History multivitamin (Daily Multi-Vitamin 1 tab PO DAILY 05/19/21 11/09/23 11/08/23 History tablet) pravastatin 40 mg tablet 40 mg PO BEDTIME 05/19/21 11/09/23 11/08/23 History valsartan 160 mg tablet 160 mg PO DAILY 05/19/21 11/09/23 11/08/23 History pantoprazole 20 mg tablet,delayed 20 mg PO DAILY 08/05/23 11/09/23 11/09/23 History release warfarin 2.5 mg tablet 2.5 mg PO DAILY 11/02/23 11/09/23 Unknown History warfarin 5 mg tablet See Rx Instructions PO DAILY 11/02/23 11/09/23 11/08/23 17:00 History Exam Airway Mallampati Class: II TM Dist: >3cm Neck ROM: Full Denture: Upper and Lower Loose/Missing/Broken Teeth: No Heart: paced Lungs: cta Assessment and Plan Assessment Anesthesia Assessment: Anesthesia Plan Discussed Final Anesthetic Review NPO: Yes ASA Class: IV Final Preanesthetic Review: No Changes in Pt Med Stat, Meds/Allgs Chart Reviewed, Consent Obtained/Reviewed and Anes Risks/Benef Reviewed Patient Risk: High Procedure Risk: High Anesthetic Plan Anesthetic Plan: MAC: Disposition: Standard PACU
[2023-11-09 12:42] VITALS: BP 154/53; PULSE 83; RESP 18; TEMP 36.9; O2SAT 96; BMI 23.6
[2023-11-09 13:13] LABS: INTERNATIONAL NORM RATIO 2.4 (0.9-1.1); Prothrombin Time 29.7 SEC (11.1-13.3)
--- NOTE | 2023-11-09 13:19 | CA_ITS ---
Transesophageal Echocardiogram Patient (Last, First, Middle): Bethany Viveros M Gender: Female Date of : 1940 Age: 83 Procedure Date: 11/09/2023 Procedure Type: Transesophageal Echocardiogram Location: OP Height: 152.4 cm Weight: 53.52 kg BSA: 1.49 m2 Heart Rate: 62 bpm Knot Cutter: PRADIP Referring MD: Agustin Luke MD Cylinder Block Mechanic: Agustin Luke MD Symptoms: Rule out intracardiac thrombi Conclusion: ??? 1. No intracardiac thrombi or masses noted 2. No intracardiac shunting 3. LV systolic function appears mildly reduced 4. Significant left atrial enlargement 5. Normally functioning mechanical mitral valve in place 6. Moderate to severe aortic stenosis by planimetry 7. Moderate tricuspid regurgitation 8. No gross pericardial effusion 9. Aorta not well visualized Findings Procedure Information Consent was obtained prior to the procedure. Pre ROSA oral cavity was checked and revealed no overcrowding. The adult 3D probe was passed with no difficulty. Left Ventricle Normal left ventricular cavity size. There is mildly increased left ventricular wall thickness. The left ventricular systolic function is mildly decreased. The visually estimated ejection fraction is between 45-50%. Diastolic function is indeterminate on the basis of available data. There is no evidence of a thrombus in the left ventricle. Right Ventricle Normal right ventricular cavity size. Atria The left atrium is severely dilated. The atrial septum has a dumbell appearance. There is no evidence of interatrial shunt. There is no evidence of a patent foramen ovale. There is no evidence of thrombus or mass in the left atrium. smoke formation seen within the left atrial appendage as well as left atrium. The left atrial appendage was identified multiple view without any evidence of filling defects suggestive of thrombus. The left upper, right upper and right lower pulmonary veins drain normally into the left atrium. The right atrium is moderately dilated. Pacer lead was seen in the right atrial cavity attached in the right atrial appendage. IVC and SVC drain normally into the right atrium. There are no thrombi or masses in the right atrium. Aortic Valve There is mild calcification of the aortic valve. There is mild thickening of the aortic valve. There is moderate to severe aortic valve stenosis. There is no aortic valve regurgitation. Planimetry valve area was 1.06 centimeters sq Mitral Valve A mechanical prosthetic mitral valve is present. The prosthetic mitral valve appears to be functioning normally. There is no mitral valve stenosis. the mechanical valve is well seated without any abnormal rocking motion. The bileaflet valve with normal leaflet motion noted. Physiologic mitral regurgitation noted Pulmonic Valve The pulmonic valve is likely normal. Tricuspid Valve Normal tricuspid valve structure. There is moderate tricuspid valve regurgitation. There is no evidence of a mass on the tricuspid valve. Great Vessels The aorta was not well visualized. The pulmonary artery was not well visualized. Venous The inferior vena cava is normal in size and collapses greater than 50% with inspiration. Pericardium/Pleural There is no evidence of pericardial effusion. Updated by Agustin Luke on 05:06 PM with Status of Final Agustin Luke MD electronically signed on 11/10/2023 5:06:16 PM with status of Final
--- NOTE | 2023-11-09 13:19 | MHC.SHP ---
Pre-Procedural Eval Section A - 24 Hr Update-Section A only Date of Service: 11/09/23 The patient is an INPATIENT: No Changes since office visit: Yes Patient answered all questions; No Cold of Flu in the past 2 weeks, No New Medical Problems and No Changes in Medication The patient has been examined within 24 hours of the surgical procedure. The History & Physical has been completed within 30 days and I have reviewed it.: Yes Section B - Complete if H&P > 30 days Chief Complaint: Nonrheumatic aortic (valve) stenosis,afib,SOB Allergies: Allergies Allergy/AdvReac Type Severity Reaction Status Date / Time Sulfa (Sulfonamide Allergy Unknown UNKNOWN - Verified 11/07/23 10:00 Antibiotics) DOES NOT REMEMBER Plan I have reviewed the history and physical and performed a pertinent physical examination on my patient. No changes have occurred unless specified. Time Spent With Patient Time: Total time managing care of this patient today ____ minutes.
[2023-11-09] MEDS: Lactated Ringers 1,000 ML 50 ML IVCONT (13:30)
--- NOTE | 2023-11-09 15:53 | ECG_ITS ---
Test Reason : Status post cardioversion Blood Pressure : / mmHG Vent. Rate : 069 BPM Atrial Rate : 069 BPM P-R Int : 200 ms QRS Dur : 196 ms QT Int : 498 ms P-R-T Axes : 000 -66 111 degrees QTc Int : 533 ms Atrial-sensed ventricular-paced rhythm Abnormal ECG When compared with ECG of 28-OCT-2023 11:50, Vent. rate has increased BY 3 BPM Referred By: Agustin Luke Electronically Signed By:AGUSTIN LUKE MD
[2023-11-09 15:56] VITALS: BP 101/40; PULSE 71; RESP 18; TEMP 37.1; O2SAT 100
[2023-11-09 16:01] VITALS: BP 102/37; PULSE 67; RESP 18; O2SAT 100
--- NOTE | 2023-11-09 16:05 | HO.CARDIVERS ---
Cardioversion Procedure Note Cardioversion Date of Procedure: 11/09/2023 Ordering Provider: David Luke Performing Provider: David Luke Indication for Procedure: Persistent symptomatic atrial fibrillation Pre-Op Diagnosis: Same Performed with Transesophageal Echo: Yes ROSA findings (if ROSA Performed): Dictated separately History: See my office note Consent: Verbal and Written consent was obtained from the patient before starting and after confirming INR. The patient was made aware of the risk of synchronized cardioversion including benefits and alternatives Procedure: After consent obtained and ROSA performed, cardioversion pads were attached in anteroposterior configuration and the patient was sedated by the anesthesia team. Once adequate sedation achieved, patient was delivered 200 joules of biphasic synchronized energy in anteroposterior configuration. After the procedure the pacemaker was re interrogated. Pacemaker was reprogrammed to DDDR at 70 beats per minute. Pacing lead impedances were stable. Sensed and paced AV intervals were stable. Atrial pacing thresholds adequate. Ventricular pacing thresholds were elevated as before. AV paced rhythm noted Complications: None Impression: Successful conversion to atrially paced rhythm Recommendations: 1. 12 lead EKG 2. Continue Lovenox and warfarin 3. Will start loading with amiodarone 400 mg b.i.d. for 2 weeks followed by 200 mg daily 4. Office visit in 4 weeks will be scheduled
[2023-11-09 16:06] VITALS: BP 109/42; PULSE 70; RESP 22; O2SAT 100
[2023-11-09 16:11] VITALS: BP 120/48; PULSE 70; RESP 20; O2SAT 96
[2023-11-09 16:26] VITALS: BP 128/49; PULSE 70; RESP 20; TEMP 36.8; O2SAT 96
== END 2023-11-09 16:55 | disposition home or self-care (01) ==
PROVIDERS: Nurse Practitioner; PCP Internal Medicine; Visit Provider Internal Medicine Cardiovascular Disease
PROC: (CPT 93312; principal; 2023-11-09 15:00)
PROC: 5A2204Z Restoration of Cardiac Rhythm, Single (ICD-10-PCS; CPT 93312; 2023-11-09 15:00)
DX: I48.19 Other persistent atrial fibrillation (principal); I35.0 Nonrheumatic aortic (valve) stenosis; R06.02 Shortness of breath; I49.5 Sick sinus syndrome; I10 Essential (primary) hypertension; I25.10 Atherosclerotic heart disease of native coronary artery without angina pectoris; Z95.0 Presence of cardiac pacemaker; Z95.2 Presence of prosthetic heart valve; E78.2 Mixed hyperlipidemia; M81.0 Age-related osteoporosis without current pathological fracture; Z79.01 Long term (current) use of anticoagulants; Z79.899 Other long term (current) drug therapy; Z88.2 Allergy status to sulfonamides
CPT/HCPCS: 93312; 36415; 85610; 92960; 93005; J2250; J2371; J2704

== ENCOUNTER → 2023-11-09 12:27 | Outpatient (BNV) | payer MEDICARE, SELFPAY | PROVIDERS: PCP Internal Medicine; Visit Provider Internal Medicine Cardiovascular Disease | DX: I48.19 Other persistent atrial fibrillation (principal); Z95.0 Presence of cardiac pacemaker | CPT/HCPCS: 76376; 92960; 93010; 93286; 93312 ==

== ENCOUNTER → 2023-11-10 09:10 | Outpatient (BNVA) | payer MEDICARE, SELFPAY | PROVIDERS: PCP Internal Medicine; Visit Provider Internal Medicine ==

== ENCOUNTER → 2023-11-14 09:18 | Outpatient (BNVA) | payer MEDICARE, SELFPAY | PROVIDERS: PCP Internal Medicine; Visit Provider Internal Medicine | DX: Z79.01 Long term (current) use of anticoagulants (principal) ==

== ENCOUNTER → 2023-11-17 11:37 | Outpatient (BNVA) | payer MEDICARE, SELFPAY | PROVIDERS: PCP Internal Medicine; Visit Provider Internal Medicine ==

== ENCOUNTER 2023-11-19 01:30 | Emergency (ER) | payer MEDICARE, SELFPAY ==
--- NOTE | 2023-11-19 | ECG_ITS ---
Test Reason : DYSPNEA Blood Pressure : / mmHG Vent. Rate : 071 BPM Atrial Rate : 071 BPM P-R Int : 214 ms QRS Dur : 232 ms QT Int : 516 ms P-R-T Axes : 000 -65 120 degrees QTc Int : 560 ms AV dual-paced rhythm with prolonged AV conduction Abnormal ECG When compared with ECG of 09-NOV-2023 16:11, Vent. rate has increased BY 2 BPM Referred By: Generic ED Physician Electronically Signed By:Black Phillips
--- NOTE | ~2023-11-19 | XR_ITS ---
EXAMINATION: XR CHEST CLINICAL INFORMATION: Shortness of breath. COMPARISON: 10/24/2023 TECHNIQUE: Frontal view of the chest was obtained. FINDINGS: The lung volumes are low. The cardiomediastinal silhouette is stable. Pacer leads are in place. There is mild diffuse increased markings which were present previously. There is no focal lung consolidation or pleural effusions. The bony structures are osteopenic. The soft tissues are unremarkable. XR/XR chest 1V IMPRESSION: Mild diffuse increased markings were present previously. This could be secondary to low lung volumes or mild congestion. No focal consolidation or evidence for significant pleural effusion.
[2023-11-19 02:08] VITALS: BP 156/74; BP 180/86; PULSE 78; PULSE 80; RESP 20; TEMP 36.6; O2SAT 93; O2SAT 94; BMI 22.2
[2023-11-19 02:26] LABS: MANUAL DIFF FLAG NO
--- NOTE | 2023-11-19 02:26 | PC.NURSE ---
pt biba from home, a&ox4, respirations even and unlabored, pt reporting onset of shortness of breath x 2 weeks ago, reports shortness of breath increases on exertion and with speaking. pt speaking in full clear sentences at this time, no acute distress noted. pt denies chest pain, cough, n/v/d. 20G placed in right AC, labs obtained, nasal swab obtained and sent to lab.
[2023-11-19 02:27] LABS: Basophils Percent Auto 0.4 % (0-2); Eosinophils Absolute Auto 0.1 X10*3/uL (0.0-0.4); Eosinophils Percent Auto 0.7 % (0-4); Hemoglobin 10.7 g/dl (12.0-16.0); Imm Gran Abs Auto 0.02 X10*3/uL (0.00-0.03); Imm Gran Pct Auto 0.3 % (0.0-0.4); Lymphocytes Absolute Auto 0.8 X10*3/uL (1.2-4.9); Lymphocytes Percent Auto 10.3 % (20-40); Mean Corpuscular HGB Conc 32.4 g/dl (31.0-35.0); Mean Corpuscular Hemoglobin 28.5 pg (27.0-33.0); Mean Platelet Volume 9.2 fL (9.4-12.3); Monocytes Absolute Auto 0.8 X10*3/uL (0.1-1.2); Monocytes Percent Auto 10.2 % (2-11); Neutrophils Absolute Auto 5.9 x10*3/uL (2.0-8.3); Neutrophils Percent Auto 78.1 % (45-73); Platelet Count 253 X10*3/uL (160-400); Red Blood Count 3.75 X10*6/uL (4.20-5.50); White Blood Count 7.6 X10*3/uL (4.8-10.8)
[2023-11-19 02:41] LABS: Alanine Aminotransferase 29 U/L (0-31); Albumin Level 4.3 g/dL (3.5-5.0); Alkaline Phosphatase 86 U/L (39-117); Anion Gap 13 (12-20); Aspartate Amino Transferase 51 U/L (5-31); Bilirubin Total 1.2 mg/dL (0.0-1.0); Blood Urea Nitrogen 31 mg/dL (9-16); Calcium 9.6 mg/dL (8.4-10.2); Carbon Dioxide 24 mmol/L (22-29); Chloride 102 mmol/L (96-108); Creatinine Clr Calc Pharmacy 30.3; Estimated Glomerular Filt Rate 57; Glucose Random 114 mg/dL (60-115); Potassium 4.8 mmol/L (3.3-5.1); Sodium 134 mmol/L (135-145)
[2023-11-19 02:46] LABS: Troponin-I High Sensitivity 4.3 ng/L (<3.5-17.0)
[2023-11-19 03:03] LABS: Influenza A PCR NEGATIVE (Negative); Influenza B PCR NEGATIVE (Negative); Resp Syncy Virus RNA Qual PCR NEGATIVE (Negative); SARS COV2 PCR INHOUSE NEGATIVE (Negative)
--- NOTE | 2023-11-19 06:08 | PC.NURSE ---
pt ambulated to bathroom stand by assist with walker with steady gait.
[2023-11-19 06:12] VITALS: BP 141/64; PULSE 70; RESP 18; TEMP 36.6; O2SAT 95
--- NOTE | 2023-11-19 07:34 | ED_ITS ---
HPI - SOB/Dyspnea General Chief Complaint: Dyspnea Stated Complaint: ABDOMINAL PAIN Time Seen by Provider: 11/19/23 07:03 Source: patient Mode of arrival: EMS History of Present Illness ED Provider: Dr Cox HPI Narrative: [age] old female who presents via ambulance with complaints of increasing shortness of breath for 2 weeks, worse with exertion, denies any cough/fever/chills/GI or symptoms and reports good eating and elimination. Related Data Home Medications ?Medication ?Instructions ?Recorded ?Confirmed alendronate 70 mg tablet 70 mg PO SA 05/19/21 11/09/23 cholecalciferol (vitamin D3) 25 25 mcg PO DAILY 05/19/21 11/09/23 mcg (1,000 unit) capsule metoprolol tartrate 50 mg tablet 50 mg PO BID 05/19/21 11/09/23 multivitamin (Daily Multi-Vitamin 1 tab PO DAILY 05/19/21 11/09/23 tablet) pravastatin 40 mg tablet 40 mg PO BEDTIME 05/19/21 11/09/23 valsartan 160 mg tablet 160 mg PO DAILY 05/19/21 11/09/23 pantoprazole 20 mg tablet,delayed 20 mg PO DAILY 08/05/23 11/09/23 release warfarin 2.5 mg tablet 2.5 mg PO DAILY 11/02/23 11/17/23 warfarin 5 mg tablet See Rx Instructions PO DAILY 11/02/23 11/17/23 Previous Rx's ?Medication ?Instructions ?Recorded amlodipine 2.5 mg tablet 2.5 mg PO DAILY #90 tabs 06/28/23 enoxaparin 60 mg/0.6 mL 50 mg subcut Q12H #6 mL 11/01/23 subcutaneous syringe (Lovenox) amiodarone 400 mg tablet 400 mg PO BID 30 days #60 tabs 11/09/23 furosemide 20 mg tablet (Lasix) 10 mg (1/2 x 20 mg) PO DAILY 30 11/19/23 days #15 tabs Allergies Allergy/AdvReac Type Severity Reaction Status Date / Time Sulfa (Sulfonamide Allergy Unknown UNKNOWN - Verified 11/19/23 02:11 Antibiotics) DOES NOT REMEMBER Review of Systems 2 Review of Systems: Pertinent positives and negatives as stated in HPI PMF Past Medical History Source: nursing notes reviewed Medical History Persistent atrial fibrillation Aortic stenosis H/O mitral valve replacement (~1996) Cardiac pacemaker in situ (~2009) Atrial fibrillation Mixed hyperlipidemia Current use of [facility] anticoagulation Osteoporosis (~2005) HTN (hypertension) Paroxysmal atrial fibrillation Sick sinus syndrome (~2009) Surgical History History of ventral hernia repair History of kyphoplasty (~2011) History of cardiac pacemaker (~2009) History of meniscectomy of right knee (~2012) History of mitral valve replacement (~1996) History of mitral valve repair (~1992) History of right knee surgery (~2017) Family History Family History Father No problems noted. Mother No problems noted. Social History Social History Household Members: None Housing: House Housing Other:: 2 family on firstr floor Do you presently have visiting nurse or other home services: No Alcohol intake: never Patient Tobacco Use Status: Never used Tobacco Smoked in Last 30 Days: No Second Hand Smoke Exposure: No Use of substances other than those prescribed or required for medical reasons: No Advance Directives: No Advance Directives Information Provided: Yes Do you have a plan to hurt others: No Plan service: No Current occupational exposures/hazards: No Physical Exam 2 Vital Signs: Vital Signs: Last Vital Signs Temp 98.1 F 11/19/23 08:24 Pulse 70 11/19/23 08:24 Resp 14 11/19/23 08:24 BP 133/61 11/19/23 08:24 Pulse Ox 96 11/19/23 08:24 O2 Del Method Room Air 11/19/23 08:24 BMI result Body Mass Index 22.2 VITAL SIGNS: Reviewed. GENERAL: Well developed, well nourished, in no acute distress. HEAD: Normocephalic/atraumatic EYES: PERRLA, EOMI EARS: Ext canals without abnormality, TMs non-bulging and non-erythematous NOSE: Nares patent bilateral OROPHARYNX: no oral lesions noted, posterior pharynx clear NECK: Supple, no adenopathy LUNGS: Normal breath sounds. No adventitious sounds or accessory muscle use. SpO2<95> CARDIOVASCULAR: Regular rate and rhythm without noted murmurs, no JVD or lower extremity edema. ABDOMEN: Soft, non-tender, non-distended with bowel sounds. MUSCULOSKELETAL: No tenderness, deformities, or effusions noted on gross inspection. EXTREMITIES: No cyanosis, clubbing or edema. SKIN: Inspection of the skin reveals no rashes NEUROLOGIC: Alert and oriented x 3. Strength and sensation to light touch were grossly intact x 4. Medications Administered Discontinued Medications Generic Name Dose Route Start Last Admin Trade Name Jacksonq PRN Reason Stop Dose Admin Furosemide 20 mg 11/19/23 09:03 11/19/23 09:14 Furosemide 20 Mg Tablet PO 11/19/23 09:04 20 mg ONCE ONE Administration Protocol Medical Decision Making Medical Decision Making MDM Narrative: 83-year-old female with history and clinical presentation, DDX: CHF, viral illness, no clinical suspicion for pneumonia or ACS. Echo on 11/08: 45-50% I reviewed all investigations and hematologic indices are negative for leukocytosis but patient has a stable normocytic anemia and no thrombocytopenia. Chemistry indices are negative for MIL[place], no significant electrolyte derangements, chronically stable elevation of total bilirubin, chronically stable detectable high sensitivity troponin without acute changes on EKG, BNP and chest x-ray are concordant with patient's provided history and suspect a mild exacerbation of CHF without hypoxia. I will give patient 20 mg of Lasix, I do not think that she needs to be admitted at this time. I will also discharge the patient with a script for 10 mg of Lasix daily and encourage short follow-up. My interpretation is that patient may be experiencing a mild CHF exacerbation without hypoxia after persistent atrial fibrillation which was cardioverted on 11/08 as the timing appears to be consistent. It does appear that patient received a 30 day supply of Lasix in June but I see no subsequent Lasix prescriptions provided. Patient was discharged with strict return precautions. Differential Diagnosis Differential Diagnoses: The differential diagnosis associated with the presentation includes Please see the discussion above Admission/Observation Consideration of admission/observation: Escalation of care including admission/observation considered Please see the discussion above Lab Data [facility] Lab Attestation statement: I reviewed the patient's lab results. Please see the discussion above 11/19/23 02:20 11/19/23 02:20 Labs: Lab Results 11/19/23 11/19/23 11/19/23 Range/Units 02:20 08:28 08:57 WBC 7.6 (4.8-10.8) X10*3/uL RBC 3.75 L (4.20-5.50) X10*6/uL Hgb 10.7 L (12.0-16.0) g/dl Hct 33.0 L (37.0-47.0) % MCV 88.0 (80.0-98.0) fL MCH 28.5 (27.0-33.0) pg MCHC 32.4 (31.0-35.0) g/dl RDW 16.0 (11.0-16.0) % Plt Count 253 (160-400) X10*3/uL MPV 9.2 L (9.4-12.3) fL Immature Gran % (Auto) 0.3 (0.0-0.4) % Neut % (Auto) 78.1 H (45-73) % Lymph % (Auto) 10.3 L (20-40) % [place] % (Auto) 10.2 (2-11) % Eos % (Auto) 0.7 (0-4) % Baso % (Auto) 0.4 (0-2) % Lymph # (Auto) 0.8 L (1.2-4.9) X10*3/uL [place] # (Auto) 0.8 (0.1-1.2) X10*3/uL Eos # (Auto) 0.1 (0.0-0.4) X10*3/uL Baso # (Auto) 0.0 (0.0-0.2) X10*3/uL Abs Immat Gran (auto) 0.02 (0.00-0.03) X10*3/uL Absolute Neuts (auto) 5.9 (2.0-8.3) x10*3/uL Absolute Nucleated RBC 0.000 (0.0-0.012) X10*3/uL Nucleated RBC % (auto) 0.0 (0.0-0.2) /100WBC Sodium 134 L (135-145) mmol/L Potassium 4.8 (3.3-5.1) mmol/L Chloride 102 (96-108) mmol/L Carbon Dioxide 24 (22-29) mmol/L Anion Gap 13 (12-20) BUN 31 H (9-16) mg/dL Creatinine 0.94 (0.5-1.4) mg/dL Estim Creat Clear Calc 30.3 Estimated GFR 57 Random Glucose 114 (60-115) mg/dL Calcium 9.6 (8.4-10.2) mg/dL Total Bilirubin 1.2 H (0.0-1.0) mg/dL AST 51 H (5-31) U/L ALT 29 (0-31) U/L Alkaline Phosphatase 86 (39-117) U/L Troponin I High Sens 4.3 D (<3.5-17.0) ng/L B-Natriuretic Peptide 1657 H (<100) pg/mL Total Protein 8.0 (6.5-8.0) g/dL Albumin 4.3 (3.5-5.0) g/dL Urine Color Yellow Urine Appearance Clear Urine pH 6.5 (5.0-9.0) Ur Specific [place] 1.010 (1.005-1.025) Urine Protein Negative (Neg-Trace) mg/dL Urine Glucose (UA) Negative (Negative) mg/dL Urine Ketones Negative (Negative) mg/dL Urine Blood Trace H (Negative) Urine Nitrite Negative (Negative) Ur Leukocyte Esterase Negative (Negative) Urine RBC 3-5 H (0-2) /HPF Urine WBC 0-5 (0-5) /HPF Ur Squamous Epith Cells 0-2 (0-2) /HPF Urine Bacteria None Seen (None Seen) Hyaline Casts 0-2 (0-2) /LPF Influenza Type A (PCR) NEGATIVE (Negative) Influenza Type B (PCR) NEGATIVE (Negative) RSV RNA Qual (PCR) NEGATIVE (Negative) SARS-CoV-2 RNA (RT-PCR) NEGATIVE (Negative) Independent Interpretation I performed an independent interpretation of an: EKG Interpretation: Paced rhythm, HR -71, no STEMI, RI-to 14, QRS-232, QTC-560 and there are no acute changes when compared to prior EKG on 11/08. Radiology Impression Discussion of test interpretation with radiology: I have reviewed the radiologist's reading. Radiologist Impression: Please see the discussion above External Record Review External record reviewed: Outpatient record, Prior outpatient labs and Prior outpatient radiology Chronic Conditions Patient?s care impacted by: Hypertension CHF Critical Care Time Critical Care Time Critical Care Time: Yes Total Critical Care Time: 45 Attestation: I personally attest to this time spent taking care of the patient. Discharge Plan Discharge Clinical Impression: CHF exacerbation Patient Disposition: Home, Self-Care Instructions: Heart Failure (ED) Additional Instructions: 1. Resume all home medications as prescribed. You have been started on a new medication that will make you pee more often. 2. 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 Please return to the emergency room if your shortness of breath does not improve with the medication or you began experiencing chest pain/dizziness. Prescriptions: New furosemide [Lasix] 20 mg tablet 10 mg PO DAILY 30 Days Qty: 15 0RF No Action amlodipine 2.5 mg tablet 2.5 mg PO DAILY Qty: 90 3RF amiodarone 400 mg tablet 400 mg PO BID 30 Days Qty: 60 1RF valsartan 160 mg tablet 160 mg PO DAILY alendronate 70 mg tablet 70 mg PO SA pravastatin 40 mg tablet 40 mg PO BEDTIME metoprolol tartrate 50 mg tablet 50 mg PO BID multivitamin [Daily Multi-Vitamin] Tablet 1 tab PO DAILY cholecalciferol (vitamin D3) 25 mcg (1,000 unit) capsule 25 mcg PO DAILY enoxaparin [Lovenox] 60 mg/0.6 mL syringe 50 mg subcut Q12H Qty: 6 1RF Protocol: Dose Management Condition: Tuesday (Week One) Dose/Route: 2.5 mg Instruction: 1 x 2.5 mg milliliter Condition: Tuesday Dose/Route: 0 mg Instruction: 0 milliliters Condition: Tuesday Dose/Route: 2.5 mg Instruction: 1 x 2.5 mg milliliter Condition: Tuesday Dose/Route: 5 mg Instruction: 1 x 5 mg milliliter Condition: Dose/Route: 2.5 mg Instruction: 1 x 2.5 mg milliliter Condition: Tuesday Dose/Route: 5 mg Instruction: 1 x 5 mg milliliter Condition: Tuesday Dose/Route: 2.5 mg Instruction: 1 x 2.5 mg milliliter Condition: Tuesday (Week Two) Dose/Route: 2.5 mg Instruction: 1 x 2.5 mg milliliter Condition: Tuesday Dose/Route: 5 mg Instruction: 1 x 5 mg milliliter Condition: Tuesday Dose/Route: 2.5 mg Instruction: 1 x 2.5 mg milliliter Condition: Tuesday Dose/Route: 5 mg Instruction: 1 x 5 mg milliliter Condition: Dose/Route: 2.5 mg Instruction: 1 x 2.5 mg milliliter Condition: Tuesday Dose/Route: 5 mg Instruction: 1 x 5 mg milliliter Condition: Tuesday Dose/Route: 2.5 mg Instruction: 1 x 2.5 mg milliliter Protocol Text: Adjustment Start Date: 11/17/23 INR Value: 2.5 INR Date: 11/17/23 Recheck Date: 11/24/23 pantoprazole 20 mg tablet,delayed release (DR/EC) 20 mg PO DAILY warfarin 2.5 mg tablet 2.5 mg PO DAILY Protocol: Dose Management Condition: Tuesday (Week One) Dose/Route: 2.5 mg Instruction: 1 x 2.5 mg milliliter Condition: Tuesday Dose/Route: 0 mg Instruction: 0 milliliters Condition: Tuesday Dose/Route: 2.5 mg Instruction: 1 x 2.5 mg milliliter Condition: Tuesday Dose/Route: 5 mg Instruction: 1 x 5 mg milliliter Condition: Dose/Route: 2.5 mg Instruction: 1 x 2.5 mg milliliter Condition: Tuesday Dose/Route: 5 mg Instruction: 1 x 5 mg milliliter Condition: Tuesday Dose/Route: 2.5 mg Instruction: 1 x 2.5 mg milliliter Condition: Tuesday (Week Two) Dose/Route: 2.5 mg Instruction: 1 x 2.5 mg milliliter Condition: Tuesday Dose/Route: 5 mg Instruction: 1 x 5 mg milliliter Condition: Tuesday Dose/Route: 2.5 mg Instruction: 1 x 2.5 mg milliliter Condition: Tuesday Dose/Route: 5 mg Instruction: 1 x 5 mg milliliter Condition: Dose/Route: 2.5 mg Instruction: 1 x 2.5 mg milliliter Condition: Tuesday Dose/Route: 5 mg Instruction: 1 x 5 mg milliliter Condition: Tuesday Dose/Route: 2.5 mg Instruction: 1 x 2.5 mg milliliter Protocol Text: Adjustment Start Date: 11/17/23 INR Value: 2.5 INR Date: 11/17/23 Recheck Date: 11/24/23 warfarin 5 mg tablet See Rx Instructions PO DAILY Protocol: Dose Management Condition: Tuesday ( One) Dose/Route: 2.5 mg Instruction: 1 x 2.5 mg milliliter Condition: Tuesday Dose/Route: 0 mg Instruction: 0 milliliters Condition: Tuesday Dose/Route: 2.5 mg Instruction: 1 x 2.5 mg milliliter Condition: Tuesday Dose/Route: 5 mg Instruction: 1 x 5 mg milliliter Condition: Dose/Route: 2.5 mg Instruction: 1 x 2.5 mg milliliter Condition: Tuesday Dose/Route: 5 mg Instruction: 1 x 5 mg milliliter Condition: Tuesday Dose/Route: 2.5 mg Instruction: 1 x 2.5 mg milliliter Condition: Tuesday () Dose/Route: 2.5 mg Instruction: 1 x 2.5 mg milliliter Condition: Tuesday Dose/Route: 5 mg Instruction: 1 x 5 mg milliliter Condition: Tuesday Dose/Route: 2.5 mg Instruction: 1 x 2.5 mg milliliter Condition: Tuesday Dose/Route: 5 mg Instruction: 1 x 5 mg milliliter Condition: Dose/Route: 2.5 mg Instruction: 1 x 2.5 mg milliliter Condition: Tuesday Dose/Route: 5 mg Instruction: 1 x 5 mg milliliter Condition: Tuesday Dose/Route: 2.5 mg Instruction: 1 x 2.5 mg milliliter Protocol Text: Adjustment Start Date: 11/17/23 INR Value: 2.5 INR Date: 11/17/23 Recheck Date: 11/24/23 Rx Instructions: 5mg x 4 days/ 2.5mg x 3 days orally daily; pt has labile INR values regular dosing trying to be established Referrals: Kana Ponce MD [Primary Care Provider] - Agustin Luke MD [Physician] - Print Language: Pakistani
[2023-11-19 08:24] VITALS: BP 133/61; PULSE 70; RESP 14; TEMP 36.7; O2SAT 96
[2023-11-19 08:41] LABS: Appearance Urine Clear; Color Urine Yellow; Glucose Urine UA Negative (Negative); Leukocyte Esterase Urine Negative (Negative); Nitrite Urine Negative (Negative); PH 6.5 (5.0-9.0); UMIC TRIGGER UACC YES; Urine Blood Trace (Negative); Urine Ketones Negative (Negative); Urine Protein Negative (Neg-Trace)
[2023-11-19 08:46] LABS: Bacteria Urine None Seen (None Seen); Hyaline Casts Urine 0-2 /LPF (0-2); Squamous Epithelial Cell Urine 0-2 /HPF (0-2); WBC Urine 0-5 /HPF (0-5)
[2023-11-19] MEDS: Furosemide 20 MG TABLET PO (09:14)
[2023-11-19 09:21] LABS: B Type Natriuretic Peptide 1657 pg/mL (<100)
[2023-11-19 10:05] VITALS: BP 141/70; PULSE 72; RESP 16; TEMP 36.6; O2SAT 96
== END 2023-11-19 10:06 | disposition home or self-care (01) ==
PROVIDERS: Emergency Provider Student in an Organized Health Care Education/Training Program; PCP Internal Medicine
DX: I11.0 Hypertensive heart disease with heart failure (principal); I50.9 Heart failure, unspecified; R06.02 Shortness of breath; E78.2 Mixed hyperlipidemia; I48.0 Paroxysmal atrial fibrillation; Z79.02 Long term (current) use of antithrombotics/antiplatelets; Z79.01 Long term (current) use of anticoagulants; Z79.899 Other long term (current) drug therapy; Z95.0 Presence of cardiac pacemaker; Z03.818 Encounter for observation for suspected exposure to other biological agents ruled out
CPT/HCPCS: 0241U; 36415; 71045; 80053; 81001; 83880; 84484; 85025; 93005; 99283; 99285

== ENCOUNTER → 2023-11-19 02:32 | Outpatient (BNV) | payer MEDICARE, SELFPAY | PROVIDERS: Emergency Provider Student in an Organized Health Care Education/Training Program; PCP Internal Medicine; Visit Provider Internal Medicine Cardiovascular Disease | DX: R94.31 Abnormal electrocardiogram [ECG] [EKG] (principal) | CPT/HCPCS: 93010 ==

== ENCOUNTER 2023-11-24 08:34 | Outpatient (REF) | payer MEDICARE, SELFPAY ==
[2023-11-24 09:39] LABS: Prothrombin Time 89.4 SEC (11.1-13.3)
[2023-11-24 09:42] LABS: INTERNATIONAL NORM RATIO 7.3 (0.9-1.1)
== END 2023-11-24 08:35 | disposition home or self-care (01) ==
LOC: HO.LAB 08:34
PROVIDERS: PCP Internal Medicine; Visit Provider Internal Medicine
DX: R06.02 Shortness of breath (principal); I48.0 Paroxysmal atrial fibrillation; I35.0 Nonrheumatic aortic (valve) stenosis; Z79.01 Long term (current) use of anticoagulants
CPT/HCPCS: 36415; 85610; 99212

== ENCOUNTER 2023-11-24 08:34 | Outpatient (AMB) | payer MEDICARE, SELFPAY ==
--- NOTE | 2023-11-24 09:52 | MHC.OFFVISCO ---
Intake Intake Visit Reasons: Anticoagulation Allergies Sulfa (Sulfonamide Antibiotics) Allergy (Unknown, Verified 11/24/23 09:51) UNKNOWN - DOES NOT REMEMBER Medication List - Last Reconciled 11/24/23 by Bindu Kirby RN alendronate 70 mg PO SA amiodarone 400 mg PO BID 30 days amlodipine 2.5 mg PO DAILY cholecalciferol (vitamin D3) 25 mcg PO DAILY furosemide (Lasix) 10 mg (1/2 x 20 mg) PO DAILY 30 days metoprolol tartrate 50 mg PO BID multivitamin (Daily Multi-Vitamin tablet) 1 tab PO DAILY pantoprazole 20 mg PO DAILY pravastatin 40 mg PO BEDTIME valsartan 160 mg PO DAILY warfarin 2.5 mg See Protocol PO DAILY warfarin See Protocol 5mg x 4 days/ 2.5mg x 3 days orally daily; pt has labile INR values regular dosing trying to be established Nursing Note INR 7.3- out of therapeutic range of 2.5 -3 by vna, pt to [facility] - inr 7.3 reported to plp Medications and supplements reviewed Patient status: to acs with alina, amb with walker, pt with c.o sob and sushil hall, pcp made aware and will f/u with pt today composed note to cardiology pt states cardioversion last week Medications or supplements: amiodarone 400mg bid, lasix 10mg dly- pt instructed to call acs with any new medications Diet: same Denies any signs and symptoms of bleeding or clotting or unusual bruising Bleeding, bruising, clotting discussed - aware high risk for bleeding/bruising, avoid high risk activity Nutritional guidance given: eat greens to lower, no reds Dose: hold today F/U INR Date : tom11/25/23 Patient and alina verbalizing understanding of instructions given. pcp dr cameron office called with elev inr/dosing and f/u appt with suzette santo, spoke to sherman at 1000 composed note to cardiology Anti-Coag Initial Assessment Social Hx Patient Tobacco Use Status: Never used Tobacco alcohol intake: never Alcohol intake frequency: does not drink Cardiovascular Hx: HTN, CHF and Other Endocrine Hx: Other Musculoskeletal Hx: Arthritis Blood Disorder Hx: Anemia GI Hx: Bleeding (GI, rectal) Cancer HX: No Psych. Illness/Depression: Yes ( blues ) Coding Level of Care Code Est Patient Level 2 Diagnoses Current use of anticoagulant therapy Z79.01 Time Spent (min) 30 Assessment & Plan Assessment & Plan (1) Current use of anticoagulant therapy: Code(s): Z79.01 - halfway (current) use of anticoagulants Category: Medical Orders: Orders Prothrombin Time INR Today Z79.01 - continuous churn buttermaker (current) use of anticoagulants
== END 2023-11-24 10:26 | disposition home or self-care (01) ==
LOC: HO.ACS 08:34
PROVIDERS: PCP Internal Medicine; Visit Provider Internal Medicine
DX: Z79.01 Long term (current) use of anticoagulants (principal)

== ENCOUNTER 2023-11-25 12:13 | Outpatient (REF) | payer MEDICARE, SELFPAY | END 2023-11-25 12:14 | disposition home or self-care (01) | LOC: HO.HVNA 12:13 | PROVIDERS: Visit Provider Internal Medicine | DX: I48.19 Other persistent atrial fibrillation (principal); Z51.81 Encounter for therapeutic drug level monitoring; Z79.01 Long term (current) use of anticoagulants | CPT/HCPCS: 36415; 85610; 99212 ==

== ENCOUNTER 2023-11-25 13:12 | Outpatient (AMB) | payer MEDICARE, SELFPAY ==
--- NOTE | 2023-11-25 14:34 | MHC.OFFVISCO ---
Intake Intake Visit Reasons: Anticoagulation Allergies Sulfa (Sulfonamide Antibiotics) Allergy (Unknown, Verified 11/25/23 14:02) UNKNOWN - DOES NOT REMEMBER Medication List - Last Reconciled 11/25/23 by Jeannette Smith RN alendronate 70 mg PO SA amiodarone 400 mg PO BID 30 days amlodipine 2.5 mg PO DAILY cholecalciferol (vitamin D3) 25 mcg PO DAILY furosemide (Lasix) 10 mg (1/2 x 20 mg) PO DAILY 30 days metoprolol tartrate 50 mg PO BID multivitamin (Daily Multi-Vitamin tablet) 1 tab PO DAILY pantoprazole 20 mg PO DAILY pravastatin 40 mg PO BEDTIME valsartan 160 mg PO DAILY warfarin 2.5 mg See Protocol PO DAILY warfarin See Protocol 5mg x 4 days/ 2.5mg x 3 days orally daily; pt has labile INR values regular dosing trying to be established Nursing Note INR received from [facility] nurse Maryuri at approx 1030, INR today is greater the 8 discussion with Maryuri that meter over 5 should have lab correlation Maryuri sts will do lab draw if have blue top tube discussed that pt will need hospital draw if unable to get PT/INR Pt appeared at [facility] and sent to lab for stat PT/INR INR lab is 7.4 ( greater than lab yesterday 7.3) pt sts she did not take warfarin last night sts she had some broccoli denies any bruising or bleeding, denies and rectal bleeding reviewed with pt importance of reporting any bleeding stressed to pt high risk for bleeding, careful with position changes when standing to help avoid dizziness or falls- instructed needs to go to ED if any bleeding or falls dosing plan- hold warfarin again today and tomorrow and increase greens reviewed type of greens that she likes (cabbage, bryanna slaw, broccoli and cauliflower) and to have greens twice a day today and tomorrow, ok for just one serving tomorrow plan on recheck INR on Monday 11/27 from [facility] and will have a lab draw (vs meter) asst pt to [facility], spoke with alia and reviewed instructions and fall risk [address] Ponce office to report critical INR [address] Ponce, above INR, dosing and assessment reported, and increase in lasix from 10mg daily to 20 mg daily for SOB and leg edema (from Cardiology) ---Dr Ponce would like pt to hold warfarin on Tuesday also 1500 TC to [facility]- spoke with Leanne PHILLIPS with INR , dosing plan and request for lab draw on 11/27 vs meter and to please have [facility] nurse call us when specimen dropped off 1505 TC to Pt and reviewed additional day for warfarin hold (Tuesday) 1508 TC from RAMNA Wahl- update given re pt, hold warfaarin and [facility] home labdraw 11/27 Nurses and patient verbalizes understanding of instructions given with accurate read back Anti-Coag Initial Assessment Social Hx Patient Tobacco Use Status: Never used Tobacco alcohol intake: never Alcohol intake frequency: does not drink Cardiovascular Hx: HTN, CHF and Other Endocrine Hx: Other Musculoskeletal Hx: Arthritis Blood Disorder Hx: Anemia GI Hx: Bleeding (GI, rectal) Cancer HX: No Psych. Illness/Depression: Yes ( blues ) Coding Level of Care Code Est Patient Level 2 Diagnoses Current use of anticoagulant therapy Z79.01 Time Spent (min) 30 Assessment & Plan Assessment & Plan (1) Current use of anticoagulant therapy: Code(s): Z79.01 - [facility] (current) use of anticoagulants Category: Medical
== END 2023-11-25 15:31 | disposition home or self-care (01) ==
PROVIDERS: PCP Internal Medicine; Visit Provider Internal Medicine
DX: Z79.01 Long term (current) use of anticoagulants (principal)

== ENCOUNTER 2023-11-25 13:12 | Outpatient (REF) | payer MEDICARE, SELFPAY ==
[2023-11-25 13:57] LABS: INTERNATIONAL NORM RATIO 7.4 (0.9-1.1)
== END 2023-11-25 13:13 | disposition home or self-care (01) ==
LOC: HO.LAB 13:12
PROVIDERS: Visit Provider Internal Medicine
DX: Z13.89 Encounter for screening for other disorder (principal)
CPT/HCPCS: 36415; 85610

== ENCOUNTER 2023-11-28 10:53 | Outpatient (REF) | payer MEDICARE, SELFPAY | END 2023-11-28 10:54 | disposition home or self-care (01) | LOC: HO.HVNA 10:53 | PROVIDERS: Visit Provider Internal Medicine | DX: I48.0 Paroxysmal atrial fibrillation (principal) | CPT/HCPCS: 36415; 85610 ==

== ENCOUNTER 2023-11-30 20:15 | Emergency (ER) | payer MEDICARE, SELFPAY ==
--- NOTE | ~2023-11-30 | XR_ITS ---
EXAMINATION: XR CHEST CLINICAL INFORMATION: Dizziness COMPARISON: 11/19/2023 TECHNIQUE: 2 views of the chest were obtained. FINDINGS: There is mild cardiac enlargement. No evidence of CHF. A left chest wall dual-lead pacemaker is present with leads in unchanged position. Status post median sternotomy. There is kyphoplasty cement of the T8 vertebral body with vertebral plana again noted involving T7. There is mild bronchial thickening and some minimal interstitial prominence, unchanged from prior. No consolidations or effusions. Bilateral degenerative changes are present in the shoulders with rotator cuff disease. XR/XR chest 2V IMPRESSION: No acute intrathoracic disease. Chronic changes as described above.
--- NOTE | 2023-11-30 20:24 | ED_ITS ---
HPI - General Adult General Chief complaint: Dizziness Stated complaint: dizziness, vision changes, does not feel good Time Seen by Provider: 11/30/23 23:50 Source: patient and family (Daughter, Helene) Mode of arrival: ambulatory Limitations: no limitations History of Present Illness ED Provider: Dr. Martin Pena HPI narrative: 83-year-old female with a history of atrial fibrillation, aortic stenosis, [employer] mechanical mitral valve, pacemaker, hyperlipidemia, hypertension, who presents emergency department for evaluation of dizziness. The patient states that she was watching television at 18:55 hours when she had a sudden onset of spinning sensation. She states that her head felt like it was spinning. She states that the symptoms lasted approximately 5-10 minutes. She had only the 1 episode of dizziness. S she lightheadedness, fever, chills, chest pain, nausea, vomiting, dark stools, bloody stools, frequency, urgency, dysuria. The patient states that she has been feeling short of breath and having dyspnea on exertion for several months. The patient was evaluated by her services host, Dr. Torres on 11/01/2023 for shortness of breath, dyspnea on exertion and shortness of breath with talking. Patient was found to be in atrial fibrillation and was felt that she was having recurrent episodes of atrial fibrillation over the last 6 months. The patient is on warfarin and also was having labile INRs. Patient had a transesophageal echo and was cardioverted on 11/09/2023. Patient was placed on amiodarone and metoprolol and according to the daughter since being on amiodarone her INRs have been extremely labile. The daughter also states that the patient has had difficulty with her near vision and the patient states she has been seeing halos around lights with no change in her color vision. Related Data Home Medications ?Medication ?Instructions ?Recorded ?Confirmed alendronate 70 mg tablet 70 mg PO SA 05/19/21 11/25/23 cholecalciferol (vitamin D3) 25 25 mcg PO DAILY 05/19/21 11/25/23 mcg (1,000 unit) capsule metoprolol tartrate 50 mg tablet 50 mg PO BID 05/19/21 11/25/23 multivitamin (Daily Multi-Vitamin 1 tab PO DAILY 05/19/21 11/25/23 tablet) pravastatin 40 mg tablet 40 mg PO BEDTIME 05/19/21 11/25/23 valsartan 160 mg tablet 160 mg PO DAILY 05/19/21 11/25/23 pantoprazole 20 mg tablet,delayed 20 mg PO DAILY 08/05/23 11/25/23 release warfarin 2.5 mg tablet 2.5 mg PO DAILY 11/02/23 11/28/23 warfarin 5 mg tablet See Rx Instructions PO DAILY 11/02/23 11/28/23 Previous Rx's ?Medication ?Instructions ?Recorded amlodipine 2.5 mg tablet 2.5 mg PO DAILY #90 tabs 06/28/23 furosemide 20 mg tablet (Lasix) 10 mg (1/2 x 20 mg) PO DAILY 30 11/19/23 days #15 tabs amiodarone 200 mg tablet 200 mg PO DAILY #30 tabs 11/28/23 Allergies Allergy/AdvReac Type Severity Reaction Status Date / Time Sulfa (Sulfonamide Allergy Unknown UNKNOWN - Verified 11/30/23 20:27 Antibiotics) DOES NOT REMEMBER Review of Systems 2 Review of Systems: Yes all other systems are reviewed and are negative FORMERLY [facility] Past Medical History Medical History Persistent atrial fibrillation Aortic stenosis H/O mitral valve replacement (~1996) Cardiac pacemaker in situ (~2009) Atrial fibrillation Mixed hyperlipidemia Current use of jail anticoagulation Osteoporosis (~2005) HTN (hypertension) Paroxysmal atrial fibrillation Sick sinus syndrome (~2009) Surgical History History of ventral hernia repair History of kyphoplasty (~2011) History of cardiac pacemaker (~2009) History of meniscectomy of right knee (~2012) History of mitral valve replacement (~1996) History of mitral valve repair (~1992) History of right knee surgery (~2017) Family History Family History Father No problems noted. Mother No problems noted. Social History Social History Household Members: None Housing: House Housing Other:: 2 family on firstr floor Do you presently have visiting nurse or other home services: No Alcohol intake: never Patient Tobacco Use Status: Never used Tobacco Smoked in Last 30 Days: No Second Hand Smoke Exposure: No Advance Directives: Yes Advance Directives on File: Yes Advance Directives Date on File: 07/11/23 Do you have a plan to hurt others: No Plan service: No Current occupational exposures/hazards: No Physical Exam ED Vital Signs: Vital Signs - 24 hr 11/30/23 20:25 11/30/23 21:46 11/30/23 23:10 Temperature 97.9 F 98.4 F 98.4 F Pulse Rate 70 72 73 Respiratory Rate 16 20 20 Blood Pressure 155/65 H 135/68 141/68 H Pulse Oximetry 96 94 94 Oxygen Delivery Method Room Air Room Air Room Air 12/01/23 01:03 Temperature 98.4 F Pulse Rate 73 Respiratory Rate 20 Blood Pressure 141/68 H Pulse Oximetry 94 Oxygen Delivery Method Room Air BMI result Body Mass Index 23.2 Vital signs revealed an elevated blood pressure otherwise unremarkable. 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 S1, normal S2 , 2/6 systolic murmur best heard at the right upper sternal border Abdomen: soft, non-tender, nondistended, normal bowel sounds Back: no vertebral tenderness, no CVAT Extremities: no deformities, moves all extremities symmetrically Neuro: General: Awake, alert, oriented, normal speech, Cranial nerves: Cranial nerves 2-12 are intact Strength: Symmetric strength bilaterally Cerebellar: Good lvgbnp-nk-pgnb-to-finger, good rapid finger movement, normal heel to groves, patient is able to walk with a walker with her cane without any ataxia Psych: Pleasant, cooperative Course Course Course Narrative: This is a rapid medical exam performed by Romina Silva NP: Additional HPI, ROS, PE not included below will be deferred to primary provider. Patient is an 83-year-old female with history of persistent afib on warfarin, pacemaker, mitral valve replacement, CAD, anemia, HTN presenting to the ED with episode of dizziness around 18:55. Was at a friend's house sitting down watching TV. Recently had amiodarone decreased from 400mg to 200mg over the weekend. Patient denies any pain. INR recently elevated, was 7, then 4.4 on Tuesday. Plan: EKG, labs, cxr Medical Decision Making Medical Decision Making [facility] Narrative: 83-year-old female with a history of atrial fibrillation, aortic stenosis, [employer] mechanical mitral valve, pacemaker, hyperlipidemia, hypertension, who presents emergency department for evaluation of dizziness. The patient states that she was watching television at 18:55 hours when she had a sudden onset of spinning sensation. She states that her head felt like it was spinning with the episode lasting approximately 5-10 minutes with no recurrence of the episode. Vital signs revealed an elevated respiratory rate and elevated heart rate. Physical examination was unremarkable with a normal neurologic and cerebellar exam. Differential diagnosis: ?Includes but is not limited to cerebellar stroke, positional vertigo, arrhythmia, electrolyte abnormalities, anemia Following evaluation was ordered: CBC, CMP, troponin, PT/INR, magnesium, urinalysis, chest x-ray two view, EKG, 12 EKG Course: My interpretation patient's laboratory evaluation as follows: Normocytic anemia with an H&H of 10.5 and 32.4-chronic. Therapeutic INR of 2.7. Elevated glucose 136. High sensitive troponin I was detectable but not elevated at 6.4. LFTs were normal. Twelve EKG revealed a paced rhythm. At this time I believe that the patient's symptoms are more consistent with vertigo and not related to an arrhythmia or cerebellar stroke. The patient's change in her vision is concerning and I suspect that it may be secondary to amiodarone. I did discuss this with the patient and the patient's daughter and advised him to contact their services host, tomorrow to discuss her visual changes and whether she should continue taking amiodarone her stop this medication. Patient was given printed and verbal instructions on vertigo and discharged home. Admission/Observation Consideration of admission/observation: Escalation of care including admission/observation considered Lab Data MDM Lab Attestation statement: I reviewed the patient's lab results. 11/30/23 20:48 11/30/23 20:48 Labs: Lab Results 11/30/23 Range/Units 20:48 WBC 9.6 (4.8-10.8) X10*3/uL RBC 3.63 L (4.20-5.50) X10*6/uL Hgb 10.5 L (12.0-16.0) g/dl Hct 32.4 L (37.0-47.0) % MCV 89.3 (80.0-98.0) fL MCH 28.9 (27.0-33.0) pg MCHC 32.4 (31.0-35.0) g/dl RDW 16.4 H (11.0-16.0) % Plt Count 282 (160-400) X10*3/uL MPV 8.7 L (9.4-12.3) fL Immature Gran % (Auto) 0.3 (0.0-0.4) % Neut % (Auto) 82.6 H (45-73) % Lymph % (Auto) 6.9 L (20-40) % Saline % (Auto) 9.4 (2-11) % Eos % (Auto) 0.4 (0-4) % Baso % (Auto) 0.4 (0-2) % Lymph # (Auto) 0.7 L (1.2-4.9) X10*3/uL Saline # (Auto) 0.9 (0.1-1.2) X10*3/uL Eos # (Auto) 0.0 (0.0-0.4) X10*3/uL Baso # (Auto) 0.0 (0.0-0.2) X10*3/uL Abs Immat Gran (auto) 0.03 (0.00-0.03) X10*3/uL Absolute Neuts (auto) 7.9 (2.0-8.3) x10*3/uL Absolute Nucleated RBC 0.000 (0.0-0.012) X10*3/uL Nucleated RBC % (auto) 0.0 (0.0-0.2) /100WBC PT 32.6 H D (11.1-13.3) SEC INR 2.7 H D (0.9-1.1) Sodium 139 (135-145) mmol/L Potassium 4.3 (3.3-5.1) mmol/L Chloride 103 (96-108) mmol/L Carbon Dioxide 24 (22-29) mmol/L Anion Gap 16 (12-20) BUN 25 H (9-16) mg/dL Creatinine 0.99 (0.5-1.4) mg/dL Estim Creat Clear Calc 29.8 Estimated GFR 53 Random Glucose 136 H (60-115) mg/dL Calcium 9.8 (8.4-10.2) mg/dL Magnesium 2.1 (1.6-2.6) mg/dL Total Bilirubin 1.5 H (0.0-1.0) mg/dL AST 32 H (5-31) U/L ALT 29 (0-31) U/L Alkaline Phosphatase 94 (39-117) U/L Troponin I High Sens 6.4 (<3.5-17.0) ng/L Total Protein 7.6 (6.5-8.0) g/dL Albumin 4.4 (3.5-5.0) g/dL Independent Interpretation I performed an independent interpretation of an: EKG Interpretation: My independent interpretation of the patient's 12 EKG done at 20:36 hours is as follows: Ventricular paced rhythm with a rate of 71 My independent interpretation of the patient's two view chest x-ray is as follows: No acute disease Radiology Impression Discussion of test interpretation with radiology: I have reviewed the radiologist's reading. Radiologist Impression: XR chest 2V IMPRESSION: No acute intrathoracic disease. Chronic changes as described above. Dictated By: Mitchel Menon MD Independent Historian Clinical information obtained from an independent historian. History obtained from or confirmed by: Other (Daughter) External Record Review External record reviewed: Inpatient record and Office record Chronic Conditions Patient?s care impacted by: Hypertension and Other (Coronary artery disease) Discharge Plan Discharge Clinical Impression: Vertigo, Visual changes Patient Disposition: Home, Self-Care Instructions: Vertigo (ED) Additional Instructions: Your laboratory evaluation was unremarkable Your EKG showed a paced rhythm. Your symptoms of your head spinning/room spinning is consistent with vertigo most likely caused by your inner ear balance mechanism sending your brain the wrong signal which makes you feel like your spinning. Vertigo can come in episodes and can last 1-2 weeks. If you feel dizzy, sit down or lie down and the symptoms should resolve in 10-15 minutes. Your visual changes, difficulty with reading and seeing halos could be caused by amiodarone. I want you to call Dr. Luke office and talk to him about your visual change to see if you should continue amiodarone or if this medication should be stopped. Follow-up with your doctor in 2 days. Please return to the emergency department if your symptoms get worse or if you develop any symptoms that are concerning to you. Prescriptions: No Action amlodipine 2.5 mg tablet 2.5 mg PO DAILY Qty: 90 3RF amiodarone 200 mg tablet 200 mg PO DAILY Qty: 30 5RF furosemide [Lasix] 20 mg tablet 10 mg PO DAILY 30 Days Qty: 15 0RF valsartan 160 mg tablet 160 mg PO DAILY alendronate 70 mg tablet 70 mg PO SA pravastatin 40 mg tablet 40 mg PO BEDTIME metoprolol tartrate 50 mg tablet 50 mg PO BID multivitamin [Daily Multi-Vitamin] Tablet 1 tab PO DAILY cholecalciferol (vitamin D3) 25 mcg (1,000 unit) capsule 25 mcg PO DAILY pantoprazole 20 mg tablet,delayed release (DR/EC) 20 mg PO DAILY warfarin 2.5 mg tablet 2.5 mg PO DAILY Protocol: Dose Management Condition: Tuesday Dose/Route: 0 mg Instruction: 0 tablets Condition: Tuesday Dose/Route: 2.5 mg Instruction: 1 x 2.5 mg tablet Condition: Tuesday Dose/Route: 1.25 mg Instruction: 0.5 x 2.5 mg tablets Condition: Tuesday Dose/Route: 2.5 mg Instruction: 1 x 2.5 mg tablet Condition: Dose/Route: 2.5 mg Instruction: 1 x 2.5 mg tablet Condition: Tuesday Dose/Route: 5 mg Instruction: 1 x 5 mg tablet Condition: Tuesday Dose/Route: 2.5 mg Instruction: 1 x 2.5 mg tablet Protocol Text: Adjustment Start Date: Tuesday11/28/23 INR Value: 4.4 INR Date: 11/28/23 Recheck Date: 12/01/23 warfarin 5 mg tablet See Rx Instructions PO DAILY Protocol: Dose Management Condition: Tuesday Dose/Route: 0 mg Instruction: 0 tablets Condition: Tuesday Dose/Route: 2.5 mg Instruction: 1 x 2.5 mg tablet Condition: Tuesday Dose/Route: 1.25 mg Instruction: 0.5 x 2.5 mg tablets Condition: Tuesday Dose/Route: 2.5 mg Instruction: 1 x 2.5 mg tablet Condition: Dose/Route: 2.5 mg Instruction: 1 x 2.5 mg tablet Condition: Tuesday Dose/Route: 5 mg Instruction: 1 x 5 mg tablet Condition: Tuesday Dose/Route: 2.5 mg Instruction: 1 x 2.5 mg tablet Protocol Text: Adjustment Start Date: Tuesday11/28/23 INR Value: 4.4 INR Date: 11/28/23 Recheck Date: 12/01/23 Rx Instructions: 5mg x 4 days/ 2.5mg x 3 days orally daily; pt has labile INR values regular dosing trying to be established Interventions: ED Discharge Assessment Last Done: 12/01/23 01:03 Discharge Date/Time: 12/01/23 01:04 Print Language: Persian
[2023-11-30 20:25] VITALS: BP 155/65; PULSE 70; RESP 16; TEMP 36.6; O2SAT 96; BMI 23.2
--- NOTE | 2023-11-30 20:27 | ECG_ITS ---
Test Reason : dizziness Blood Pressure : / mmHG Vent. Rate : 071 BPM Atrial Rate : 071 BPM P-R Int : 218 ms QRS Dur : 224 ms QT Int : 520 ms P-R-T Axes : 000 -60 121 degrees QTc Int : 565 ms AV dual-paced rhythm with prolonged AV conduction Abnormal ECG When compared with ECG of 19-NOV-2023 02:32, No significant change was found Referred By: Wanda Silva Electronically Signed By:JAYLAN SAXENA MD
[2023-11-30 20:52] LABS: MANUAL DIFF FLAG NO
[2023-11-30 21:03] LABS: Basophils Percent Auto 0.4 % (0-2); Eosinophils Percent Auto 0.4 % (0-4); Hematocrit 32.4 % (37.0-47.0); Hemoglobin 10.5 g/dl (12.0-16.0); INTERNATIONAL NORM RATIO 2.7 (0.9-1.1); Imm Gran Abs Auto 0.03 X10*3/uL (0.00-0.03); Imm Gran Pct Auto 0.3 % (0.0-0.4); Lymphocytes Absolute Auto 0.7 X10*3/uL (1.2-4.9); Lymphocytes Percent Auto 6.9 % (20-40); Mean Corpuscular HGB Conc 32.4 g/dl (31.0-35.0); Mean Corpuscular Hemoglobin 28.9 pg (27.0-33.0); Mean Corpuscular Volume 89.3 fL (80.0-98.0); Mean Platelet Volume 8.7 fL (9.4-12.3); Monocytes Absolute Auto 0.9 X10*3/uL (0.1-1.2); Monocytes Percent Auto 9.4 % (2-11); Neutrophils Absolute Auto 7.9 x10*3/uL (2.0-8.3); Neutrophils Percent Auto 82.6 % (45-73); Platelet Count 282 X10*3/uL (160-400); Prothrombin Time 32.6 SEC (11.1-13.3); Red Blood Count 3.63 X10*6/uL (4.20-5.50); Red Cell Distribution Width 16.4 % (11.0-16.0); White Blood Count 9.6 X10*3/uL (4.8-10.8)
[2023-11-30 21:24] LABS: Alanine Aminotransferase 29 U/L (0-31); Albumin Level 4.4 g/dL (3.5-5.0); Alkaline Phosphatase 94 U/L (39-117); Anion Gap 16 (12-20); Aspartate Amino Transferase 32 U/L (5-31); Bilirubin Total 1.5 mg/dL (0.0-1.0); Blood Urea Nitrogen 25 mg/dL (9-16); Calcium 9.8 mg/dL (8.4-10.2); Carbon Dioxide 24 mmol/L (22-29); Chloride 103 mmol/L (96-108); Creatinine Clr Calc Pharmacy 29.8; Estimated Glomerular Filt Rate 53; Glucose Random 136 mg/dL (60-115); Magnesium 2.1 mg/dL (1.6-2.6); Potassium 4.3 mmol/L (3.3-5.1); Sodium 139 mmol/L (135-145); Total Protein 7.6 g/dL (6.5-8.0)
[2023-11-30 21:32] LABS: Troponin-I High Sensitivity 6.4 ng/L (<3.5-17.0)
--- NOTE | 2023-11-30 21:33 | PC.NURSE ---
all nuero intact-pt a/ox4
[2023-11-30 21:46] VITALS: BP 135/68; PULSE 72; RESP 20; TEMP 36.9; O2SAT 94
--- NOTE | 2023-11-30 21:47 | MHC.EDTECH ---
Patient brought back from the waiting room,placed on the ict customer support officer,vitals taken,daughter at bedside,call robison in reach
[2023-11-30 23:10] VITALS: BP 141/68; PULSE 73; RESP 20; TEMP 36.9; O2SAT 94
--- NOTE | 2023-11-30 23:10 | MHC.EDTECH ---
Hourly rounds and vitals completed,patient is resting comfortably at this time
[2023-12-01 01:03] VITALS: BP 141/68; PULSE 73; RESP 20; TEMP 36.9; O2SAT 94
== END 2023-12-01 01:04 | disposition home or self-care (01) ==
PROVIDERS: Registered Nurse Emergency; Emergency Provider Emergency Medicine Emergency Medical Services; PCP Internal Medicine
DX: R42 Dizziness and giddiness (principal); H53.8 Other visual disturbances; R06.02 Shortness of breath; I10 Essential (primary) hypertension; E78.2 Mixed hyperlipidemia; I48.91 Unspecified atrial fibrillation; Z95.2 Presence of prosthetic heart valve; Z79.01 Long term (current) use of anticoagulants
CPT/HCPCS: 36415; 71046; 80053; 83735; 84484; 85025; 85610; 93005; 99283; 99285

== ENCOUNTER → 2023-11-30 20:27 | Outpatient (BNV) | payer MEDICARE, SELFPAY | PROVIDERS: Emergency Provider Emergency Medicine Emergency Medical Services; PCP Internal Medicine; Visit Provider Internal Medicine Cardiovascular Disease | DX: R94.31 Abnormal electrocardiogram [ECG] [EKG] (principal) | CPT/HCPCS: 93010 ==

== ENCOUNTER → 2023-12-01 14:50 | Outpatient (BNVA) | payer MEDICARE, SELFPAY | PROVIDERS: PCP Internal Medicine; Visit Provider Internal Medicine ==

== ENCOUNTER 2023-12-06 12:00 | Outpatient (REF) | payer MEDICARE, SELFPAY ==
[2023-12-06 17:08] LABS: Cancelled Coag QNS
== END 2023-12-06 12:01 | disposition home or self-care (01) ==
LOC: HO.HVNA 12:00
PROVIDERS: PCP Internal Medicine; Visit Provider Internal Medicine
DX: R79.1 Abnormal coagulation profile (principal)
CPT/HCPCS: 36415

== ENCOUNTER → 2023-12-06 14:36 | Outpatient (BNVA) | payer MEDICARE, SELFPAY | PROVIDERS: PCP Internal Medicine; Visit Provider Internal Medicine ==

== ENCOUNTER → 2023-12-07 10:54 | Outpatient (REF) | payer MEDICARE, SELFPAY ==
--- NOTE | ~2023-12-07 | NM_ITS ---
EXAMINATION: NM BONE SCAN OF THE WHOLE BODY CLINICAL INFORMATION: History of compression fracture. Increasing mid back pain. Personal history of kyphoplasty in 2012 and right knee surgery in 2018 and history of left femoral fracture 1 year ago. COMPARISON: Chest radiograph done on 11/30/2023. Radiographs of the left femur done on 05/26/2023. TECHNIQUE: Multiple gamma scintillation camera images of the whole body were performed 2.75 hours following the intravenous administration of 22 mCi Tc-99m MDP. The radiotracer was injected through left antecubital superficial vein without complications. FINDINGS: In the head, no suspicious focal abnormality. In the thoracic cage and upper extremities, bilateral increased tracer avidity at the shoulders (right greater than left) for which radiographic correlation is recommended. Slight heterogeneous tracer avidity however is noted within the ribs especially along the anterolateral aspect of the right-sided thoracic cage without any definite suspicious focal abnormality. In the spine, linear bandlike increased tracer avidity is seen at T12, likely represent compression fracture, of indeterminate etiology. Milder focal increased tracer avidity is also noted at T7 vertebral body level and the right posterior costotransverse junction region. Follow-up radiographs of the thoracolumbar spine is recommended. In the pelvis, no suspicious focal lesion. In the lower extremities, focal increased tracer avidity within the proximal left femur when correlating with the prior radiographs dated 05/26/2023 would be consistent with postsurgical changes. Mild focal increased tracer avidity (left greater than right) around both knees and both feet (right greater than left) likely represent posttraumatic, degenerative and/or nonspecific arthritic changes. Radiographic correlation is recommended. No other definite bony abnormalities are noted. The urinary bladder and faint visualization of both kidneys are noted. NM/NM bone scan whole body IMPRESSION: * Linear bandlike intense increased tracer avidity is seen at the T12 vertebral body level, most consistent with compression fracture, of indeterminate etiology. Milder increased tracer avidity is also noted at T7 vertebral body level. Follow-up radiograph of the thoracolumbar spine is recommended for further clarification. * Nonspecific significant increased tracer avidity around both shoulders, may represent posttraumatic and/or arthritic changes. Radiographic correlation is recommended. * Heterogeneous increased tracer avidity around proximal left femur when correlating with prior radiographs dated 05/26/2023 likely represent postsurgical changes. * Nonspecific increased tracer avidity around both knees and both feet likely represent posttraumatic and/or arthritic changes as well. Radiographic correlation would be helpful for further clarification.
== END ==
LOC: HO.NUCMED 10:54
PROVIDERS: PCP Internal Medicine; Visit Provider Internal Medicine
DX: Z87.311 Personal history of (healed) other pathological fracture (principal)
CPT/HCPCS: 78306; A9503

== ENCOUNTER → 2023-12-08 13:36 | Outpatient (BNVA) | payer MEDICARE, SELFPAY | PROVIDERS: PCP Internal Medicine; Visit Provider Internal Medicine ==

== ENCOUNTER 2023-12-09 11:33 | Outpatient (REF) | payer MEDICARE, SELFPAY ==
--- NOTE | ~2023-12-09 | XR_ITS ---
EXAMINATION: XR RIGHT KNEE XR LEFT KNEE CLINICAL INFORMATION: Bilateral knee pain. COMPARISON: X-rays of the right knee 08/25/2018. X-ray of both knees July of 2018. X-rays of the left femur April of 2023. TECHNIQUE: AP and lateral views of each knee. FINDINGS: RIGHT KNEE: K wires present within the patella as seen previously. There is mild deformity of the distal patella, a sequela of healed mildly displaced patellar fracture. hardware is intact. No surrounding lucency. Patellofemoral compartment: Evaluation of the patellofemoral compartment is limited without patella view. Medial compartment: There is mild arthrosis of the medial compartment with marginal osteophytes. Lateral compartment: Unremarkable. No effusion. LEFT KNEE: Postoperative changes with the distal end of a femoral brenna in place. The hardware is intact. There is mild lucency surrounding the distal screws, probably unchanged compared to prior. Medial and lateral compartments: Normal. Patellofemoral compartment: Appears normal on the lateral projection. No effusion. XR/XR knee LT 2V IMPRESSION: RIGHT KNEE: Stable postoperative changes of the right knee/patella with a healed patella fracture and unchanged alignment. Mild arthrosis of the medial compartment unchanged. LEFT KNEE: 1. Stable postoperative changes. Mild lucency surrounding the distal screws, unchanged compared to prior. 2. No acute abnormality. Mild arthrosis of the medial compartment.
--- NOTE | ~2023-12-09 | XR_ITS ---
EXAMINATION: XR THORACOLUMBAR SPINE CLINICAL INFORMATION: Back pain COMPARISON: None available. TECHNIQUE: 2 views of the thoracic spine. FINDINGS: Diffuse osteopenia limits evaluation. There are multiple wedge deformities of the upper and mid thoracic vertebral bodies status post kyphoplasty of a midthoracic vertebral body. Partially visualized cardiomegaly and dual-lead AICD device XR/XR thoracic spine 2V IMPRESSION: Diffuse osteopenia limits evaluation. There are multiple wedge deformities of the upper and mid thoracic vertebral bodies status post kyphoplasty of a midthoracic vertebral body.
--- NOTE | ~2023-12-09 | XR_ITS ---
EXAMINATION: XR RIGHT KNEE XR LEFT KNEE CLINICAL INFORMATION: Bilateral knee pain. COMPARISON: X-rays of the right knee 08/25/2018. X-ray of both knees July of 2018. X-rays of the left femur April of 2023. TECHNIQUE: AP and lateral views of each knee. FINDINGS: RIGHT KNEE: K wires present within the patella as seen previously. There is mild deformity of the distal patella, a sequela of healed mildly displaced patellar fracture. hardware is intact. No surrounding lucency. Patellofemoral compartment: Evaluation of the patellofemoral compartment is limited without patella view. Medial compartment: There is mild arthrosis of the medial compartment with marginal osteophytes. Lateral compartment: Unremarkable. No effusion. LEFT KNEE: Postoperative changes with the distal end of a femoral brenna in place. The hardware is intact. There is mild lucency surrounding the distal screws, probably unchanged compared to prior. Medial and lateral compartments: Normal. Patellofemoral compartment: Appears normal on the lateral projection. No effusion. XR/XR knee RT 2V IMPRESSION: RIGHT KNEE: Stable postoperative changes of the right knee/patella with a healed patella fracture and unchanged alignment. Mild arthrosis of the medial compartment unchanged. LEFT KNEE: 1. Stable postoperative changes. Mild lucency surrounding the distal screws, unchanged compared to prior. 2. No acute abnormality. Mild arthrosis of the medial compartment.
--- NOTE | ~2023-12-09 | XR_ITS ---
EXAMINATION: XR lumbar spine 2-3V CLINICAL INFORMATION: Reason for Exam BACK PAIN, FOLLOW UP SCAN COMPARISON: Lumbar spine radiographs 12/12/2015 TECHNIQUE: 3 views of the lumbar spine FINDINGS: 5 nonrib-bearing lumbar-type vertebral bodies. Continued vertebral body height loss of the L1 vertebral body when compared to 2016 with approximately 75% loss of height. Grade 1 anterolisthesis of L5 on S1. Moderate multilevel degenerative disc disease with loss of disc space height, facet arthropathy and disc osteophyte complexes. This is worst at L5/S1. Atherosclerotic calcifications of the abdominal aorta. XR/XR lumbar spine 2-3V IMPRESSION: * Moderate spondylosis of the lumbar spine, as above detailed. * Continued vertebral body height loss of the L1 vertebral body when compared to 2016 with approximately 75% loss of height.
== END 2023-12-09 11:34 | disposition home or self-care (01) ==
LOC: HO.HMGCX 11:33
PROVIDERS: PCP Internal Medicine; Visit Provider Internal Medicine
DX: M54.9 Dorsalgia, unspecified (principal); M25.562 Pain in left knee; M25.561 Pain in right knee; M85.88 Other specified disorders of bone density and structure, other site; M51.36 Other intervertebral disc degeneration, lumbar region; M48.54XD Collapsed vertebra, not elsewhere classified, thoracic region, subsequent encounter for fracture with routine healing; M47.816 Spondylosis without myelopathy or radiculopathy, lumbar region; Z98.890 Other specified postprocedural states; Z96.7 Presence of other bone and tendon implants
CPT/HCPCS: 72070; 72100; 73560

== ENCOUNTER → 2023-12-12 14:56 | Outpatient (BNVA) | payer MEDICARE, SELFPAY | PROVIDERS: PCP Internal Medicine; Visit Provider Internal Medicine ==

== ENCOUNTER 2023-12-14 13:48 | Outpatient (AMB) | payer MEDICARE, SELFPAY ==
[2023-12-14 14:01] VITALS: BP 120/80; PULSE 81; BMI 24.4
--- NOTE | 2023-12-14 14:01 | MHC.OFFVIS ---
Vital Signs 12/14/23 14:01 Height 4 ft 10 in Weight 116 lb 13.52 oz BMI 24.4 BP 120/80 Blood Pressure Location Lt brachial Position Sitting Pulse 81 Intake Visit Reasons: follow-up ekg and medtronic check Intake Note: Follow-up with ekg and medtronic check c/o increased sob and leg edema Charge Out Clerk Required: No Wire Roller: Wire Roller Present Accompanied by: Daughter Allergies Sulfa (Sulfonamide Antibiotics) Allergy (Unknown, Verified 12/12/23 15:06) UNKNOWN - DOES NOT REMEMBER Medication List - Last Reconciled 12/14/23 by Agustin Luke MD alendronate 70 mg PO SA amiodarone 200 mg PO DAILY amlodipine 2.5 mg PO DAILY cholecalciferol (vitamin D3) 25 mcg PO DAILY furosemide (Lasix) 10 mg (1/2 x 20 mg) PO DAILY 30 days metoprolol tartrate 50 mg PO BID multivitamin (Daily Multi-Vitamin tablet) 1 tab PO DAILY pantoprazole 20 mg PO DAILY pravastatin 40 mg PO BEDTIME valsartan 160 mg PO DAILY warfarin 2.5 mg See Protocol PO DAILY HPI Comments Details: Bethany comes for follow-up after cardioversion. This was about 4 weeks ago. This was a ROSA guided cardioversion given her labile INRs. At that time she had no intracardiac thrombi. Planimetry aortic valve area was in the moderately severe range. She was cardioverted and started on amiodarone given her significant left atrial enlargement. Since then she is developed some visual changes and has decreased acuity of vision in the left eye as well as seeing some halos. She had presented emergency room with sudden-onset dizziness which was described as vertigo. However as per the daughter she continues to have significant shortness of breath which is not improving significantly. She is currently only on 10 mg of furosemide. She is bilateral leg swelling. Has exertional shortness with minimal activity and also has symptoms suggestive of orthopnea. Denies any prolonged palpitations. Comes for evaluation. [facility]LY [facility] Medical History Persistent atrial fibrillation Aortic stenosis H/O mitral valve replacement (~1996) Cardiac pacemaker in situ (~2009) Atrial fibrillation Mixed hyperlipidemia Current use of long-term anticoagulation Osteoporosis (~2005) HTN (hypertension) Paroxysmal atrial fibrillation Sick sinus syndrome (~2009) Surgical History History of ventral hernia repair History of kyphoplasty (~2011) History of cardiac pacemaker (~2009) History of meniscectomy of right knee (~2012) History of mitral valve replacement (~1996) History of mitral valve repair (~1992) History of right knee surgery (~2017) Family History Father No problems noted. Mother No problems noted. Social History Household Members: None Housing: House Housing Other:: 2 family on firstr floor Do you presently have visiting nurse or other home services: No Alcohol intake: never Patient Tobacco Use Status: Never used Tobacco Second Hand Smoke Exposure: No Advance Directives Date on File: 07/11/23 service: No Current occupational exposures/hazards: No Review of Systems Const Denies chills, Denies fatigue, Denies fever(s), Denies frequent falls, Denies weakness, Denies weight gain and Denies weight loss ENT Denies dizziness Card Denies chest pain, Reports leg edema, Denies lightheadedness, Denies palpitations, Denies dyspnea, Reports dyspnea on exertion, Reports orthopnea and Denies other (loss of consciousness) Resp Denies cough, Denies dyspnea and Reports dyspnea on exertion GI Denies hematochezia and Denies change in stool character Musc Denies abnormal gait, Denies muscle weakness, Denies numbness, Denies radiating pain into limb and Denies tingling Neuro Denies abnormal gait, Denies dizziness, Denies frequent falls, Denies numbness, Denies tingling and Denies weakness Endo Denies fatigue and Denies palpitations Physical Exam Vital Signs: Last Vital Signs Pulse 81 12/14/23 14:01 BP 120/80 12/14/23 14:01 BMI result Body Mass Index 24.4 Const General: cooperative, comfortable, alert, awake and in distress mild and respiratory Nutritional Appearance: average body habitus Orientation/consciousness: patient oriented x3 Neck Neck: Yes trachea midline, Yes supple and Yes JVD Resp Effort & Inspection: normal respiratory effort Auscultation: crackles Cardio Jugular venous distension: JVD Rate: regular rate Rhythm: regular rhythm Heart sounds: no click, no gallops, Murmur heart sound present systolic decrescendo, crescendo and harsh and Other heart sounds present (Bethany comes for follow-up after cardioversion. This was about 4 weeks a) GI Auscultation: normal bowel sounds Skin General skin exam: no rashes or lesions noted Neuro General: patient oriented x3 and no focal motor deficits Extrem General: No clubbing, No cyanosis and Yes edema Office Procedures Cardiac Device Check Cardiac Device Check Details: Dual-chamber Medtronic pacemaker in place. Programmed in MVP mode with rate response at 70 beats per minute. [place] of atrial fibrillation significantly reduced but was present last episode in October. Ventricular pacing 100% of time. Atrial pacing 87% of the time. Atrial and ventricular sensing is adequate. Pacing lead impedance is stable. Battery life is at about 8 years. [id number] Cardiac Device Check, pacemaker dual lead Procedure code (CPT) selection complete EKG Details: EKG shows AV dual paced rhythm with PACs [id number], Complete Assessment & Plan Assessment & Plan (1) Congestive heart failure: Code(s): I50.9 - Heart failure, unspecified Category: Medical Plan: Patient seems like having fluid overload and signs and symptoms suggestive of congestive heart failure. Will obtain lab work to make sure she has no significant anemia. Will also obtain basic metabolic profile and BNP. I have advised her to increase her Lasix to 20 mg b.i.d.. Will follow-up with her clinically in 2 days to see if she is improvement in her symptoms. Follow-up blood work in 1 weeks time. She is having progressive CHF symptoms despite maintaining rhythm. Possibility of progressive aortic stenosis which could be underestimated by echocardiogram. Would suggest cardiac catheterization with hemodynamic evaluation in 2 weeks, 6 weeks post cardioversion. This was discussed with her. If she continues to have worsening symptoms or sudden worsening symptoms advised to come to the emergency room and may require IV diuresis. Follow up in the clinic in 2 weeks (2) Cardiac pacemaker in situ: Onset Date: ~2009 Comment: (Medtronic DCPP - placed 2009, generator changes in 2015 & 2020) Code(s): Z95.0 - Presence of cardiac pacemaker Category: Medical Plan: Cardiac pacemaker in-situ, working well. Reprogrammed for adequate function. Will follow up in 3 months (3) Paroxysmal atrial fibrillation: Code(s): I48.0 - Paroxysmal atrial fibrillation Category: Medical Plan: Paroxysmal atrial fibrillation now suppressed and with predominantly controlled rhythm with the last 4 weeks since cardioversion. Continue amiodarone therapy. She is having some concerning symptoms with visual loss and color vision in his left eye. Advise ophthalmologic evaluation. This should be done as soon as possible. Continue warfarin therapy with target INR between 2.5 and 3.5. May require additional aspirin therapy if need be. Continue aggressively rhythm control approach. (4) H/O mitral valve replacement: Onset Date: ~1996 Comment: ([place] mechanical valve, size unknown - 1996) Code(s): Z95.2 - Presence of prosthetic heart valve Category: Medical Plan: Prior mechanical mitral valve replacement, clinically working well. Continue warfarin therapy with target INR between 2.5 and 3.5. May require in concomitant additional aspirin therapy. SBE prophylaxis as per ACC/aha guidelines. (5) Aortic stenosis: Code(s): I35.0 - Nonrheumatic aortic (valve) stenosis Category: Medical Plan: Aortic stenosis which appears to be moderately severe by recent transesophageal echocardiogram although could be underestimated. Would suggest full hemodynamic evaluation to see if she would benefit from transcatheter aortic valve replacement especially given her progressive heart failure syndrome. This will be scheduled in 2 weeks. Will continue monitor clinically otherwise (6) CAD (coronary artery disease): Code(s): I25.10 - Atherosclerotic heart disease of picayune coronary artery without angina pectoris Category: Medical Plan: CAD stable with no current anginal symptoms. Follow-up with cardiac catheterization near future. Continue risk factor modification. Currently on full oral anticoagulation warfarin. Will require Lovenox bridging prior to cardiac catheterization. Will follow up in the clinic in 2 weeks time, sooner p.r.n.. Greater than 40 minutes was spent in managing his complex care. Orders: Orders Basic Metabolic Panel Today I50.9 - Heart failure, unspecified B Type Natriuretic Peptide Today I50.9 - Heart failure, unspecified Complete Blood Count no Diff Today I50.9 - Heart failure, unspecified B Type Natriuretic Peptide 1 Week I50.9 - Heart failure, unspecified Basic Metabolic Panel 1 Week I50.9 - Heart failure, unspecified Cardiac Cath JACQUELINE Diagnostic 2 Weeks I50.9 - Heart failure, unspecified Medications: Changed From furosemide (Lasix) 10 mg (1/2 x 20 mg) PO DAILY 30 days 15 tabs 0RF To furosemide (Lasix) 20 mg PO BID 30 days 60 tabs 0RF Coding Level of Care Code Est Pt Level 5 (64542) Diagnoses Congestive heart failure I50.9 Cardiac pacemaker in situ Z95.0 Paroxysmal atrial fibrillation I48.0 H/O mitral valve replacement Z95.2 Aortic stenosis I35.0 CAD (coronary artery disease) I25.10 CPT Codes Cardiac Device Check - Cardiac Device 2: [id number] Cardiac Device Check, pacemaker dual lead ([id number]) EKG - CPT: 12124-[id number], Complete ([id number])
== END 2023-12-14 14:36 | disposition home or self-care (01) ==
PROVIDERS: PCP Internal Medicine; Visit Provider Internal Medicine Cardiovascular Disease
DX: I50.9 Heart failure, unspecified (principal); I48.0 Paroxysmal atrial fibrillation; I49.3 Ventricular premature depolarization; Z95.0 Presence of cardiac pacemaker; Z95.2 Presence of prosthetic heart valve; I35.0 Nonrheumatic aortic (valve) stenosis; I25.10 Atherosclerotic heart disease of native coronary artery without angina pectoris
CPT/HCPCS: 93010; 93280; 99215

== ENCOUNTER 2023-12-14 13:48 | Outpatient (REF) | payer MEDICARE, SELFPAY ==
[2023-12-14 15:44] LABS: Hematocrit 31.4 % (37.0-47.0); Hemoglobin 10.1 g/dl (12.0-16.0); Mean Corpuscular HGB Conc 32.2 g/dl (31.0-35.0); Mean Corpuscular Hemoglobin 28.8 pg (27.0-33.0); Mean Corpuscular Volume 89.5 fL (80.0-98.0); Mean Platelet Volume 9.2 fL (9.4-12.3); Platelet Count 260 X10*3/uL (160-400); Red Blood Count 3.51 X10*6/uL (4.20-5.50); Red Cell Distribution Width 17.4 % (11.0-16.0); White Blood Count 9.3 X10*3/uL (4.8-10.8)
[2023-12-14 16:34] LABS: Anion Gap 10 (12-20); Blood Urea Nitrogen 19 mg/dL (9-16); Calcium 9.5 mg/dL (8.4-10.2); Carbon Dioxide 27 mmol/L (22-29); Chloride 106 mmol/L (96-108); Estimated Glomerular Filt Rate 49; Glucose Random 101 mg/dL (60-115); Potassium 4.6 mmol/L (3.3-5.1); Sodium 138 mmol/L (135-145)
[2023-12-14 16:41] LABS: B Type Natriuretic Peptide 2043 pg/mL (<100)
== END 2023-12-14 13:49 | disposition home or self-care (01) ==
LOC: HO.LAB 13:48
PROVIDERS: PCP Internal Medicine; Visit Provider Internal Medicine Cardiovascular Disease
DX: I50.9 Heart failure, unspecified (principal); I48.0 Paroxysmal atrial fibrillation; I35.0 Nonrheumatic aortic (valve) stenosis; I25.10 Atherosclerotic heart disease of native coronary artery without angina pectoris; Z95.0 Presence of cardiac pacemaker; Z95.2 Presence of prosthetic heart valve
CPT/HCPCS: 36415; 80048; 83880; 85027; 93005; 93280; 99212

== ENCOUNTER 2023-12-19 14:31 | Inpatient (IN) | payer MEDICARE, SELFPAY ==
--- NOTE | ~2023-12-19 | XR_ITS ---
EXAMINATION: XR CHEST CLINICAL INFORMATION: Shortness of breath COMPARISON: Chest x-ray November 30, 2023 TECHNIQUE: 2 views of the chest were obtained. FINDINGS: No change position of pacemaker leads in right atrium and right ventricle. Status post sternotomy. Heart size is enlarged. There are vascular calcifications of aorta. No pulmonary vascular congestion. Lungs normally aerated. No pleural effusion and no pneumothorax. Kyphosis of dorsal spine. Multilevel degenerative spondylosis. Status post thoracoplasty chronic compression deformity midthoracic vertebral body. There are stable adjacent compression deformities of mid thoracic vertebral bodies unchanged as well. Chronic rotator cuff tendon tear of both shoulders. XR/XR chest 2V IMPRESSION: No acute abnormality of the chest.
[2023-12-19 14:52] VITALS: BP 135/85; PULSE 72; RESP 20; TEMP 36.5; O2SAT 95; BMI 22.5
--- NOTE | 2023-12-19 14:52 | ED.SOB ---
HPI - SOB/Dyspnea General Chief Complaint: Dyspnea Stated Complaint: Fluid in legs sent by DR Peng Seen by Provider: 12/19/23 18:56 Source: patient Mode of arrival: ambulatory Limitations: no limitations History of Present Illness ED Provider: Dr. Noreen Lee HPI Narrative: Patient comes to the emergency room complaining of shortness of breath with exertion. Patient states that she is known to have atrial fibrillation on Coumadin, CHF. Patient states that a few days ago, patient had an appointment with her chief technical officer, her Lasix was increased from 10 mg to 40 mg, but patient states that her legs keep getting more swollen. Patient denies any chest pain, no falls. No syncopal episodes. Related Data Home Medications ?Medication ?Instructions ?Recorded ?Confirmed alendronate 70 mg tablet 70 mg PO SA 05/19/21 12/19/23 cholecalciferol (vitamin D3) 25 25 mcg PO DAILY 05/19/21 12/19/23 mcg (1,000 unit) capsule metoprolol tartrate 50 mg tablet 50 mg PO BID 05/19/21 12/19/23 multivitamin (Daily Multi-Vitamin 1 tab PO DAILY 05/19/21 12/19/23 tablet) pravastatin 40 mg tablet 40 mg PO BEDTIME 05/19/21 12/19/23 valsartan 160 mg tablet 160 mg PO DAILY 05/19/21 12/19/23 pantoprazole 20 mg tablet,delayed 20 mg PO DAILY 08/05/23 12/19/23 release warfarin 2.5 mg tablet 2.5 mg PO DAILY 11/02/23 12/19/23 Previous Rx's ?Medication ?Instructions ?Recorded amlodipine 2.5 mg tablet 2.5 mg PO DAILY #90 tabs 06/28/23 amiodarone 200 mg tablet 200 mg PO DAILY #30 tabs 11/28/23 furosemide 20 mg tablet (Lasix) 20 mg PO BID 30 days #60 tabs 12/14/23 Allergies Allergy/AdvReac Type Severity Reaction Status Date / Time Sulfa (Sulfonamide Allergy Unknown UNKNOWN - Verified 12/19/23 15:11 Antibiotics) DOES NOT REMEMBER Review of Systems Review of Systems: Constitutional : No Weight loss, No Fever, No Chills, No Night Sweats, No Fatigue, No Malaise ENT/Mouth : No Hearing loss, No Ear Pain, No Nasal Congestion, No Sinus Pain, No Hoarseness, No sore throat, No Rhinorrhea, No Swallowing Difficulty Eyes: No Eye Pain, No Swelling, No Redness, No Foreign Body, No Discharge, No Vision Changes Cardiovascular : No Chest Pain, complaining of niece a on exertion, orthopnea, lower extremity edema Respiratory : No Cough, No Sputum, No Wheezing, No Smoke Exposure, No Dyspnea Gastrointestinal : No Nausea, No Vomiting, No Diarrhea, No Constipation, No abdominal Pain, No Hematochezia, No Melena Genitourinary : no irregular bleeding, No Dysuria, No Urinary Frequency, No Hematuria, No Urinary Incontinence, No Urgency, No Flank Pain, No Urinary Flow Changes, No Hesitancy Musculoskeletal : No joint pain, No Myalgias, No Joint Swelling Skin : No Skin Lesions, No rash Neuro : No Weakness, No Numbness, No Paresthesias, No Loss of Consciousness, No Dizziness, No Headache Psych : No Anxiety/Panic, No Depression, No SI/HI/AH/VH, No Social Issues, Heme/Lymph: No Bruising, No Bleeding,No Lymphadenopathy Endocrine : No Polyuria, No Polydipsia, No Temperature Intolerance [facility] Past Medical History Medical History Persistent atrial fibrillation Aortic stenosis H/O mitral valve replacement (~1996) Cardiac pacemaker in situ (~2009) Atrial fibrillation Mixed hyperlipidemia Current use of heel cutter anticoagulation Osteoporosis (~2005) HTN (hypertension) Paroxysmal atrial fibrillation Sick sinus syndrome (~2009) Surgical History History of ventral hernia repair History of kyphoplasty (~2011) History of cardiac pacemaker (~2009) History of meniscectomy of right knee (~2012) History of mitral valve replacement (~1996) History of mitral valve repair (~1992) History of right knee surgery (~2017) Family History Family History Father No problems noted. Mother No problems noted. Social History Social History Household Members: None Housing: House Housing Other:: 2 family on firstr floor Do you presently have visiting nurse or other home services: No Alcohol intake: never Patient Tobacco Use Status: Never used Tobacco Second Hand Smoke Exposure: No Advance Directives: Yes Advance Directives on File: Yes Advance Directives Date on File: 07/11/23 Do you have a plan to hurt others: No Plan service: No Current occupational exposures/hazards: No Physical Exam Vital Signs: Vital Signs: Last Vital Signs Temp 97.7 F 12/19/23 14:52 Pulse 70 12/19/23 20:13 Resp 19 12/19/23 20:13 BP 130/63 12/19/23 20:13 Pulse Ox 98 12/19/23 20:13 O2 Del Method Room Air 12/19/23 20:13 BMI result Body Mass Index 22.5 Const: Other: Appearance: Alert. Oriented X3. No acute distress. Eyes: Pupils equal, round and reactive to light. ENT: Pharynx normal. Neck: Normal inspection. Neck supple. No lymph nodes noted. No crepitus CVS: Normal heart rate and rhythm. Pulses normal. Normal S1 and S2 Respiratory: No respiratory distress. Breath sounds normal. No Wheezing. No rales Abdomen: Soft and nontender. No rigidity. No distention. Skin: Skin warm and dry. Normal skin color. Normal skin turgor. Extremities: +3 pitting edema bilaterally Neuro: Oriented X 3. No motor deficit. No sensory deficit. Moving all extremities. No slurred speech. CN 2 through 12 grossly intact Psych: calm, cooperative, normal affect Course Course Course Narrative: This is a Rapid Medical Exam performed in triage by Leona Scott PA-C. Full HPI, ROS and PE to be performed by primary ED provider. 83 year-old F w/ PMHx CHF, pacemaker, proximal AFib on Coumadin presenting to the ED c/o SOB & bilateral LE pitting edema. Recently saw Dr. Luke on 12/13 and he increased her Lasix from 10mg to 40mg daily w/o relief. denies CP BNP on 12/13 > 2042 PE: + bilateral LE pitting edema Plan: EKG, labs, CXR ordered Medications Administered Discontinued Medications Generic Name Dose Route Start Last Admin Trade Name Freq PRN Reason Stop Dose Admin Furosemide 60 mg 12/19/23 19:09 12/19/23 19:24 Furosemide 100 Mg/10 Ml Vial IVPUSH 12/19/23 19:10 60 mg ONCE ONE Administration Protocol Medical Decision Making Medical Decision Making MDM Narrative: My interpretation of chest x-ray: No infiltrates over pleural effusions -patient receiving IV Lasix 60 mg. -my interpretation of labs, no obvious abnormalities in hematology and chemistry, BNP 04060. Lower than last labs at 4 days ago. -patient was ambulated in the emergency room, oxygen saturation 95%. Currently, patient's blood pressure 130/63, pulse 70, oxygen saturation 98% on room air -I discussed the patient with Dr. Luke, requesting that the patient gets admitted for diuresis since the patient reported earlier today that she is very short of breath with exertion. -I discussed the patient with Dr. Maguire from the Medicine team, patient being admitted Differential Diagnosis Differential Diagnoses: The differential diagnosis associated with the presentation includes (CHF exacerbation, pleural effusions) Admission/Observation Consideration of admission/observation: Escalation of care including admission/observation considered Consult Healthcare Provider Management of the patient was discussed with: Hospitalist and Consulting Software Engineer Lab Data [facility] Lab Attestation statement: I reviewed the patient's lab results. 12/19/23 16:00 12/19/23 16:00 Labs: Lab Results 12/19/23 Range/Units 16:00 WBC 7.5 (4.8-10.8) X10*3/uL RBC 3.64 L (4.20-5.50) X10*6/uL Hgb 10.4 L (12.0-16.0) g/dl Hct 32.2 L (37.0-47.0) % MCV 88.5 (80.0-98.0) fL MCH 28.6 (27.0-33.0) pg MCHC 32.3 (31.0-35.0) g/dl RDW 17.4 H (11.0-16.0) % Plt Count 273 (160-400) X10*3/uL MPV 8.6 L (9.4-12.3) fL Immature Gran % (Auto) 0.3 (0.0-0.4) % Neut % (Auto) 75.8 H (45-73) % Lymph % (Auto) 11.6 L (20-40) % Childress % (Auto) 11.2 H (2-11) % Eos % (Auto) 0.7 (0-4) % Baso % (Auto) 0.4 (0-2) % Lymph # (Auto) 0.9 L (1.2-4.9) X10*3/uL Childress # (Auto) 0.8 (0.1-1.2) X10*3/uL Eos # (Auto) 0.1 (0.0-0.4) X10*3/uL Baso # (Auto) 0.0 (0.0-0.2) X10*3/uL Abs Immat Gran (auto) 0.02 (0.00-0.03) X10*3/uL Absolute Neuts (auto) 5.7 (2.0-8.3) x10*3/uL Absolute Nucleated RBC 0.000 (0.0-0.012) X10*3/uL Nucleated RBC % (auto) 0.0 (0.0-0.2) /100WBC PT 31.1 H (11.1-13.3) SEC INR 2.6 H (0.9-1.1) Sodium 141 (135-145) mmol/L Potassium 4.1 (3.3-5.1) mmol/L Chloride 103 (96-108) mmol/L Carbon Dioxide 31 H (22-29) mmol/L Anion Gap 11 L (12-20) BUN 20 H (9-16) mg/dL Creatinine 0.96 (0.5-1.4) mg/dL Estim Creat Clear Calc 31.3 Estimated GFR 55 Random Glucose 95 (60-115) mg/dL Calcium 9.7 (8.4-10.2) mg/dL Total Bilirubin 1.4 H (0.0-1.0) mg/dL Direct Bilirubin 0.5 (0.0-0.5) mg/dL AST 35 H (5-31) U/L ALT 32 H (0-31) U/L Alkaline Phosphatase 94 (39-117) U/L Troponin I High Sens 5.7 (<3.5-17.0) ng/L B-Natriuretic Peptide 1122 H (<100) pg/mL Total Protein 7.3 (6.5-8.0) g/dL Albumin 4.2 (3.5-5.0) g/dL Independent Interpretation I performed an independent interpretation of an: Plain X-Ray Radiology Impression Discussion of test interpretation with radiology: I have reviewed the radiologist's reading. Radiologist Impression: FINDINGS: No change position of pacemaker leads in right atrium and right ventricle. Status post sternotomy. Heart size is enlarged. There are vascular calcifications of aorta. No pulmonary vascular congestion. Lungs normally aerated. No pleural effusion and no pneumothorax. Kyphosis of dorsal spine. Multilevel degenerative spondylosis. Status post thoracoplasty chronic compression deformity midthoracic vertebral body. There are stable adjacent compression deformities of mid thoracic vertebral bodies unchanged as well. Chronic rotator cuff tendon tear of both shoulders. XR/XR chest 2V IMPRESSION: No acute abnormality of the chest. Critical Care Time Critical Care Time Critical Care Time: Yes Total Critical Care Time: 45 Attestation: I have personally provided critical care time. Time includes review of lab data, radiology results, discussion with consultants, and monitoring for potential decompensation. Intervention performed as documented. Discharge Plan Discharge Clinical Impression: CHF exacerbation Patient Disposition: Admitted As Inpatient Prescriptions: No Action amlodipine 2.5 mg tablet 2.5 mg PO DAILY Qty: 90 3RF amiodarone 200 mg tablet 200 mg PO DAILY Qty: 30 5RF valsartan 160 mg tablet 160 mg PO DAILY alendronate 70 mg tablet 70 mg PO SA pravastatin 40 mg tablet 40 mg PO BEDTIME metoprolol tartrate 50 mg tablet 50 mg PO BID multivitamin [Daily Multi-Vitamin] Tablet 1 tab PO DAILY cholecalciferol (vitamin D3) 25 mcg (1,000 unit) capsule 25 mcg PO DAILY pantoprazole 20 mg tablet,delayed release (DR/EC) 20 mg PO DAILY warfarin 2.5 mg tablet 2.5 mg PO DAILY Protocol: Dose Management Condition: Tuesday (Week One) Dose/Route: 2.5 mg Instruction: 1 x 2.5 mg tablet Condition: Tuesday Dose/Route: 1.25 mg Instruction: 0.5 x 2.5 mg tablets Condition: Tuesday Dose/Route: 2.5 mg Instruction: 1 x 2.5 mg tablet Condition: Tuesday Dose/Route: 2.5 mg Instruction: 1 x 2.5 mg tablet Condition: Dose/Route: 1.25 mg Instruction: 0.5 x 2.5 mg tablets Condition: Tuesday Dose/Route: 2.5 mg Instruction: 1 x 2.5 mg tablet Condition: Tuesday Dose/Route: 2.5 mg Instruction: 1 x 2.5 mg tablet Condition: Tuesday (Week Two) Dose/Route: 2.5 mg Instruction: 1 x 2.5 mg tablet Condition: Tuesday Dose/Route: 1.25 mg Instruction: 0.5 x 2.5 mg tablets Condition: Tuesday Dose/Route: 2.5 mg Instruction: 1 x 2.5 mg tablet Condition: Tuesday Dose/Route: 2.5 mg Instruction: 1 x 2.5 mg tablet Condition: Dose/Route: 1.25 mg Instruction: 0.5 x 2.5 mg tablets Condition: Tuesday Dose/Route: 2.5 mg Instruction: 1 x 2.5 mg tablet Condition: Tuesday Dose/Route: 2.5 mg Instruction: 1 x 2.5 mg tablet Protocol Text: Adjustment Start Date: Tuesday12/19/23 INR Value: 3.2 INR Date: 12/12/23 Recheck Date: 12/26/23 Additional Instructions: REVIEW FOOD LIST WEEKLY, EAT A MIX OF FRUITS AND VEGETABLES WEEKLY furosemide [Lasix] 20 mg tablet 20 mg PO BID 30 Days Qty: 60 0RF Print Language: Tuval[place]
--- NOTE | 2023-12-19 14:54 | ECG_ITS ---
Test Reason : SOB Blood Pressure : / mmHG Vent. Rate : 075 BPM Atrial Rate : 075 BPM P-R Int : 214 ms QRS Dur : 218 ms QT Int : 510 ms P-R-T Axes : 000 -58 122 degrees QTc Int : 569 ms AV dual-paced rhythm with prolonged AV conduction Abnormal ECG When compared with ECG of 30-NOV-2023 20:36, Vent. rate has increased BY 4 BPM Referred By: Leona Scott Electronically Signed By:JAYLAN SAXENA MD
[2023-12-19 16:05] LABS: MANUAL DIFF FLAG NO
[2023-12-19 16:07] LABS: Basophils Percent Auto 0.4 % (0-2); Eosinophils Absolute Auto 0.1 X10*3/uL (0.0-0.4); Eosinophils Percent Auto 0.7 % (0-4); Hematocrit 32.2 % (37.0-47.0); Hemoglobin 10.4 g/dl (12.0-16.0); Imm Gran Abs Auto 0.02 X10*3/uL (0.00-0.03); Imm Gran Pct Auto 0.3 % (0.0-0.4); Lymphocytes Absolute Auto 0.9 X10*3/uL (1.2-4.9); Lymphocytes Percent Auto 11.6 % (20-40); Mean Corpuscular HGB Conc 32.3 g/dl (31.0-35.0); Mean Corpuscular Hemoglobin 28.6 pg (27.0-33.0); Mean Corpuscular Volume 88.5 fL (80.0-98.0); Mean Platelet Volume 8.6 fL (9.4-12.3); Monocytes Absolute Auto 0.8 X10*3/uL (0.1-1.2); Monocytes Percent Auto 11.2 % (2-11); Neutrophils Absolute Auto 5.7 x10*3/uL (2.0-8.3); Neutrophils Percent Auto 75.8 % (45-73); Platelet Count 273 X10*3/uL (160-400); Red Blood Count 3.64 X10*6/uL (4.20-5.50); Red Cell Distribution Width 17.4 % (11.0-16.0); White Blood Count 7.5 X10*3/uL (4.8-10.8)
[2023-12-19 16:11] LABS: INTERNATIONAL NORM RATIO 2.6 (0.9-1.1); Prothrombin Time 31.1 SEC (11.1-13.3)
[2023-12-19 16:21] LABS: Alanine Aminotransferase 32 U/L (0-31); Albumin Level 4.2 g/dL (3.5-5.0); Alkaline Phosphatase 94 U/L (39-117); Anion Gap 11 (12-20); Aspartate Amino Transferase 35 U/L (5-31); Bilirubin Direct 0.5 mg/dL (0.0-0.5); Bilirubin Total 1.4 mg/dL (0.0-1.0); Blood Urea Nitrogen 20 mg/dL (9-16); Calcium 9.7 mg/dL (8.4-10.2); Carbon Dioxide 31 mmol/L (22-29); Chloride 103 mmol/L (96-108); Creatinine Clr Calc Pharmacy 31.3; Estimated Glomerular Filt Rate 55; Glucose Random 95 mg/dL (60-115); Potassium 4.1 mmol/L (3.3-5.1); Sodium 141 mmol/L (135-145); Total Protein 7.3 g/dL (6.5-8.0)
[2023-12-19 16:25] LABS: B Type Natriuretic Peptide 1122 pg/mL (<100); Troponin-I High Sensitivity 5.7 ng/L (<3.5-17.0)
[2023-12-19 19:07] VITALS: BP 150/62; PULSE 71; RESP 20; O2SAT 95
[2023-12-19] MEDS: Furosemide 100 MG/10 ML VIAL 60 MG IVPUSH (19:24)
[2023-12-19 20:13] VITALS: BP 130/63; PULSE 70; RESP 19; O2SAT 98
--- NOTE | 2023-12-19 21:25 | P.HPHOSP_ITS ---
History of Present Illness Date of Service: 12/19/23 Attending physician on admission: Rima Fuentes Chief Complaint: griffin, ble edema 83-year-old female with history of heart failure reduced ejection fraction with EF 45-50 %, mitral valve replacement on Coumadin, pacemaker in place, coronary artery disease, persistent atrial fibrillation on amiodarone, hypertension, hyperlipidemia, aortic stenosis presents to the ED earlier today at the recommendation of Cardiology for evaluation of bilateral lower extremity edema. The patient has been following Dr. Luke for congestive heart failure and Lasix was recently increased from 10 mg to 40 mg daily due to significantly limited dyspnea on exertion, orthopnea, and bilateral lower extremity edema. She has experienced some symptomatic relief but still experiencing some dyspnea on exertion, mild orthopnea with bilateral lower extremity edema. Denies any recent illness, fevers, chills, abdominal pain, nausea, vomiting, diarrhea, palpitations, shortness of breath at rest, or chest pains. On arrival, vital signs stable. Hematology studies reveal a chronic, stable normocytic anemia. Renal function is baseline with creatinine 0.96, BUN 20, electrolyte levels normal except for CO2 31. Hepatic function consistent with baseline. Troponin 5.7. BNP 1122, was 2043 on 12/13. Chest x-ray unremarkable. EKG shows AV dual paced rhythm with prolonged AV conduction, rate [address]/T-wave abnormalities. QTC is prolonged at 569. IN the ED, give 60mg IV lasix. ED discussed case with Cardiology recommending admission for IV diuresis. Review of Systems 2 Review of Systems: Yes all other systems are reviewed and are negative FORMERLY [facility], [facility] Medical History Persistent atrial fibrillation Aortic stenosis H/O mitral valve replacement (~1996) Cardiac pacemaker in situ (~2009) Atrial fibrillation Mixed hyperlipidemia Current use of oysterman anticoagulation Osteoporosis (~2005) HTN (hypertension) Paroxysmal atrial fibrillation Sick sinus syndrome (~2009) Family History Father No problems noted. Mother No problems noted. Surgical History History of ventral hernia repair History of kyphoplasty (~2011) History of cardiac pacemaker (~2009) History of meniscectomy of right knee (~2012) History of mitral valve replacement (~1996) History of mitral valve repair (~1992) History of right knee surgery (~2017) Social History Household Members: None Housing: House Housing Other:: 2 family on firstr floor Do you presently have visiting nurse or other home services: No Alcohol intake: never Patient Tobacco Use Status: Never used Tobacco Smoked in Last 30 Days: No Second Hand Smoke Exposure: No Advance Directives: Yes Advance Directives on File: Yes Advance Directives Date on File: 07/11/23 Do you have a plan to hurt others: No Plan service: No Current occupational exposures/hazards: No Meds Allergies Allergy/AdvReac Type Severity Reaction Status Date / Time Sulfa (Sulfonamide Allergy Unknown UNKNOWN - Verified 12/19/23 15:11 Antibiotics) DOES NOT REMEMBER Active Medications: Current Medications Acetaminophen (Acetaminophen 325 Mg Tablet) 650 mg PO Q6H PRN PRN Reason: Pain, Mild (Pain Scale 1-3), fever or headache Calcium Carbonate (Calcium Carbonate 750 Mg Tab.Chew) 750 mg PO Q4H PRN PRN Reason: Heartburn Furosemide (Furosemide 40 Mg/4 Ml Vial) 40 mg IVPUSH DAILY CEE; Protocol Magnesium Hydroxide (Milk Of Magnesia 30 Ml Oral.Susp) 30 ml PO DAILY PRN PRN Reason: Constipation Melatonin (Melatonin 3 Mg Tablet) 6 mg PO BEDTIME PRN PRN Reason: Insomnia Sodium Chloride (0.9 % Sodium Chloride Flush 3 Ml Syringe) 3 ml IVFLUSH QSHIFT CEE Warfarin Sodium (Warfarin Sodium 1.25 Mg Halftab) 1.25 mg PO ONCE@1800 ONE Stop: 12/19/23 21:26 Home Medications ?Medication ?Instructions ?Recorded ?Confirmed ?Last Taken ?Type alendronate 70 mg tablet 70 mg PO SA 05/19/21 12/19/23 11/05/23 History cholecalciferol (vitamin D3) 25 25 mcg PO DAILY 05/19/21 12/19/23 11/08/23 History mcg (1,000 unit) capsule metoprolol tartrate 50 mg tablet 50 mg PO BID 05/19/21 12/19/23 11/09/23 History multivitamin (Daily Multi-Vitamin 1 tab PO DAILY 05/19/21 12/19/23 11/08/23 History tablet) pravastatin 40 mg tablet 40 mg PO BEDTIME 05/19/21 12/19/23 11/08/23 History valsartan 160 mg tablet 160 mg PO DAILY 05/19/21 12/19/23 11/08/23 History pantoprazole 20 mg tablet,delayed 20 mg PO DAILY 08/05/23 12/19/23 11/09/23 History release warfarin 2.5 mg tablet 2.5 mg PO DAILY 11/02/23 12/19/23 Unknown History Physical Exam 2 Vital Signs and Narrative: Vital Signs: Last Vital Signs Temp 97.7 F 12/19/23 14:52 Pulse 70 12/19/23 20:13 Resp 19 12/19/23 20:13 BP 130/63 12/19/23 20:13 Pulse Ox 98 12/19/23 20:13 O2 Del Method Room Air 12/19/23 20:13 BMI result Body Mass Index 22.5 Constitutional - Awake and Alert, No apparent distress Eyes - PERRLA, EOMI Cardiovascular - S1S2, RRR, 3+ ble edema, negative JVD Respiratory - Normal lung expansion, Normal respiratory effort, No respiratory distress, bibasilar rales, +orthopnea Gastrointestinal - NT / ND; +BS; No rebound or guarding Extremities - no calf tenderness bilaterally, no swelling Skin - Warm/Dry Neurological - Alert & oriented x3 Psychological - Appropriate affect Results Labs 12/19/23 16:00 12/19/23 16:00 Labs: Laboratory Results - last 24 hr 12/19/23 16:00 MCV 88.5 MCH 28.6 MCHC 32.3 RDW 17.4 H Plt Count 273 MPV 8.6 L Immature Gran % (Auto) 0.3 Neut % (Auto) 75.8 H Lymph % (Auto) 11.6 L [place] % (Auto) 11.2 H Eos % (Auto) 0.7 Baso % (Auto) 0.4 Lymph # (Auto) 0.9 L [place] # (Auto) 0.8 Eos # (Auto) 0.1 Baso # (Auto) 0.0 Abs Immat Gran (auto) 0.02 Absolute Neuts (auto) 5.7 Absolute Nucleated RBC 0.000 Nucleated RBC % (auto) 0.0 PT 31.1 H INR 2.6 H Anion Gap 11 L Estim Creat Clear Calc 31.3 Estimated GFR 55 Random Glucose 95 Calcium 9.7 Total Bilirubin 1.4 H Direct Bilirubin 0.5 AST 35 H ALT 32 H Alkaline Phosphatase 94 Troponin I High Sens 5.7 B-Natriuretic Peptide 1122 H Total Protein 7.3 Albumin 4.2 Imaging Radiologist's Impressions: Impressions Chest X-Ray 12/19/23 15:22 IMPRESSION: No acute abnormality of the chest. Assessment and Plan (1) CHF exacerbation: Status: Acute Plan 83-year-old female with history of heart failure reduced ejection fraction with EF 45-50 %, mitral valve replacement on Coumadin, pacemaker in place, coronary artery disease, persistent atrial fibrillation on amiodarone, hypertension, hyperlipidemia, aortic stenosis admitted for chf exacerbation #Acute exacerbation of heart failure reduced ejection fraction -symptomatic with dyspnea on exertion, orthopnea, bilateral lower extremity edema. Negative JVD -recent ROSA on 11/09/2023 showed mildly reduced LV systolic function with EF 45- 50% and indeterminate diastolic function. There is moderate to severe aortic stenosis, moderate tricuspid regurgitation and normal functioning mechanical mitral valve in place -40 mg IV Lasix daily -strict I&O -daily weights -cardiac diet -cardiology consult -monitor renal function, lytes # prolonged QTC -chronic, avoid qtc prolonging medications, AV dual paced rhythm with prolonged AV conduction -monitor on tele # persistent atrial fibrillation -continue Coumadin, INR therapeutic, monitor daily -continue amiodarone, metoprolol # hypertension -continue valsartan, metoprolol, amlodipine # hyperlipidemia -statin # chronic normocytic anemia likely related to chronic disease -H/H above transfusion threshold # CKD stage 3 -renal function baseline DVT prophylaxis-Coumadin Full code Med rec pending Patient requires inpatient stay at least 2 midnights for IV diuresis for management of acute exacerbation of congestive heart failure with significant bilateral extremity edema and persistent dyspnea on exertion and orthopnea despite increase in p.o. diuretics. Will require expert consultation and close monitoring of intake/output as well as renal function and electrolyte levels Quality Stroke Does the patient have a stroke diagnosis?: No VTE Prior VTE?: No VTE Risk Level:: Medical - moderate - high VTE Device Contraindication: Treatment Not Indicated VTE Drug Contraindication: N/A - Med Ordered
--- NOTE | 2023-12-19 22:09 | PHA.MEDREC ---
Pharmacy Consult ? Medication Reconciliation Pharmacy has completed the medication reconciliation. Confirmed meds with patient. She was able to confirm when she take her alendronate which is every Tuesday and she said she took it this past Tuesday.
--- NOTE | 2023-12-19 23:07 | PC.NURSE ---
delay in 5 medications due to unverified by pharm
[2023-12-20] VITALS (10 sets, daily range): BP systolic 115–162; BP diastolic 47–75; PULSE 70–74; RESP 16–20; TEMP 36.3–37; O2SAT 91–99; BMI 21.7
--- NOTE | 2023-12-20 00:02 | PC.NURSE ---
called pharmacy and they will verify medication
[2023-12-20] MEDS: Warfarin Sodium 2.5 MG TABLET 1.25 MG PO (00:26)
--- NOTE | 2023-12-20 02:22 | PC.NURSE ---
83-year-old female present with daughter with SOB on exertion PMH: chf reduced ejection fraction with EF 45-50 %, mitral valve replacement on Coumadin, pacemaker in place, coronary artery disease, persistent atrial fibrillation on amiodarone, hypertension, hyperlipidemia, aortic stenosis Admit : CHF -symptomatic with dyspnea on exertion, bilateral lower extremity edema. -40 mg IV Lasix daily -strict I&O -daily weights -cardiac diet -cardiology consult -monitor renal function, lytes Ambulaorty with cane , 20 LAC , periwick for output, A/OX4
[2023-12-20 04:23] LABS: MANUAL DIFF FLAG NO
[2023-12-20 04:27] LABS: Basophils Absolute Auto 0.1 X10*3/uL (0.0-0.2); Basophils Percent Auto 0.7 % (0-2); Eosinophils Absolute Auto 0.1 X10*3/uL (0.0-0.4); Eosinophils Percent Auto 0.8 % (0-4); Hematocrit 32.3 % (37.0-47.0); Hemoglobin 10.2 g/dl (12.0-16.0); Imm Gran Abs Auto 0.02 X10*3/uL (0.00-0.03); Imm Gran Pct Auto 0.3 % (0.0-0.4); Lymphocytes Absolute Auto 1.1 X10*3/uL (1.2-4.9); Lymphocytes Percent Auto 15.4 % (20-40); Mean Corpuscular HGB Conc 31.6 g/dl (31.0-35.0); Mean Corpuscular Hemoglobin 28.1 pg (27.0-33.0); Mean Platelet Volume 8.8 fL (9.4-12.3); Monocytes Percent Auto 13.1 % (2-11); Neutrophils Absolute Auto 5.1 x10*3/uL (2.0-8.3); Neutrophils Percent Auto 69.7 % (45-73); Platelet Count 258 X10*3/uL (160-400); Red Blood Count 3.63 X10*6/uL (4.20-5.50); Red Cell Distribution Width 17.1 % (11.0-16.0); White Blood Count 7.3 X10*3/uL (4.8-10.8)
[2023-12-20 04:56] LABS: Anion Gap 16 (12-20); Blood Urea Nitrogen 19 mg/dL (9-16); Calcium 8.7 mg/dL (8.4-10.2); Carbon Dioxide 31 mmol/L (22-29); Chloride 100 mmol/L (96-108); Creatinine Clr Calc Pharmacy 35.4; Estimated Glomerular Filt Rate > 60; Glucose Random 89 mg/dL (60-115); Potassium 3.5 mmol/L (3.3-5.1); Sodium 143 mmol/L (135-145)
[2023-12-20 05:41] LABS: INTERNATIONAL NORM RATIO 2.3 (0.9-1.1); Prothrombin Time 27.4 SEC (11.1-13.3)
--- NOTE | 2023-12-20 07:15 | P.PNIM_ITS ---
Subjective Subjective Date of Service: 12/20/23 Interval History: F/u on chf exacerbation interval history: She feels overall less SOB, although just eating was causing her some SOB Physical Exam 2 Vital Signs: Vital Signs: Last Vital Signs Temp 97.8 F 12/20/23 05:43 Pulse 72 12/20/23 05:43 Resp 18 12/20/23 05:43 BP 124/59 L 12/20/23 05:43 Pulse Ox 94 12/20/23 05:43 O2 Del Method Room Air 12/20/23 05:43 BMI result Body Mass Index 22.5 General: AO X 3, no acute distress Resp: mild rales at bases CVS: S1,S2,RRR, 1+ leg edeam, no jvd GI: +BS, NT, no distention Skin: No rash Neuro: motor grossly intact Psych: appropriate affect Objective Data Active Medications Acetaminophen (Acetaminophen 325 Mg Tablet) 650 mg PO Q6H PRN PRN Reason: Pain, Mild (Pain Scale 1-3), fever or headache Calcium Carbonate (Calcium Carbonate 750 Mg Tab.Chew) 750 mg PO Q4H PRN PRN Reason: Heartburn Furosemide (Furosemide 40 Mg/4 Ml Vial) 40 mg IVPUSH DAILY CEE; Protocol Magnesium Hydroxide (Milk Of Magnesia 30 Ml Oral.Susp) 30 ml PO DAILY PRN PRN Reason: Constipation Melatonin (Melatonin 3 Mg Tablet) 6 mg PO BEDTIME PRN PRN Reason: Insomnia Metoprolol Tartrate (Metoprolol Tartrate 50 Mg Tablet) 50 mg PO BID CEE; Protocol Last Admin: 12/20/23 00:07 Dose: Not Given Documented By: TRAVON Non-Admin Reason: Patient Condition Contraindication Sodium Chloride (0.9 % Sodium Chloride Flush 3 Ml Syringe) 3 ml IVFLUSH QSHIFT CEE Last Admin: 12/20/23 06:53 Dose: Not Given Documented By: ANA Non-Admin Reason: See Note Labs 12/20/23 04:22 12/20/23 04:22 Labs: Laboratory Results - last 24 hr 12/19/23 12/20/23 12/20/23 16:00 04:21 04:22 MCV 88.5 89.0 MCH 28.6 28.1 MCHC 32.3 31.6 RDW 17.4 H 17.1 H Plt Count 273 258 MPV 8.6 L 8.8 L Immature Gran % (Auto) 0.3 0.3 Neut % (Auto) 75.8 H 69.7 Lymph % (Auto) 11.6 L 15.4 L [place] % (Auto) 11.2 H 13.1 H Eos % (Auto) 0.7 0.8 Baso % (Auto) 0.4 0.7 Lymph # (Auto) 0.9 L 1.1 L [place] # (Auto) 0.8 1.0 Eos # (Auto) 0.1 0.1 Baso # (Auto) 0.0 0.1 Abs Immat Gran (auto) 0.02 0.02 Absolute Neuts (auto) 5.7 5.1 Absolute Nucleated RBC 0.000 0.000 Nucleated RBC % (auto) 0.0 0.0 PT 31.1 H 27.4 H INR 2.6 H 2.3 H Anion Gap 11 L 16 Estim Creat Clear Calc 31.3 35.4 Estimated GFR 55 > 60 Random Glucose 95 89 Calcium 9.7 8.7 D Total Bilirubin 1.4 H Direct Bilirubin 0.5 AST 35 H ALT 32 H Alkaline Phosphatase 94 Troponin I High Sens 5.7 B-Natriuretic Peptide 1122 H Total Protein 7.3 Albumin 4.2 Assessment and Plan (1) CHF exacerbation: Status: Acute (2) Congestive heart failure: Status: Acute Plan 83/F with HFrEF EF 45-50 %, MVR on Coumadin, pacemaker in place, CAD, persistent AFIB on amiodarone, hypertension, HLD, here with CHF exacerbatin #Acute HFrEF with moderate -continue IV Lasix for 1 more day (negative 1000ML), monitor I/O, weight, electrolytes, cardiology assessment # prolonged QTC--likely from amio -chronic, avoid qtc prolonging medications, AV dual paced rhythm with prolonged AV conduction # persistent atrial fibrillation --continue amiodarone, metoprolol -continue Coumadin, monitor # hypertension -continue valsartan, metoprolol, amlodipine # HLD -statin # chronic normocytic anemia likely related to chronic disease -H/H above transfusion threshold # CKD stage 3 -renal function baseline DVT prophylaxis-Coumadin Full code need for inpatient: IV diuretics for heart failure and frequent lab monitorin, Quality Stroke Does the patient have a stroke diagnosis?: No VTE Prior VTE?: No VTE Risk Level:: Medical - moderate - high VTE Device Contraindication: Treatment Not Indicated VTE Drug Contraindication: N/A - Med Ordered
[2023-12-20] MEDS: Omeprazole 20 MG CAPSULE.DR PO (07:35)
[2023-12-20] MEDS: amLODIPine Besylate 2.5 MG TABLET PO (07:56)
[2023-12-20] MEDS: Cholecalciferol (Vitamin D3) 25 MCG TABLET PO (07:56)
[2023-12-20] MEDS: Multivitamin TABLET 1 TAB PO (07:57)
[2023-12-20] MEDS: Metoprolol Tartrate 50 MG TABLET PO ×2 (07:57→20:08)
[2023-12-20] MEDS: Amiodarone HCL 200 MG TABLET PO (07:57)
[2023-12-20] MEDS: Furosemide 40 MG/4 ML VIAL IVPUSH (07:57)
[2023-12-20] MEDS: Valsartan 160 MG TABLET PO (07:57)
--- NOTE | 2023-12-20 10:41 | MHC.CM.PN ---
IMM 12/20/23, pt lives alone, she has VNA services from [facility], nursing. HCP on file and confirmed: Mikki Keith. DME: [email or web address]. Pt is able to get transport home at DC. PCP confirmed: Kris. CM to follow and assist with DC planning.
--- NOTE | 2023-12-20 11:39 | P.CONCA_ITS ---
History of Present Illness History of Present Illness Date of Service: 12/20/23 Requesting physician: [facility] Consult reason: congestive heart failure Chief complaint: CHF Exacerbation Narrative: I was consulted to see Bethany in cardiology consultation today for recurrent congestive heart failure. She has a pleasant 83-year-old female with prior history of [place]ty mechanical mitral valve replacement 90, aortic stenosis which appears to be clinically and by echocardiogram moderately severe, heart failure preserved ejection fraction, difficult to treat atrial fibrillation currently on amiodarone therapy, cardiac pacemaker in-situ, came to the hospital with persistent leg edema and shortness of breath. I would seen her few days ago in the office at which time she was clinically significantly short of breath and her BNP was still elevated in the 2000 range. Few weeks ago her Lasix was reduced due to question kidney issues by primary care physician subsequently she developed worsening shortness of breath leg edema. After cardioversion she persisted with symptoms despite maintaining rhythm and at that my office at which time we increase her Lasix to 40 mg daily instead of 10 mg daily. She said her leg edema improved but her shortness of breath persisted with persistent leg edema she came to the emergency room. In the emergency room she was noted to be fluid overloaded and her BNP had improved but still not at her baseline. She was therefore admitted for diuresis. Since then she is diuresed well and is feeling better and leg edema is improved. She is remained in AV dual paced rhythm. She denies any chest pain or lightheadedness or syncope. Review of Systems 2 Constitutional: Constitutional: Reports no additional constitutional complaints Eyes: Eyes: Reports no additional eye complaints Cardiovascular: Cardiovascular: Denies chest pain, Reports leg edema, Denies lightheadedness, Denies Loss of Consciousness, Denies palpitations, Reports dyspnea on exertion and Reports orthopnea Respiratory: Respiratory: Reports dyspnea on exertion Gastrointestinal: Gastrointestinal: Reports no additional gastrointestinal complaints Genitourinary: Genitourinary: Reports no additional female genitourinary complaints Musculoskeletal: Musculoskeletal: Reports no additional musculoskeletal complaints Neurologic: Reports system reviewed and no additional complaints, except as documented Psychiatric: Psychiatric: Reports no additional psychiatric complaints Endocrine: Endocrine: Denies palpitations PMFSH Past Medical History Medical History (Updated 12/20/23 @ 11:54 by Agustin Luke MD) Persistent atrial fibrillation Aortic stenosis H/O mitral valve replacement (~1996) Cardiac pacemaker in situ (~2009) Atrial fibrillation Mixed hyperlipidemia Current use of bed bug exterminator anticoagulation Osteoporosis (~2005) HTN (hypertension) Paroxysmal atrial fibrillation Sick sinus syndrome (~2009) Family History Family History Father No problems noted. Mother No problems noted. Surgical History Surgical History History of ventral hernia repair History of kyphoplasty (~2011) History of cardiac pacemaker (~2009) History of meniscectomy of right knee (~2012) History of mitral valve replacement (~1996) History of mitral valve repair (~1992) History of right knee surgery (~2017) Social History Social History Household Members: None Housing: House Housing Other:: 2 family on firstr floor Do you presently have visiting nurse or other home services: No Alcohol intake: never Patient Tobacco Use Status: Never used Tobacco Smoked in Last 30 Days: No e-Cigarette/Vaping Use: Never Used Second Hand Smoke Exposure: No Use of substances other than those prescribed or required for medical reasons: No Protestant Healthcare Practices: christian Advance Directives: Yes Advance Directives on File: Yes Advance Directives Date on File: 07/11/23 Do you have a plan to hurt others: No Plan Recently lost weight without trying: No Eating poorly because of decreased appetite: No Nutrition Risks: No Nutritional Risk Patient : No : No Poor oral hygiene: No service: No Current occupational exposures/hazards: No Meds Allergies Allergy/AdvReac Type Severity Reaction Status Date / Time Sulfa (Sulfonamide Allergy Unknown UNKNOWN - Verified 12/19/23 15:11 Antibiotics) DOES NOT REMEMBER Active Medications: Current Medications Acetaminophen (Acetaminophen 325 Mg Tablet) 650 mg PO Q6H PRN PRN Reason: Pain, Mild (Pain Scale 1-3), fever or headache Amiodarone HCl (Amiodarone Hcl 200 Mg Tablet) 200 mg PO DAILY [facility] Last Admin: 12/20/23 07:57 Dose: 200 mg Amlodipine Besylate (Amlodipine Besylate 2.5 Mg Tablet) 2.5 mg PO DAILY [facility]; Protocol Last Admin: 12/20/23 07:56 Dose: 2.5 mg Calcium Carbonate (Calcium Carbonate 750 Mg Tab.Chew) 750 mg PO Q4H PRN PRN Reason: Heartburn Furosemide (Furosemide 40 Mg/4 Ml Vial) 40 mg IVPUSH DAILY [facility]; Protocol Last Admin: 12/20/23 07:57 Dose: 40 mg Magnesium Hydroxide (Milk Of Magnesia 30 Ml Oral.Susp) 30 ml PO DAILY PRN PRN Reason: Constipation Melatonin (Melatonin 3 Mg Tablet) 6 mg PO BEDTIME PRN PRN Reason: Insomnia Metoprolol Tartrate (Metoprolol Tartrate 50 Mg Tablet) 50 mg PO BID [facility]; Protocol Last Admin: 12/20/23 07:57 Dose: 50 mg Multivitamins/Vitamin C (Multivitamin Tablet) 1 tab PO DAILY [facility] Last Admin: 12/20/23 07:57 Dose: 1 tab Omeprazole (Omeprazole 20 Mg Capsule.Dr) 20 mg PO DAILY@0630 [facility] Last Admin: 12/20/23 07:35 Dose: 20 mg Pravastatin Sodium (Pravastatin Sodium 40 Mg Tablet) 40 mg PO BEDTIME [facility] Sodium Chloride (0.9 % Sodium Chloride Flush 3 Ml Syringe) 3 ml IVFLUSH QSHIFT [facility] Last Admin: 12/20/23 06:53 Dose: Not Given Valsartan (Valsartan 160 Mg Tablet) 160 mg PO DAILY [facility]; Protocol Last Admin: 12/20/23 07:57 Dose: 160 mg Vitamin D (Cholecalciferol (Vitamin D3) 25 Mcg Tablet) 25 mcg PO DAILY [facility] Last Admin: 12/20/23 07:56 Dose: 25 mcg Warfarin Sodium (Warfarin Sodium 2.5 Mg Tablet) 2.5 mg PO DAILY@1600 [facility] Home Medications ?Medication ?Instructions ?Recorded ?Confirmed ?Last Taken ?Type alendronate 70 mg tablet 70 mg PO SA 05/19/21 12/19/23 12/17/23 History cholecalciferol (vitamin D3) 25 25 mcg PO DAILY 05/19/21 12/19/23 12/19/23 07:00 History mcg (1,000 unit) capsule metoprolol tartrate 50 mg tablet 50 mg PO BID 05/19/21 12/19/23 12/19/23 07:00 History multivitamin (Daily Multi-Vitamin 1 tab PO DAILY 05/19/21 12/19/23 12/19/23 07:00 History tablet) pravastatin 40 mg tablet 40 mg PO BEDTIME 05/19/21 12/19/23 12/18/23 16:30 History valsartan 160 mg tablet 160 mg PO DAILY 05/19/21 12/19/23 12/19/23 07:00 History pantoprazole 20 mg tablet,delayed 20 mg PO DAILY 08/05/23 12/19/23 12/19/23 07:00 History release warfarin 2.5 mg tablet 2.5 mg PO DAILY@1600 11/02/23 12/19/23 12/18/23 16:30 History Physical Exam 2 Vital Signs: Vital Signs: Last Vital Signs Temp 97.3 F 12/20/23 11:22 Pulse 71 12/20/23 11:22 Resp 20 12/20/23 11:22 BP 117/55 L 12/20/23 11:22 Pulse Ox 93 12/20/23 11:22 O2 Del Method Room Air 12/20/23 11:22 BMI result Body Mass Index 21.7 Const: General: cooperative, comfortable, no acute distress, alert and awake Nutritional Appearance: average body habitus Orientation/consciousness: p atient oriented x3 HEENT: Head: Yes normocephalic and Yes atraumatic Neck: Neck: Yes trachea midline, Yes supple and Yes JVD Chest: Chest palpation & inspection: normal inspection of the chest Resp: Effort & Inspection: normal respiratory effort Auscultation: rales bilateral at the base Cardio: Jugular venous distension: JVD Rate: regular rate Rhythm: r egular rhythm Heart sounds: S2 normal heart sound present (soft), Murmur heart sound present systolic late, decrescendo and crescendo and Other heart sounds present ([place]pson opening and closing click of [place] mitral valve) GI: Auscultation: normal bowel sounds Skin: General skin exam: no rashes or lesions noted Neuro: General: patient oriented x3 and no focal motor deficits Extrem: General: No clubbing, No cyanosis and Yes edema Objective Labs and Meds 12/20/23 04:22 12/20/23 04:22 Lab results: Laboratory Results - last 24 hr 12/19/23 12/20/23 12/20/23 16:00 04:21 04:22 WBC 7.5 7.3 RBC 3.64 L 3.63 L Hgb 10.4 L 10.2 L Hct 32.2 L 32.3 L MCV 88.5 89.0 MCH 28.6 28.1 MCHC 32.3 31.6 RDW 17.4 H 17.1 H Plt Count 273 258 MPV 8.6 L 8.8 L Immature Gran % (Auto) 0.3 0.3 Neut % (Auto) 75.8 H 69.7 Lymph % (Auto) 11.6 L 15.4 L [place] % (Auto) 11.2 H 13.1 H Eos % (Auto) 0.7 0.8 Baso % (Auto) 0.4 0.7 Lymph # (Auto) 0.9 L 1.1 L [place] # (Auto) 0.8 1.0 Eos # (Auto) 0.1 0.1 Baso # (Auto) 0.0 0.1 Abs Immat Gran (auto) 0.02 0.02 Absolute Neuts (auto) 5.7 5.1 Absolute Nucleated RBC 0.000 0.000 Nucleated RBC % (auto) 0.0 0.0 PT 31.1 H 27.4 H INR 2.6 H 2.3 H Sodium 141 143 Potassium 4.1 3.5 Chloride 103 100 Carbon Dioxide 31 H 31 H Anion Gap 11 L 16 BUN 20 H 19 H Creatinine 0.96 0.85 Estim Creat Clear Calc 31.3 35.4 Estimated GFR 55 > 60 Random Glucose 95 89 Calcium 9.7 8.7 D Total Bilirubin 1.4 H Direct Bilirubin 0.5 AST 35 H ALT 32 H Alkaline Phosphatase 94 Troponin I High Sens 5.7 B-Natriuretic Peptide 1122 H Total Protein 7.3 Albumin 4.2 EKG shows AV dual paced rhythm Imaging Radiologist's impression: Impressions Chest X-Ray 12/19/23 15:22 IMPRESSION: No acute abnormality of the chest. Assessment and Plan (1) CHF exacerbation: Status: Acute Patient admitted with decompensated congestive heart failure predominantly right-sided heart failure despite increase diuretic dose. Clinically she seems to be diuresing well and tolerating diuresis well and improving. Would therefore continue IV diuresis at this point time. Continue strict intake and output chart. Trend BNP and BMP tomorrow. Follow electrolytes closely. Continue rhythm control, see below. Continue aggressive blood pressure control which appears to be well optimized. Consider adding Jardiance 10 mg to her regimen. Will continue to monitor and follow her. Will need further evaluation for aortic stenosis as well as diastolic parameters with cardiac catheterization in the future. (2) Paroxysmal atrial fibrillation: Status: Acute Atrial fibrillation currently suppressed on amiodarone therapy. Continue the same. Has been better although heart failure syndrome has worsened since maintaining rhythm most likely due to worsening aortic stenosis and/or diastolic dysfunction. Currently on full oral anticoagulation with warfarin. Continue to monitor INR and should be between 2.5 and 3.5. (3) Aortic stenosis: Status: Acute Aortic stenosis in the moderately severe range but could have worsened and could be underestimated. She is worsening heart failure syndrome and will require full evaluation for aortic stenosis outpatient with cardiac catheterization. If she does have significant aortic stenosis may benefit from transcatheter aortic valve replacement. (4) H/O mitral valve replacement: Status: Acute History of mitral valve replacement, working well clinically. Continue full oral anticoagulation with INR between 2.5 and 3.5. Will continue to follow with you Procedures Date of Service Date of Service: 12/20/23
[2023-12-20] MEDS: Warfarin Sodium 2.5 MG TABLET PO (15:43)
[2023-12-20] MEDS: 0.9 % Sodium Chloride Flush 3 ML SYRINGE IVFLUSH ×2 (15:46→20:08)
[2023-12-20] MEDS: Pravastatin Sodium 40 MG TABLET PO (20:08)
[2023-12-20] MEDS: Melatonin 3 MG TABLET 6 MG PO (20:11)
[2023-12-21] VITALS: BP 134/63; PULSE 72; RESP 19; TEMP 36.9; O2SAT 93
[2023-12-21 04:00] VITALS: BP 124/62; PULSE 72; RESP 19; TEMP 36.1; O2SAT 95
[2023-12-21] MEDS: Omeprazole 20 MG CAPSULE.DR PO (06:44)
[2023-12-21 06:47] LABS: INTERNATIONAL NORM RATIO 2.2 (0.9-1.1); Prothrombin Time 27.1 SEC (11.1-13.3)
[2023-12-21 07:44] VITALS: BP 134/58; PULSE 72; RESP 18; TEMP 36.3; O2SAT 94
[2023-12-21 07:54] VITALS: BP 134/58; PULSE 72
[2023-12-21] MEDS: Multivitamin TABLET 1 TAB PO (07:54)
[2023-12-21] MEDS: Valsartan 160 MG TABLET PO (07:54)
[2023-12-21] MEDS: amLODIPine Besylate 2.5 MG TABLET PO (07:54)
[2023-12-21] MEDS: Amiodarone HCL 200 MG TABLET PO (07:54)
[2023-12-21] MEDS: Cholecalciferol (Vitamin D3) 25 MCG TABLET PO (07:54)
[2023-12-21] MEDS: Metoprolol Tartrate 50 MG TABLET PO (07:54)
[2023-12-21 07:55] VITALS: BP 134/58
[2023-12-21] MEDS: Furosemide 40 MG/4 ML VIAL IVPUSH (07:55)
[2023-12-21] MEDS: 0.9 % Sodium Chloride Flush 3 ML SYRINGE IVFLUSH (07:55)
[2023-12-21 08:14] LABS: Anion Gap 12 (12-20); Blood Urea Nitrogen 20 mg/dL (9-16); Calcium 9.6 mg/dL (8.4-10.2); Carbon Dioxide 30 mmol/L (22-29); Chloride 100 mmol/L (96-108); Creatinine Clr Calc Pharmacy 32.6; Estimated Glomerular Filt Rate 58; Glucose Random 93 mg/dL (60-115); Potassium 4.2 mmol/L (3.3-5.1); Sodium 138 mmol/L (135-145)
[2023-12-21 08:25] LABS: B Type Natriuretic Peptide 599 pg/mL (<100)
--- NOTE | 2023-12-21 10:23 | MHC.CM.PN ---
Addendum entered by Yuliana Wallace 12/21/23 10:55: Patient is discharged to home today with [facility]. She has arranged for a ride home. Original Note: Per MD rounds patient may be ready to discharge today. [facility] has been notified of possible dc today. DC pending Cardiology clearance. DP home w [facility]. Patient will arrange for a ride home.
--- NOTE | 2023-12-21 10:33 | P.F2F_ITS ---
Service Date Service Date: 12/21/23 Encounter Date of encounter: 12/21/23 Reasons for Services Signs and symptoms assessed: heart failure and shortness of breath Reason for detention: medication management and teach disease management Homebound: Leaving the home is medically contraindicated at this time without the asist of a device and/or another person due th the listed conditions above and below. Reason homebound: shortness of breath with minimal effort and shortness of breath at rest Homebound supporting statement: homebound due to shortness of breath at rest due to heart failure and aortic stenosis and therefore needs the assistance of another person Certification: Based on the above findings, I certify that this patient is confined to the home and needs intermittent detention care, physical therapy and/or speech therapy, or continues to need occupational therapy. The patient is under my care, and I have initiated the establishment of the plan of care. The patient will be followed by a physician who will periodically review the plan of care. Time Spent With Patient Time: Total time managing care of this patient today ____ minutes.
--- NOTE | 2023-12-21 10:35 | PM.DS ---
DS: Providers Provider Date of Service: 12/21/23 Date of admission: 12/19/23 21:21 Primary care physician: Kana Ponce MD Consults: 12/19/23 21:21 Consult to Cardiology Routine Consulting Provider: [facility] Reason for consultation: chf exacerbation DS: Diagnosis Discharge Diagnosis (1) CHF exacerbation: Status: Resolved (2) Paroxysmal atrial fibrillation: Status: Acute (3) Aortic stenosis: Status: Acute (4) H/O mitral valve replacement: Status: Acute DS: Summary Hospital Course Hospital Course: admission hpi Chief Complaint: griffin, ble edema 83-year-old female with history of heart failure reduced ejection fraction with EF 45-50 %, mitral valve replacement on Coumadin, pacemaker in place, coronary artery disease, persistent atrial fibrillation on amiodarone, hypertension, hyperlipidemia, aortic stenosis presents to the ED earlier today at the recommendation of Cardiology for evaluation of bilateral lower extremity edema. The patient has been following Dr. Luke for congestive heart failure and Lasix was recently increased from 10 mg to 40 mg daily due to significantly limited dyspnea on exertion, orthopnea, and bilateral lower extremity edema. She has experienced some symptomatic relief but still experiencing some dyspnea on exertion, mild orthopnea with bilateral lower extremity edema. Denies any recent illness, fevers, chills, abdominal pain, nausea, vomiting, diarrhea, palpitations, shortness of breath at rest, or chest pains. On arrival, vital signs stable. Hematology studies reveal a chronic, stable normocytic anemia. Renal function is baseline with creatinine 0.96, BUN 20, electrolyte levels normal except for CO2 31. Hepatic function consistent with baseline. Troponin 5.7. BNP 1122, was 2043 on 12/13. Chest x-ray unremarkable. EKG shows AV dual paced rhythm with prolonged AV conduction, rate [address]/T-wave abnormalities. QTC is prolonged at 569. IN the ED, give 60mg IV lasix. ED discussed case with Cardiology recommending admission for IV diuresis hospital course: The patient presented with shortness of breath, increased leg edema, elevated BNP, and clinical findings consistent with an acute exacerbation of heart failure. She was managed with IV Lasix, resulting in negative fluid balance, reduced leg edema, and clear lungs. A cardiology consultation recommended adding Jardiance 10 mg daily to her regimen. Lasix dose is increased from 20 mg daily to 40 mg daily. She is otherwise doing well, feels better, and is comfortable going home. Home health services will be arranged for disease and medication education and to prevent rehospitalization Time Attestation Discharge Coordination Time (in mins): 40 Quality: Safe Use of Opioids Does Pt have an Active Cancer Diagnosis on the Problem List?: No Quality: Stroke Does the patient have a stroke diagnosis?: No Physical Exam Vital Signs: Vital Signs: Last Vital Signs Temp 97.3 F 12/21/23 07:44 Pulse 72 12/21/23 07:54 Resp 18 12/21/23 07:44 BP 134/58 L 12/21/23 07:55 Pulse Ox 94 12/21/23 07:44 O2 Del Method Room Air 12/21/23 07:44 BMI result Body Mass Index 21.7 Const: Other: General: AO X 3, no acute distress Resp: CTA bilateral CVS: S1,S2,RRR GI: +BS, NT, no distention Skin: No rash Neuro: motor grossly intact Psych: appropriate affect DS: Data Data Completed and Pending Completed studies during hospitalization [Text1]: Procedures Inspection of Upper Intestinal Tract, Via Natural or Artificial Opening Endoscopic (07/04/23) Transfusion of Nonautologous Red Blood Cells into Peripheral Vein, Percutaneous Approach (07/04/23) Labs on day of discharge: Laboratory Results - last 24 hr 12/21/23 06:25 Hold Purple Top SEE NOTE PT 27.1 H INR 2.2 H Sodium 138 Potassium 4.2 Chloride 100 Carbon Dioxide 30 H Anion Gap 12 BUN 20 H Creatinine 0.92 Estim Creat Clear Calc 32.6 Estimated GFR 58 Random Glucose 93 Calcium 9.6 D B-Natriuretic Peptide 599 H Discharge Plan Discharge Anticipated Discharge Date/Time: 12/21/23 10:18 Patient Disposition: Home Health Service Discharge Diagnosis: Acute exacerbation of heart failure Referrals: [facility] [Outside] - 1 Week Kana Ponce MD [Primary Care Provider] - 1 Week Discharge Medications: New furosemide [Lasix] 40 mg tablet 40 mg PO QAM Qty: 90 0RF Jardiance 10 mg tablet 10 mg PO DAILY Qty: 90 0RF Continued amlodipine 2.5 mg tablet 2.5 mg PO DAILY Qty: 90 3RF amiodarone 200 mg tablet 200 mg PO DAILY Qty: 30 5RF valsartan 160 mg tablet 160 mg PO DAILY alendronate 70 mg tablet 70 mg PO SA pravastatin 40 mg tablet 40 mg PO BEDTIME metoprolol tartrate 50 mg tablet 50 mg PO BID multivitamin [Daily Multi-Vitamin] Tablet 1 tab PO DAILY cholecalciferol (vitamin D3) 25 mcg (1,000 unit) capsule 25 mcg PO DAILY pantoprazole 20 mg tablet,delayed release (DR/EC) 20 mg PO DAILY warfarin 2.5 mg tablet 2.5 mg PO DAILY@1600 Protocol: Dose Management Condition: Tuesday (Week One) Dose/Route: 2.5 mg Instruction: 1 x 2.5 mg tablet Condition: Tuesday Dose/Route: 1.25 mg Instruction: 0.5 x 2.5 mg tablets Condition: Tuesday Dose/Route: 2.5 mg Instruction: 1 x 2.5 mg tablet Condition: Tuesday Dose/Route: 2.5 mg Instruction: 1 x 2.5 mg tablet Condition: Dose/Route: 1.25 mg Instruction: 0.5 x 2.5 mg tablets Condition: Tuesday Dose/Route: 2.5 mg Instruction: 1 x 2.5 mg tablet Condition: Tuesday Dose/Route: 2.5 mg Instruction: 1 x 2.5 mg tablet Condition: Tuesday (Week Two) Dose/Route: 2.5 mg Instruction: 1 x 2.5 mg tablet Condition: Tuesday Dose/Route: 1.25 mg Instruction: 0.5 x 2.5 mg tablets Condition: Tuesday Dose/Route: 2.5 mg Instruction: 1 x 2.5 mg tablet Condition: Tuesday Dose/Route: 2.5 mg Instruction: 1 x 2.5 mg tablet Condition: Dose/Route: 1.25 mg Instruction: 0.5 x 2.5 mg tablets Condition: Tuesday Dose/Route: 2.5 mg Instruction: 1 x 2.5 mg tablet Condition: Tuesday Dose/Route: 2.5 mg Instruction: 1 x 2.5 mg tablet Protocol Text: Adjustment Start Date: Tuesday12/19/23 INR Value: 3.2 INR Date: 12/12/23 Recheck Date: 12/26/23 Additional Instructions: REVIEW FOOD LIST WEEKLY, EAT A MIX OF FRUITS AND VEGETABLES WEEKLY Discontinued furosemide [Lasix] 20 mg tablet 20 mg PO BID 30 Days Qty: 60 0RF Discharge Orders: Discharge Order (Routine); Ordered 12/21/23 Ordered By: Joaquin Willis Diet: Advance to usual diet Activity on Discharge: As tolerated Stand Alone Forms: Patient Portal Discharge page Print Language: Pashto Care Plan Goals: Controlling symptoms of heart failure, improve quality of life and prevent rehospititalizatio Health Concerns: heart failure ex Plan of Treatment: Take Lasix as recommended take Jardiance as recommended avoid drinking too much water no more than 1500 cc day weight yourself daily and if your weight increase by 2 Ib a day, notify your doctor Follow up with your doctor in a week Assessment: see above Discharge Date/Time: 12/21/23 14:57
--- NOTE | 2023-12-21 10:57 | PM.PNCARD ---
Subjective Subjective Date of Service: 12/21/23 Principal diagnosis: Congestive heart failure Interval history: Patient has diuresed well. Says leg edema significant improved. Her shortness of breath is significantly improved. She is able to ambulate the sibley without having any significant shortness of breath. Blood pressures remained stable. BNP is down trended Review of Systems Constitutional: Reports no additional constitutional complaints Cardiovascular: Denies chest pain, Denies leg edema, Denies lightheadedness, Denies Loss of Consciousness, Denies dyspnea on exertion and Denies orthopnea Respiratory: Denies no additional respiratory complaints and Denies dyspnea on exertion Gastrointestinal: Reports no additional gastrointestinal complaints Hematologic/Lymphatic: Reports no additional hematologic/lymphatic complaints Physical Exam Vital Signs: Last Vital Signs Temp 97.3 F 12/21/23 07:44 Pulse 72 12/21/23 07:54 Resp 18 12/21/23 07:44 BP 134/58 L 12/21/23 07:55 Pulse Ox 94 12/21/23 07:44 O2 Del Method Room Air 12/21/23 07:44 BMI result Body Mass Index 21.7 Const General: cooperative, comfortable, no acute distress, alert and awake Nutritional Appearance: average body habitus Orientation/consciousness: patient oriented x3 Neck Neck: Yes trachea midline and Yes no JVD Resp Effort & Inspection: normal respiratory effort Auscultation: clear to auscultation bilaterally Cardio Rate: regular rate Rhythm: regular rhythm Heart sounds: Clicking heart sound present (Opening and closing click of [place] mitral valve), no gallops and Murmur heart sound present systolic late, decrescendo and crescendo GI Auscultation: normal bowel sounds Skin General skin exam: no rashes or lesions noted and ecchymosis Neuro General: patient oriented x3 and no focal motor deficits Extrem General: Yes no clubbing, cyanosis or edema Objective Labs and Meds 12/20/23 04:22 12/21/23 06:25 Lab results: Laboratory Results - last 24 hr 12/21/23 06:25 Hold Purple Top SEE NOTE PT 27.1 H INR 2.2 H Sodium 138 Potassium 4.2 Chloride 100 Carbon Dioxide 30 H Anion Gap 12 BUN 20 H Creatinine 0.92 Estim Creat Clear Calc 32.6 Estimated GFR 58 Random Glucose 93 Calcium 9.6 D B-Natriuretic Peptide 599 H Progress Note: A&P Assessment and plan (1) CHF exacerbation: Status: Acute Assessment and Plan: Patient admitted with CHF exacerbation despite maintaining rhythm. Etiology of CHF is unclear could be related to advancing aortic stenosis and/or advancing diastolic dysfunction. Clinically significantly improved with IV diuresis. BNP is down trended. Can switch to p.o. Lasix 40 mg daily and add Jardiance 10 mg to regimen. Will set her up for cardiac catheterization to evaluate hemodynamics including aortic valve severity and coronary anatomy in the near future. Patient is ambulating well without much symptoms, can potentially be discharged later today. We discussed heart failure management including daily weight monitoring avoidance of salt loading as outpatient has in past. Additional diuretics as need be. (2) H/O mitral valve replacement: Status: Acute Assessment and Plan: Prior history of [place]ty mitral valve replacement. Continue with warfarin therapy with target INR between 2.5 and 3.5. Will set up for Coumadin check in the next couple of days (3) Aortic stenosis: Status: Acute Assessment and Plan: Aortic stenosis which clinically is moderately severe and moderately severe by transesophageal echocardiogram although could be underestimated. Will pursue cardiac catheterization to evaluate for aortic valve hemodynamics to assess for severity and may benefit if severe with transcatheter aortic valve replacement. Will follow up with her next week in the clinic. Thank you for allowing me to partake in the care (4) Paroxysmal atrial fibrillation: Status: Acute Assessment and Plan: Atrial fibrillation remained suppressed on amiodarone therapy after cardioversion. Continue amiodarone therapy for now. Continue warfarin therapy as above. Time Spent With Patient Time: Total time managing care of this patient today ____ minutes. Progress Note: Quality Stroke Does the patient have a stroke diagnosis?: No Procedures Date of Service Date of Service: 12/21/23
[2023-12-21 11:20] VITALS: BP 112/57; PULSE 73; RESP 18; TEMP 36.2; O2SAT 94
[2023-12-21] MEDS: Empagliflozin 10 MG TABLET PO (12:17)
--- OUTSIDE RECORDS SUMMARY | 2023-12-22 07:57 | XMS_ITS | Continuity of Care Document ---
Author Organization [facility] Address [address] [place] [id number] Care Team Providers Care Scrap Kettle Tender Name Role Phone Kris LI, Kana Sierra Primary Care Physician Encounter [facility] Date(s): 03/03/22 - 03/03/[address] [address] Discharge Disposition: A-D/C Home Attending Physician: Black Phillips MD Admitting Physician: Black Phillips MD Referring Physician: Agustin Luke MD Allergies, Adverse Reactions, Alerts Substance Reaction Severity Status sulfa drugs Active Immunizations Given and Recorded Vaccine Date Status Refusal Reason pneumococcal 23-valent vaccine 05/06/09 Given FluLaval (oldterm) 1 03/27/09 Given Influenza Inactive (IM) (oldterm) 2 06/09/06 Given Influenza Inactive (IM) (oldterm) 05/27/05 Given 1Admin Note: CDC info given to pt. 2Admin Note: SANOFI PASTEUR EASTER BUNNY Medications aspirin 81 mg oral tablet 1 tablet = 81 mg, By Mouth, Daily, 0 Refills, Maintenance Start Date: 01/08/10 Status: Ordered Calcium (as carbonate)-vitamin D 500 mg-400 intl units oral tablet, chewable 1 tablet, Chew, Daily, # 60 tablet, 0 Refills, Maintenance, Chew Tablet Start Date: 01/08/10 Status: Ordered enoxaparin 100 mg/mL injectable solution INJECT 0.5ML (HALF A SYRNGE) UNDER THE SKIN EVERY 12 HOURS Start Date: 03/03/22 Status: Ordered enoxaparin 100 mg/mL injectable solution INJECT 0.5ML (HALF A SYRNGE) UNDER THE SKIN EVERY 12 HOURS Start Date: 03/03/22 Status: Ordered Fish Oil oral capsule Daily, 0 Refills, Maintenance Start Date: 01/08/10 Status: Ordered Fosamax 70 mg oral tablet 1 tablet = 70 mg, By Mouth, Every week, 0 Refills, Maintenance Start Date: 01/08/10 Status: Ordered Metoprolol Tartrate 50 mg oral tablet TAKE 1 TABLET BY MOUTH TWICE A DAY Start Date: 03/03/22 Status: Ordered pravastatin 40 mg oral tablet TAKE 1 TABLET EVERY DAY Start Date: 03/03/22 Status: Ordered valsartan 320 mg oral tablet 1 tablet = 320 mg, By Mouth, Daily before dinner, # 30 tablet, 2 Refills Start Date: 05/06/09 Stop Date: 08/04/09 Status: Ordered Vitamin C = 2,000 mg, Daily, 0 Refills, Maintenance Start Date: 01/08/10 Status: Ordered warfarin 2 mg oral tablet 1 tablet = 2 mg, By Mouth, Daily, as directed, 0 Refills, Maintenance Start Date: 01/08/10 Status: Ordered Vital Signs Most recent to oldest [Reference Range]: 1 2 3 Height 150 cm (03/03/22 7:36 AM) 150 cm (03/03/22 7:36 AM) Weight 51.2 kg (03/03/22 7:36 AM) 51.2 kg (03/03/22 7:36 AM) Oxygen Saturation [94-100 %] 96 % (03/03/22 1:30 PM) 96 % (03/03/22 1:00 PM) 93 % *L* (03/03/22 12:30 PM) Pulse Rate [55-90 bpm] 65 bpm (03/03/22 7:36 AM) Body Mass Index [18.5-24.99] 22.76 (03/03/22 7:36 AM) Blood Pressure [90-138/55-84 mm Hg] 142/51mm Hg *H* (03/03/22 1:30 PM) 143/52mm Hg *H* (03/03/22 1:00 PM) 148/50mm Hg *H* (03/03/22 12:30 PM) Respiratory Rate [16-30 br/min] 19 br/min (03/03/22 1:30 PM) 20 br/min (03/03/22 1:00 PM) 20 br/min (03/03/22 12:30 PM) Temperature [96.8-100.4 DegF] 97.2 DegF (03/03/22 7:36 AM) Mode of Delivery (Oxygen) Room air (03/03/22 1:30 PM) Room air (03/03/22 1:00 PM) Room air (03/03/22 12:30 PM) Blood pressure sites Arm, left (03/03/22 1:30 PM) Arm, left (03/03/22 1:00 PM) Arm, left (03/03/22 12:30 PM) Temperature Route Temporal (03/03/22 7:36 AM) Dry Weight 51.2 kg (03/03/22 7:36 AM) 51.2 kg (03/03/22 7:36 AM) Weight Obtained Via Standing scale (03/03/22 7:36 AM) Standing scale (03/03/22 7:36 AM) Dry Weight Obtained Via Standing scale (03/03/22 7:36 AM) Standing scale (03/03/22 7:36 AM) Care Team Personnel Name: Kris LI, Kana Sierra Address: [address] [place] [id number]
--- OUTSIDE RECORDS SUMMARY | 2023-12-22 07:57 | XMS_ITS | Patient Health Record ---
Author Organization [facility] Address [address] [address] Care Team Providers Care Integration Specialist Name Role Phone Kris LI, Kana Primary Care Provider UnavailJuan R Dutta Unavailable [phone] ALLERGIES Allergen (clinical drug ingredient) Drug/Non Drug Allergy documented on EMR Reaction Allergy Type Onset Date Status ibuprofen Advil can't remember Drug Allergy Ac tive naproxen Aleve Unknown Drug Allergy Active sulfamethoxazole / trimethoprim Bactrim Unknown Drug Allergy Active Motrin Unknown Drug Allergy Active REASON FOR REFERRAL No Information MEDICATIONS Medication SIG (Take, Route, Frequency, Duration) Notes Start Date End Date Status Ammonium Lactate 12 % 1 application to affected area Externally to feet Twice a day for 30 days Active Alendronate Sodium 70 MG 1 tablet 30 minutes before the first food, beverage or medicine of the day with plain water Orally for 30 day(s) Active Valsartan 160 MG 1 tablet Orally Once a day for 30 day(s) Active Warfarin Sodium 4 MG 1 tablet Orally Once a day for 30 day(s) 3.5 & 4 Mg Alternating Days Active Vitamin B 12 1000 mg Active Vitamin D3 Active Multivitamin Opti Women Active Pravastatin Sodium 40 MG 1 tablet Orally Once a day for 30 day(s) Active Aspirin 81 MG Orally Active Metoprolol Succinate 50 MG 1 capsule Orally Once a day for 30 day(s) Active IMMUNIZATIONS Vaccine Route Administration Date Status Comme nts COVID-19 Pfizer BioNTech Vaccine Unknown 04/20/2021 Administered 1st 08/02/2020 2nd 08/23/2020 SOCIAL HISTORY Tobacco Use: Social History Observation Description Date Details (start date - stop date) Never Smoker NA - NA Sex Assigned At : Social History Observation Description Sex Assigned At Unknown Tobacco Use/Smoking Question Answer Notes Are you a: nonsmoker Alcohol Screen Question Answer Notes Did you have a drink containing alcohol in the p ast year? No Points 0 Interpretation Negative Tobacco use other than smoking: Question Answer Notes Are you an other tobacco user? No PROBLEMS Problem Type ICD Code Onset Dates Problem Status W/U Status Risk SNOMED Code Notes Problem Atherosclerosis of douglas artery of both lower extremities, with unspecified presence of clinical manifestation (I70.203) Active confirmed [id number] VITAL SIGNS Blood pressure diastolic 80 mm Hg 10/18/2023 Height 5 ft 0 in in 10/18/2023 Blood pressure systolic 140 mm Hg 10/18/2023 Weight 116 lbs 10/18/2023 BMI 22.65 kg/m2 10/18/2023 PROCEDURES Procedure Date Ordered Date Performed Result Body Sit e 08153-PORACSO NAIL, 6 OR MORE 12/21/2022 N/A 02985-Dmqyghef Plate 12/21/2022 N/A 47755-PUHQ SKIN LESIONS, OVER 4 12/21/2022 N/A 28528-YQRWAXW NAIL, 6 OR MORE 07/19/2023 N/A 31616-Gojzhyje Plate 07/19/2023 N/A 54233-YGJU SKIN LESIONS, OVER 4 07/19/2023 N/A 09872-XOMAIPH NAIL, 6 OR MORE 10/18/2023 N/A 95002-Ekhfvhrc Plate 10/18/2023 N/A 28850-RJJY SKIN LESIONS, OVER 4 10/18/2023 N/A Encounters Encounter Location Date Provider Diagnosis [address] [address] 12/21/2022 JuanR Bar Atherosclerosis of douglas artery of both lower extremities, with unspecified presence of clinical manifestation I70.203 ; Tinea unguium B35.1 ; Pain in right toe(s) M79.674 ; Pain in left toe(s) M79.675 and Ingrowing nail L60.[address] [address] 04/12/2023 Juan R Bar [address] [address] 04/13/2023 Juan R Bar [facility] [address] [address] 07/19/2023 Juan R Bar Atherosclerosis of douglas artery of both lower extremities, with unspecified presence of clinical manifestation I70.203 ; Tinea unguium B35.1 ; Pain in right toe(s) M79.674 ; Pain in left toe(s) M79.675 and Ingrown nail L60.0 [facility] [address] 10/18/2023 Juan R Bar Atherosclerosis of douglas artery of both lower extremities, with unspecified presence of clinical manifestation I70.203 ; Tinea unguium B35.1 ; Pain in right toe(s) M79.674 ; Pain in left toe(s) M79.675 and Ingrown nail L60.0 ASSESSMENTS Encounter Date Diagnosis Assessment Notes Treatment Notes Treatment Clinical Notes 12/21/2022 Tinea unguium (ICD-1 0 - B35.1) 12/21/2022 Atherosclerosis of douglas artery of both lower extremities, with unspecified presence of clinical manifestation (ICD-10 - I70.203) 07/19/2023 Tinea unguium (ICD-1 0 - B35.1) 07/19/2023 Atherosclerosis of douglas artery of both lower extremities, with unspecified presence of clinical manifestation (ICD-10 - I70.203) 10/18/2023 Tinea unguium (ICD-1 0 - B35.1) 10/18/2023 Atherosclerosis of douglas artery of both lower extremities, with unspecified presence of clinical manifestation (ICD-10 - I70.203) 12/21/2022 Pain in right toe(s) (ICD-10 - M79.674) 10/18/2023 Pain in right toe(s) (ICD-10 - M79.674) 07/19/2023 Pain in right toe(s) (ICD-10 - M79.674) 07/19/2023 Pain in left toe(s) (ICD-10 - M79.675) 12/21/2022 Pain in left toe(s) (ICD-10 - M79.675) 10/18/2023 Pain in left toe(s) (ICD-10 - M79.675) 10/18/2023 Ingrown nail (ICD-10 - L60.0) 12/21/2022 Ingrowing nail (ICD- 10 - L60.0) 07/19/2023 Ingrown nail (ICD-10 - L60.0) PLAN OF TREATMENT Pending Test Test Name Order Date X ray : Foot, right 2V 10/05/2012 42637-EBCSKMM NAIL, 6 OR MORE 04/01/2020 27744-RCWBIKD NAIL, 6 OR MORE 10/18/2023 11970-TSAUGWN NAIL, 6 OR MORE 06/15/2022 36372-ABYUOXJ NAIL, 6 OR MORE 09/21/2022 37032-MIFTNVH NAIL, 6 OR MORE 12/21/2022 07607-HHMYBUB NAIL, 6 OR MORE 07/19/2023 81428-AUVYMMB NAIL, 6 OR MORE 07/08/2020 31902-JKBRQZW NAIL, 6 OR MORE 10/07/2020 78058-ZARZKYC NAIL, 6 OR MORE 01/06/2021 33147-WLJTOTG NAIL, 6 OR MORE 04/07/2021 83452-ASYTRLW NAIL, 6 OR MORE 07/14/2021 14449-MNOMSCM NAIL, 6 OR MORE 12/08/2021 90401-SLZGKVU NAIL, 6 OR MORE 03/16/2022 84244-ZOZJYAP NAIL, 1-5 10/05/2012 72586-Iqyt Destruction, 1-14 11/15/2012 12802-Hjmr Destruction, 1-14 10/05/2012 85969-Oeewxfmk Plate 03/16/2022 82879-Dkluupmo Plate 07/14/2021 65917-Rkbduqrf Plate 10/07/2020 82188-Bkyskxgu Plate 10/18/2023 00352-Sdeifghh Plate 12/21/2022 69513-Swjeezan Plate 07/19/2023 84643-KSTX SKIN LESIONS, OVER 4 10/18/19 24 32967-TLNJ SKIN LESIONS, OVER 4 04/01/20 09160-RFJA SKIN LESIONS, OVER 4 07/19/19 24 12257-RCOS SKIN LESIONS, OVER 4 12/22/19 77030-NSGO SKIN LESIONS, OVER 4 03/28/20 23 49847-NTYA SKIN LESIONS, OVER 4 06/15/20 22 06359-LOZC SKIN LESIONS, OVER 4 10/08/19 79001-MSKE SKIN LESIONS, OVER 4 07/08/19 21 71215-NKUK SKIN LESIONS, OVER 4 04/07/20 21 85788-KVTB SKIN LESIONS, OVER 4 01/07/20 21 24930-VYTK SKIN LESIONS, OVER 4 07/14/19 79742-FNPQ SKIN LESIONS, OVER 4 12/09/19 86671-EXWR SKIN LESIONS, OVER 4 03/16/20 Next Appt Details Provider Name:Juan R Bar , 01/17/2024 04:00:00 PM, [address], [place], [address], Insurance Providers Payer Name Payer Address Payer Phone Subscriber Number Group Number Insured Name Patient Relationship to Insured Coverage Start Date Coverage End Date Medicare National [employer] [address] [place] [address] [id number] Bethany Viveros Self - patient is the insured [employer] [address] [place] [address] [id number] Bethany Viveros Self - patient is the insured MEDICAL (GENERAL) HISTORY Medical History History ICD Code High blood pressure Measles Replacement Heart Valves CAD back, hip, knee pain broken bones heart disease high blood pressure osteoporosis rheumatic fever measles mumps chicken pox Anemia Surgical History Surgery Date(Month/Year) heart surgery unspecified 1992,1197 cardiac pacemeker 2009 Heart Valve 03/03/2022 ORIF Left Femur fx 09/2022 Hospitalization History Reason Date(Month/Year) [facility]-[place] ambulance- Heart V alve sx complication lots of bleeding from R arm stopped bleeding few hrs 03/16/22 [facility] for 5 days due to anemia
== END 2023-12-21 14:57 | disposition home health service (06) | DRG 291 ==
LOC: HO.ED 21:04 → HO.EDOVER 21:30 → HO.IMC 12-20 07:19
PROVIDERS: Physician Assistant; Admitting Provider Physician Assistant; Emergency Provider Emergency Medicine; PCP Internal Medicine; Visit Provider Internal Medicine
DX: I13.0 Hypertensive heart and chronic kidney disease with heart failure and stage 1 through stage 4 chronic kidney disease, or unspecified chronic kidney disease (principal); I50.23 Acute on chronic systolic (congestive) heart failure; N18.30 Chronic kidney disease, stage 3 unspecified; D63.1 Anemia in chronic kidney disease; I48.0 Paroxysmal atrial fibrillation; I35.0 Nonrheumatic aortic (valve) stenosis; E78.2 Mixed hyperlipidemia; I25.10 Atherosclerotic heart disease of native coronary artery without angina pectoris; R94.31 Abnormal electrocardiogram [ECG] [EKG]; I49.5 Sick sinus syndrome; Z95.0 Presence of cardiac pacemaker; Z95.2 Presence of prosthetic heart valve; Z79.01 Long term (current) use of anticoagulants; Z79.899 Other long term (current) drug therapy
CPT/HCPCS: 36415; 71046; 80048; 80076; 83880; 84484; 85025; 85610; 93005; 99285; J1940

== ENCOUNTER → 2023-12-19 14:54 | Outpatient (BNV) | payer MEDICARE, SELFPAY | PROVIDERS: Admitting Provider Physician Assistant; Emergency Provider Emergency Medicine; PCP Internal Medicine; Visit Provider Internal Medicine Cardiovascular Disease | DX: R94.31 Abnormal electrocardiogram [ECG] [EKG] (principal) | CPT/HCPCS: 93010 ==

== ENCOUNTER → 2023-12-19 21:21 | Outpatient (BNV) | payer MEDICARE, SELFPAY | PROVIDERS: Admitting Provider Physician Assistant; Emergency Provider Emergency Medicine; PCP Internal Medicine; Visit Provider Internal Medicine Cardiovascular Disease | DX: I50.9 Heart failure, unspecified (principal); Z95.2 Presence of prosthetic heart valve; I35.0 Nonrheumatic aortic (valve) stenosis; I48.0 Paroxysmal atrial fibrillation | CPT/HCPCS: 99222; 99233 ==

== ENCOUNTER → 2023-12-19 21:21 | Outpatient (BNV) | payer MEDICARE, SELFPAY | PROVIDERS: Admitting Provider Physician Assistant; Emergency Provider Emergency Medicine; PCP Internal Medicine; Visit Provider Internal Medicine | DX: I50.9 Heart failure, unspecified (principal); I48.0 Paroxysmal atrial fibrillation; I35.0 Nonrheumatic aortic (valve) stenosis; Z95.2 Presence of prosthetic heart valve | CPT/HCPCS: 99223; 99232; 99239; G0180 ==

== ENCOUNTER → 2023-12-23 16:35 | Outpatient (BNVA) | payer MEDICARE, SELFPAY | PROVIDERS: PCP Internal Medicine; Visit Provider Internal Medicine ==

== ENCOUNTER 2023-12-27 14:52 | Outpatient (AMB) | payer MEDICARE, SELFPAY ==
[2023-12-27 15:03] LABS: Prothrombin Time Whole Bld POC 34.4 sec (11.1-13.5); ~PT, ~INR - Anti Coag Clinic 2.9 (0.9-1.1)
--- NOTE | 2023-12-27 15:15 | MHC.OFFVISCO ---
Intake Intake Visit Reasons: Anticoagulation Allergies Sulfa (Sulfonamide Antibiotics) Allergy (Unknown, Verified 12/27/23 14:53) UNKNOWN - DOES NOT REMEMBER Medication List - Last Reconciled 12/27/23 by Sita Crooks RN alendronate 70 mg PO SA amiodarone 200 mg PO DAILY amlodipine 2.5 mg PO DAILY cholecalciferol (vitamin D3) 25 mcg PO DAILY empagliflozin (Jardiance) 10 mg PO DAILY furosemide (Lasix) 40 mg PO QAM metoprolol tartrate 50 mg PO BID multivitamin (Daily Multi-Vitamin tablet) 1 tab PO DAILY pantoprazole 20 mg PO DAILY pravastatin 40 mg PO BEDTIME valsartan 160 mg PO DAILY warfarin 2.5 mg See Protocol PO DAILY@1600 Nursing Note Pt came to clinic with daughter, ambulating with cane, gait steady , no c/p or sob, lips and nail beds pink, no edema May be having cardiac cath at [facility] 01/03/24 - orders for warfarin hold and lovenox pending. Pt to have appt with bushing press operator this afternoon. She will need instructions for warfarin hold and the lovenox bridge procedure either today or tomorrow due the December 28 Holiday. [facility] clinic closed 12/28 and 12/29 INR: 2.9 in therapeutic range Medications and supplements reviewed and updated No changes in health, diet, medications, or supplements, Denies any signs and symptoms of bleeding or bruising or clotting. Bleeding, bruising, clotting discussed Nutritional guidance given - review food list weekly, eat a mix of fruits and vegetables Dose: keep same dose 1.25mg x 2 days/ 2.5mg x 5 days F/U INR: 01/02/24 or per procedure. Forms for lovenox instructions given to pt and her daughter to be filled out by either cardilogy or hospital admissions clerk. Pt and daughter or and Providers to call [facility] with instructions regarding the procedure lovenox bridge Patient and daughter verbalize understanding of instructions given Anti-Coag Initial Assessment Social Hx Patient Tobacco Use Status: Never used Tobacco alcohol intake: never Alcohol intake frequency: does not drink Cardiovascular Hx: HTN, CHF and Other Endocrine Hx: Other Musculoskeletal Hx: Arthritis Blood Disorder Hx: Anemia GI Hx: Bleeding (GI, rectal) Cancer HX: No Psych. Illness/Depression: Yes ( blues ) Coding Level of Care Code Est Patient Level 1 Diagnoses Current use of anticoagulant therapy Z79.01 Assessment & Plan Assessment & Plan (1) Current use of anticoagulant therapy: Code(s): Z79.01 - MCFP (current) use of anticoagulants Category: Medical
== END 2023-12-27 15:35 | disposition home or self-care (01) ==
LOC: HO.ACS 14:52
PROVIDERS: PCP Internal Medicine; Visit Provider Internal Medicine
DX: Z79.01 Long term (current) use of anticoagulants (principal)

== ENCOUNTER → 2023-12-27 14:52 | Outpatient (BNVA) | payer MEDICARE, SELFPAY | PROVIDERS: PCP Internal Medicine; Visit Provider Internal Medicine | DX: I48.0 Paroxysmal atrial fibrillation (principal); I35.0 Nonrheumatic aortic (valve) stenosis; Z51.81 Encounter for therapeutic drug level monitoring; Z79.01 Long term (current) use of anticoagulants; I11.0 Hypertensive heart disease with heart failure; I50.9 Heart failure, unspecified; I25.10 Atherosclerotic heart disease of native coronary artery without angina pectoris; Z95.2 Presence of prosthetic heart valve; Z95.0 Presence of cardiac pacemaker | CPT/HCPCS: 85610; 93005; 93280; 99211; 99212 ==

== ENCOUNTER 2023-12-27 15:21 | Outpatient (AMB) | payer MEDICARE, SELFPAY ==
--- NOTE | 2023-12-27 15:23 | A.OFFVIS_ITS ---
Vital Signs 12/27/23 15:26 Height 4 ft 11 in Weight 106 lb 4.205 oz BMI 21.5 BP 122/80 Blood Pressure Location Lt brachial Position Sitting Pulse 80 Intake Visit Reasons: 2 wk f/up per ns Intake Note: 2wk f/u. Left leg swelling. Device check Data Integrity Specialist Required: No Cowlman: Cowlman Present Accompanied by: Daughter Allergies Sulfa (Sulfonamide Antibiotics) Allergy (Unknown, Verified 12/27/23 14:53) UNKNOWN - DOES NOT REMEMBER Medication List - Last Reconciled 12/27/23 by Agustin Luke MD alendronate 70 mg PO SA amiodarone 200 mg PO DAILY amlodipine 2.5 mg PO DAILY cholecalciferol (vitamin D3) 25 mcg PO DAILY empagliflozin (Jardiance) 10 mg PO DAILY furosemide (Lasix) 40 mg PO QAM metoprolol tartrate 50 mg PO BID multivitamin (Daily Multi-Vitamin tablet) 1 tab PO DAILY pantoprazole 20 mg PO DAILY pravastatin 40 mg PO BEDTIME valsartan 160 mg PO DAILY warfarin 2.5 mg See Protocol PO DAILY@1600 HPI Comments Details: Bethany comes for follow-up after recent hospitalization for heart failure exacerbation. This was despite maintaining rhythm. She has been doing well with rhythm management. She was admitted with IV diuresis with significant improvement in her fluid overload and significant improvement in her symptoms. She is now back to her baseline activity level. Her heart failure syndrome has remained at [place] on current therapy with Lasix as well as Jardiance. She is currently taking 40 mg of Lasix. She denies any orthopnea, PND, worsening leg edema. Weight has remained stable. She is planned for cardiac catheterization next week. 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 Mother No problems noted. Social History Household Members: None Housing: House Housing Other:: 2 family on firstr floor Do you presently have visiting nurse or other home services: No Alcohol intake: never Patient Tobacco Use Status: Never used Tobacco e-Cigarette/Vaping Use: Never Used Second Hand Smoke Exposure: No Advance Directives Date on File: 07/11/23 service: No Current occupational exposures/hazards: No Review of Systems Const Denies chills, Denies fatigue, Denies fever(s), Denies weight gain and Denies weight loss Card Denies chest pain, Reports leg edema, Denies lightheadedness, Denies palpitations, Denies dyspnea on exertion and Denies orthopnea Resp Denies cough and Denies dyspnea on exertion GI Reports melena, Denies hematochezia and Denies change in stool character Musc Denies muscle weakness and Denies radiating pain into limb Endo Denies fatigue and Denies palpitations Physical Exam Vital Signs: Last Vital Signs Pulse 80 12/27/23 15:26 BP 122/80 12/27/23 15:26 BMI result Body Mass Index 21.5 Const General: cooperative, comfortable, alert, awake and in distress mild and respiratory Nutritional Appearance: average body habitus Orientation/consciousness: patient oriented x3 Neck Neck: Yes trachea midline, Yes supple and Yes no JVD Resp Effort & Inspection: normal respiratory effort Auscultation: crackles Cardio Jugular venous distension: no JVD Rate: regular rate Rhythm: regular rhythm Heart sounds: no click, no gallops, Murmur heart sound present systolic decrescendo, crescendo and harsh and Other heart sounds present (Bethany comes for follow-up after cardioversion. This was about 4 weeks a) GI Auscultation: normal bowel sounds Skin General skin exam: no rashes or lesions noted Neuro General: patient oriented x3 and no focal motor deficits Extrem General: No clubbing, No cyanosis and No edema Office Procedures Cardiac Device Check Cardiac Device Check Details: Dual-chamber Medtronic pacemaker in place. Programmed in MVP mode with rate response at 70 beats per minute. 100% ventricular pacing. 91% atrial pacing. Atrial ventricular pacing thresholds adequate. No episodes of atrial fibrillat ion last few weeks. Atrial ventricular capture thresholds adequate. Pacing lead impedance is stable. Atrial ventricular sensitivity could not be checked. Battery life is at 6.8 years [id number]-FP Cardiac Device Check, pacemaker dual lead Procedure code (CPT) selection complete EKG Details: EKG shows AV dual paced rhythm at 80 beats per minute 32267-Lsjiixfibqiyenhnn, Complete Assessment & Plan Assessment & Plan (1) Congestive heart failure: Code(s): I50.9 - Heart failure, unspecified Category: Medical Plan: Patient with heart failure syndrome with recent hospitalization despite maintaining rhythm. Past she had heart failure related to atrial fibrillation. However she would progressive heart failure syndrome despite maintenance of rhythm. Unclear etiology. Question underestimated aortic stenosis. Plan for cardiac catheterization with hemodynamic measurements and coronary anatomy in the near future. Continue current diuretic dose. Continue Jardiance therapy. Importance of good blood pressure control was discussed. Management of heart failure was discussed in details and goals of therapy were discussed. Daily weight monitoring avoidance of salt loading was discussed. She understands. Additional diuretics as need be. (2) CAD (coronary artery disease): Code(s): I25.10 - Atherosclerotic heart disease of [place] coronary artery without angina pectoris Category: Medical Plan: CAD with stable without any new anginal symptoms. Cardiac catheterization as above. Continue aggressive risk factor modification. Continue aggressive blood pressure control. Currently on warfarin therapy with target goal INR between 2.5 and 3.5. Avoid additional aspirin therapy to reduce bleeding risk. Continue statin therapy. (3) Aortic stenosis: Code(s): I35.0 - Nonrheumatic aortic (valve) stenosis Category: Medical Plan: Aortic stenosis which by past echocardiogram has been moderately severe. Unclear if this is progressive aortic stenosis underestimated. Perform cardiac catheterization to further evaluate hemodynamics. If she has significant aortic stenosis may benefit from transcatheter aortic valve replacement. Continue aggressive risk factor modification. (4) H/O mitral valve replacement: Onset Date: ~1996 Comment: ([place] Matty mechanical valve, size unknown - 1996) Code(s): Z95.2 - Presence of prosthetic heart valve Category: Medical Plan: Prior history of [place] mitral valve replacement. Currently on warfarin therapy. Continue the same. Target INR between 2.5 and 3.5. There has been issue with anemia although there are no other alternatives. Avoid aspirin therapy. SBE prophylaxis as per ACC/[facility] guidelines. (5) Cardiac pacemaker in situ: Onset Date: ~2009 Comment: (Medtronic DCPP - placed 2009, generator changes in 2015 & 2020) Code(s): Z95.0 - Presence of cardiac pacemaker Category: Medical Plan: Cardiac pacemaker in-situ, pacer dependent ventricle. Patient currently doing well from that perspective. Will continue monitor remotely. (6) Atrial fibrillation: Code(s): I48.91 - Unspecified atrial fibrillation Category: Medical Plan: Paroxysmal atrial fibrillation which has remained suppressed on amiodarone thera py. Continue to pursue rhythm control approach. This should definitely help with the heart failure syndrome. Continue warfarin therapy as above. Greater than 40 minutes was spent in managing his complex care. Medications: New enoxaparin (Lovenox) 50 mg (0.5 mL) subcut Q12H 6 mL 1RF Coding Level of Care Code Est Pt Level 5 (43621) Diagnoses Congestive heart failure I50.9 CAD (coronary artery disease) I25.10 Aortic stenosis I35.0 H/O mitral valve replacement Z95.2 Cardiac pacemaker in situ Z95.0 Atrial fibrillation I48.91 CPT Codes Cardiac Device Check - Cardiac Device 2: 71410-NW Cardiac Device Check, pacemaker dual lead ([id number]) EKG - CPT: 08284-Rghnswrbaopovigyh, Complete ([id number])
[2023-12-27 15:26] VITALS: BP 122/80; PULSE 80; BMI 21.5
== END 2023-12-27 16:03 | disposition home or self-care (01) ==
PROVIDERS: PCP Internal Medicine; Visit Provider Internal Medicine Cardiovascular Disease
DX: I50.9 Heart failure, unspecified (principal); I25.10 Atherosclerotic heart disease of native coronary artery without angina pectoris; I35.0 Nonrheumatic aortic (valve) stenosis; Z95.2 Presence of prosthetic heart valve; Z95.0 Presence of cardiac pacemaker; I48.91 Unspecified atrial fibrillation; R94.31 Abnormal electrocardiogram [ECG] [EKG]
CPT/HCPCS: 93010; 93280; 99215

== ENCOUNTER → 2024-01-02 23:59 | Outpatient (BNV) | payer MEDICARE, SELFPAY ==
--- NOTE | 2024-01-10 16:06 | MHC.OFFVIS ---
Intake Visit Reasons: Remote device check- Medtr[employer] Allergies Sulfa (Sulfonamide Antibiotics) Allergy (Unknown, Verified 01/06/24 10:04) UNKNOWN - DOES NOT REMEMBER [facility] Medical History (Updated 12/28/23 @ 13:37 by Agustin Luke MD) Congestive heart failure Atrial fibrillation Aortic stenosis H/O mitral valve replacement (~1996) Persistent atrial fibrillation Cardiac pacemaker in situ (~2009) Mixed hyperlipidemia Current use of fdc anticoagulation Osteoporosis (~2005) HTN (hypertension) Paroxysmal atrial fibrillation Sick sinus syndrome (~2009) Surgical History History of ventral hernia repair History of kyphoplasty (~2011) History of cardiac pacemaker (~2009) History of meniscectomy of right knee (~2012) History of mitral valve replacement (~1996) History of mitral valve repair (~1992) History of right knee surgery (~2017) Family History Father No problems noted. Mother No problems noted. Social History Household Members: None Housing: House Housing Other:: 2 family on firstr floor Do you presently have visiting nurse or other home services: No Alcohol intake: never Patient Tobacco Use Status: Never used Tobacco e-Cigarette/Vaping Use: Never Used Second Hand Smoke Exposure: No Advance Directives Date on File: 07/11/23 service: No Current occupational exposures/hazards: No Office Procedures Cardiac Device Check Cardiac Device Check Details: Remote pacemaker report generated 01/02/2024. Pacemaker function is adequate. No recent atrial fibrillation noted [id number] Cardiac Device Interrogation, pacemaker Procedure code (CPT) selection complete Assessment & Plan Assessment & Plan (1) Cardiac pacemaker in situ: Onset Date: ~2009 Comment: (Medtronic DCPP - placed 2009, generator changes in 2015 & 2020) Code(s): Z95.0 - Presence of cardiac pacemaker Category: Medical Plan: See above Medications: Discontinued enoxaparin (Lovenox) Discontinued Reason: Change Referral Type 50 mg See Protocol subcut Q12H 6 mL 1RF Coding Level of Care Code Procedure Only Diagnoses Cardiac pacemaker in situ Z95.0 CPT Codes Cardiac Device Check - Cardiac Device 12: [id number] Cardiac Device Interrogation, pacemaker ([id number])
== END ==
PROVIDERS: PCP Internal Medicine; Visit Provider Internal Medicine Cardiovascular Disease
DX: I48.91 Unspecified atrial fibrillation (principal); Z95.0 Presence of cardiac pacemaker
CPT/HCPCS: 93294

== ENCOUNTER → 2024-01-06 09:57 | Outpatient (BNVA) | payer MEDICARE, SELFPAY | PROVIDERS: PCP Internal Medicine; Visit Provider Internal Medicine ==

== ENCOUNTER → 2024-01-13 13:52 | Outpatient (BNVA) | payer MEDICARE, SELFPAY | PROVIDERS: PCP Internal Medicine; Visit Provider Internal Medicine ==

== ENCOUNTER → 2024-01-19 11:45 | Outpatient (BNVA) | payer MEDICARE, SELFPAY | PROVIDERS: PCP Internal Medicine; Visit Provider Internal Medicine ==

== ENCOUNTER 2024-01-21 09:40 | Outpatient (REF) | payer MEDICARE, SELFPAY ==
[2024-01-21 11:15] LABS: Hematocrit 34.4 % (37.0-47.0); Hemoglobin 10.8 g/dl (12.0-16.0); Mean Corpuscular HGB Conc 31.4 g/dl (31.0-35.0); Mean Corpuscular Hemoglobin 28.2 pg (27.0-33.0); Mean Corpuscular Volume 89.8 fL (80.0-98.0); Mean Platelet Volume 9.8 fL (9.4-12.3); Platelet Count 229 X10*3/uL (160-400); Red Blood Count 3.83 X10*6/uL (4.20-5.50); White Blood Count 7.4 X10*3/uL (4.8-10.8)
[2024-01-21 11:33] LABS: B Type Natriuretic Peptide 799 pg/mL (<100)
[2024-01-21 12:03] LABS: Anion Gap 14 (12-20); Blood Urea Nitrogen 30 mg/dL (9-16); Calcium 9.6 mg/dL (8.4-10.2); Carbon Dioxide 25 mmol/L (22-29); Chloride 109 mmol/L (96-108); Estimated Glomerular Filt Rate 48; Glucose Random 101 mg/dL (60-115); Potassium 4.8 mmol/L (3.3-5.1); Sodium 143 mmol/L (135-145)
== END 2024-01-21 09:41 | disposition home or self-care (01) ==
LOC: HO.LAB 09:40
PROVIDERS: PCP Internal Medicine; Visit Provider Internal Medicine Cardiovascular Disease
DX: Z95.2 Presence of prosthetic heart valve (principal); I48.91 Unspecified atrial fibrillation; I35.0 Nonrheumatic aortic (valve) stenosis; I50.9 Heart failure, unspecified
CPT/HCPCS: 36415; 80048; 83880; 85027

== ENCOUNTER → 2024-01-26 09:21 | Outpatient (BNVA) | payer MEDICARE, SELFPAY | PROVIDERS: PCP Internal Medicine; Visit Provider Internal Medicine ==

== ENCOUNTER → 2024-01-31 23:59 | Outpatient (BNV) | payer MEDICARE, SELFPAY | PROVIDERS: PCP Internal Medicine; Visit Provider Internal Medicine Cardiovascular Disease | DX: I50.20 Unspecified systolic (congestive) heart failure (principal); I35.0 Nonrheumatic aortic (valve) stenosis | CPT/HCPCS: 93460; 99152 ==

== ENCOUNTER → 2024-02-03 11:10 | Outpatient (BNVA) | payer MEDICARE, SELFPAY | PROVIDERS: PCP Internal Medicine; Visit Provider Internal Medicine ==

== ENCOUNTER → 2024-02-06 09:44 | Outpatient (BNVA) | payer MEDICARE, SELFPAY | PROVIDERS: PCP Internal Medicine; Visit Provider Internal Medicine ==

== ENCOUNTER → 2024-02-13 09:07 | Outpatient (BNVA) | payer MEDICARE, SELFPAY | PROVIDERS: PCP Internal Medicine; Visit Provider Internal Medicine | DX: Z45.018 Encounter for adjustment and management of other part of cardiac pacemaker (principal); I35.0 Nonrheumatic aortic (valve) stenosis; I50.9 Heart failure, unspecified; I48.91 Unspecified atrial fibrillation; Z95.2 Presence of prosthetic heart valve; Z98.890 Other specified postprocedural states | CPT/HCPCS: 93005; 93280; 99212 ==

== ENCOUNTER 2024-02-13 15:23 | Outpatient (AMB) | payer MEDICARE, SELFPAY ==
[2024-02-13 15:25] VITALS: BP 100/52; PULSE 79; BMI 22.5
--- NOTE | 2024-02-13 15:25 | A.OFFVIS_ITS ---
Vital Signs 02/13/24 15:25 Height 4 ft 11 in Weight 111 lb 8.862 oz BMI 22.5 BP 100/52 L Blood Pressure Location Lt brachial Position Sitting Pulse 79 Pulse Source Monitor Intake Visit Reasons: Follow up post cardiac cath Medical Insurance Clerk Required: No Bookkeeping Service Sales Agent: Bookkeeping Service Sales Agent Present Allergies Sulfa (Sulfonamide Antibiotics) Allergy (Unknown, Verified 02/13/24 15:27) UNKNOWN - DOES NOT REMEMBER Medication List - Last Reconciled 02/13/24 by Kristy George NP-C alendronate 70 mg PO SA amiodarone 200 mg PO DAILY amlodipine 2.5 mg PO DAILY cholecalciferol (vitamin D3) 25 mcg PO DAILY empagliflozin (Jardiance) 10 mg PO DAILY furosemide (Lasix) 40 mg PO QAM metoprolol tartrate 50 mg PO BID multivitamin (Daily Multi-Vitamin tablet) 1 tab PO DAILY pantoprazole 20 mg PO DAILY pravastatin 40 mg PO BEDTIME valsartan 160 mg PO DAILY warfarin 2.5 mg See Protocol PO DAILY@1600 HPI HPI Follow up post cardiac cath: Details: Bethany is an 83-year-old female past medical history of hypertension, hyperlipidemia, CAD, paroxysmal atrial fibrillation, mechanical mitral valve replacement, aortic stenosis, cardiac pacemaker, Congestive heart failure who recently underwent cardiac catheterization to evaluate degree of CAD and and now presents for follow-up. Today she reports that she has shortness of breath with physical activity such as light housework, ADLs. Breathing is comfortable at rest. No PND, orthopnea. She does have sock markings noted on exam today. No chest discomfort at rest or with activity. No palpitations, dizziness, presyncope, syncope, falls. Right radial catheterization site has a small bump noted at the site. Takes all meds as directed. No bleeding issues reported. Family member is present. [facility] Medical History Congestive heart failure Atrial fibrillation Aortic stenosis H/O mitral valve replacement (~1996) Persistent atrial fibrillation Cardiac pacemaker in situ (~2009) Mixed hyperlipidemia Current use of long-term anticoagulation Osteoporosis (~2005) HTN (hypertension) Paroxysmal atrial fibrillation Sick sinus syndrome (~2009) Surgical History History of ventral hernia repair History of kyphoplasty (~2011) History of cardiac pacemaker (~2009) History of meniscectomy of right knee (~2012) History of mitral valve replacement (~1996) History of mitral valve repair (~1992) History of right knee surgery (~2017) Family History Father No problems noted. Mother No problems noted. Social History Household Members: None Housing: House Housing Other:: 2 family on firstr floor Do you presently have visiting nurse or other home services: No Alcohol intake: never Patient Tobacco Use Status: Never used Tobacco e-Cigarette/Vaping Use: Never Used Second Hand Smoke Exposure: No Advance Directives Date on File: 07/11/23 service: No Current occupational exposures/hazards: No Review of Systems Const All systems reviewed & are unremarkable except as noted in HPI and below ENT Denies dizziness Card Denies chest pain, Denies chest pain at rest, Denies chest pain with activity, Denies rapid heart rate, Denies pedal edema, Denies edema, Reports leg edema, Denies lightheadedness, Denies palpitations, Reports dyspnea, Reports dyspnea on exertion and Denies orthopnea Resp Denies cough, Reports dyspnea and Reports dyspnea on exertion GI Denies hematochezia and Denies change in stool character Musc Denies abnormal gait, Denies limited range of motion, Denies muscle cramps, Denies muscle weakness, Denies numbness, Denies radiating pain into limb, Denies stiffness and Denies tingling Neuro Denies abnormal gait, Denies dizziness, Denies numbness and Denies tingling Endo Denies palpitations Physical Exam Vital Signs: Last Vital Signs Pulse 79 02/13/24 15:25 BP 100/52 L 02/13/24 15:25 BMI result Body Mass Index 22.5 Const General: cooperative, healthy appearing, comfortable and no acute distress Orientation/consciousness: patient oriented x3 Neck Neck: Yes normal visual inspection Resp Effort & Inspection: normal respiratory effort Auscultation: clear to auscultation bilaterally, no rales, no rhonchi and no wheezes Cardio Jugular venous distension: no JVD Rate: regular rate Rhythm: regular rhythm Heart sounds: S1 normal heart sound present, S2 normal heart sound present, no murmurs and no rubs Neuro General: patient oriented x3 Extrem Other: small pencil eraser size buldge noted at right radial cath site, nontender. right hand assessment normal General: Yes normal to inspection, No no pedal edema and No calf tenderness Psych Appearance: grossly normal Mental Status: mental status grossly normal Speech and movement: Normal speech and movement present Office Procedures Cardiac Device Check Cardiac Device Check Details: Medtronic dual-chamber pacemaker interrogation today, battery 4.7 years, RV threshold 1.375 volts at 0.4 milliseconds, AAIR to DDDR mode, low rate 70, PAF, 2% of time since 01/02/2024, activity 2.6 hours per day, V paced 100%, a paced 63.3% [id number] Cardiac Device Check, pacemaker dual lead Procedure code (CPT) selection complete EKG Details: Today, read by me, atrial and ventricular paced rhythm, rate 79 [id number], Complete Results AMB INR Fingerstick AMB INR Fingerstick 3.2 Last Edit by Bindu Kirby RN on 02/13/24 09:16 AMB INR Fingerstick AMB INR Fingerstick 3.2 Last Edit by Bindu Kirby RN on 02/13/24 09:16 Assessment & Plan Assessment & Plan (1) S/P cardiac cath: Comment: 01/31/2024, left main normal, lad minimal irregularities, left circumflex 50-60% mid stenosis, RCA minimal irregularities, aortic valve with mean gradient 18 mmHg, low flow state, she has low flow low gradient severe aortic stenosis Code(s): Z98.890 - Other specified postprocedural states Category: Surgical Plan: Diagnostic catheterization completed as part of evaluation for aortic stenosis, TAVR prep. Nonobstructive coronary artery disease and low flow low gradient severe aortic stenosis noted. Right radial catheterization site has small palpable nodule at insertion site. This could be small hematoma verses possible pseudoaneurysm. Dr. Luke in room to assess. Patient informed to notify this office if the area becomes painful, further enlarged or continues. Right hand vascular assessment is normal at this time. (2) Aortic stenosis: Code(s): I35.0 - Nonrheumatic aortic (valve) stenosis Category: Medical Plan: History of aortic stenosis. Patient did have transesophageal echo at time of cardioversion on 11/09/2023 which did show EF 45-50%, normally function mechanical mitral valve, moderate to severe aortic stenosis, moderate tricuspid regurgitation. Heart failure with reduced EF admission 11/2023. Following that admission she did undergo cardiac catheterization as above. She is now confirmed to have low flow, low gradient severe . Systolic murmur noted on examination. She is to having shortness of breath with physical activity. NYHA class 3. She does not appear acutely decompensated at this time. Reviewed with Dr. Luke. Will refer to Dr. Mcmanus for TAVR. Patient is willing to proceed with this procedure as she is significantly bothered by her symptoms. Continue Lasix. Recent symptoms of heart failure reviewed with her. Cardiology office visit here 3 months, sooner if needed. (3) Congestive heart failure: Code(s): I50.9 - Heart failure, unspecified Category: Medical Plan: As above (4) Atrial fibrillation: Code(s): I48.91 - Unspecified atrial fibrillation Category: Medical Plan: History of paroxysmal atrial fibrillation. She did have ROSA cardioversion 11/09/2023. She has been on amiodarone for rhythm control and metoprolol for heart rate control. She is on Coumadin for anticoagulation. Device interrogation today does show episodes of PAF, burden 2% since early December 2023. She denies any recent heart palpitations. Continue current treatment plan. Will enter orders for labs for amiodarone monitoring including LFT and TSH. Patient notified. (5) H/O mitral valve replacement: Onset Date: ~1996 Comment: ([employer] mechanical valve, size unknown - 1996) Code(s): Z95.2 - Presence of prosthetic heart valve Category: Medical Plan: Functioning normally on last echocardiogram. On Coumadin for anticoagulation. INR goal 2.5-3.5. Followed by [facility] [place] [place] antico[facility]. No bleeding issues reported. (6) Cardiac pacemaker in situ: Onset Date: ~2009 Comment: (Medtr[employer] DCPP - placed 2009, generator changes in 2015 & 2020) Code(s): Z95.0 - Presence of cardiac pacemaker Category: Medical Plan: Device interrogation done today to evaluate frequency of atrial fibrillation. Device is functioning normally. Next office interrogation due in 6 months. Remote monitoring in use. Plan Time spent on chart review, documentation, interview and assessment Orders: Referrals Cardiac Surgery Referral I35.0 - Nonrheumatic aortic (valve) stenosis Coding Level of Care Code Est Pt Level 4 (07027) Diagnoses S/P cardiac cath Z98.890 Aortic stenosis I35.0 Congestive heart failure I50.9 Atrial fibrillation I48.91 H/O mitral valve replacement Z95.2 Cardiac pacemaker in situ Z95.0 CPT Codes Cardiac Device Check - Cardiac Device 2: 15598-PT Cardiac Device Check, pacemaker dual lead ([id number]) EKG - CPT: 74379-[id number], Complete ([id number]) Time Spent (min) 36
== END 2024-02-13 16:19 | disposition home or self-care (01) ==
PROVIDERS: PCP Internal Medicine; Visit Provider Nurse Practitioner Family
DX: Z98.890 Other specified postprocedural states (principal); I35.0 Nonrheumatic aortic (valve) stenosis; I50.9 Heart failure, unspecified; I48.91 Unspecified atrial fibrillation; Z95.2 Presence of prosthetic heart valve; Z95.0 Presence of cardiac pacemaker
CPT/HCPCS: 93010; 93280; 99214

== ENCOUNTER → 2024-02-20 08:51 | Outpatient (BNVA) | payer MEDICARE, SELFPAY | PROVIDERS: PCP Internal Medicine; Visit Provider Internal Medicine ==

== ENCOUNTER → 2024-02-28 12:46 | Outpatient (BNVA) | payer MEDICARE, SELFPAY | PROVIDERS: PCP Internal Medicine; Visit Provider Internal Medicine ==

== ENCOUNTER 2024-03-01 16:41 | Emergency (ER) | payer MEDICARE, SELFPAY ==
--- NOTE | ~2024-03-01 | CT_ITS ---
EXAMINATION: CT ABDOMEN AND PELVIS WITH CONTRAST CLINICAL INFORMATION: Fall. Abdominal pain. COMPARISON: 10/27/2023 and 09/09/2011 TECHNIQUE: Multidetector volumetric images were obtained from the superior aspect of the liver through the pubic symphysis following administration 85 mL of Omnipaque 350 intravenous contrast. Sagittal and coronal reformatted images were obtained on the technologist's workstation. Oral contrast: No This CT examination was performed using dose optimization techniques as appropriate, variously including the following: *Automated exposure control *Adjustment of mA and/or kV according to patient size (this includes techniques or standardized protocols for targeted exams where dose is matched to indication/reason for exam; i.e. extremities or head) *Use of iterative reconstruction technique DLP: 491 mGy-cm FINDINGS: LUNG BASES: Linear opacities in the lung bases are most consistent with subsegmental atelectasis. Mild interstitial edema difficult to exclude. There is marked global cardiomegaly. Status post mitral valve annuloplasty. Pacemaker leads terminate in the right atrium and right ventricle. LIVER, GALLBLADDER, AND BILIARY TREE: Multiple hepatic cysts are again noted, measuring up to 1.9 cm in diameter with sharp margins. Slight heterogeneity of the hepatic parenchyma due to a degree of passive hepatic congestion. No suspicious lesions are identified. No biliary ductal dilatation. A small dependent calcification within the gallbladder is most consistent with a gallstone. No gallbladder wall thickening or surrounding inflammatory change. PANCREAS: Unremarkable. SPLEEN: Unremarkable. ADRENAL GLANDS: Unremarkable. KIDNEYS AND URETERS: There is a 1.2 cm sharply demarcated cyst in the right lower renal pole with fluid attenuation, most consistent with a simple cyst. No suspicious renal lesions. Small subcentimeter foci of cortical hypoattenuation kidneys are too small to characterize, though statistically favored to correspond to simple cysts. No recommended imaging follow-up. Kidneys are normal in size and contour with symmetric enhancement. No nephrolithiasis or hydronephrosis. BLADDER: Unremarkable. GASTROINTESTINAL TRACT: A segment of the sigmoid colon extends into a spigelian hernia in the left lower quadrant. No findings of strangulation or obstruction. Stomach, small bowel, and colon are normal in caliber. Moderate volume of stool in the colon. Moderate sigmoid diverticulosis without evidence of acute diverticulitis. No appreciable intraperitoneal free air or free fluid. No evidence of acute appendicitis. ABDOMINAL WALL: As noted above, there is a large spigelian hernia in the left lower quadrant containing a segment of sigmoid colon. Multiple paramedian epigastric hernias are identified in the subxiphoid region, containing omental fat. No evidence of infarction/strangulation. LYMPH NODES: Normal. VASCULAR: Atherosclerotic calcifications are present in the abdominal aorta and iliac arteries. No aneurysmal dilatation. PELVIC VISCERA: The uterus and adnexa are unremarkable. OSSEOUS STRUCTURES: A chronic-appearing burst fracture is again noted at the L1 vertebral body with retropulsion of the posterior cortex and marked loss of vertebral body height. More mild compression deformity is noted at the T12 level. Also appears unchanged. Chronic compression deformities are also noted in the lower thoracic spine and T8 and T9 changes of prior T9 kyphoplasty. There is multilevel degenerative disc disease in the lower thoracic and lumbar spine. No acute fractures are identified. Mild osteoarthritis in the hips and SI joints. Status post left proximal femoral intramedullary brenna fixation. CT/CT abdomen pelvis w IV con IMPRESSION: 1. No acute intra-abdominal or intrapelvic abnormalities are identified. 2. Marked cardiomegaly 3. Cholelithiasis without evidence of acute cholecystitis. 4. 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 No evidence of strangulation or obstruction. Moderate sigmoid diverticulosis without evidence of acute diverticulitis. 5. Multiple fat-containing epigastric hernias. 6. Multiple chronic compression deformities in the lower thoracic and lumbar spine. No acute fractures are identified. Fleischner guidelines were followed. Electronically signed by: Rc Lee MD 03/02/2024 12:48 AM EDT
--- NOTE | ~2024-03-01 | XR_ITS ---
EXAMINATION: XR RIBS, BILATERAL CLINICAL INFORMATION: Lower rib pain status post fall. Bilaterally. COMPARISON: Chest radiograph dated December 19, 2023. TECHNIQUE: 4 radiographs of the bilateral ribs were obtained. FINDINGS: There are sternotomy sutures. The cardiac device leads are unchanged in position overlying the right atrium and right ventricle. Heart size is normal. There is calcific atherosclerotic disease of the aorta. Bibasilar opacities are felt to represent subsegmental atelectasis. No pneumothorax. No large pleural effusion. There are surgical changes status post vertebral augmentation within a mid thoracic vertebral body. There is no displaced rib fracture. There are severe degenerative changes of the right and left glenohumeral joints. There is marked gaseous distention of the colon. XR/XR ribs BI min 4V w CXR1V IMPRESSION: No acute cardiopulmonary disease. No displaced rib fracture. Marked gaseous distention of the colon. Electronically signed by: Joseph Palm DO 03/01/2024 07:12 PM EDT
[2024-03-01 17:00] VITALS: BP 114/79; PULSE 70; RESP 18; TEMP 36.9; O2SAT 95; BMI 21.8
--- NOTE | 2024-03-01 17:02 | ED_ITS ---
HPI - Fall General Chief Complaint: Back Pain/Injury Stated Complaint: fell 02/28 back pain Time Seen by Provider: 03/01/24 22:22 History of Present Illness ED Provider: Cris LAWLER Narrative: The patient is an 83-year-old woman on warfarin for atrial fibrillation who fell at home 2 days ago when she tripped on a vacuum hand bobbin cleaner tubing. She landed on her back and has had pain in her flanks since then. The injury occurred 2 days ago on Tuesday. She says she also had her INR checked the same day and her INR was 4.5. The patient does not believe that she hit her head. She did not have a headache or neck pain. Her primary pains are on the sides of her lower rib cages bilaterally and in her flanks bilaterally. She has pain with moving around. she does not really feel that she has abdominal pain. She does not feel that she injured her extremities. Related Data Home Medications ?Medication ?Instructions ?Recorded ?Confirmed alendronate 70 mg tablet 70 mg PO SA 05/19/21 02/20/24 cholecalciferol (vitamin D3) 25 25 mcg PO DAILY 05/19/21 02/20/24 mcg (1,000 unit) capsule metoprolol tartrate 50 mg tablet 50 mg PO BID 05/19/21 02/20/24 multivitamin (Daily Multi-Vitamin 1 tab PO DAILY 05/19/21 02/20/24 tablet) pravastatin 40 mg tablet 40 mg PO BEDTIME 05/19/21 02/20/24 valsartan 160 mg tablet 160 mg PO DAILY 05/19/21 02/20/24 pantoprazole 20 mg tablet,delayed 20 mg PO DAILY 08/05/23 02/20/24 release warfarin 2.5 mg tablet 2.5 mg PO DAILY@1600 12/27/23 02/28/24 Previous Rx's ?Medication ?Instructions ?Recorded amlodipine 2.5 mg tablet 2.5 mg PO DAILY #90 tabs 06/28/23 empagliflozin 10 mg tablet 10 mg PO DAILY #90 tabs 12/21/23 (Jardiance) furosemide 40 mg tablet (Lasix) 40 mg PO QAM #90 tabs 12/21/23 amiodarone 200 mg tablet 200 mg PO DAILY #90 tabs 02/28/24 Allergies Allergy/AdvReac Type Severity Reaction Status Date / Time Sulfa (Sulfonamide Allergy Unknown UNKNOWN - Verified 03/01/24 17:03 Antibiotics) DOES NOT REMEMBER Review of Systems 2 Review of Systems: Yes all other systems are reviewed and are negative [facility] Past Medical History Medical History Congestive heart failure Atrial fibrillation Aortic stenosis H/O mitral valve replacement (~1996) Persistent atrial fibrillation Cardiac pacemaker in situ (~2009) Mixed hyperlipidemia Current use of longterm anticoagulation Osteoporosis (~2005) HTN (hypertension) Paroxysmal atrial fibrillation Sick sinus syndrome (~2009) Surgical History History of ventral hernia repair History of kyphoplasty (~2011) History of cardiac pacemaker (~2009) History of meniscectomy of right knee (~2012) History of mitral valve replacement (~1996) History of mitral valve repair (~1992) History of right knee surgery (~2017) Family History Family History Father No problems noted. Mother No problems noted. Social History Social History Household Members: None Housing: House Housing Other:: 2 family on firstr floor Do you presently have visiting nurse or other home services: No Alcohol intake: never Patient Tobacco Use Status: Never used Tobacco Smoked in Last 30 Days: No e-Cigarette/Vaping Use: Never Used Second Hand Smoke Exposure: No Use of substances other than those prescribed or required for medical reasons: No Advance Directives: Yes Advance Directives on File: Yes Advance Directives Date on File: 07/11/23 service: No Current occupational exposures/hazards: No Physical Exam 2 Vital Signs: Vital Signs: Last Vital Signs Temp 98.0 F 03/02/24 01:45 Pulse 66 03/02/24 01:45 Resp 16 03/02/24 01:45 BP 118/68 03/02/24 01:45 Pulse Ox 92 03/02/24 01:45 O2 Del Method Room Air 03/02/24 01:45 BMI result Body Mass Index 21.8 Const: Other: The patient is a frail 83-year-old who is awake and alert. Mental status is clear. She moves very slowly because of apparent discomfort. She does not seem obviously toxic however. No increased work of breathing. She does not seem uncomfortable at rest. Orientation/consciousness: patient oriented x3 HEENT: Other: no sign of trauma to the head or the face. Eyes: Other: Pupils are round equal, conjunctivae are clear, extraocular movements intact. Neck: Other: No posterior midline C-spine tenderness. No pain with range of motion of the neck. C-spine is clinically clear. No JVD. Chest: Other: The patient has bilateral chest wall tenderness particularly on the sides and in the lower parts of the chest wall. No definite crepitus or subcutaneous emphysema. Resp: Effort & Inspection: normal respiratory effort Auscultation: clear to auscultation bilaterally Cardio: Rate: regular rate Rhythm: regular rhythm Heart sounds: S1 normal heart sound present and S2 normal heart sound present GI: Other: Possibly some mild upper abdominal tenderness without rebound or guarding. Back/Spine/Pelvis: Other: Patient has tenderness to the mid back bilaterally. This is more paraspinous tenderness than midline spine tenderness. No bruising. Skin: Other: The skin is intact. No significant bruising. Neuro: General: patient oriented x3 Cranial nerves: Yes CN's II-XII intact bilaterally Gait exam (Neuro): Normal gait present Motor exam (neuro): 5/5 motor strength present throughout Extrem: Other: No apparent signs of trauma to the extremeties General: Yes full ROM, Yes no pedal edema and Yes normal gait Course Course Course Narrative: This is a Rapid Medical Examination (RME) performed by Yaya Mattson PA-C in triage. Full HPI, ROS, assessment and treatment plan per primary provider in the Main ED. 83 yo female with history of afib on Coumadin, aortic stenosis s/p MV replacement, s/p PPM, CHF, CAD who presents to the ER for evaluation of bilateral lower rib pain s/p trip and fall over a vacuum cord last night. no head strike or LOC. pain slightly worse on the left. has mild tenderness to palpation of the lower lateral ribs bilaterally. lungs are clear to auscultation. no flank ecchymosis, no midline tenderness of the spine. ambulating with steady gait. Plan: labs, XR ribs. Medications Administered Discontinued Medications Generic Name Dose Route Start Last Admin Trade Name Freq PRN Reason Stop Dose Admin Sodium Chloride 500 mls @ 500 mls/hr 03/01/24 22:45 03/01/24 23:33 Ns IV 03/01/24 23:44 500 mls/hr .Q1H CEE Administration Iohexol 85 ml 03/01/24 23:52 03/01/24 23:53 Iohexol 350 Mg/Ml 100 Ml Infus..Btl IV 03/01/24 23:53 85 ml ONCE ONE Administration Medical Decision Making Medical Decision Making [facility] Narrative: The patient is a frail 83-year-old who fell approximately 48 hours ago. She landed primarily across her back I think. She is on warfarin. Apparently her INR on the day she fell was 4. she comes to the emergency room 2 days later with pains in her flanks and on the sides of her chest. My greatest concern in a patient like this would be some kind of unexpected bleeding episode such as a retroperitoneal hematoma or other traumatic findingrelated to the fact that the patient is on warfarin and was somewhat supratherapeutic on the day of injury. There was no head injury. Her cervical spine is clinically clear. Chest x-ray is clear and she is not exhibiting any respiratory distress. A CT of the abdomen and pelvis which also imaged a significant portion of the lower thorax shows no significant traumatic findings. Overall my impression is that the patient does not have a significantly dangerous injury from the fall 2 days ago. On her labs she has some worsening renal function. I doubt this is related to the fall. She was given IV fluids. She will be discharged to contact her doctor to discuss her medications and her renal function. In the meantime she was advised to hold her ARB Until she discusses her medications and her renal function with regular doctor. Lab Data 03/01/24 18:24 03/01/24 18:24 Labs: Lab Results 03/01/24 03/01/24 Range/Units 18:24 23:22 WBC 10.7 (4.8-10.8) X10*3/uL RBC 3.92 L (4.20-5.50) X10*6/uL Hgb 11.5 L (12.0-16.0) g/dl Hct 35.6 L (37.0-47.0) % MCV 90.8 (80.0-98.0) fL MCH 29.3 (27.0-33.0) pg MCHC 32.3 (31.0-35.0) g/dl RDW 17.4 H (11.0-16.0) % Plt Count 241 (160-400) X10*3/uL MPV 9.4 (9.4-12.3) fL Immature Gran % (Auto) 0.4 (0.0-0.4) % Neut % (Auto) 79.0 H (45-73) % Lymph % (Auto) 8.9 L (20-40) % Dale % (Auto) 11.1 H (2-11) % Eos % (Auto) 0.2 (0-4) % Baso % (Auto) 0.4 (0-2) % Lymph # (Auto) 1.0 L (1.2-4.9) X10*3/uL Dale # (Auto) 1.2 (0.1-1.2) X10*3/uL Eos # (Auto) 0.0 (0.0-0.4) X10*3/uL Baso # (Auto) 0.0 (0.0-0.2) X10*3/uL Abs Immat Gran (auto) 0.04 H (0.00-0.03) X10*3/uL Absolute Neuts (auto) 8.5 H (2.0-8.3) x10*3/uL Absolute Nucleated RBC 0.000 (0.0-0.012) X10*3/uL Nucleated RBC % (auto) 0.0 (0.0-0.2) /100WBC PT 29.9 H (11.1-13.3) SEC INR 2.5 H (0.9-1.1) APTT 48.6 H (26.0-36.8) SEC Sodium 142 (135-145) mmol/L Potassium 4.2 (3.3-5.1) mmol/L Chloride 103 (96-108) mmol/L Carbon Dioxide 27 (22-29) mmol/L Anion Gap 16 (12-20) BUN 32 H (9-16) mg/dL Creatinine 1.43 H (0.5-1.4) mg/dL Estim Creat Clear Calc 19.9 Estimated GFR 35 Random Glucose 112 (60-115) mg/dL Calcium 10.1 (8.4-10.2) mg/dL Magnesium 2.4 (1.6-2.6) mg/dL Total Bilirubin 2.5 H (0.0-1.0) mg/dL Direct Bilirubin 0.5 (0.0-0.5) mg/dL AST 49 H (5-31) U/L ALT 50 H (0-31) U/L Alkaline Phosphatase 87 (39-117) U/L Total Protein 7.8 (6.5-8.0) g/dL Albumin 4.4 (3.5-5.0) g/dL Urine Color Dark Yellow Urine Appearance Clear Urine pH 5.0 (5.0-9.0) Ur Specific [place] 1.015 (1.005-1.025) Urine Protein Negative (Neg-Trace) mg/dL Urine Glucose (UA) 250 H (Negative) mg/dL Urine Ketones Trace (Negative) mg/dL Urine Blood Negative (Negative) Urine Nitrite Negative (Negative) Ur Leukocyte Esterase Trace H (Negative) Urine RBC 0-2 (0-2) /HPF Urine WBC 0-5 (0-5) /HPF Ur Squamous Epith Cells 3-5 (0-2) /HPF Urine Bacteria None Seen (None Seen) Hyaline Casts 11-20 (0-2) /LPF Discharge Plan Discharge Clinical Impression: Chest wall contusion, Chronic anticoagulation, Fall, Renal insufficiency Patient Disposition: Home, Self-Care Additional Instructions: The good news is we are not finding any apparent injury from the fall. The only concerning finding on your testing today has to do with your kidneys. Your kidney function is somewhat worse than when it was last checked on January 20. At that time your renal function had deteriorated slightly from when it has been checked on December 20. You are on several medications that can affect kidney function. I think I would recommend holding your valsartan until you have the opportunity to reach your primary care doctor to discuss your medications and your kidney function. Therefore please contact your regular doctor's office tomorrow to see if you can discuss with him whether holding valsartan is the right thing to do and whether there is any other adjustment to your medications that she would be made. Please plan on trying to get a prompt follow up appointment in the office. Return to the emergency room if you feel significantly worse. Prescriptions: No Action amlodipine 2.5 mg tablet 2.5 mg PO DAILY Qty: 90 3RF amiodarone 200 mg tablet 200 mg PO DAILY Qty: 90 1RF furosemide [Lasix] 40 mg tablet 40 mg PO QAM Qty: 90 0RF Jardiance 10 mg tablet 10 mg PO DAILY Qty: 90 0RF valsartan 160 mg tablet 160 mg PO DAILY alendronate 70 mg tablet 70 mg PO SA pravastatin 40 mg tablet 40 mg PO BEDTIME metoprolol tartrate 50 mg tablet 50 mg PO BID multivitamin [Daily Multi-Vitamin] Tablet 1 tab PO DAILY cholecalciferol (vitamin D3) 25 mcg (1,000 unit) capsule 25 mcg PO DAILY pantoprazole 20 mg tablet,delayed release (DR/EC) 20 mg PO DAILY warfarin 2.5 mg tablet 2.5 mg PO DAILY@1600 Protocol: Dose Management Condition: Tuesday (Week One) Dose/Route: 2.5 mg Instruction: 1 x 2.5 mg tablet Condition: Tuesday Dose/Route: 1.25 mg Instruction: 0.5 x 2.5 mg tablets Condition: Tuesday Dose/Route: 0 mg Instruction: 0 tablets Condition: Tuesday Dose/Route: 1.25 mg Instruction: 0.5 x 2.5 mg tablets Condition: Dose/Route: 1.25 mg Instruction: 0.5 x 2.5 mg tablets Condition: Tuesday Dose/Route: 2.5 mg Instruction: 1 x 2.5 mg tablet Condition: Tuesday Dose/Route: 2.5 mg Instruction: 1 x 2.5 mg tablet Condition: Tuesday (Week Two) Dose/Route: 2.5 mg Instruction: 1 x 2.5 mg tablet Condition: Tuesday Dose/Route: 1.25 mg Instruction: 0.5 x 2.5 mg tablets Condition: Tuesday Dose/Route: 2.5 mg Instruction: 1 x 2.5 mg tablet Condition: Tuesday Dose/Route: 2.5 mg Instruction: 1 x 2.5 mg tablet Condition: Dose/Route: 1.25 mg Instruction: 0.5 x 2.5 mg tablets Condition: Tuesday Dose/Route: 2.5 mg Instruction: 1 x 2.5 mg tablet Condition: Tuesday Dose/Route: 2.5 mg Instruction: 1 x 2.5 mg tablet Protocol Text: Adjustment Start Date: Tuesday02/28/24 INR Value: 4.1 INR Date: 02/28/24 Recheck Date: 03/06/24 Rx Instructions: 1.25 Mon/ 2.5 other days Interventions: ED Discharge Assessment Last Done: 03/02/24 01:45 Discharge Date/Time: 03/02/24 01:46 Print Language: Georgian
[2024-03-01 18:31] LABS: MANUAL DIFF FLAG NO
[2024-03-01 18:42] LABS: Basophils Percent Auto 0.4 % (0-2); Eosinophils Percent Auto 0.2 % (0-4); Hematocrit 35.6 % (37.0-47.0); Hemoglobin 11.5 g/dl (12.0-16.0); Imm Gran Abs Auto 0.04 X10*3/uL (0.00-0.03); Imm Gran Pct Auto 0.4 % (0.0-0.4); Lymphocytes Percent Auto 8.9 % (20-40); Mean Corpuscular HGB Conc 32.3 g/dl (31.0-35.0); Mean Corpuscular Hemoglobin 29.3 pg (27.0-33.0); Mean Corpuscular Volume 90.8 fL (80.0-98.0); Mean Platelet Volume 9.4 fL (9.4-12.3); Monocytes Absolute Auto 1.2 X10*3/uL (0.1-1.2); Monocytes Percent Auto 11.1 % (2-11); Neutrophils Absolute Auto 8.5 x10*3/uL (2.0-8.3); Platelet Count 241 X10*3/uL (160-400); Red Blood Count 3.92 X10*6/uL (4.20-5.50); Red Cell Distribution Width 17.4 % (11.0-16.0); White Blood Count 10.7 X10*3/uL (4.8-10.8)
[2024-03-01 18:44] LABS: INTERNATIONAL NORM RATIO 2.5 (0.9-1.1); Prothrombin Time 29.9 SEC (11.1-13.3)
[2024-03-01 18:46] LABS: Partial Thromboplastin Time 48.6 SEC (26.0-36.8)
[2024-03-01 18:47] LABS: Alanine Aminotransferase 50 U/L (0-31); Albumin Level 4.4 g/dL (3.5-5.0); Alkaline Phosphatase 87 U/L (39-117); Anion Gap 16 (12-20); Aspartate Amino Transferase 49 U/L (5-31); Bilirubin Direct 0.5 mg/dL (0.0-0.5); Bilirubin Total 2.5 mg/dL (0.0-1.0); Blood Urea Nitrogen 32 mg/dL (9-16); Calcium 10.1 mg/dL (8.4-10.2); Carbon Dioxide 27 mmol/L (22-29); Chloride 103 mmol/L (96-108); Creatinine Clr Calc Pharmacy 19.9; Estimated Glomerular Filt Rate 35; Glucose Random 112 mg/dL (60-115); Magnesium 2.4 mg/dL (1.6-2.6); Potassium 4.2 mmol/L (3.3-5.1); Sodium 142 mmol/L (135-145); Total Protein 7.8 g/dL (6.5-8.0)
[2024-03-01 19:58] VITALS: BP 133/65; PULSE 71; RESP 16; TEMP 36.7; O2SAT 91
[2024-03-01 22:23] VITALS: BP 124/64; PULSE 71; RESP 16; TEMP 36.9; O2SAT 92
[2024-03-01 23:30] LABS: Appearance Urine Clear; Color Urine Dark Yellow; Glucose Urine UA 250 mg/dL (Negative); Leukocyte Esterase Urine Trace (Negative); Nitrite Urine Negative (Negative); Specific Gravity - Urine 1.015 (1.005-1.025); UMIC TRIGGER UACC YES; Urine Blood Negative (Negative); Urine Ketones Trace mg/dL (Negative); Urine Protein Negative (Neg-Trace)
[2024-03-01] MEDS: 0.9 % Sodium Chloride 500 ML IV (23:33)
[2024-03-01 23:38] LABS: Bacteria Urine None Seen (None Seen); RBC Urine 0-2 /HPF (0-2); WBC Urine 0-5 /HPF (0-5)
[2024-03-01] MEDS: iohexoL 350 MG/ML 100 ML INFUS..BTL 85 ML IV (23:53)
[2024-03-02 01:45] VITALS: BP 118/68; PULSE 66; RESP 16; TEMP 36.7; O2SAT 92
== END 2024-03-02 01:46 | disposition home or self-care (01) ==
PROVIDERS: Physician Assistant; Emergency Provider Emergency Medicine; PCP Internal Medicine
DX: S20.213A Contusion of bilateral front wall of thorax, initial encounter (principal); W18.39XA Other fall on same level, initial encounter; N28.9 Disorder of kidney and ureter, unspecified; R79.1 Abnormal coagulation profile; I48.0 Paroxysmal atrial fibrillation; E78.2 Mixed hyperlipidemia; Y93.E3 Activity, vacuuming; Y92.039 Unspecified place in apartment as the place of occurrence of the external cause; Y99.9 Unspecified external cause status; Z95.0 Presence of cardiac pacemaker; Z95.2 Presence of prosthetic heart valve; Z79.01 Long term (current) use of anticoagulants; Z79.02 Long term (current) use of antithrombotics/antiplatelets
CPT/HCPCS: 36415; 71111; 74177; 80048; 80076; 81001; 83735; 85025; 85610; 85730; 99284; Q9967

== ENCOUNTER → 2024-03-06 11:46 | Outpatient (BNVA) | payer MEDICARE, SELFPAY | PROVIDERS: PCP Internal Medicine; Visit Provider Internal Medicine ==

== ENCOUNTER → 2024-03-13 09:24 | Outpatient (BNVA) | payer MEDICARE, SELFPAY | PROVIDERS: PCP Internal Medicine; Visit Provider Internal Medicine ==

== ENCOUNTER → 2024-03-20 11:17 | Outpatient (BNVA) | payer MEDICARE, SELFPAY | PROVIDERS: PCP Internal Medicine; Visit Provider Internal Medicine ==

== ENCOUNTER 2024-03-27 11:14 | Outpatient (REF) | payer MEDICARE, SELFPAY ==
[2024-03-27 15:03] LABS: Prothrombin Time 89.1 SEC (10.9-12.4)
[2024-03-27 15:08] LABS: INTERNATIONAL NORM RATIO 7.6 (0.9-1.1)
== END 2024-03-27 11:15 | disposition home or self-care (01) ==
LOC: HO.HVNA 11:14
PROVIDERS: Visit Provider Internal Medicine
DX: Z79.01 Long term (current) use of anticoagulants (principal)
CPT/HCPCS: 36415; 85610

== ENCOUNTER 2024-03-29 11:54 | Outpatient (AMB) | payer MEDICARE, SELFPAY ==
--- NOTE | 2024-03-29 12:00 | MHC.OFFVISCO ---
Intake Intake Visit Reasons: Anticoagulation Allergies Sulfa (Sulfonamide Antibiotics) Allergy (Unknown, Verified 03/27/24 15:19) UNKNOWN - DOES NOT REMEMBER Nursing Note INR received from Orlin DOWNS nurse Maryuri INR today is >8 on POC machine. [facility] unable to draw pt as she is a difficult stick. Previous INR 2 days ago was 7.6 by lab draw. Spoke to nurse who was with the pt on speaker phone. Spoke to pt who denies s/s of bleeding. Pt denies taking warfarin the past 2 days. Denies taking tylenol for pain. Denies alcohol. Is under stress about possible future valve replacement. Denies any signs of any unusual bruising. Aware of risk for bleeding and instructed to avoid high risk activites. Instructed to come to ER if she hits her head even if no symptoms. Pt aware if the INR is high tomorrow, she will ahve to come in for a lab draw so to try to make arrangements for someone to bring her. She said she has her sister to drive her. Medication or supplements: no changes Diet: pt states she is eating and has had cabbage and broccoli the past 2 days. Instructed to do that again today. Activity: usual activity for pt Dose: hold warfarin and repeat INR tomorrow. Dosing and diet instructions given with next retest date of 03/30/24, Nurse and patient verbalizes understanding of instructions given with accurate read back. T/C to Dr Ponce's office. Spoke to nurse Cristiano who states Dr Ponce wants the pt to go to the ER. She is going to call the pt and tell her to do that and to call an ambulance if nedds to. Anti-Coag Initial Assessment Social Hx Patient Tobacco Use Status: Never used Tobacco alcohol intake: never Alcohol intake frequency: does not drink Cardiovascular Hx: HTN, CHF and Other Endocrine Hx: Other Musculoskeletal Hx: Arthritis Blood Disorder Hx: Anemia GI Hx: Bleeding (GI, rectal) Cancer HX: No Psych. Illness/Depression: Yes ( blues ) Coding Level of Care Code Est Patient Level 1 Diagnoses Current use of anticoagulant therapy Z79.01 Results AMB INR Fingerstick AMB INR Fingerstick > 8 Last Edit by Jeannette Grayson RN on 03/29/24 09:51 [facility] AMB INR Fingerstick AMB INR Fingerstick > 8 Last Edit by Jeannette Grayson RN on 03/29/24 09:51 [facility] Assessment & Plan Assessment & Plan (1) Current use of anticoagulant therapy: Code(s): Z79.01 - halfway (current) use of anticoagulants Category: Medical
== END 2024-03-29 12:24 | disposition home or self-care (01) ==
LOC: HO.ACS 11:54
PROVIDERS: PCP Internal Medicine; Visit Provider Internal Medicine
DX: Z79.01 Long term (current) use of anticoagulants (principal)

== ENCOUNTER 2024-03-29 13:53 | Inpatient (IN) | payer MEDICARE, SELFPAY ==
[2024-03-29] VITALS (11 sets, daily range): BP systolic 84–111; BP diastolic 49–69; PULSE 70–84; RESP 17–32; TEMP 36–36.5; O2SAT 91–99; BMI 43.6
--- NOTE | ~2024-03-29 | XR_ITS ---
EXAMINATION: XR CHEST CLINICAL INFORMATION: Shortness of breath COMPARISON: X-ray 03/01/2024 TECHNIQUE: Frontal view of the chest was obtained. FINDINGS: Left-sided pacemaker with unchanged positioning of the leads extending to the right atrium and right ventricle. Status post sternotomy. Heart size is enlarged, similar to previous. Low lung volumes. There is vascular prominence, patchy opacities in bilateral lungs. This may reflect pulmonary edema, or represent infectious/inflammatory process. No significant effusion. No pneumothorax. Bilateral glenohumeral joint arthritis, worse on the right. Suspected sequela of right rotator cuff tear. Status post vertebroplasty in the mid thoracic vertebral body redemonstrated. XR/XR chest 1V IMPRESSION: Vascular prominence, with patchy airspace opacities in bilateral lungs could reflect pulmonary edema versus inflammatory/infectious process. Electronically signed by: Connor Freire MD 03/29/2024 03:48 PM EDT
--- NOTE | 2024-03-29 14:36 | ED_ITS ---
HPI - SOB/Dyspnea General Chief Complaint: Recheck/Abnormal Lab/Rx Stated Complaint: sob Time Seen by Provider: 03/29/24 14:58 Source: patient and family (sister) Mode of arrival: ambulatory Limitations: no limitations History of Present Illness ED Provider: Shira LAWLER Narrative: Patient is an 83-year-old female with history of atrial fibrillation on Coumadin, aortic stenosis, CHF, HTN, HLD, SSS s/p PPM presenting to the ED with sister with complaint of worsening dyspnea for the past month as well as upper back spasms. Reports INR of 7.6 on 03/27, discontinued warfarin at that time, today INR >8. Denies fevers. Denies chest pain or palpitations. Denies headaches, vision changes. Denies any hematuria, hematochezia or melena. Denies recent falls. States she feels as though she has sputum to cough up but is able to clear it. Denies abdominal pain, nausea,vomiting, diarrhea. MD elicited complaint: shortness of breath Pertinent past history: congestive heart failure and other Onset (ago): month(s) Timing: progressively worsening Exacerbating factors: exertion Known history of: congestive heart failure Treatment prior to arrival: none Related Data Home Medications ?Medication ?Instructions ?Recorded ?Confirmed alendronate 70 mg tablet 70 mg PO SA 05/19/21 03/20/24 cholecalciferol (vitamin D3) 25 25 mcg PO DAILY 05/19/21 03/20/24 mcg (1,000 unit) capsule metoprolol tartrate 50 mg tablet 50 mg PO BID 05/19/21 03/20/24 multivitamin (Daily Multi-Vitamin 1 tab PO DAILY 05/19/21 03/20/24 tablet) pravastatin 40 mg tablet 40 mg PO BEDTIME 05/19/21 03/20/24 pantoprazole 20 mg tablet,delayed 20 mg PO DAILY 08/05/23 03/20/24 release warfarin 2.5 mg tablet 2.5 mg PO DAILY@1600 12/27/23 03/29/24 cyclobenzaprine 10 mg tablet 10 mg PO TID 03/19/24 03/20/24 Previous Rx's ?Medication ?Instructions ?Recorded amlodipine 2.5 mg tablet 2.5 mg PO DAILY #90 tabs 06/28/23 amiodarone 200 mg tablet 200 mg PO DAILY #90 tabs 02/28/24 empagliflozin 10 mg tablet 10 mg PO DAILY #90 tabs 03/19/24 (Jardiance) furosemide 40 mg tablet (Lasix) 40 mg PO BID #90 tabs 03/19/24 Allergies Allergy/AdvReac Type Severity Reaction Status Date / Time Sulfa (Sulfonamide Allergy Unknown UNKNOWN - Verified 03/29/24 14:36 Antibiotics) DOES NOT REMEMBER Review of Systems 2 Review of Systems: As per HPI. Yes all other systems are reviewed and are negative Constitutional: Constitutional: Reports as per HPI [facility] Past Medical History Medical History Congestive heart failure Atrial fibrillation Aortic stenosis H/O mitral valve replacement (~1996) Persistent atrial fibrillation Cardiac pacemaker in situ (~2009) Mixed hyperlipidemia Current use of care home anticoagulation Osteoporosis (~2005) HTN (hypertension) Paroxysmal atrial fibrillation Sick sinus syndrome (~2009) Surgical History History of ventral hernia repair History of kyphoplasty (~2011) History of cardiac pacemaker (~2009) History of meniscectomy of right knee (~2012) History of mitral valve replacement (~1996) History of mitral valve repair (~1992) History of right knee surgery (~2017) Family History Family History Father No problems noted. Mother No problems noted. Social History Social History Household Members: None Housing: House Housing Other:: 2 family on firstr floor Do you presently have visiting nurse or other home services: No Alcohol intake: never Patient Tobacco Use Status: Never used Tobacco Smoked in Last 30 Days: No e-Cigarette/Vaping Use: Never Used Second Hand Smoke Exposure: No Use of substances other than those prescribed or required for medical reasons: No Advance Directives: Yes Advance Directives on File: Yes Advance Directives Date on File: 07/11/23 Do you have a plan to hurt others: No Plan service: No Current occupational exposures/hazards: No Physical Exam 2 Vital Signs: Vital Signs: Last Vital Signs Temp 97.7 F 03/30/24 00:00 Pulse 72 03/30/24 00:00 Resp 19 03/30/24 00:10 BP 82/59 L 03/30/24 00:00 Pulse Ox 96 03/30/24 00:00 O2 Del Method Room Air 03/30/24 00:00 O2 Flow Rate 6 03/29/24 22:00 BMI result Body Mass Index 43.6 Vital signs have been reviewed and appear to be correct. Blood pressure slightly low. Heart rate normal. Respiratory rate slightly tachypneic. Temperature normal. Oxygen saturation normal. Const: General: cooperative and no acute distress O rientation/consciousness: oriented to person, oriented to place, oriented to time and patient oriented x3 Limitations: no limitations HEENT: Head: Yes normocephalic and Yes atraumatic Ears: external ears normal General nose exam: Normal external nose present Face and sinus: Yes face symmetric Mouth: oropharynx normal and moist mucous membranes Throat: Yes uvula midline Eyes: Pupils: Equal, round and reactive pupils present Neck: Neck: Yes normal visual inspection and Yes supple Resp: Effort & Inspection: not able to speak in complete sentences, no retractions, tachypneic and no use of accessory muscles Auscultation: d iminished lung sounds diffuse Cardio: Rate: regular rate Rhythm: regular rhythm Heart sounds: S1 normal heart sound present, S2 normal heart sound present and Murmur heart sound present GI: Palpation (GI): Soft to palpation and nontender Auscultation: n ormoactive bowel sounds : General: Yes no CVA tenderness Back/Spine/Pelvis: Back: no CVA tenderness Skin: General skin exam: elasticity normal and turgor normal Neuro: General: oriented to person, oriented to place, oriented to time, patient oriented x3, moves all extremities, no focal motor deficits and CN's II- XI intact bilaterally Cranial nerves: Yes Equal, round and reactive pupils present Cognition (Neuro): normal cognition Extrem: General: Yes full ROM, Yes no pedal edema and Yes no calf tenderness Psych: Mental Status: mental status grossly normal Affect: normal affect Thought process: Normal thought process present Course Course Course Narrative: This is a Rapid Medical Examination (RME) performed by Yaya Mattson PA-C in triage. Full HPI, ROS, assessment and treatment plan per primary provider in the Main ED. 83 yo atrial fibrillation on Coumadin, aortic stenosis, CHF, HTN, HLD, SSS s/p PPM, who presents to the ER for evaluation of SOB for 1 month along with elevated INR of >8 at home today. INR was 7.6 on 03/27 and she stopped the coumadin. recheck today was >8. no recent abx use. reports back spasms. Plan: charge nurse aware, to be bedded now. labs, coags, EKG, CXR for now. provider aware in the back. Medications Administered Discontinued Medications Generic Name Dose Route Start Last Admin Trade Name [place] PRN Reason Stop Dose Admin Furosemide 20 mg 03/29/24 16:23 03/29/24 16:34 Furosemide 20 Mg/2 Ml Vial IVPUSH 03/29/24 16:24 Not Given ONCE ONE Protocol Furosemide 20 mg 03/29/24 18:56 03/29/24 19:49 Furosemide 20 Mg/2 Ml Vial IVPUSH 03/29/24 18:57 20 mg ONCE ONE Administration Protocol Albumin Human 100 mls @ 100 mls/hr 03/29/24 22:30 03/30/24 00:45 Kedbum[place] 25 % IV 03/30/24 00:29 Infused Q1H CEE Infusion Medical Decision Making Medical Decision Making MDM Narrative: Patient is an 83-year-old female with history of atrial fibrillation on Coumadin, aortic stenosis, CHF, HTN, HLD, SSS s/p PPM presenting to the ED with sister with complaint of worsening dyspnea for the past month as well as upper back spasms. On exam patient is awake, A+Ox3, tachypneic, hypotensive, afebrile, normal neurological exam without focal deficits, physical exam findings as above. Given reported symptoms and physical exam findings, initial differential includes CHF exacerbation, elevated INR, ACS, pneumonia, viral illness. Labs notable for mild leukocytosis, [place], hypermagnesemia, elevated BNP, slightly elevated troponin. Viral serology negative. X-ray chest notable for pulmonary edema. My interpretation is in agreement with the radiologist's interpretation. Case discussed with Dr. Lee who recommends small dose of IV lasix and BiPAP. Case discussed with RT, will place patient on CPAP, hold off on furosemide until BP improves. 19:00 Patient tolerating CPAP well, work of breathing decreased, BP improving, will give IV lasix now. 20:12 Patient taken off CPAP, reports improvement in dyspnea, BP remains stable after furosemide. Admission to medicine accepted by Dr. Maguire. -Dr. Maguire evaluated the patient. Patient is still very short of breath, barely able to talk. Patient was put on BiPAP for 2 hours -oxygen saturation did improve. However patient is still significantly tachypneic. -patient was given Lasix earlier today and she did not produce any urine. Patient needs a Gregory catheter -patient will be given more Lasix. However patient's blood pressure is on the soft side. Patient will likely need BiPAP as well which will drop the blood pressure even further. Patient is not stable enough to go to the floor. -I discussed the patient with Dr. Reagan, patient going to the ICU Differential Diagnosis Differential Diagnoses: The differential diagnosis associated with the presentation includes As per [facility] Admission/Observation Consideration of admission/observation: Escalation of care including admission/observation considered Lab Data [facility] Lab Attestation statement: I reviewed the patient's lab results. As per [facility] 03/29/24 15:38 03/29/24 15:38 Labs: Lab Results 03/29/24 03/29/24 03/29/24 Range/Units 15:07 15:38 17:21 WBC 11.0 H (4.8-10.8) X10*3/uL RBC 3.70 L (4.20-5.50) X10*6/uL Hgb 10.8 L (12.0-16.0) g/dl Hct 33.8 L (37.0-47.0) % MCV 91.4 (80.0-98.0) fL MCH 29.2 (27.0-33.0) pg MCHC 32.0 (31.0-35.0) g/dl RDW 17.2 H (11.0-16.0) % Plt Count 272 (160-400) X10*3/uL MPV 9.4 (9.4-12.3) fL Immature Gran % (Auto) 0.5 H (0.0-0.4) % Neut % (Auto) 82.9 H (45-73) % Lymph % (Auto) 5.9 L (20-40) % [place] % (Auto) 10.1 (2-11) % Eos % (Auto) 0.3 (0-4) % Baso % (Auto) 0.3 (0-2) % Lymph # (Auto) 0.7 L (1.2-4.9) X10*3/uL [place] # (Auto) 1.1 (0.1-1.2) X10*3/uL Eos # (Auto) 0.0 (0.0-0.4) X10*3/uL Baso # (Auto) 0.0 (0.0-0.2) X10*3/uL Abs Immat Gran (auto) 0.06 H (0.00-0.03) X10*3/uL Absolute Neuts (auto) 9.2 H (2.0-8.3) x10*3/uL Absolute Nucleated RBC 0.000 (0.0-0.012) X10*3/uL Nucleated RBC % (auto) 0.0 (0.0-0.2) /100WBC PT 75.6 H (10.9-12.4) SEC INR 6.5 H* (0.9-1.1) APTT 65.3 H* D (26.0-36.8) SEC Sodium 143 (135-145) mmol/L Potassium 4.4 (3.3-5.1) mmol/L Chloride 103 (96-108) mmol/L Carbon Dioxide 30 H (22-29) mmol/L Anion Gap 14 (12-20) BUN 54 H (9-16) mg/dL Creatinine 2.20 H (0.5-1.4) mg/dL Estim Creat Clear Calc 19.6 Estimated GFR 21 Random Glucose 114 (60-115) mg/dL Calcium 9.5 (8.4-10.2) mg/dL Magnesium 2.9 H (1.6-2.6) mg/dL Total Bilirubin 1.7 H (0.0-1.0) mg/dL Direct Bilirubin 0.7 H (0.0-0.5) mg/dL AST 47 H (5-31) U/L ALT 48 H (0-31) U/L Alkaline Phosphatase 132 H (39-117) U/L Troponin I High Sens 11.3 D (<3.5-17.0) ng/L B-Natriuretic Peptide 2670 H (<100) pg/mL Total Protein 7.1 (6.5-8.0) g/dL Albumin 3.8 (3.5-5.0) g/dL Urine Color Dark Yellow Urine Appearance Cloudy Urine pH 5.5 (5.0-9.0) Ur Specific [place] 1.015 (1.005-1.025) Urine Protein 30 (1+) H (Neg-Trace) mg/dL Urine Glucose (UA) Negative (Negative) mg/dL Urine Ketones Negative (Negative) mg/dL Urine Blood Negative (Negative) Urine Nitrite Negative (Negative) Ur Leukocyte Esterase Small (1+) H (Negative) Urine RBC 0-2 (0-2) /HPF Urine WBC 0-5 (0-5) /HPF Ur Squamous Epith Cells 11-20 (0-2) /HPF Urine Bacteria Trace (None Seen) Hyaline Casts 3-5 (0-2) /LPF Influenza Type A (PCR) (Negative) Influenza Type B (PCR) (Negative) RSV RNA Qual (PCR) (Negative) SARS-CoV-2 RNA (RT-PCR) (Negative) Blood Type O Positive Antibody Screen NEGATIVE 03/29/24 Range/Units 21:25 WBC (4.8-10.8) X10*3/uL RBC (4.20-5.50) X10*6/uL Hgb (12.0-16.0) g/dl Hct (37.0-47.0) % MCV (80.0-98.0) fL MCH (27.0-33.0) pg MCHC (31.0-35.0) g/dl RDW (11.0-16.0) % Plt Count (160-400) X10*3/uL MPV (9.4-12.3) fL Immature Gran % (Auto) (0.0-0.4) % Neut % (Auto) (45-73) % Lymph % (Auto) (20-40) % [place] % (Auto) (2-11) % Eos % (Auto) (0-4) % Baso % (Auto) (0-2) % Lymph # (Auto) (1.2-4.9) X10*3/uL [place] # (Auto) (0.1-1.2) X10*3/uL Eos # (Auto) (0.0-0.4) X10*3/uL Baso # (Auto) (0.0-0.2) X10*3/uL Abs Immat Gran (auto) (0.00-0.03) X10*3/uL Absolute Neuts (auto) (2.0-8.3) x10*3/uL Absolute Nucleated RBC (0.0-0.012) X10*3/uL Nucleated RBC % (auto) (0.0-0.2) /100WBC PT (10.9-12.4) SEC INR (0.9-1.1) APTT (26.0-36.8) SEC Sodium (135-145) mmol/L Potassium (3.3-5.1) mmol/L Chloride (96-108) mmol/L Carbon Dioxide (22-29) mmol/L Anion Gap (12-20) BUN (9-16) mg/dL Creatinine (0.5-1.4) mg/dL Estim Creat Clear Calc Estimated GFR Random Glucose (60-115) mg/dL Calcium (8.4-10.2) mg/dL Magnesium (1.6-2.6) mg/dL Total Bilirubin (0.0-1.0) mg/dL Direct Bilirubin (0.0-0.5) mg/dL AST (5-31) U/L ALT (0-31) U/L Alkaline Phosphatase (39-117) U/L Troponin I High Sens (<3.5-17.0) ng/L B-Natriuretic Peptide (<100) pg/mL Total Protein (6.5-8.0) g/dL Albumin (3.5-5.0) g/dL Urine Color Urine Appearance Urine pH (5.0-9.0) Ur Specific [place] (1.005-1.025) Urine Protein (Neg-Trace) mg/dL Urine Glucose (UA) (Negative) mg/dL Urine Ketones (Negative) mg/dL Urine Blood (Negative) Urine Nitrite (Negative) Ur Leukocyte Esterase (Negative) Urine RBC (0-2) /HPF Urine WBC (0-5) /HPF Ur Squamous Epith Cells (0-2) /HPF Urine Bacteria (None Seen) Hyaline Casts (0-2) /LPF Influenza Type A (PCR) NEGATIVE (Negative) Influenza Type B (PCR) NEGATIVE (Negative) RSV RNA Qual (PCR) NEGATIVE (Negative) SARS-CoV-2 RNA (RT-PCR) NEGATIVE (Negative) Blood Type Antibody Screen Independent Interpretation I performed an independent interpretation of an: EKG (ventricular paced rhythm in bigeminy, rate 82bpm) and Plain X-Ray Interpretation: CXR notable for pulmonary edema. Radiology Impression Discussion of test interpretation with radiology: I have reviewed the radiologist's reading. Radiologist Impression: XR/XR chest 1V IMPRESSION: Vascular prominence, with patchy airspace opacities in bilateral lungs could reflect pulmonary edema versus inflammatory/infectious process. External Record Review External record reviewed: Inpatient record, Office record and Outpatient record Critical Care Time Critical Care Time Critical Care Time: Yes Total Critical Care Time: 90 Attestation: I have personally provided critical care time. Time includes review of lab data, radiology results, discussion with consultants, and monitoring for potential decompensation. Intervention performed as documented. Discharge Plan Discharge Clinical Impression: CHF exacerbation, Acute kidney injury, Elevated INR Patient Disposition: Admitted As Inpatient Print Language: Surinamese
--- NOTE | 2024-03-29 14:40 | ECG_ITS ---
Test Reason : SOB Blood Pressure : / mmHG Vent. Rate : 082 BPM Atrial Rate : 082 BPM P-R Int : 000 ms QRS Dur : 230 ms QT Int : 536 ms P-R-T Axes : 000 -67 125 degrees QTc Int : 626 ms AV dual-paced rhythm alternating with Ventricular-paced rhythm in a pattern of bigeminy Abnormal ECG When compared with ECG of 19-DEC-2023 15:48, Vent. rate has increased BY 7 BPM Referred By: Krystle Mattson Electronically Signed By:JAIDA MCNEILL
[2024-03-29 15:45] LABS: MANUAL DIFF FLAG NO
[2024-03-29 15:46] LABS: Basophils Percent Auto 0.3 % (0-2); Eosinophils Percent Auto 0.3 % (0-4); Hematocrit 33.8 % (37.0-47.0); Hemoglobin 10.8 g/dl (12.0-16.0); Imm Gran Abs Auto 0.06 X10*3/uL (0.00-0.03); Imm Gran Pct Auto 0.5 % (0.0-0.4); Lymphocytes Absolute Auto 0.7 X10*3/uL (1.2-4.9); Lymphocytes Percent Auto 5.9 % (20-40); Mean Corpuscular Hemoglobin 29.2 pg (27.0-33.0); Mean Corpuscular Volume 91.4 fL (80.0-98.0); Mean Platelet Volume 9.4 fL (9.4-12.3); Monocytes Absolute Auto 1.1 X10*3/uL (0.1-1.2); Monocytes Percent Auto 10.1 % (2-11); Neutrophils Absolute Auto 9.2 x10*3/uL (2.0-8.3); Neutrophils Percent Auto 82.9 % (45-73); Platelet Count 272 X10*3/uL (160-400); Red Cell Distribution Width 17.2 % (11.0-16.0)
[2024-03-29 15:59] LABS: Prothrombin Time 75.6 SEC (10.9-12.4)
[2024-03-29 16:07] LABS: Alanine Aminotransferase 48 U/L (0-31); Albumin Level 3.8 g/dL (3.5-5.0); Alkaline Phosphatase 132 U/L (39-117); Anion Gap 14 (12-20); Aspartate Amino Transferase 47 U/L (5-31); Bilirubin Direct 0.7 mg/dL (0.0-0.5); Bilirubin Total 1.7 mg/dL (0.0-1.0); Blood Urea Nitrogen 54 mg/dL (9-16); Calcium 9.5 mg/dL (8.4-10.2); Carbon Dioxide 30 mmol/L (22-29); Chloride 103 mmol/L (96-108); Creatinine Clr Calc Pharmacy 19.6; Estimated Glomerular Filt Rate 21; Glucose Random 114 mg/dL (60-115); Magnesium 2.9 mg/dL (1.6-2.6); Potassium 4.4 mmol/L (3.3-5.1); Sodium 143 mmol/L (135-145); Total Protein 7.1 g/dL (6.5-8.0)
[2024-03-29 16:13] LABS: B Type Natriuretic Peptide 2670 pg/mL (<100); INTERNATIONAL NORM RATIO 6.5 (0.9-1.1); Partial Thromboplastin Time 65.3 SEC (26.0-36.8)
[2024-03-29 16:16] LABS: Troponin-I High Sensitivity 11.3 ng/L (<3.5-17.0)
--- NOTE | 2024-03-29 16:34 | PC.NURSE ---
increased work of breathing - pt speaking in a few sentences at a time. pressure 98/51 - per [employer] hold lasix while we try bipap. blue/purple color to pts fingers.
[2024-03-29 17:35] LABS: Appearance Urine Cloudy; Color Urine Dark Yellow; Glucose Urine UA Negative (Negative); Leukocyte Esterase Urine Small (1+) (Negative); Nitrite Urine Negative (Negative); PH 5.5 (5.0-9.0); Specific Gravity - Urine 1.015 (1.005-1.025); UMIC TRIGGER UACC YES; Urine Blood Negative (Negative); Urine Ketones Negative (Negative); Urine Protein 30 (1+) mg/dL (Neg-Trace)
[2024-03-29 17:52] LABS: Bacteria Urine Trace (None Seen); RBC Urine 0-2 /HPF (0-2); UACC Culture Trigger YES; WBC Urine 0-5 /HPF (0-5)
[2024-03-29] MEDS: Furosemide 20 MG/2 ML VIAL IVPUSH (19:49)
--- NOTE | 2024-03-29 19:54 | PC.NURSE ---
provider aware of BP prior to giving lasix and still wanted it given. Will monitor BP closely post administratin of lasix
--- NOTE | 2024-03-29 20:44 | P.HPHOSP_ITS ---
History of Present Illness Date of Service: 03/29/24 Attending physician on admission: Rima Fuentes Chief Complaint: SOB Pt is a -year-old female with a PMH significant for?HFrEF 45-50%, SSS s/p pacemaker in place, CAD, persistent AFib on Coumadin, HTN, HLD, and aortic stenosis who presents to the ED with? In the ED pt was tachypneic up to 32, hypotensive as low as 84/49, and desatting to a 90% on RA. Patient was placed on CPAP in the ED for approximately 1 hour with improvement in dyspnea and to oxygenation. Labs were significant for mild leukocytosis of 11.0, INR initially >8 with repeat 6.5, creatinine 2.20 (baseline around 1.00), magnesium 2.9, and BNP 2670. Stable normocytic anemia around baseline. No significant electrolyte abnormalities. Stable transaminitis around baseline. And troponin measurable but WNL at 11.3, similar to previous levels. UA not convincing for UTI. CXR showed vascular prominence with patchy airspace opacities in bilateral lungs concerning for pulmonary edema vs inflammatory/infectious process. EKG demonstrated ventricular paced rhythm in the pattern of bigeminy, similar to previous. Pt was treated with Lasix 20 mg IV. Pt will be admitted to the hospital for treatment and further evaluation of [facility] Medical History Congestive heart failure Atrial fibrillation Aortic stenosis H/O mitral valve replacement (~1996) Persistent atrial fibrillation Cardiac pacemaker in situ (~2009) Mixed hyperlipidemia Current use of nursing home anticoagulation Osteoporosis (~2005) HTN (hypertension) Paroxysmal atrial fibrillation Sick sinus syndrome (~2009) Family History Father No problems noted. Mother No problems noted. Surgical History History of ventral hernia repair History of kyphoplasty (~2011) History of cardiac pacemaker (~2009) History of meniscectomy of right knee (~2012) History of mitral valve replacement (~1996) History of mitral valve repair (~1992) History of right knee surgery (~2017) Social History Household Members: None Housing: House Housing Other:: 2 family on firstr floor Do you presently have visiting nurse or other home services: No Alcohol intake: never Patient Tobacco Use Status: Never used Tobacco Smoked in Last 30 Days: No e-Cigarette/Vaping Use: Never Used Second Hand Smoke Exposure: No Use of substances other than those prescribed or required for medical reasons: No Advance Directives: Yes Advance Directives on File: Yes Advance Directives Date on File: 07/11/23 Do you have a plan to hurt others: No Plan service: No Current occupational exposures/hazards: No Meds Allergies Allergy/AdvReac Type Severity Reaction Status Date / Time Sulfa (Sulfonamide Allergy Unknown UNKNOWN - Verified 03/29/24 14:36 Antibiotics) DOES NOT REMEMBER Home Medications ?Medication ?Instructions ?Recorded ?Confirmed ?Last Taken ?Type alendronate 70 mg tablet 70 mg PO SA 05/19/21 03/20/24 12/17/23 History cholecalciferol (vitamin D3) 25 25 mcg PO DAILY 05/19/21 03/20/24 12/19/23 07:00 History mcg (1,000 unit) capsule metoprolol tartrate 50 mg tablet 50 mg PO BID 05/19/21 03/20/24 12/19/23 07:00 History multivitamin (Daily Multi-Vitamin 1 tab PO DAILY 05/19/21 03/20/24 12/19/23 07:00 History tablet) pravastatin 40 mg tablet 40 mg PO BEDTIME 05/19/21 03/20/24 12/18/23 16:30 History pantoprazole 20 mg tablet,delayed 20 mg PO DAILY 08/05/23 03/20/24 12/19/23 07:00 History release warfarin 2.5 mg tablet 2.5 mg PO DAILY@1600 12/27/23 03/29/24 Unknown History cyclobenzaprine 10 mg tablet 10 mg PO TID 03/19/24 03/20/24 Unknown History Physical Exam 2 Vital Signs and Narrative: Vital Signs: Last Vital Signs Temp 97.7 F 03/29/24 18:00 Pulse 74 03/29/24 20:30 Resp 19 03/29/24 20:30 BP 101/62 03/29/24 20:30 Pulse Ox 93 03/29/24 20:00 O2 Del Method Room Air 03/29/24 20:30 O2 Flow Rate 2 03/29/24 20:00 BMI result Body Mass Index 43.6 Results Labs 03/29/24 15:38 03/29/24 15:38 Labs: Laboratory Results - last 24 hr 03/29/24 03/29/24 03/29/24 15:07 15:38 17:21 MCV 91.4 MCH 29.2 MCHC 32.0 RDW 17.2 H Plt Count 272 MPV 9.4 Immature Gran % (Auto) 0.5 H Neut % (Auto) 82.9 H Lymph % (Auto) 5.9 L [place] % (Auto) 10.1 Eos % (Auto) 0.3 Baso % (Auto) 0.3 Lymph # (Auto) 0.7 L [place] # (Auto) 1.1 Eos # (Auto) 0.0 Baso # (Auto) 0.0 Abs Immat Gran (auto) 0.06 H Absolute Neuts (auto) 9.2 H Absolute Nucleated RBC 0.000 Nucleated RBC % (auto) 0.0 PT 75.6 H INR 6.5 H* APTT 65.3 H* D Anion Gap 14 Estim Creat Clear Calc 19.6 Estimated GFR 21 Random Glucose 114 Calcium 9.5 Magnesium 2.9 H Total Bilirubin 1.7 H Direct Bilirubin 0.7 H AST 47 H ALT 48 H Alkaline Phosphatase 132 H Troponin I High Sens 11.3 D B-Natriuretic Peptide 2670 H Total Protein 7.1 Albumin 3.8 Urine Color Dark Yellow Urine Appearance Cloudy Urine pH 5.5 Ur Specific [place] 1.015 Urine Protein 30 (1+) H Urine Glucose (UA) Negative Urine Ketones Negative Urine Blood Negative Urine Nitrite Negative Ur Leukocyte Esterase Small (1+) H Urine RBC 0-2 Urine WBC 0-5 Ur Squamous Epith Cells 11-20 Urine Bacteria Trace Hyaline Casts 3-5 Blood Type O Positive Antibody Screen NEGATIVE Imaging Radiologist's Impressions: Impressions Chest X-Ray 03/29/24 14:40 IMPRESSION: Vascular prominence, with patchy airspace opacities in bilateral lungs could reflect pulmonary edema versus inflammatory/infectious process. Electronically signed by: Connor Freire MD 03/29/2024 03:48 PM EDT
[2024-03-29 22:13] LABS: Influenza A PCR NEGATIVE (Negative); Influenza B PCR NEGATIVE (Negative); Resp Syncy Virus RNA Qual PCR NEGATIVE (Negative); SARS COV2 PCR INHOUSE NEGATIVE (Negative)
[2024-03-29] MEDS: Albumin Human 25 % 100 ML IV ×2 (22:58→23:43)
[2024-03-30] VITALS (16 sets, daily range): BP systolic 82–118; BP diastolic 47–67; PULSE 68–88; RESP 15–23; TEMP 36.4–36.9; O2SAT 92–100; BMI 23.5; BMI 23.2
[2024-03-30] MEDS: Furosemide 20 MG/2 ML VIAL IVPUSH (02:51)
[2024-03-30] MEDS: Phytonadione (Vit K1) 5 MG in 0.9 % Sodium Chloride 50 ML 50.5 MG IV (02:51)
[2024-03-30 03:19] LABS: Lactic Acid 0.7 mmol/L (0.5-2.0)
[2024-03-30 03:22] LABS: VBG HCO3 31 mmol/L (22-26); VBG pCO2 38 mmHg; VBG pH 7.51 (7.32-7.43); VBG pO2 91 mmHg
[2024-03-30 03:25] LABS: Venous Blood Gas Refer to POC result
--- NOTE | 2024-03-30 03:29 | PM.CCHP ---
History of Present Illness Date of Service: 03/30/24 Attending physician on admission: Kaushal Rueda Chief Complaint: Dyspnea ?The patient is a 83-year-old female with a past medical history of heart failure (echo 11/09/23 EF 40-50%),? hypertension, hyperlipidemia, CAD, paroxysmal atrial fibrillation (on coumadin), mechanical mitral valve replacement, aortic stenosis,? sick sinus syndrome status post pacemaker who presented to the emergency department? due to shortness of breath.? Patient reported dyspnea for the past month, was back spasm.? She also reported her INR was >8? today and was told to stop Coumadin.? Does report occasional cough. On arrival to the emergency department patient tachypneic, hypotensive to 84/49, hypoxic requiring CPAP Laboratory data significant for WBC of 11, INR of 6.5, serum bicarb 30, BUN 54, creatinine 2.20, BNP 2670 ?Imaging:? ?Chest x-ray:? consistent with pulmonary edema ?ED course:??? Initially patient received 20 mg of IV push Lasix and was placed on CPAP, was able to be off CPAP but she continued to be tachypneic, in mild respiratory distress,? with blood pressure of systolic of 80s. Requiring additional dose of lasix? Review of Systems Review of Systems: Yes all other systems are reviewed and are negative [facility] Past Medical History Medical History Congestive heart failure Atrial fibrillation Aortic stenosis H/O mitral valve replacement (~1996) Persistent atrial fibrillation Cardiac pacemaker in situ (~2009) Mixed hyperlipidemia Current use of manager intermediate anticoagulation Osteoporosis (~2005) HTN (hypertension) Paroxysmal atrial fibrillation Sick sinus syndrome (~2009) Family History Family History Father No problems noted. Mother No problems noted. Surgical History Surgical History History of ventral hernia repair History of kyphoplasty (~2011) History of cardiac pacemaker (~2009) History of meniscectomy of right knee (~2012) History of mitral valve replacement (~1996) History of mitral valve repair (~1992) History of right knee surgery (~2017) Social History Social History Household Members: None Housing: House Housing Other:: 2 family on firstr floor Do you presently have visiting nurse or other home services: Yes Alcohol intake: never Patient Tobacco Use Status: Never used Tobacco Smoked in Last 30 Days: No e-Cigarette/Vaping Use: Never Used Second Hand Smoke Exposure: No Use of substances other than those prescribed or required for medical reasons: No Currently Displaying Signs/Symptoms of Drug Intoxication Withdrawal: No Advance Directives: Yes Advance Directives on File: Yes Advance Directives Date on File: 07/11/23 Do you have a plan to hurt others: No Plan Recently lost weight without trying: Unsure Patient : No service: No Current occupational exposures/hazards: No Meds Allergies Allergy/AdvReac Type Severity Reaction Status Date / Time Sulfa (Sulfonamide Allergy Unknown UNKNOWN - Verified 03/29/24 14:36 Antibiotics) DOES NOT REMEMBER Home Medications ?Medication ?Instructions ?Recorded ?Confirmed ?Last Taken ?Type alendronate 70 mg tablet 70 mg PO SA 05/19/21 03/30/24 03/24/24 History cholecalciferol (vitamin D3) 25 25 mcg PO DAILY 05/19/21 03/30/24 03/29/24 07:00 History mcg (1,000 unit) capsule metoprolol tartrate 50 mg tablet 50 mg PO BID 05/19/21 03/30/24 03/29/24 07:00 History multivitamin (Daily Multi-Vitamin 1 tab PO DAILY 05/19/21 03/30/24 03/29/24 07:00 History tablet) pravastatin 40 mg tablet 40 mg PO BEDTIME 05/19/21 03/30/24 03/28/24 History pantoprazole 20 mg tablet,delayed 20 mg PO BID@0630,1630 08/05/23 03/30/24 03/29/24 07:00 History release cyclobenzaprine 10 mg tablet 10 mg PO TID 03/19/24 03/30/24 03/29/24 07:00 History Physical Exam Vital Signs: Vital Signs: Last Vital Signs Temp 97.7 F 03/30/24 00:00 Pulse 72 03/30/24 00:00 Resp 19 03/30/24 00:10 BP 96/47 L 03/30/24 02:51 Pulse Ox 96 03/30/24 00:00 O2 Del Method Room Air 03/30/24 00:00 O2 Flow Rate 6 03/29/24 22:00 BMI result Body Mass Index 43.6 ?General:? Alert oriented x3 no acute distress.? Following all commands. ?HEENT:? Head is normocephalic, atraumatic, pupils equal round reactive to light accommodation bilaterally.? Extraocular movements appear intact.? Buccal mucosa is dry, Neck is supple ?Cardiac:? Paced rhythm, no murmurs rubs or gallops. ?Pulmonary:? Rhonchus throughout, ?Abdomen:? ?Abdomen soft, non-tender, non-distended. Normal bowel sounds. No pulsatile mass. No hepatosplenomegaly. ?Musculoskeletal:? Moving all 4 extremities upon request a major joints, there is no crepitus or tenderness.? The strength is 5/5 bilaterally and throughout all 4 extremities.? Gait not assessed at this point. ?Neurologic:? cranial nerves 2-12 are grossly intact.? No focal deficits noted.Motor strength as above.?? ?Skin:? Scattered bruises, No ulcers. Bilateral lower extremity trace edema Vascular:? 2+ pulses upper and lower extremities distally.? Results Labs 03/30/24 05:16 03/30/24 05:16 Labs: Laboratory Results - last 24 hr 03/29/24 03/29/24 03/29/24 15:07 15:38 17:21 MCV 91.4 MCH 29.2 MCHC 32.0 RDW 17.2 H Plt Count 272 MPV 9.4 Immature Gran % (Auto) 0.5 H Neut % (Auto) 82.9 H Lymph % (Auto) 5.9 L [place] % (Auto) 10.1 Eos % (Auto) 0.3 Baso % (Auto) 0.3 Lymph # (Auto) 0.7 L [place] # (Auto) 1.1 Eos # (Auto) 0.0 Baso # (Auto) 0.0 Abs Immat Gran (auto) 0.06 H Absolute Neuts (auto) 9.2 H Absolute Nucleated RBC 0.000 Nucleated RBC % (auto) 0.0 PT 75.6 H INR 6.5 H* APTT 65.3 H* D VBG pH VBG pCO2 VBG pO2 VBG HCO3 VBG O2 Saturation VBG Base Excess Anion Gap 14 Estim Creat Clear Calc 19.6 Estimated GFR 21 Random Glucose 114 Lactic Acid Calcium 9.5 Magnesium 2.9 H Total Bilirubin 1.7 H Direct Bilirubin 0.7 H AST 47 H ALT 48 H Alkaline Phosphatase 132 H Troponin I High Sens 11.3 D B-Natriuretic Peptide 2670 H Total Protein 7.1 Albumin 3.8 Urine Color Dark Yellow Urine Appearance Cloudy Urine pH 5.5 Ur Specific [place] 1.015 Urine Protein 30 (1+) H Urine Glucose (UA) Negative Urine Ketones Negative Urine Blood Negative Urine Nitrite Negative Ur Leukocyte Esterase Small (1+) H Urine RBC 0-2 Urine WBC 0-5 Ur Squamous Epith Cells 11-20 Urine Bacteria Trace Hyaline Casts 3-5 Influenza Type A (PCR) Influenza Type B (PCR) RSV RNA Qual (PCR) SARS-CoV-2 RNA (RT-PCR) Blood Type O Positive Antibody Screen NEGATIVE 03/29/24 03/30/24 03/30/24 21:25 03:06 03:13 MCV MCH MCHC RDW Plt Count MPV Immature Gran % (Auto) Neut % (Auto) Lymph % (Auto) [place] % (Auto) Eos % (Auto) Baso % (Auto) Lymph # (Auto) [place] # (Auto) Eos # (Auto) Baso # (Auto) Abs Immat Gran (auto) Absolute Neuts (auto) Absolute Nucleated RBC Nucleated RBC % (auto) PT INR APTT VBG pH 7.51 H VBG pCO2 38 VBG pO2 91 VBG HCO3 31 H VBG O2 Saturation 98.0 VBG Base Excess 8.0 Anion Gap Estim Creat Clear Calc Estimated GFR Random Glucose Lactic Acid 0.7 Calcium Magnesium Total Bilirubin Direct Bilirubin AST ALT Alkaline Phosphatase Troponin I High Sens B-Natriuretic Peptide Total Protein Albumin Urine Color Urine Appearance Urine pH Ur Specific [place] Urine Protein Urine Glucose (UA) Urine Ketones Urine Blood Urine Nitrite Ur Leukocyte Esterase Urine RBC Urine WBC Ur Squamous Epith Cells Urine Bacteria Hyaline Casts Influenza Type A (PCR) NEGATIVE Influenza Type B (PCR) NEGATIVE RSV RNA Qual (PCR) NEGATIVE SARS-CoV-2 RNA (RT-PCR) NEGATIVE Blood Type Antibody Screen Imaging Radiologist's Impressions: Impressions Chest X-Ray 03/29/24 14:40 IMPRESSION: Vascular prominence, with patchy airspace opacities in bilateral lungs could reflect pulmonary edema versus inflammatory/infectious process. Electronically signed by: Connor Freire MD 03/29/2024 03:48 PM EDT RP Assessment and Plan (1) CHF exacerbation: Status: Acute (2) Acute hypoxic respiratory failure: Status: Acute (3) Acute kidney injury: Status: Acute (4) Elevated INR: Status: Acute Plan 83-year-old female with a past medical history of heart failure (echo 11/09/23 EF 40-50%),? hypertension, hyperlipidemia, CAD, paroxysmal atrial fibrillation (on coumadin), mechanical mitral valve replacement, aortic stenosis,? sick sinus syndrome status post pacemaker? admitted to ICU for management of acute hypoxic respiratory failure due to Congestive heart failure exacerbation Neuro:??? no acute issues Cardiac:?? ?Congestive heart failure exacerbation- ? chest x-ray does show worsening pulmonary edema, BNP 2670,? trop is flat,? received a total of 40 mg of? of Lasix in the emergency department.? We will continue to monitor? further need of diuresis ?Hypotension- ? hypotension due to? congestive heart failure exacerbation, no evidence of severe infection, lactic is neg, likely from diuresing? Pulmonary:?? acute hypoxic respiratory failure-? from? Congestive heart failure? exacerbation, should improve with? diuresing.?? Renal:?? ?MILTON:? nonoliguric,? received 2 L bolus? in the emergency department,? due to underlying Congestive heart failure exacerbation will avoid anymore fluids.? Continue trend renal indices Endo:?? ?No acute issues GI:? No acute issues. ID:? ? leukocytosis: no evidence of infection, ? slight increase in leukocytosis is related to acute? Congestive heart failure exacerbation, no evidence of sepsis? Heme/Onc:? ?Supratherapeutic INR:? INR 6.5,? holding Coumadin.? Received vitamin K in the ED.? will check a urine with morning labs Psych:? No acute issues. Miscellaneous:? No acute issues. Prophylaxis: compression devices due to supratherapeutic INR Critical care time spent:? 60 minutes Case discussed with Dr Rueda
--- NOTE | 2024-03-30 03:45 | PC.NURSE ---
Report called to Tanner PHILLIPS in ICU and patient subsequently transferred to the ICU.
[2024-03-30 05:18] LABS: VBG Base Excess 7.9 mmol/L; VBG HCO3 32 mmol/L (22-26); VBG pCO2 42 mmHg; VBG pH 7.48 (7.32-7.43); VBG pO2 47 mmHg
[2024-03-30 05:30] LABS: MANUAL DIFF FLAG NO
[2024-03-30 05:31] LABS: Basophils Percent Auto 0.6 % (0-2); Eosinophils Absolute Auto 0.1 X10*3/uL (0.0-0.4); Eosinophils Percent Auto 0.7 % (0-4); Hematocrit 30.8 % (37.0-47.0); Hemoglobin 9.7 g/dl (12.0-16.0); Imm Gran Abs Auto 0.02 X10*3/uL (0.00-0.03); Imm Gran Pct Auto 0.3 % (0.0-0.4); Lymphocytes Absolute Auto 0.7 X10*3/uL (1.2-4.9); Lymphocytes Percent Auto 10.4 % (20-40); Mean Corpuscular HGB Conc 31.5 g/dl (31.0-35.0); Mean Corpuscular Hemoglobin 28.3 pg (27.0-33.0); Mean Corpuscular Volume 89.8 fL (80.0-98.0); Mean Platelet Volume 9.8 fL (9.4-12.3); Monocytes Absolute Auto 0.7 X10*3/uL (0.1-1.2); Monocytes Percent Auto 9.7 % (2-11); Neutrophils Absolute Auto 5.5 x10*3/uL (2.0-8.3); Neutrophils Percent Auto 78.3 % (45-73); Platelet Count 200 X10*3/uL (160-400); Red Blood Count 3.43 X10*6/uL (4.20-5.50); Red Cell Distribution Width 16.9 % (11.0-16.0)
[2024-03-30 05:36] LABS: INTERNATIONAL NORM RATIO 3.4 (0.9-1.1); Prothrombin Time 39.4 SEC (10.9-12.4)
[2024-03-30 05:45] LABS: Phosphorus 4.6 mg/dL (2.7-4.5)
[2024-03-30 05:46] LABS: Alanine Aminotransferase 37 U/L (0-31); Albumin Level 4.1 g/dL (3.5-5.0); Alkaline Phosphatase 107 U/L (39-117); Anion Gap 16 (12-20); Aspartate Amino Transferase 33 U/L (5-31); Bilirubin Total 1.6 mg/dL (0.0-1.0); Blood Urea Nitrogen 56 mg/dL (9-16); Calcium 9.1 mg/dL (8.4-10.2); Carbon Dioxide 26 mmol/L (22-29); Chloride 106 mmol/L (96-108); Creatinine Clr Calc Pharmacy 14.9; Estimated Glomerular Filt Rate 23; Glucose Random 88 mg/dL (60-115); Magnesium 2.9 mg/dL (1.6-2.6); Potassium 3.9 mmol/L (3.3-5.1); Sodium 144 mmol/L (135-145); Total Protein 6.7 g/dL (6.5-8.0)
[2024-03-30 05:51] LABS: B Type Natriuretic Peptide 2286 pg/mL (<100)
[2024-03-30 05:57] LABS: Venous Blood Gas Refer to POC result
[2024-03-30] MEDS: Potassium Chloride Packet 20 MEQ PACKET 60 MEQ PO (08:15)
[2024-03-30] MEDS: Furosemide 200 MG in 0.9 % Sodium Chloride 80 ML IVCONT (09:07)
--- NOTE | 2024-03-30 10:53 | PHA.MEDREC ---
Addendum entered by Jonny Henry RPh 03/30/24 11:34: Reviewed by [facility]. Claims state furosemide 40mg daily, but DAUGHTER confirmed she stakes it BID. 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 Claims states pantoprazole BID, but daughter, could not confirm. She states she follows the bottles, and her mother takes 3 medications that are BID in frequency. Original Note: Pharmacy Consult ? Medication Reconciliation Pharmacy has completed the medication reconciliation. Confirmed medications with daughter Mikki, she was able to confirm her moms medications. Her daughter confirmed her Alendronate 70mg one a week tab on Saturdays, and she believes she took it this past Tuesday. She also confirmed her doctor put a hold on her Valsartan 160mg due to some issues with the patient Kidneys and the doctor thinking it could do with that medication. Also her moms doctor put her Warfarin 2.5mg tab on hold on Tuesday due to her INR levels and they were suppose to get her levels re-done today and since she is admitted with us she cannot. Her daughter knew her mom took her morning medications yesterday but doesn't know if she took her medications last night.
[2024-03-30] MEDS: Chlorothiazide Sodium 500 MG VIAL IVPUSH (11:54)
[2024-03-30] MEDS: Amiodarone HCL 200 MG TABLET PO (14:18)
[2024-03-30] MEDS: Warfarin Sodium 2.5 MG TABLET PO (18:30)
[2024-03-30] MEDS: Omeprazole 20 MG CAPSULE.DR PO (18:30)
[2024-03-30 18:43] LABS: Anion Gap 14 (12-20); Blood Urea Nitrogen 55 mg/dL (9-16); Calcium 9.2 mg/dL (8.4-10.2); Carbon Dioxide 29 mmol/L (22-29); Chloride 106 mmol/L (96-108); Creatinine Clr Calc Pharmacy 13.4; Estimated Glomerular Filt Rate 20; Glucose Random 102 mg/dL (60-115); Potassium 4.6 mmol/L (3.3-5.1); Sodium 144 mmol/L (135-145)
[2024-03-30] MEDS: Pravastatin Sodium 40 MG TABLET PO (23:55)
[2024-03-31] VITALS (7 sets, daily range): BP systolic 99–115; BP diastolic 51–59; PULSE 72–79; RESP 17–20; TEMP 36–37.1; O2SAT 91–99
[2024-03-31] MEDS: Omeprazole 20 MG CAPSULE.DR PO ×2 (05:24→17:11)
[2024-03-31 05:42] LABS: MANUAL DIFF FLAG NO
[2024-03-31 05:44] LABS: Basophils Percent Auto 0.4 % (0-2); Eosinophils Absolute Auto 0.1 X10*3/uL (0.0-0.4); Eosinophils Percent Auto 0.7 % (0-4); Hematocrit 31.3 % (37.0-47.0); Imm Gran Abs Auto 0.04 X10*3/uL (0.00-0.03); Imm Gran Pct Auto 0.4 % (0.0-0.4); Lymphocytes Absolute Auto 0.8 X10*3/uL (1.2-4.9); Lymphocytes Percent Auto 9.3 % (20-40); Mean Corpuscular HGB Conc 31.9 g/dl (31.0-35.0); Mean Corpuscular Hemoglobin 28.8 pg (27.0-33.0); Mean Corpuscular Volume 90.2 fL (80.0-98.0); Mean Platelet Volume 9.1 fL (9.4-12.3); Monocytes Absolute Auto 0.8 X10*3/uL (0.1-1.2); Monocytes Percent Auto 9.2 % (2-11); Neutrophils Absolute Auto 7.2 x10*3/uL (2.0-8.3); Platelet Count 200 X10*3/uL (160-400); Red Blood Count 3.47 X10*6/uL (4.20-5.50)
[2024-03-31 05:44] LABS: Venous Blood Gas Refer to POC result
[2024-03-31 05:46] LABS: VBG Base Excess 11.9 mmol/L; VBG HCO3 36 mmol/L (22-26); VBG pCO2 45 mmHg; VBG pO2 51 mmHg
[2024-03-31 05:49] LABS: INTERNATIONAL NORM RATIO 1.3 (0.9-1.1); Prothrombin Time 15.3 SEC (10.9-12.4)
[2024-03-31 05:59] LABS: Albumin Level 3.9 g/dL (3.5-5.0); Anion Gap 14 (12-20); Blood Urea Nitrogen 54 mg/dL (9-16); Calcium 9.9 mg/dL (8.4-10.2); Carbon Dioxide 32 mmol/L (22-29); Chloride 104 mmol/L (96-108); Estimated Glomerular Filt Rate 23; Glucose Random 102 mg/dL (60-115); Magnesium 2.5 mg/dL (1.6-2.6); Phosphorus 3.5 mg/dL (2.7-4.5); Sodium 146 mmol/L (135-145)
--- NOTE | 2024-03-31 07:00 | CA_ITS ---
Transthoracic Echocardiogram Patient (Last, First, Middle): Bethany Viveros M Gender: Female Date of : 1940 Age: 83 Procedure Date: 03/31/2024 Procedure Type: Transthoracic E[place]ocardiogram [place] [facility] [place]: 149.86 cm Weight: 52.16 kg BSA: 1.46 m2 Heart Rate: bpm BP: 108 / 53 mmHg Osteopathic Resident: JAMES Referring MD: Dolores Shea MD Symptoms: Evaluation of heart failure exacerbation , Study Quality: Fair/Contrast Conclusions: - Normal left ventricular cavity size. There is mildly increased left ventricular wall thickness. The left ventricular systolic function is mildly decreased. The visually estimated ejection fraction is between 40-45%. - Mildly increased right ventricular cavity size. There is mildly decreased right ventricular systolic function. - The left atrium is severely dilated. The right atrium is severely dilated. - There is moderate aortic valve stenosis. The peak aortic velocity is 2.70 m/s. The aortic valve area is 0.96 cm2. There is mild aortic valve regurgitation. SVI 41. - Significantly elevated right atrial pressure. Moderate pulmonary hypertension is present. Findings Procedure Information Contrast agent, definity, is being given per protocol without apparent complications. Left Ventricle Normal left ventricular cavity size. There is mildly increased left ventricular wall thickness. The left ventricular systolic function is mildly decreased. The visually estimated ejection fraction is between 40-45%. There is paradoxical septal motion consistent with post-operative status. Diastolic function is indeterminate on the basis of available data. Right Ventricle Mildly increased right ventricular cavity size. There is mildly decreased right ventricular systolic function. Atria The left atrium is severely dilated. The right atrium is severely dilated. Aortic Valve There is a normal trileaflet aortic valve. There is mild calcification of the aortic valve. There is moderate aortic valve stenosis. The peak aortic velocity is 2.70 m/s. The aortic valve area is 0.96 cm2. There is mild aortic valve regurgitation. Mitral Valve A mechanical prosthetic mitral valve is present. The prosthetic mitral valve appears to be functioning normally. There is no mitral valve regurgitation. There is no mitral valve stenosis. Pulmonic Valve The pulmonic valve was not well visualized. Tricuspid Valve The anterior tricuspid valve leaflet is mildly restricted. The posterior tricuspid valve leaflet is mildly restricted. There is moderate to severe tricuspid valve regurgitation. Significantly elevated right atrial pressure. Moderate pulmonary hypertension is present. Great Vessels All visible segments of the aorta are normal in size. Venous The inferior vena cava is dilated and does not collapse with inspiration. Pericardium/Pleural There is no evidence of pericardial effusion. Prior Study Comparison Changes noted compared to prior study dated: 07/05/2023. at least moderate . SVI normal on this study with low mean gradients. Measurements 2D Linear Measurements IVSd: 0.99 0.6-0.9/0.6-1.0 cm LVIDd: 4.79 3.9-5.3/4.2-5.9 cm LVIDd Index: 3.28 2.4-3.2/2.2-3.1 cm/m2 LVIDs: 3.80 2.0-3.6 cm LVPWd: 0.94 0.7-1.1 cm Ao Root: 2.90 2.1-3.5 cm LA Diam: 6.60 2.7-3.8/3.0-4.0 cm LAIDs Index: 4.52 1.5-2.3 cm/m2 LV Mass: 200.60 67-162/88-224 g LV Mass Index: 137.40 43-95/49-115 g/m2 LVOT Diam: 2.00 3.0+(-)1.3 cm 2D Systolic Function EF 4C: 36.20 >55% EF 2C: 31.50 >55% EF BiP: 32.70 >55% Mitral Valve MV VTI: 0.34 MV Pk [place]: 1.72 MV Mn [place]: 0.95 MV Pk Grad: 12.00 MV Mn Grad: 5.00 MVA Continuity: 1.76 Aortic Valve AoV Pk [place]: 2.70 AoV Mn [place]: 1.71 AoV VTI: 0.63 AoV Pk Grad: 29.00 Aov Mn Grad: 14.00 WILLIAM Cont.VTI: 0.96 AI Pk [place]: 3.74 AI [place]: 3.97 LVOT LVOT Pk [place]: 0.86 LVOT Mn [place]: 0.57 LVOT VTI: 0.19 LVOT Pk Grad: 3.00 LVOT Mn Grad: 1.00 LVOT Diam: 2.00 LVOT Area: 3.14 Right Ventricle TAPSE (mm): 20.90 TVS' [place]: 9.03 Tricuspid Valve TR Pk [place]: 3.07 TR Pk Grad: 38.00 RA Press: 15.00 RVSP: 53.00 Great Vessels Aorta Ao Root-2D: 2.90 2.0-3.7 cm Ao Asc: 3.10 2.1-3.4 cm Ao Arch: 2.70 Updated in Other Vendor System with Status of Final Black Phillips MD electronically signed on 03/31/2024 1:50:04 PM with status of Final
[2024-03-31] MEDS: Multivitamin TABLET 1 TAB PO (08:49)
[2024-03-31] MEDS: Amiodarone HCL 200 MG TABLET PO (08:49)
[2024-03-31] MEDS: Metoprolol Tartrate 50 MG TABLET PO (08:49)
[2024-03-31] MEDS: Furosemide 200 MG in 0.9 % Sodium Chloride 80 ML IVCONT (09:13)
--- NOTE | 2024-03-31 10:15 | MHC.CM.PN ---
CM met with Patient at bedside and addressed IMM with her, original was given to Patient and a coipy has been placed on the chart. Patient lives alone in a house, uses a cane & walker to assist with mobility and is active with [facility]. Home/resume said services is the goal and CM has initialed and will follow for dc planning. PCP is Dr. Kana Ponce and Daughter/HCP/Mikki will transport to home.
[2024-03-31] MEDS: Enoxaparin Sodium 60 MG/0.6 ML SYRINGE 50 MG SUBCUT ×2 (10:29→21:14)
--- NOTE | 2024-03-31 11:32 | HO.PM.IMPN ---
Subjective Subjective Date of Service: 03/31/24 Interval History: Seen and evaluated this morning Feels little better still significantly overloaded denies any chest pain INR 1.5 no other events reported Review of Systems Review of Systems: Yes all other systems are reviewed and are negative Physical Exam Vital Signs: Vital Signs: Last Vital Signs Temp 97.4 F 03/31/24 08:00 Pulse 73 03/31/24 10:58 Resp 20 03/31/24 08:00 BP 108/53 L 03/31/24 10:58 Pulse Ox 98 03/31/24 10:58 O2 Del Method Room Air 03/31/24 08:00 O2 Flow Rate 2 03/31/24 03:50 BMI result Body Mass Index 23.2 Const: Other: Constitutional : Awake, interactive, not in distress Neck : Normal inspection, Supple Cardiovascular : RRR, elevated JVP, +1 lower extremity edema Respiratory : fair bilateral air entry, basal fine crackles, no wheezes or rhonchi, systolic murmur Gastrointestinal: soft, lax, Normal bowel sounds, Non tender Skin : Warm, Dry Neurological : Alert & oriented x3, No focal deficit Objective Data Active Medications Amiodarone HCl (Amiodarone Hcl 200 Mg Tablet) 200 mg PO DAILY [facility] Last Admin: 03/31/24 08:49 Dose: 200 mg Documented By: ANUP Enoxaparin Sodium (Enoxaparin Sodium 60 Mg/0.6 Ml Syringe) 50 mg SUBCUT Q12H [facility] Last Admin: 03/31/24 10:29 Dose: 50 mg Documented By: ANUP Furosemide 200 mg/ Sodium (Chloride) 100 mls @ 2.5 mls/hr IVCONT .Q24H [facility] Last Admin: 03/31/24 09:13 Dose: 5 mg/hr, 2.5 mls/hr Documented By: ANUP Metoprolol Tartrate (Metoprolol Tartrate 50 Mg Tablet) 50 mg PO BID [facility]; Protocol Last Admin: 03/31/24 08:49 Dose: 50 mg Documented By: ANUP Multivitamins/Vitamin C (Multivitamin Tablet) 1 tab PO DAILY [facility] Last Admin: 03/31/24 08:49 Dose: 1 tab Documented By: ANUP Omeprazole (Omeprazole 20 Mg David.) 20 mg PO BID@0630,1630 [facility] Last Admin: 03/31/24 05:24 Dose: 20 mg Documented By: LAYTON Pravastatin Sodium (Pravastatin Sodium 40 Mg Tablet) 40 mg PO BEDTIME [facility] Last Admin: 03/30/24 23:55 Dose: 40 mg Documented By: LAYTON Warfarin Sodium (Warfarin Sodium 4 Mg Tablet) 4 mg PO DAILY@1800 [facility] Labs 03/31/24 05:31 03/31/24 05:31 Labs: Laboratory Results - last 24 hr 03/30/24 03/31/24 03/31/24 18:12 05:31 05:42 MCV 90.2 MCH 28.8 MCHC 31.9 RDW 17.0 H Plt Count 200 MPV 9.1 L Immature Gran % (Auto) 0.4 Neut % (Auto) 80.0 H Lymph % (Auto) 9.3 L [place] % (Auto) 9.2 Eos % (Auto) 0.7 Baso % (Auto) 0.4 Lymph # (Auto) 0.8 L [place] # (Auto) 0.8 Eos # (Auto) 0.1 Baso # (Auto) 0.0 Abs Immat Gran (auto) 0.04 H Absolute Neuts (auto) 7.2 Absolute Nucleated RBC 0.000 Nucleated RBC % (auto) 0.0 PT 15.3 H D INR 1.3 H D VBG pH 7.50 H VBG pCO2 45 VBG pO2 51 VBG HCO3 36 H VBG O2 Saturation 81.0 VBG Base Excess 11.9 Anion Gap 14 14 Estim Creat Clear Calc 13.4 15.0 Estimated GFR 20 23 Random Glucose 102 102 Calcium 9.2 9.9 D Phosphorus 3.5 Magnesium 2.5 Albumin 3.9 Microbiology Microbiology Results: Microbiology 03/29/24 Unknown Urine Culture - Preliminary Urine clean catch - Clean Catch Midstream Culture too young to evaluate. Assessment and Plan (1) Acute hypoxic respiratory failure: Status: Acute (2) Acute kidney injury: Status: Acute (3) CHF exacerbation: Status: Acute (4) H/O mitral valve replacement: Status: Acute (5) Current use of anticoagulant therapy: Status: Acute (6) Subtherapeutic international normalized ratio (INR): Status: Acute Plan 83-year-old female with a past medical history of heart failure (echo 11/09/23 EF 40-50%),? hypertension, hyperlipidemia, CAD, paroxysmal atrial fibrillation (on coumadin), mechanical mitral valve replacement, aortic stenosis,? sick sinus syndrome status post pacemaker? admitted to ICU for management of acute hypoxic respiratory failure due to Congestive heart failure exacerbation acute hypoxic respiratory failure 2/2 Acute on chronic?Congestive heart failure w exacerbation Elevated BNP Continue lasix drip Cardiology eval check Echo I\O Wean O2 down as tolerated Cardiology suggesting transfer to [facility] for TAVR given severe . will confirm after repeating ECHO ?MILTON 2/2 Cardiorenal syndrome? Cr stable at 2 continue diuresis follow BMP Subtherapeutic INR:? INR 1.5 today Increase Coumadin to 4 mg and bridge with Lovenox full dose Paroxysmal Afib rate controlled, continue Amiodarone and Metoprolol DVT PPx Lovenox The patient will need overnight hospital stay for treatment of CHF exacerbation on IV lasix drip and O2 supplement Quality Stroke Does the patient have a stroke diagnosis?: No VTE Prior VTE?: No VTE Risk Level:: Medical - moderate - high VTE Device Contraindication: N/A - Device Ordered VTE Drug Contraindication: Treatment Not Indicated
--- NOTE | 2024-03-31 11:41 | MHC.CM.PN ---
PT is recommending STR; CM will follow.
--- NOTE | 2024-03-31 12:30 | P.CONCA_ITS ---
History of Present Illness History of Present Illness Date of Service: 03/31/24 Requesting physician: Dolores Shea Chief complaint: congestive heart failure, Narrative: [age] year female with known history of mechanical mitral valve replacement on Coumadin and severe low-flow low gradient . Mild cardiomyopathy in the past. She has shortness of breath and congestive heart failure. She was hypotensive on admission but blood pressure has improved. She is currently on a Lasix drip. Appears to be significantly volume overloaded. She is saying she is still short of breath. Denying any chest discomfort. She had cardiac catheterization in December and was referred for transcatheter aortic valve replacement. She has seen Dr. Mcmanus mid 03/16/2024 and is being worked up with TAVR protocol CT and also waiting to see the surgeon. [facility] Past Medical History Medical History Congestive heart failure Atrial fibrillation Aortic stenosis H/O mitral valve replacement (~1996) Persistent atrial fibrillation Cardiac pacemaker in situ (~2009) Mixed hyperlipidemia Current use of pen[facility]iary anticoagulation Osteoporosis (~2005) HTN (hypertension) Paroxysmal atrial fibrillation Sick sinus syndrome (~2009) Family History Family History Father No problems noted. Mother No problems noted. Surgical History Surgical History History of ventral hernia repair History of kyphoplasty (~2011) History of cardiac pacemaker (~2009) History of meniscectomy of right knee (~2012) History of mitral valve replacement (~1996) History of mitral valve repair (~1992) History of right knee surgery (~2017) Social History Social History Household Members: None Housing: House Housing Other:: 2 family on firstr floor Do you presently have visiting nurse or other home services: Yes Alcohol intake: never Patient Tobacco Use Status: Never used Tobacco Smoked in Last 30 Days: No e-Cigarette/Vaping Use: Never Used Second Hand Smoke Exposure: No Use of substances other than those prescribed or required for medical reasons: No Currently Displaying Signs/Symptoms of Drug Intoxication Withdrawal: No Advance Directives: Yes Advance Directives on File: Yes Advance Directives Date on File: 07/11/23 Do you have a plan to hurt others: No Plan Recently lost weight without trying: Unsure Patient : No service: No Current occupational exposures/hazards: No Meds Allergies Allergy/AdvReac Type Severity Reaction Status Date / Time Sulfa (Sulfonamide Allergy Unknown UNKNOWN - Verified 03/29/24 14:36 Antibiotics) DOES NOT REMEMBER Active Medications: Current Medications Amiodarone HCl (Amiodarone Hcl 200 Mg Tablet) 200 mg PO DAILY [facility] Last Admin: 03/31/24 08:49 Dose: 200 mg Enoxaparin Sodium (Enoxaparin Sodium 60 Mg/0.6 Ml Syringe) 50 mg SUBCUT Q12H [facility] Last Admin: 03/31/24 10:29 Dose: 50 mg Furosemide 200 mg/ Sodium (Chloride) 100 mls @ 2.5 mls/hr IVCONT .Q24H [facility] Last Admin: 03/31/24 09:13 Dose: 5 mg/hr, 2.5 mls/hr Metoprolol Tartrate (Metoprolol Tartrate 25 Mg Tablet) 25 mg PO BID [facility]; Protocol Multivitamins/Vitamin C (Multivitamin Tablet) 1 tab PO DAILY [facility] Last Admin: 03/31/24 08:49 Dose: 1 tab Omeprazole (Omeprazole 20 Mg Capsule.Dr) 20 mg PO BID@0630,1630 [facility] Last Admin: 03/31/24 05:24 Dose: 20 mg Pravastatin Sodium (Pravastatin Sodium 40 Mg Tablet) 40 mg PO BEDTIME [facility] Last Admin: 03/30/24 23:55 Dose: 40 mg Warfarin Sodium (Warfarin Sodium 4 Mg Tablet) 4 mg PO DAILY@1800 [facility] Home Medications ?Medication ?Instructions ?Recorded ?Confirmed ?Last Taken ?Type alendronate 70 mg tablet 70 mg PO SA 05/19/21 03/30/24 03/24/24 History cholecalciferol (vitamin D3) 25 25 mcg PO DAILY 05/19/21 03/30/24 03/29/24 07:00 History mcg (1,000 unit) capsule metoprolol tartrate 50 mg tablet 50 mg PO BID 05/19/21 03/30/24 03/29/24 07:00 History multivitamin (Daily Multi-Vitamin 1 tab PO DAILY 05/19/21 03/30/24 03/29/24 07:00 History tablet) pravastatin 40 mg tablet 40 mg PO BEDTIME 05/19/21 03/30/24 03/28/24 History pantoprazole 20 mg tablet,delayed 20 mg PO BID@0630,1630 08/05/23 03/30/24 03/29/24 07:00 History release cyclobenzaprine 10 mg tablet 10 mg PO TID 03/19/24 03/30/24 03/29/24 07:00 History warfarin 2.5 mg tablet 2.5 mg PO DAILY@1800 03/30/24 03/30/24 03/27/24 History Physical Exam 2 Vital Signs: Vital Signs: Last Vital Signs Temp 97.2 F 03/31/24 12:00 Pulse 72 03/31/24 12:00 Resp 20 03/31/24 12:00 BP 104/59 L 03/31/24 12:00 Pulse Ox 98 03/31/24 10:58 O2 Del Method Nasal Cannula 03/31/24 12:00 O2 Flow Rate 2 03/31/24 12:00 BMI result Body Mass Index 23.2 GENERAL APPEARANCE: Short of breath. On supplemental oxygen. NECK: no carotid bruit, ++ jugular venous distention. SKIN: no suspicious lesions, warm and dry. HEART: no murmurs, regular rate and rhythm. LUNGS: Crackles at bases. ABDOMEN: soft, nontender. EXTREMITIES: no edema. PERIPHERAL PULSES: equal. NEUROLOGIC: No gross deficits, AAO X 3 Objective Labs and Meds 03/31/24 05:31 03/31/24 05:31 Lab results: Laboratory Results - last 24 hr 03/30/24 03/31/24 03/31/24 18:12 05:31 05:42 WBC 9.0 RBC 3.47 L Hgb 10.0 L Hct 31.3 L MCV 90.2 MCH 28.8 MCHC 31.9 RDW 17.0 H Plt Count 200 MPV 9.1 L Immature Gran % (Auto) 0.4 Neut % (Auto) 80.0 H Lymph % (Auto) 9.3 L [place] % (Auto) 9.2 Eos % (Auto) 0.7 Baso % (Auto) 0.4 Lymph # (Auto) 0.8 L [place] # (Auto) 0.8 Eos # (Auto) 0.1 Baso # (Auto) 0.0 Abs Immat Gran (auto) 0.04 H Absolute Neuts (auto) 7.2 Absolute Nucleated RBC 0.000 Nucleated RBC % (auto) 0.0 PT 15.3 H D INR 1.3 H D VBG pH 7.50 H VBG pCO2 45 VBG pO2 51 VBG HCO3 36 H VBG O2 Saturation 81.0 VBG Base Excess 11.9 Sodium 144 146 H Potassium 4.6 4.0 Chloride 106 104 Carbon Dioxide 29 32 H Anion Gap 14 14 BUN 55 H 54 H Creatinine 2.29 H 2.06 H Estim Creat Clear Calc 13.4 15.0 Estimated GFR 20 23 Random Glucose 102 102 Calcium 9.2 9.9 D Phosphorus 3.5 Magnesium 2.5 Albumin 3.9 Assessment and Plan (1) CHF exacerbation: Status: Acute (2) Aortic stenosis: Status: Acute Plan Pleasant 83 year female with acute on chronic congestive heart failure in the setting of low-flow low gradient severe aortic valve stenosis. She has also history of mechanical mitral valve replacement and is on chronic Coumadin therapy. Apparently her INR was up and she was given vitamin K and INR has normalized completely. Agree with Lovenox for now. Hold the Coumadin for now. We will diurese and as she improves we will potentially transferred to [facility] for inpatient assessment for transcatheter aortic valve replacement. I will check echocardiogram today to assess the LVEF. If LV function is worsening then again we need to expedite the TAVR. Monitor hemodynamics closely. Decrease the metoprolol to 25 mg twice a day for now. Thank you for allowing me to participate in the care of your patient. Please feel free to contact me if you have any questions. Procedures Date of Service Date of Service: 03/31/24
[2024-03-31] MEDS: Pravastatin Sodium 40 MG TABLET PO (21:13)
[2024-04-01 04:00] VITALS: BP 117/56; PULSE 70; RESP 18; TEMP 35.4; O2SAT 94
[2024-04-01] MEDS: Omeprazole 20 MG CAPSULE.DR PO ×2 (05:11→17:52)
[2024-04-01 05:44] VITALS: BMI 23.6
[2024-04-01 07:18] VITALS: BP 121/58; PULSE 78; RESP 20; TEMP 36.2; O2SAT 95
[2024-04-01 07:54] LABS: INTERNATIONAL NORM RATIO 1.4 (0.9-1.1); Prothrombin Time 16.3 SEC (10.9-12.4)
[2024-04-01 07:59] LABS: Hemoglobin 10.5 g/dl (12.0-16.0); Mean Corpuscular HGB Conc 30.9 g/dl (31.0-35.0); Mean Corpuscular Hemoglobin 28.3 pg (27.0-33.0); Mean Corpuscular Volume 91.6 fL (80.0-98.0); Mean Platelet Volume 9.9 fL (9.4-12.3); Platelet Count 240 X10*3/uL (160-400); Red Blood Count 3.71 X10*6/uL (4.20-5.50); Red Cell Distribution Width 16.8 % (11.0-16.0); White Blood Count 9.8 X10*3/uL (4.8-10.8)
[2024-04-01 08:10] LABS: Alanine Aminotransferase 38 U/L (0-31); Albumin Level 4.1 g/dL (3.5-5.0); Alkaline Phosphatase 138 U/L (39-117); Anion Gap 15 (12-20); Aspartate Amino Transferase 36 U/L (5-31); Bilirubin Direct 0.7 mg/dL (0.0-0.5); Bilirubin Total 2.3 mg/dL (0.0-1.0); Blood Urea Nitrogen 43 mg/dL (9-16); Calcium 9.2 mg/dL (8.4-10.2); Carbon Dioxide 34 mmol/L (22-29); Chloride 100 mmol/L (96-108); Creatinine Clr Calc Pharmacy 19.6; Estimated Glomerular Filt Rate 31; Glucose Random 84 mg/dL (60-115); Potassium 3.4 mmol/L (3.3-5.1); Sodium 146 mmol/L (135-145); Total Protein 7.2 g/dL (6.5-8.0)
[2024-04-01 08:12] LABS: B Type Natriuretic Peptide 1213 pg/mL (<100)
[2024-04-01] MEDS: Multivitamin TABLET 1 TAB PO (09:01)
[2024-04-01] MEDS: Enoxaparin Sodium 60 MG/0.6 ML SYRINGE 50 MG SUBCUT ×2 (09:01→20:22)
[2024-04-01] MEDS: Metoprolol Tartrate 25 MG TABLET PO ×2 (09:01→20:15)
[2024-04-01] MEDS: Amiodarone HCL 200 MG TABLET PO (09:01)
--- NOTE | 2024-04-01 09:36 | HO.PM.IMPN ---
Subjective Subjective Date of Service: 04/01/24 Interval History: Seen and evaluated this morning Feels better, -1L still overloaded denies any chest pain INR 1.4 no other events reported Review of Systems Review of Systems: Yes all other systems are reviewed and are negative Physical Exam Vital Signs: Vital Signs: Last Vital Signs Temp 97.1 F 04/01/24 07:18 Pulse 78 04/01/24 07:18 Resp 20 04/01/24 07:18 BP 121/58 L 04/01/24 07:18 Pulse Ox 95 04/01/24 07:18 O2 Del Method Nasal Cannula 04/01/24 07:18 O2 Flow Rate 2 04/01/24 07:18 BMI result Body Mass Index 23.6 Const: Other: Constitutional : Awake, interactive, not in distress Neck : Normal inspection, Supple Cardiovascular : RRR, elevated JVP, trace lower extremity edema Respiratory : fair bilateral air entry, basal fine crackles, no wheezes or rhonchi, systolic murmur Gastrointestinal: soft, lax, Normal bowel sounds, Non tender Skin : Warm, Dry Neurological : Alert & oriented x3, No focal deficit Objective Data Active Medications Amiodarone HCl (Amiodarone Hcl 200 Mg Tablet) 200 mg PO DAILY [facility] Last Admin: 04/01/24 09:01 Dose: 200 mg Documented By: ANUP Enoxaparin Sodium (Enoxaparin Sodium 60 Mg/0.6 Ml Syringe) 50 mg SUBCUT Q12H [facility] Last Admin: 04/01/24 09:01 Dose: 50 mg Documented By: ANUP Furosemide 200 mg/ Sodium (Chloride) 100 mls @ 2.5 mls/hr IVCONT .Q24H [facility] Last Admin: 03/31/24 09:13 Dose: 5 mg/hr, 2.5 mls/hr Documented By: ANUP Metoprolol Tartrate (Metoprolol Tartrate 25 Mg Tablet) 25 mg PO BID [facility]; Protocol Last Admin: 04/01/24 09:01 Dose: 25 mg Documented By: ANUP Multivitamins/Vitamin C (Multivitamin Tablet) 1 tab PO DAILY [facility] Last Admin: 04/01/24 09:01 Dose: 1 tab Documented By: ANUP Omeprazole (Omeprazole 20 Mg David.) 20 mg PO BID@0630,1630 [facility] Last Admin: 04/01/24 05:11 Dose: 20 mg Documented By: LAYTON Pravastatin Sodium (Pravastatin Sodium 40 Mg Tablet) 40 mg PO BEDTIME [facility] Last Admin: 03/31/24 21:13 Dose: 40 mg Documented By: LAYTON Labs 04/01/24 05:43 04/01/24 05:43 Labs: Laboratory Results - last 24 hr 04/01/24 04/01/24 05:43 05:44 MCV 91.6 MCH 28.3 MCHC 30.9 L RDW 16.8 H Plt Count 240 MPV 9.9 Absolute Nucleated RBC 0.000 Nucleated RBC % (auto) 0.0 PT 16.3 H INR 1.4 H Anion Gap 15 Estim Creat Clear Calc 19.6 Estimated GFR 31 Random Glucose 84 Calcium 9.2 D Total Bilirubin 2.3 H Direct Bilirubin 0.7 H AST 36 H ALT 38 H Alkaline Phosphatase 138 H B-Natriuretic Peptide 1213 H Total Protein 7.2 Albumin 4.1 Microbiology Microbiology Results: Microbiology 03/29/24 Unknown Urine Culture - Final Urine clean catch - Clean Catch Midstream Assessment and Plan (1) Subtherapeutic international normalized ratio (INR): Status: Acute (2) Acute hypoxic respiratory failure: Status: Acute (3) Acute kidney injury: Status: Acute Plan 83-year-old female with a past medical history of heart failure (echo 11/09/23 EF 40-50%),? hypertension, hyperlipidemia, CAD, paroxysmal atrial fibrillation (on coumadin), mechanical mitral valve replacement, aortic stenosis,? sick sinus syndrome status post pacemaker? admitted to ICU for management of acute hypoxic respiratory failure due to Congestive heart failure exacerbation Acute hypoxic respiratory failure 2/2 Acute on chronic?Congestive heart failure w exacerbation improving slowly Continue lasix drip Echo showing, mildly increased left ventricular wall thickness. EF 40-45%.moderate aortic valve stenosis. The peak aortic velocity is 2.70 m/s. I\O Wean O2 down as tolerated Cardiology suggesting transfer [place] [facility] given severe . ?[place] 2/2 Cardiorenal syndrome? Cr improved to 1.6 Continue diuresis Follow BMP Subtherapeutic INR:? INR 1.5 today Increase Coumadin to 4 mg and bridge with Lovenox full dose Paroxysmal Afib rate controlled, continue Amiodarone and Metoprolol DVT PPx Lovenox The patient will need overnight hospital stay for treatment of CHF exacerbation on IV lasix drip and O2 supplement Quality Stroke Does the patient have a stroke diagnosis?: No VTE Prior VTE?: No VTE Risk Level:: Medical - moderate - high VTE Device Contraindication: N/A - Device Ordered VTE Drug Contraindication: Treatment Not Indicated
[2024-04-01] MEDS: Docusate Sodium 100 MG CAPSULE PO ×2 (11:05→20:15)
[2024-04-01] MEDS: Furosemide 200 MG in 0.9 % Sodium Chloride 80 ML IVCONT (11:05)
[2024-04-01 11:06] VITALS: BP 108/57; PULSE 76; RESP 18; TEMP 36.2; O2SAT 96
[2024-04-01] MEDS: polyethylene glycoL 3350 17 GM POWD.PACK PO (11:06)
--- NOTE | 2024-04-01 11:18 | PM.PNCARD ---
Subjective Subjective Date of Service: 04/01/24 Interval history: Seen examined at bedside. Feeling better. On Lasix drip. Physical Exam Vital Signs: Last Vital Signs Temp 97.1 F 04/01/24 11:06 Pulse 76 04/01/24 11:06 Resp 18 04/01/24 11:06 BP 108/57 L 04/01/24 11:06 Pulse Ox 96 04/01/24 11:06 O2 Del Method Nasal Cannula 04/01/24 11:06 O2 Flow Rate 2 04/01/24 11:06 BMI result Body Mass Index 23.6 GENERAL APPEARANCE: Short of breath. On supplemental oxygen. NECK: no carotid bruit, ++ jugular venous distention. SKIN: no suspicious lesions, warm and dry. HEART: Systolic murmur aortic area, regular rate and rhythm. Left parasternal heave. LUNGS: Clear to auscultation ABDOMEN: soft, nontender. EXTREMITIES: no edema. PERIPHERAL PULSES: equal. NEUROLOGIC: No gross deficits, AAO X 3 Objective Labs and Meds 04/01/24 05:43 04/01/24 05:43 Lab results: Laboratory Results - last 24 hr 04/01/24 04/01/24 05:43 05:44 WBC 9.8 RBC 3.71 L Hgb 10.5 L Hct 34.0 L MCV 91.6 MCH 28.3 MCHC 30.9 L RDW 16.8 H Plt Count 240 MPV 9.9 Absolute Nucleated RBC 0.000 Nucleated RBC % (auto) 0.0 PT 16.3 H INR 1.4 H Sodium 146 H Potassium 3.4 Chloride 100 Carbon Dioxide 34 H Anion Gap 15 BUN 43 H Creatinine 1.59 H Estim Creat Clear Calc 19.6 Estimated GFR 31 Random Glucose 84 Calcium 9.2 D Total Bilirubin 2.3 H Direct Bilirubin 0.7 H AST 36 H ALT 38 H Alkaline Phosphatase 138 H B-Natriuretic Peptide 1213 H Total Protein 7.2 Albumin 4.1 Progress Note: A&P Assessment and plan (1) CHF exacerbation: Status: Acute (2) H/O mitral valve replacement: Status: Acute (3) Aortic stenosis: Status: Acute Plan 83-year-old female with [id number] aortic valve stenosis and previous mechanical mitral valve replacement on chronic Coumadin who is presenting with shortness of breath due to congestive heart failure. Being diuresed and clinically improving. Continue diuretics for now. Metoprolol dose was decreased to 25 mg twice a day. I think she should continue same dose for now. At discharge we can consider increasing the dose if she can tolerate it. Her echocardiogram previously has shown [id number] aortic valve stenosis with low-flow low gradient. Currently her stroke volume index is normal and gradients across the valve are quite low and valve area is also close to 1 centimeter squared. She has seen structural heart team at [facility] and was being considered for transcatheter aortic valve replacement. Current echocardiogram appears somewhat ambiguous but I think her data has been mixed and confusing. Good thing is that she is diuresing well and is clinically improving. I will discuss further with Dr. Luke and we will make a decision whether we should transfer to [facility] to have an inpatient assessment versus outpatient follow-up as before. Thank you for allowing me to participate in the care of your patient. Please feel free to contact me if you have any questions. Time Spent With Patient Time: Total time managing care of this patient today ____ minutes. Progress Note: Quality Stroke Does the patient have a stroke diagnosis?: No Procedures Date of Service Date of Service: 04/01/24
[2024-04-01 16:00] VITALS: BP 120/57; PULSE 70; RESP 20; TEMP 36.4; O2SAT 96
[2024-04-01 19:27] VITALS: BP 104/51; PULSE 79; RESP 20; TEMP 36.3; O2SAT 95
[2024-04-01] MEDS: Pravastatin Sodium 40 MG TABLET PO (20:15)
[2024-04-02] VITALS (8 sets, daily range): BP systolic 102–126; BP diastolic 54–81; PULSE 70–85; RESP 19–22; TEMP 36–36.7; O2SAT 95–100; BMI 23.2
[2024-04-02] MEDS: Omeprazole 20 MG CAPSULE.DR PO ×2 (05:45→17:43)
[2024-04-02 07:29] LABS: Anion Gap 13 (12-20); Blood Urea Nitrogen 37 mg/dL (9-16); Calcium 9.4 mg/dL (8.4-10.2); Carbon Dioxide 34 mmol/L (22-29); Chloride 99 mmol/L (96-108); Creatinine Clr Calc Pharmacy 23.7; Estimated Glomerular Filt Rate 39; Glucose Random 84 mg/dL (60-115); Potassium 3.7 mmol/L (3.3-5.1); Sodium 142 mmol/L (135-145)
[2024-04-02 07:33] LABS: INTERNATIONAL NORM RATIO 1.5 (0.9-1.1); Prothrombin Time 17.3 SEC (10.9-12.4)
[2024-04-02 07:34] LABS: B Type Natriuretic Peptide 1077 pg/mL (<100)
[2024-04-02] MEDS: Amiodarone HCL 200 MG TABLET PO (09:37)
[2024-04-02] MEDS: Metoprolol Tartrate 25 MG TABLET PO ×2 (09:37→20:34)
[2024-04-02] MEDS: Docusate Sodium 100 MG CAPSULE PO ×2 (09:37→20:35)
[2024-04-02] MEDS: Multivitamin TABLET 1 TAB PO (09:37)
[2024-04-02] MEDS: Enoxaparin Sodium 60 MG/0.6 ML SYRINGE 50 MG SUBCUT ×2 (09:38→20:35)
[2024-04-02] MEDS: polyethylene glycoL 3350 17 GM POWD.PACK PO (09:38)
[2024-04-02] MEDS: Furosemide 200 MG in 0.9 % Sodium Chloride 80 ML IVCONT (10:58)
[2024-04-02] MEDS: Empagliflozin 25 MG TABLET PO (10:58)
--- NOTE | 2024-04-02 11:30 | P.PNCA_ITS ---
Subjective Subjective Date of Service: 04/02/24 Principal diagnosis: CHF, aortic stenosis. Interval history: Patient still short of breath with minimal exertion with hypoxemia. After settling down her oxygen levels have improved. She was diuresed well and kidney functions have improved. No overnight atrial fibrillation. Hemodynamically stable. Review of Systems Constitutional: Reports weakness Cardiovascular: Denies chest pain, Denies lightheadedness, Denies Loss of Consciousness, Denies palpitations and Reports dyspnea on exertion Respiratory: Reports dyspnea on exertion Gastrointestinal: Reports no additional gastrointestinal complaints Genitourinary: Reports no additional female genitourinary complaints Skin/Breast: Reports system reviewed and no additional complaints, except as docu Reports weakness Endocrine: Denies palpitations Physical Exam Vital Signs: Last Vital Signs Temp 97.5 F 04/02/24 07:37 Pulse 72 04/02/24 09:37 Resp 22 H 04/02/24 07:37 BP 109/55 L 04/02/24 09:37 Pulse Ox 98 04/02/24 07:37 O2 Del Method Nasal Cannula 04/02/24 07:37 O2 Flow Rate 2 04/02/24 07:37 BMI result Body Mass Index 23.2 Const General: cooperative, alert, awake and in distress mild and respiratory Nutritional Appearance: thin Orientation/consciousness: patient oriented x3 Neck Neck: Yes trachea midline, Yes supple and Yes JVD Resp Effort & Inspection: normal respiratory effort Auscultation: crackles bilateral at the base Cardio Jugular venous distension: no JVD Rate: regular rate Rhythm: regular rhythm Heart sounds: Clicking heart sound present (Cass opening and closing click of mitral valve) and Murmur heart sound present systolic late, decrescendo and crescendo GI Auscultation: normal bowel sounds Skin General skin exam: no rashes or lesions noted and ecchymosis Neuro General: patient oriented x3 and no focal motor deficits Extrem General: Yes no clubbing, cyanosis or edema Objective Labs and Meds 04/01/24 05:43 04/02/24 06:37 Lab results: Laboratory Results - last 24 hr 04/02/24 04/02/24 06:37 06:46 PT 17.3 H INR 1.5 H Sodium 142 Potassium 3.7 Chloride 99 Carbon Dioxide 34 H Anion Gap 13 BUN 37 H Creatinine 1.30 Estim Creat Clear Calc 23.7 Estimated GFR 39 Random Glucose 84 Calcium 9.4 B-Natriuretic Peptide 1077 H Progress Note: A&P Assessment and plan (1) CHF exacerbation: Status: Acute Assessment and Plan: Patient admitted with acute CHF exacerbation with acute kidney injury consistent with cardiorenal syndrome with diuresis her kidney functions have improved. Clinically she is improving would still seems to be in heart failure. Continue IV diuretic drip. Add Jardiance 10 mg to regimen. She will require evaluation for TAVR as inpatient urgently. Case discussed with Dr. Mcmanus to fast track her transcatheter valve replacement. She was scheduled for outpatient CT chest tomorrow for TAVR evaluation. Will transfer to [facility] for further management and continuing evaluation for TAVR. (2) Aortic stenosis: Status: Acute Assessment and Plan: Aortic stenosis which is been very difficult to manage. Moderately severe for sure. Clinically appears to be moderately severe as well. I think she would benefit from transcatheter aortic valve replacement. Have discussed the case with Dr. Mcmanus who is going to evaluate the patient while she is there and schedule if necessary for an urgent transcatheter aortic valve replacement. (3) H/O mitral valve replacement: Status: Acute Assessment and Plan: Prior history of [place] mitral valve replacement. Clinically working well. Unfortunately she received vitamin K for correction of her elevated INR, she has no bleeding issues. This has led to subtherapeutic INR. Continue Lovenox till INR is above 2.5. (4) Atrial fibrillation: Status: Acute Assessment and Plan: Paroxysmal atrial fibrillation difficult control. Led to developing heart failure syndrome with persistent AFib. Has done well with rhythm control approach will continue pursue rhythm control approach. Continue amiodarone therapy. Continue anticoagulation above. Will transferred to [facility] Time Spent With Patient Time: Total time managing care of this patient today ____ minutes. Progress Note: Quality Stroke Does the patient have a stroke diagnosis?: No Procedures Date of Service Date of Service: 04/02/24
--- NOTE | 2024-04-02 12:47 | MHC.CM.PN ---
EMR reviewed and per MD rounds, pt is not medically cleared for discharge due to management of CHF exacerbation.
--- NOTE | 2024-04-02 14:51 | HO.PM.IMPN ---
Subjective Subjective Date of Service: 04/03/24 Interval History: Seen and evaluated this morning Feels better, -1L still overloaded denies any chest pain INR 1.4 no other events reported Physical Exam Vital Signs: Vital Signs: Last Vital Signs Temp 97.2 F 04/02/24 11:24 Pulse 71 04/02/24 11:24 Resp 20 04/02/24 11:24 BP 102/54 L 04/02/24 11:24 Pulse Ox 98 04/02/24 07:37 O2 Del Method Nasal Cannula 04/02/24 11:24 O2 Flow Rate 1 04/02/24 11:24 BMI result Body Mass Index 23.2 Const: Other: Constitutional : Awake, interactive, not in distress Neck : Normal inspection, Supple Cardiovascular : RRR, elevated JVP, trace lower extremity edema Respiratory : fair bilateral air entry, basal fine crackles, no wheezes or rhonchi, systolic murmur Gastrointestinal: soft, lax, Normal bowel sounds, Non tender Skin : Warm, Dry Neurological : Alert & oriented x3, No focal deficit Objective Data Active Medications Amiodarone HCl (Amiodarone Hcl 200 Mg Tablet) 200 mg PO DAILY [facility] Last Admin: 04/02/24 09:37 Dose: 200 mg Documented By: RORY Docusate Sodium (Docusate Sodium 100 Mg Capsule) 100 mg PO BID [facility] Last Admin: 04/02/24 09:37 Dose: 100 mg Documented By: RORY Empagliflozin (Empagliflozin 25 Mg Tablet) 25 mg PO DAILY [facility] Last Admin: 04/02/24 10:58 Dose: 25 mg Documented By: RORY Enoxaparin Sodium (Enoxaparin Sodium 60 Mg/0.6 Ml Syringe) 50 mg SUBCUT Q12H [facility] Last Admin: 04/02/24 09:38 Dose: 50 mg Documented By: RORY Furosemide 200 mg/ Sodium (Chloride) 100 mls @ 2.5 mls/hr IVCONT .Q24H [facility] Last Admin: 04/02/24 10:58 Dose: 5 mg/hr, 2.5 mls/hr Documented By: RORY Metoprolol Tartrate (Metoprolol Tartrate 25 Mg Tablet) 25 mg PO BID [facility]; Protocol Last Admin: 04/02/24 09:37 Dose: 25 mg Documented By: RORY Multivitamins/Vitamin C (Multivitamin Tablet) 1 tab PO DAILY [facility] Last Admin: 04/02/24 09:37 Dose: 1 tab Documented By: RORY Omeprazole (Omeprazole 20 Mg Capsule.Dr) 20 mg PO BID@0630,1630 [facility] Last Admin: 04/02/24 05:45 Dose: 20 mg Documented By: MERRILL Polyethylene Glycol (Polyethylene Glycol 3350 17 Gm Powd.Pack) 17 gm PO DAILY [facility] Last Admin: 04/02/24 09:38 Dose: 17 gm Documented By: RORY Pravastatin Sodium (Pravastatin Sodium 40 Mg Tablet) 40 mg PO BEDTIME [facility] Last Admin: 04/01/24 20:15 Dose: 40 mg Documented By: MERRILL Warfarin Sodium (Warfarin Sodium 4 Mg Tablet) 4 mg PO DAILY@1800 [facility] Labs 04/01/24 05:43 04/03/24 06:23 Labs: Laboratory Results - last 24 hr 04/02/24 04/02/24 06:37 06:46 PT 17.3 H INR 1.5 H Anion Gap 13 Estim Creat Clear Calc 23.7 Estimated GFR 39 Random Glucose 84 Calcium 9.4 B-Natriuretic Peptide 1077 H Assessment and Plan (1) Subtherapeutic international normalized ratio (INR): Status: Acute (2) Acute hypoxic respiratory failure: Status: Acute (3) Elevated INR: Status: Acute (4) Acute kidney injury: Status: Acute (5) CHF exacerbation: Status: Acute Plan 83-year-old female with a past medical history of heart failure (echo 11/09/23 EF 40-50%),? hypertension, hyperlipidemia, CAD, paroxysmal atrial fibrillation (on coumadin), mechanical mitral valve replacement, aortic stenosis,? sick sinus syndrome status post pacemaker? admitted to ICU for management of acute hypoxic respiratory failure due to Congestive heart failure exacerbation Acute hypoxic respiratory failure 2/2 Acute on chronic?Congestive heart failure w exacerbation improving slowly Continue lasix drip Echo showing, mildly increased left ventricular wall thickness. EF 40-45%.moderate aortic valve stenosis. The peak aortic velocity is 2.70 m/s. I\O Wean O2 down as tolerated Cardiology suggesting [place] [facility] [place] given severe . ?[place] 2/2 Cardiorenal syndrome Cr improved to 1.3 Continue diuresis Follow BMP Subtherapeutic INR:? INR 1.5 today Increase Coumadin to 4 mg and bridge with Lovenox full dose Paroxysmal Afib rate controlled, continue Amiodarone and Metoprolol DVT PPx Lovenox The patient will need overnight hospital stay for treatment of CHF exacerbation on IV lasix drip and O2 supplement Quality Stroke Does the patient have a stroke diagnosis?: No VTE Prior VTE?: No VTE Risk Level:: Medical - moderate - high VTE Device Contraindication: N/A - Device Ordered VTE Drug Contraindication: Treatment Not Indicated
--- NOTE | 2024-04-02 14:54 | P.DS_ITS ---
DS: Providers Provider Date of Service: 04/03/24 Date of admission: 03/30/24 02:00 Date of discharge: 04/03/24 Primary care physician: Kana Ponce MD Consults: 03/30/24 16:10 Consult to Cardiology Routine Consulting [place] [facility] Reason for consultation: acute CHF exacerbation for eval and rec. DS: Diagnosis Discharge Diagnosis (1) CHF exacerbation: Status: Acute (2) Aortic stenosis: Status: Acute (3) H/O mitral valve replacement: Status: Acute (4) Atrial fibrillation: Status: Acute (5) Subtherapeutic international normalized ratio (INR): Status: Acute (6) Acute hypoxic respiratory failure: Status: Acute (7) Elevated INR: Status: Acute (8) Acute kidney injury: Status: Acute DS: Summary Hospital Course Hospital Course: Admission note HPI by ICU provider ?The patient is a 83-year-old female with a past medical history of heart failure (echo 11/09/23 EF 40-50%),? hypertension, hyperlipidemia, CAD, paroxysmal atrial fibrillation (on coumadin), mechanical mitral valve replacement, aortic stenosis,? sick sinus syndrome status post pacemaker who presented to the emergency department? due to shortness of breath.? Patient reported dyspnea for the past month, was back spasm.? She also reported her INR was >8? today and was told to stop Coumadin.? Does report occasional cough. On arrival to the emergency department patient tachypneic, hypotensive to 84/49, hypoxic requiring CPAP Laboratory data significant for WBC of 11, INR of 6.5, serum bicarb 30, BUN 54, creatinine 2.20, BNP 2670 Initially patient received 20 mg of IV push Lasix and was placed on CPAP, was able to be off CPAP but she continued to be tachypneic, in mild respiratory distress,? with blood pressure of systolic of 80s. Requiring additional dose of lasix? Hospital course # Acute hypoxic respiratory failure secondary to Acute on chronic?Congestive heart failure w exacerbation The patient was admitted to ICU briefly as CXR showed worsening pulmonary edema, BNP 2670 placed on CPAP and monitored overnight in the Unit with improvement as she was weaned down to nasal cannula and started on lasix drip with daily negative balance of 1-1.5L. Echo showing, mildly increased left ventricular wall thickness. EF 40-45%.moderate aortic valve stenosis. The peak aortic velocity is 2.70 m/s. She was evaluated by medical device sales representative who [place] [facility] [place] given severe . #?MILTON secondary to Cardiorenal syndrome? Creatinine elevated on presentation at 2.2. improved with diuresis down to 1.3 at the day of discharge. Continue diuresis as tolerated. # Subratherapeutic AND Subtherapeutic INR:? On Presentation INR was almost 6 and the patient recent PO vit K in ED. INR Dropped quickly and she was started on full dose Lovenox bridging the Warfarin. INR 1.5 today. Continue Lovenox and Warfarin w INR goal 2.5-3.5. Discharge plan [place] [facility] [place] and continuing evaluation for TAVR. Time Attestation Discharge Coordination Time (in mins): 42 Quality: Safe Use of Opioids Does Pt have an Active Cancer Diagnosis on the Problem List?: No Quality: Stroke Does the patient have a stroke diagnosis?: No Physical Exam Vital Signs: Vital Signs: Last Vital Signs Temp 97.2 F 04/02/24 11:24 Pulse 71 04/02/24 11:24 Resp 20 04/02/24 11:24 BP 102/54 L 04/02/24 11:24 Pulse Ox 98 04/02/24 07:37 O2 Del Method Nasal Cannula 04/02/24 11:24 O2 Flow Rate 1 04/02/24 11:24 BMI result Body Mass Index 23.2 Const: Other: Constitutional : Awake, interactive, not in distress Neck : Normal inspection, Supple Cardiovascular : RRR, elevated JVP, trace lower extremity edema Respiratory : fair bilateral air entry, basal fine crackles, no wheezes or rhonchi, systolic murmur Gastrointestinal: soft, lax, Normal bowel sounds, Non tender Skin : Warm, Dry Neurological : Alert & oriented x3, No focal deficit DS: Data Data Completed and Pending Completed studies during hospitalization [Text1]: Procedures Inspection of Upper Intestinal Tract, Via Natural or Artificial Opening Endoscopic (07/04/23) Transfusion of Nonautologous Red Blood Cells into Peripheral Vein, Percutaneous Approach (07/04/23) Labs on day of discharge: Laboratory Results - last 24 hr 04/02/24 04/02/24 06:37 06:46 PT 17.3 H INR 1.5 H Sodium 142 Potassium 3.7 Chloride 99 Carbon Dioxide 34 H Anion Gap 13 BUN 37 H Creatinine 1.30 Estim Creat Clear Calc 23.7 Estimated GFR 39 Random Glucose 84 Calcium 9.4 B-Natriuretic Peptide 1077 H Imaging Chest x-ray: Radiologist's impression: ITS Impressions Chest X-Ray 03/29/24 14:40 IMPRESSION: Vascular prominence, with patchy airspace opacities in bilateral lungs could reflect pulmonary edema versus inflammatory/infectious process. Electronically signed by: Connor Freire MD 03/29/2024 03:48 PM EDT RP Discharge Plan Discharge Anticipated Discharge Date/Time: 04/02/24 14:51 Patient Disposition: Xfer Acute Care Hospital Discharge Diagnosis: Heart failure exacerbation Aotric steosis Referrals: Kana Ponce MD [Primary Care Provider] - 1 Week Discharge Medications: New enoxaparin 60 mg/0.6 mL Syringe 50 mg subcut Q12H 1 Days Qty: 1 0RF Continued amiodarone 200 mg tablet 200 mg PO DAILY Qty: 90 1RF furosemide [Lasix] 40 mg tablet 40 mg PO BID Qty: 90 2RF cyclobenzaprine 10 mg tablet 10 mg PO TID Jardiance 10 mg tablet 10 mg PO DAILY Qty: 90 0RF Rx Instructions: Have pt call to schedule follow up appointment. warfarin 2.5 mg tablet 2.5 mg PO DAILY@1800 Rx Instructions: Pt has been on hold since 03/27 due to INR levels. alendronate 70 mg tablet 70 mg PO SA pravastatin 40 mg tablet 40 mg PO BEDTIME metoprolol tartrate 50 mg tablet 50 mg PO BID multivitamin [Daily Multi-Vitamin] Tablet 1 tab PO DAILY cholecalciferol (vitamin D3) 25 mcg (1,000 unit) capsule 25 mcg PO DAILY pantoprazole 20 mg tablet,delayed release (DR/EC) 20 mg PO BID@0630,1630 Held amlodipine 2.5 mg tablet 2.5 mg PO DAILY Qty: 90 3RF Hold Instructions: Low BP Discharge Orders: Discharge Order (Routine); Ordered 04/03/24 Ordered By: Dolores Shea Diet: Advance to usual diet Activity on Discharge: As tolerated Stand Alone Forms: Patient Portal Discharge page Print Language: Chinese Care Plan Goals: Transfer to [facility] Concerns: Aortic valve replacement Plan of Treatment: Read below Assessment: Read below Discharge Date/Time: 04/03/24 12:51
[2024-04-02] MEDS: Warfarin Sodium 4 MG TABLET PO (17:43)
[2024-04-02] MEDS: Acetaminophen 325 MG TABLET 650 MG PO (20:33)
[2024-04-02] MEDS: Pravastatin Sodium 40 MG TABLET PO (20:34)
[2024-04-02] MEDS: Benzonatate 100 MG CAPSULE PO (20:34)
[2024-04-03 03:19] VITALS: BP 130/69; PULSE 65; RESP 20; TEMP 36.2; O2SAT 93
[2024-04-03 04:46] VITALS: BMI 21.7
[2024-04-03] MEDS: Omeprazole 20 MG CAPSULE.DR PO (06:34)
[2024-04-03 06:59] LABS: Anion Gap 12 (12-20); Blood Urea Nitrogen 35 mg/dL (9-16); Calcium 9.7 mg/dL (8.4-10.2); Carbon Dioxide 37 mmol/L (22-29); Chloride 99 mmol/L (96-108); Creatinine Clr Calc Pharmacy 19.6; Estimated Glomerular Filt Rate 34; Glucose Random 87 mg/dL (60-115); Sodium 144 mmol/L (135-145)
[2024-04-03 07:02] LABS: INTERNATIONAL NORM RATIO 1.5 (0.9-1.1); Prothrombin Time 17.8 SEC (10.9-12.4)
[2024-04-03 07:06] LABS: B Type Natriuretic Peptide 1142 pg/mL (<100)
[2024-04-03 08:00] VITALS: BP 122/59; PULSE 82; RESP 20; TEMP 36.5; O2SAT 94
[2024-04-03] MEDS: Multivitamin TABLET 1 TAB PO (09:02)
[2024-04-03] MEDS: Metoprolol Tartrate 25 MG TABLET PO (09:03)
[2024-04-03] MEDS: Amiodarone HCL 200 MG TABLET PO (09:03)
[2024-04-03] MEDS: Empagliflozin 25 MG TABLET PO (09:03)
[2024-04-03] MEDS: Enoxaparin Sodium 60 MG/0.6 ML SYRINGE 50 MG SUBCUT (09:03)
[2024-04-03] MEDS: polyethylene glycoL 3350 17 GM POWD.PACK PO (09:04)
--- NOTE | 2024-04-03 09:04 | PM.PNCARD ---
Subjective Subjective Date of Service: 04/03/24 Principal diagnosis: CHF, aortic stenosis. Interval history: Patient says she is breathing better. She was diuresed and 1.8 L. Creatinine is bouncing up. She was planned to be transferred to [facility] for inpatient TAVR evaluation. However she is still here due to bed situation. Still requiring oxygen. Review of Systems Constitutional: Reports weakness Cardiovascular: Denies leg edema, Denies lightheadedness and Reports dyspnea on exertion Respiratory: Reports dyspnea on exertion Reports system reviewed and no additional complaints, except as documented and Reports weakness Physical Exam Vital Signs: Last Vital Signs Temp 97.7 F 04/03/24 08:00 Pulse 82 04/03/24 08:00 Resp 20 04/03/24 08:00 BP 122/59 L 04/03/24 08:00 Pulse Ox 94 04/03/24 08:00 O2 Del Method Nasal Cannula 04/03/24 08:00 O2 Flow Rate 3 04/03/24 08:00 BMI result Body Mass Index 21.7 Const General: cooperative, alert, awake and in distress mild and respiratory Nutritional Appearance: thin Orientation/consciousness: patient oriented x3 Neck Neck: Yes trachea midline, Yes supple and Yes no JVD Resp Effort & Inspection: normal respiratory effort Auscultation: crackles bilateral at the base Cardio Jugular venous distension: no JVD Rate: regular rate Rhythm: regular rhythm Heart sounds: Clicking heart sound present (Tyler opening and closing click of mitral valve) and Murmur heart sound present systolic late, decrescendo and crescendo GI Auscultation: normal bowel sounds Skin General skin exam: no rashes or lesions noted and ecchymosis Neuro General: patient oriented x3 and no focal motor deficits Extrem General: Yes no clubbing, cyanosis or edema Objective Labs and Meds 04/01/24 05:43 04/03/24 06:23 Lab results: Laboratory Results - last 24 hr 04/03/24 06:23 PT 17.8 H INR 1.5 H Sodium 144 Potassium 4.0 Chloride 99 Carbon Dioxide 37 H Anion Gap 12 BUN 35 H Creatinine 1.45 H Estim Creat Clear Calc 19.6 Estimated GFR 34 Random Glucose 87 Calcium 9.7 B-Natriuretic Peptide 1142 H Progress Note: A&P Assessment and plan (1) Acute hypoxic respiratory failure: Status: Acute Assessment and Plan: Patient persistent hypoxemia despite adequate diuresis. Creatinine is going up. She still has crackles at lung bases. Question this represents atelectasis or other etiology. I would suggest noncontrast CTA of the lungs to assess for that. Other possibilities include amiodarone toxicity. Will need to follow this. I would consider switching to oral diuretic therapy at this point time. Strict intake and output chart needs to be pursued. Out of bed to chair incentive spirometry. Further treatment based on the finding of chest CT. Continue supportive care. Possible that she might have underlying recurrent atrial fibrillation. Will need to check pacer function. (2) Aortic stenosis: Status: Acute Assessment and Plan: Aortic stenosis which appears to be moderately severe. Question contributing to heart failure syndrome. This is not very clear from a overall clinical scenario. Being seen by TAVR team at [facility] and planned to be transferred to [facility] for further evaluation as inpatient to facilitate more urgent TAVR as outpatient. Waiting for bed assignment. (3) H/O mitral valve replacement: Status: Acute Assessment and Plan: History of mechanical mitral valve replacement. Subtherapeutic INR on presentation. Continue Lovenox bridging. Continue load with warfarin. SBE prophylaxis as needed. Will continue to follow with you Time Spent With Patient Time: Total time managing care of this patient today ____ minutes. Progress Note: Quality Stroke Does the patient have a stroke diagnosis?: No Procedures Date of Service Date of Service: 04/03/24
[2024-04-03] MEDS: Docusate Sodium 100 MG CAPSULE PO (09:08)
[2024-04-03 09:45] LABS: Magnesium 2.3 mg/dL (1.6-2.6)
[2024-04-03 10:04] VITALS: BP 122/59; PULSE 82; O2SAT 94
[2024-04-03] MEDS: Furosemide 200 MG in 0.9 % Sodium Chloride 80 ML IVCONT (11:33)
[2024-04-03 12:00] VITALS: BP 114/58; PULSE 72; RESP 20; TEMP 36.4; O2SAT 98
== END 2024-04-03 12:51 | disposition short-term general hospital (02) | DRG 291 ==
LOC: HO.ED 20:51 → HO.EDOVER 03-30 02:05 → HO.ICU 03-30 03:22 → HO.IMC 03-30 14:23
PROVIDERS: Internal Medicine Pulmonary Disease; Physician Assistant; Student in an Organized Health Care Education/Training Program; Admitting Provider Registered Nurse Community Health; Emergency Provider Student in an Organized Health Care Education/Training Program; PCP Internal Medicine; Visit Provider Student in an Organized Health Care Education/Training Program
DX: I13.0 Hypertensive heart and chronic kidney disease with heart failure and stage 1 through stage 4 chronic kidney disease, or unspecified chronic kidney disease (principal); J96.01 Acute respiratory failure with hypoxia; J98.11 Atelectasis; N17.9 Acute kidney failure, unspecified; N18.9 Chronic kidney disease, unspecified; I50.9 Heart failure, unspecified; I49.5 Sick sinus syndrome; Z95.0 Presence of cardiac pacemaker; Z95.2 Presence of prosthetic heart valve; E78.5 Hyperlipidemia, unspecified; I25.10 Atherosclerotic heart disease of native coronary artery without angina pectoris; I48.0 Paroxysmal atrial fibrillation; T46.2X5A Adverse effect of other antidysrhythmic drugs, initial encounter; I95.9 Hypotension, unspecified; R79.1 Abnormal coagulation profile; I35.0 Nonrheumatic aortic (valve) stenosis; Z20.822 Contact with and (suspected) exposure to COVID-19; Z79.01 Long term (current) use of anticoagulants; Z79.899 Other long term (current) drug therapy
CPT/HCPCS: 0241U; 36415; 71045; 80048; 80053; 80076; 81001; 82040; 82803; 83605; 83735; 83880; 84100; 84484; 85025; 85027; 85610; 85730; 86850; 86900; 86901; 87086; 93005; 93306; 97110; 97116; 97162; 99211; 99285; C1758; J1205; J1650; J1940; J3430; P9047; Q9957

== ENCOUNTER 2024-03-30 02:00 | Outpatient (BNV) | payer MEDICARE, SELFPAY | END 2024-03-31 07:00 | PROVIDERS: Admitting Provider Registered Nurse Community Health; Emergency Provider Student in an Organized Health Care Education/Training Program; PCP Internal Medicine; Visit Provider Internal Medicine Cardiovascular Disease | DX: I35.2 Nonrheumatic aortic (valve) stenosis with insufficiency (principal); Z95.2 Presence of prosthetic heart valve; I36.1 Nonrheumatic tricuspid (valve) insufficiency | CPT/HCPCS: 93306 ==

== ENCOUNTER → 2024-03-30 02:00 | Outpatient (BNV) | payer MEDICARE, SELFPAY | PROVIDERS: Admitting Provider Registered Nurse Community Health; Emergency Provider Student in an Organized Health Care Education/Training Program; PCP Internal Medicine; Visit Provider Registered Nurse Community Health | DX: N17.9 Acute kidney failure, unspecified (principal); I50.9 Heart failure, unspecified; J96.01 Acute respiratory failure with hypoxia; R79.1 Abnormal coagulation profile | CPT/HCPCS: 99291 ==

== ENCOUNTER → 2024-03-30 02:00 | Outpatient (BNV) | payer MEDICARE, SELFPAY | PROVIDERS: Admitting Provider Registered Nurse Community Health; Emergency Provider Student in an Organized Health Care Education/Training Program; PCP Internal Medicine; Visit Provider Internal Medicine Cardiovascular Disease | DX: J96.01 Acute respiratory failure with hypoxia (principal); I35.0 Nonrheumatic aortic (valve) stenosis; Z95.2 Presence of prosthetic heart valve | CPT/HCPCS: 99223; 99233 ==

== ENCOUNTER → 2024-03-30 02:00 | Outpatient (BNV) | payer MEDICARE, SELFPAY | PROVIDERS: Admitting Provider Registered Nurse Community Health; Emergency Provider Student in an Organized Health Care Education/Training Program; PCP Internal Medicine; Visit Provider Student in an Organized Health Care Education/Training Program | DX: J96.01 Acute respiratory failure with hypoxia (principal); N17.9 Acute kidney failure, unspecified; I50.9 Heart failure, unspecified; Z95.2 Presence of prosthetic heart valve; Z79.01 Long term (current) use of anticoagulants; R79.1 Abnormal coagulation profile | CPT/HCPCS: 99233; 99239 ==

== ENCOUNTER → 2024-04-17 13:04 | Outpatient (BNVA) | payer MEDICARE, SELFPAY | PROVIDERS: PCP Internal Medicine; Visit Provider Internal Medicine ==

== ENCOUNTER → 2024-04-17 23:59 | Outpatient (BNV) | payer MEDICARE, SELFPAY ==
--- NOTE | 2024-04-30 17:14 | A.OFFVIS_ITS ---
Intake Visit Reasons: Remote Device Check- [employer] Allergies Sulfa (Sulfonamide Antibiotics) Allergy (Unknown, Verified 04/20/24 11:55) UNKNOWN - DOES NOT REMEMBER [facility] Medical History Congestive heart failure Atrial fibrillation Aortic stenosis H/O mitral valve replacement (~1996) Persistent atrial fibrillation Cardiac pacemaker in situ (~2009) Mixed hyperlipidemia Current use of retirement anticoagulation Osteoporosis (~2005) HTN (hypertension) Paroxysmal atrial fibrillation Sick sinus syndrome (~2009) Surgical History History of ventral hernia repair History of kyphoplasty (~2011) History of cardiac pacemaker (~2009) History of meniscectomy of right knee (~2012) History of mitral valve replacement (~1996) History of mitral valve repair (~1992) History of right knee surgery (~2017) Family History Father No problems noted. Mother No problems noted. Social History Household Members: None Housing: House Housing Other:: 2 family on firstr floor Do you presently have visiting nurse or other home services: Yes Alcohol intake: never Patient Tobacco Use Status: Never used Tobacco e-Cigarette/Vaping Use: Never Used Second Hand Smoke Exposure: No Advance Directives Date on File: 07/11/23 service: No Current occupational exposures/hazards: No Office Procedures Cardiac Device Check Cardiac Device Check Details: Remote pacemaker report generated 04/19/2024. Pacemaker function is adequate [id number] Cardiac Device Interrogation, pacemaker Procedure code (CPT) selection complete Results AMB INR Fingerstick AMB INR Fingerstick 4.0 Last Edit by Bindu Kirby RN on 04/17/24 14:40 Assessment & Plan Assessment & Plan (1) Cardiac pacemaker in situ: Onset Date: ~2009 Comment: ([employer] DCPP - placed 2009, generator changes in 2015 & 2020) Code(s): Z95.0 - Presence of cardiac pacemaker Category: Medical Plan: See above Coding Level of Care Code Procedure Only Diagnoses Cardiac pacemaker in situ Z95.0 CPT Codes Cardiac Device Check - Cardiac Device 12: [id number] Cardiac Device Interrogation, pacemaker ([id number])
== END ==
PROVIDERS: PCP Internal Medicine; Visit Provider Internal Medicine Cardiovascular Disease
DX: Z45.018 Encounter for adjustment and management of other part of cardiac pacemaker (principal)
CPT/HCPCS: 93294

== ENCOUNTER → 2024-04-18 13:11 | Outpatient (BNVA) | payer MEDICARE, SELFPAY | PROVIDERS: PCP Internal Medicine; Visit Provider Internal Medicine ==

== ENCOUNTER → 2024-04-19 09:01 | Outpatient (BNVA) | payer MEDICARE, SELFPAY | PROVIDERS: PCP Internal Medicine; Visit Provider Internal Medicine ==

== ENCOUNTER → 2024-04-20 11:55 | Outpatient (BNVA) | payer MEDICARE, SELFPAY | PROVIDERS: PCP Internal Medicine; Visit Provider Internal Medicine ==